=== PATIENT | male | born 1995 | race Caucasian/White ===

== ENCOUNTER 2020-06-15 21:24 | Inpatient (IN) | payer MEDICARE, MEDICAID, SELFPAY ==
[2020-06-15 21:35] VITALS: BP 139/60; PULSE 109; RESP 18; TEMP 37.4; O2SAT 99; BMI 21.4
--- NOTE | 2020-06-15 22:17 | XR_ITS ---
EXAMINATION: XR CHEST CLINICAL INFORMATION: Sickle cell pain. Complaining of shortness of breath COMPARISON: None TECHNIQUE: Frontal view of the chest was obtained. FINDINGS: There are coarse interstitial opacities at the right lateral lung base. No focal consolidation. No pleural effusion or pneumothorax. No pulmonary edema. Normal heart size. XR/XR chest 1V IMPRESSION: There are coarse interstitial opacities of the right lung base, nonspecific. No priors available for comparison. This could represent acute infection including viral pneumonitis.
--- NOTE | 2020-06-15 22:25 | ED.GENADULT ---
HPI - General Adult General Chief complaint: General Medical Stated complaint: Sickle Cell/Crisis Time Seen by Provider: 06/15/20 22:03 Source: patient Mode of arrival: ambulatory Limitations: no limitations History of Present Illness HPI narrative: patient comes to emergency room complaining of a sickle cell crisis. Patient states for the last 3 days he has been complaining of diffuse body aches, much worse in his right hip and right leg. 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 Patient denies fever or coughing. Patient is usually seen in [place] for Hematology and Oncology. Of note, patient prefers to be called Harley. SMALL complaint: sickle cell crisis Related Data Allergies Allergy/AdvReac Type Severity Reaction Status Date / Time morphine AdvReac Agitated Verified 06/15/20 22:24 oxycodone AdvReac Agitated Verified 06/15/20 22:24 Review of Systems Review of Systems: Constitutional : complaining of fatigue, generalized malaise, no fever no chills ENT/Mouth : No Hearing loss, No Ear Pain, No Nasal Congestion, No Sinus Pain, No Hoarseness, No sore throat, No Rhinorrhea, No Swallowing Difficulty Eyes: No Eye Pain, No Swelling, No Redness, No Foreign Body, No Discharge, No Vision Changes Cardiovascular : No Chest Pain, No SOB, No Dyspnea on Exertion, No Orthopnea, No Edema, No Palpitations Respiratory : No Cough, No Sputum, No Wheezing, No Smoke Exposure, No Dyspnea Gastrointestinal : No Nausea, No Vomiting, No Diarrhea, No Constipation, No abdominal Pain, No Hematochezia, No Melena Genitourinary : no irregular bleeding, No Dysuria, No Urinary Frequency, No Hematuria, No Urinary Incontinence, No Urgency, No Flank Pain, No Urinary Flow Changes, No Hesitancy Musculoskeletal : diffuse body ache, worse in the right hip and right lower extremity Skin : No Skin Lesions, No rash Neuro : No Weakness, No Numbness, No Paresthesias, No Loss of Consciousness, No Dizziness, No Headache Psych : No Anxiety/Panic, No Depression, No SI/HI/AH/VH, No Social Issues, Heme/Lymph: No Bruising, No Bleeding,No Lymphadenopathy, complaining of sickle cell exacerbation Endocrine : No Polyuria, No Polydipsia, No Temperature Intolerance [facility] Past Medical History Medical History (Updated 06/16/20 @ 01:05 by Kayce Villavicencio MD) Sickle cell anemia with crisis Social History Social History Smoking Status: Former smoker Use of substances other than those prescribed or required for medical reasons: No Advance Directives: No Advance Directives Information Provided: Yes Physical Exam Vital Signs: Vital Signs: Last Vital Signs Temp 98.1 F 06/15/20 23:54 Pulse 121 H 06/15/20 23:54 Resp 18 06/15/20 23:54 BP 127/70 06/15/20 23:54 Pulse Ox 95 06/15/20 23:54 Body Mass Index 21.4 Appearance: Alert. Oriented X3. No acute distress. Eyes: Pupils equal, round and reactive to light. ENT: Pharynx normal. Neck: Normal inspection. Neck supple. No lymph nodes noted. No crepitus CVS: Normal heart rate and rhythm. Pulses normal. Normal S1 and S2 Respiratory: No respiratory distress. Breath sounds normal. No Wheezing. No rales Abdomen: Soft and nontender. No rigidity. No distention. good BS x4 Skin: Skin warm and dry. Normal skin color. Normal skin turgor. Extremities: pain to palpation on upper back, right hip and right lower extremity, no edema Neuro: Oriented X 3. No motor deficit. No sensory deficit. Moving all extermities. No slurred speech. Course Course Course Narrative: Patient continues having intense pain despite 3 mg of Dilaudid. Patient being admitted for pain control. At this time acute chest syndrome is not suspected. Medical Decision Making Lab Data Result diagrams: 06/15/20 22:35 06/15/20 22:35 Labs: Lab Results 06/15/20 06/15/20 06/15/20 Range/Units 22:35 22:35 23:43 WBC 11.6 H (4.8-10.8) X10*3/uL RBC 2.27 L (4.60-5.80) X10*6/uL Hgb 8.2 L (14.0-18.0) g/dl Hct 22.3 L (42-52) % MCV 98.2 H (80-98) fL MCH 36.1 H (27.0-33.0) pg MCHC 36.8 H (31.0-36.0) g/dl RDW 21.1 H (11.0-16.0) % Plt Count 428 H (160-400) X10*3/uL MPV 9.1 L (9.4-12.4) fL Immature Gran % (Auto) 0.6 H (0.0-0.4) % Neut % (Auto) 49.4 (45-73) % Lymph % (Auto) 33.8 (20-40) % [place] % (Auto) 12.6 H (2-11) % Eos % (Auto) 3.0 (0-4) % Baso % (Auto) 0.6 (0-2) % Lymph # (Auto) 3.9 (1.2-4.9) X10*3/uL [place] # (Auto) 1.5 H (0.1-1.2) X10*3/uL Eos # (Auto) 0.4 (0.0-0.4) X10*3/uL Baso # (Auto) 0.1 (0.0-0.2) X10*3/uL Abs Immat Gran (auto) 0.07 H (0.00-0.03) X10*3/uL Absolute Neuts (auto) 5.7 (2.0-8.3) X10*3/uL Absolute Nucleated RBC 0.090 H (0.0-0.012) X10*3/uL Nucleated RBC % (auto) 0.8 H (0.0-0.2) /100WBC Smear Tech's Comments VERIFIED Absolute Retic 0.082 (0.026-0.095) X10*6/uL Percent Retic 35.1 H (0.5-1.8) % Immature Retic Fraction 36.2 H (2.3-13.4) % Retic Hgb Equivalent 32.3 (30.0-35.0) pg Sodium 136 (135-145) mmol/L Potassium 4.6 (3.3-5.1) mmol/l Chloride 104 (96-108) mmol/L Carbon Dioxide 22 (22-29) mmol/L Anion Gap 15 (12-20) BUN 7 L (9-16) mg/dL Creatinine 0.61 (0.5-1.4) mg/dL Estim Creat Clear Calc 173.7 Estimated GFR > 60 Random Glucose 93 (60-115) mg/dL Calcium 8.9 (8.4-10.2) mg/dL Total Bilirubin 2.5 H (0.0-1.0) mg/dL Direct Bilirubin 0.8 H (0.0-0.5) mg/dL AST 66 H (5-37) U/L ALT 26 (0-40) U/L Alkaline Phosphatase 80 (39-117) U/L Total Protein 8.5 H (6.5-8.0) g/dL Albumin 4.4 (3.5-5.0) g/dL Urine Color YELLOW Urine Appearance CLEAR Urine pH 7.5 (5.0-8.0) Ur Specific [place] 1.020 (1.005-1.025) Urine Protein NEG (NEG-TRACE) MG/DL Urine Glucose (UA) NEG (NEG) MG/DL Urine Ketones NEG (NEG) MG/DL Urine Blood TRACE (NEG) Urine Nitrite NEG (NEG) Ur Leukocyte Esterase NEG (NEG) Urine RBC 0-2 (0) /HPF Urine WBC 0-2 (0-4) /HPF Ur Squamous Epith Cells 2+ /LPF Urine Bacteria TRACE /LPF Imaging Data Chest x-ray: Radiologist's impression: There are coarse interstitial opacities at the right lateral lung base. No focal consolidation. No pleural effusion or pneumothorax. No pulmonary edema. Normal heart size. XR/XR chest 1V IMPRESSION: There are coarse interstitial opacities of the right lung base, nonspecific. No priors available for comparison. This could represent acute infection including viral pneumonitis. Discharge Plan Discharge Clinical Impression: Sickle cell anemia with pain Patient Disposition: Admitted As Inpatient
[2020-06-15 22:27] VITALS: BP 132/77; PULSE 112; RESP 18; TEMP 37.7; O2SAT 95
[2020-06-15] MEDS: 0.9 % Sodium Chloride 1,000 ML 999 ML IVCONT ×2 (22:39→23:41)
[2020-06-15 22:41] LABS: Basophils Absolute Auto 0.1 X10*3/uL (0.0-0.2); Basophils Percent Auto 0.6 % (0-2); Eosinophils Absolute Auto 0.4 X10*3/uL (0.0-0.4); Hematocrit 22.3 % (42-52); Hemoglobin 8.2 g/dl (14.0-18.0); Imm Gran Abs Auto 0.07 X10*3/uL (0.00-0.03); Imm Gran Pct Auto 0.6 % (0.0-0.4); Lymphocytes Absolute Auto 3.9 X10*3/uL (1.2-4.9); Lymphocytes Percent Auto 33.8 % (20-40); Mean Corpuscular HGB Conc 36.8 g/dl (31.0-36.0); Mean Corpuscular Hemoglobin 36.1 pg (27.0-33.0); Mean Corpuscular Volume 98.2 fL (80-98); Mean Platelet Volume 9.1 fL (9.4-12.4); Monocytes Absolute Auto 1.5 X10*3/uL (0.1-1.2); Monocytes Percent Auto 12.6 % (2-11); NRBC Pct Auto 0.8 /100WBC (0.0-0.2); Neutrophils Absolute Auto 5.7 X10*3/uL (2.0-8.3); Neutrophils Percent Auto 49.4 % (45-73); Platelet Count 428 X10*3/uL (160-400); Red Blood Count 2.27 X10*6/uL (4.60-5.80); Red Cell Distribution Width 21.1 % (11.0-16.0); White Blood Count 11.6 X10*3/uL (4.8-10.8)
[2020-06-15] MEDS: HYDROmorphone HCl 1 MG/ML SYRINGE IVPUSH ×2 (22:41→23:40)
[2020-06-15 23:05] LABS: Immature Retic Fraction 36.2 % (2.3-13.4); Retic HGB Equivalent 32.3 pg (30.0-35.0); Reticulocytes Absolute 0.082 X10*6/uL (0.026-0.095)
[2020-06-15 23:07] LABS: Alanine Aminotransferase 26 U/L (0-40); Albumin Level 4.4 g/dL (3.5-5.0); Alkaline Phosphatase 80 U/L (39-117); Anion Gap 15 (12-20); Aspartate Amino Transferase 66 U/L (5-37); Bilirubin Direct 0.8 mg/dL (0.0-0.5); Bilirubin Total 2.5 mg/dL (0.0-1.0); Blood Urea Nitrogen 7 mg/dL (9-16); Calcium 8.9 mg/dL (8.4-10.2); Carbon Dioxide 22 mmol/L (22-29); Chloride 104 mmol/L (96-108); Creatinine Clr Calc Pharmacy 173.7; Estimated Glomerular Filt Rate > 60; Glucose Random 93 mg/dL (60-115); Potassium 4.6 mmol/l (3.3-5.1); Sodium 136 mmol/L (135-145); Total Protein 8.5 g/dL (6.5-8.0)
[2020-06-15 23:08] LABS: Reticulocyte Percent 35.1 % (0.5-1.8)
[2020-06-15 23:13] LABS: MANUAL DIFF FLAG SCAN; SCAN SMEAR FLAG 1
[2020-06-15 23:14] LABS: SLIDE REVIEW VERIFIED
[2020-06-15 23:54] VITALS: BP 127/70; PULSE 121; RESP 18; TEMP 36.7; O2SAT 95
[2020-06-15 23:54] LABS: Glucose Urine UA NEG (NEG); Leukocyte Esterase Urine NEG (NEG); Nitrite Urine NEG (NEG); PH 7.5 (5.0-8.0); Urine Blood TRACE (NEG); Urine Ketones NEG (NEG); Urine Protein NEG (NEG-TRACE)
[2020-06-15 23:58] LABS: Appearance Urine CLEAR; Color Urine YELLOW
[2020-06-16] VITALS (17 sets, daily range): BP systolic 110–156; BP diastolic 66–79; PULSE 16–115; RESP 14–19; TEMP 36.2–36.6; O2SAT 93–98
[2020-06-16] LABS: Bacteria Urine TRACE /LPF; RBC Urine 0-2 /HPF (0); Squamous Epithelial Cell Urine 2+ /LPF; WBC Urine 0-2 /HPF (0-4)
--- NOTE | 2020-06-16 | CT_ITS ---
EXAMINATION: CT CHEST WITHOUT CONTRAST CLINICAL INFORMATION: Atypical pneumonia COMPARISON: Previous chest x-ray from yesterday TECHNIQUE: Multidetector volumetric CT imaging of the chest was done. Axial MIP volume rendering provided. Sagittal and coronal reformatted images were obtained. This CT examination was performed using dose optimization techniques as appropriate, variously including the following: *Automated exposure control *Adjustment of mA and/or kV according to patient size (this includes techniques or standardized protocols for targeted exams where dose is matched to indication/reason for exam; i.e. extremities or head) *Use of iterative reconstruction technique DLP: 138 mGy-cm FINDINGS: BUHR DRESSER: Unremarkable LUNGS: There is minimal atelectasis at the right lung base in the posterior costophrenic angle. There are small peripheral or subpleural nodular densities at the lung bases probably representing subpleural lymph nodes. The largest measures 3 x 7 mm in the left lower lobe axial image 471 series 7 and 3 x 8 mm in the right lower lobe axial image 500 series 7. No evidence of a pneumonia is seen. There is no endobronchial or endotracheal lesion. MEDIASTINUM: The mediastinum is normal. PLEURA: There is no pleural effusion. No pleural mass or thickening. AXILLA: No lymphadenopathy. UPPER ABDOMEN: The spleen is absent. OSSEOUS STRUCTURES: Unremarkable. CT/CT chest wo con IMPRESSION: No evidence of pneumonia. Minimal atelectasis in the right lower lobe. Small peripheral or subpleural bilateral lower lobe nodules probably representing subpleural lymph nodes. Absent spleen.
[2020-06-16] MEDS: HYDROmorphone HCl 2 MG/ML VIAL IVPUSH (00:59)
[2020-06-16] MEDS: ondansetron HCL 4 MG/2 ML VIAL IVPUSH ×3 (01:17→19:02)
[2020-06-16 01:32] LABS: COVID-19 Test Negative (Negative)
[2020-06-16] MEDS: HYDROmorphone HCl 0.5 MG/0.5 ML SYRINGE IVPUSH ×7 (03:45→21:08)
[2020-06-16] MEDS: 0.9 % Sodium Chloride 1,000 ML 100 ML IVCONT ×2 (03:45→15:17)
[2020-06-16] MEDS: Heparin Sodium,Porcine 5,000 UNIT/ML VIAL 5000 UNIT SUBCUT (03:46)
--- NOTE | 2020-06-16 04:58 | P.HPHOSP_ITS ---
History of Present Illness Date of Service: 06/16/20 Chief Complaint: sickle cell crisis this is a 25-year-old transgender female who would like to be called Harly, and referred to as she who presents to the hospital with complaints of sickle cell crisis. Patient has a history of sickle cell disease, and has now started having pain mostly in the back, Right, and joint all over. Patient reports that she has bilateral avascular necrosis, worse on the left that is being managed currently in [place]. Her pain started yesterday but worsened this a.m.. She is complaining of shortness of breath on laying down but has no lower extremity edema, and no shortness of breath on exertion. She has been having diarrhea for 1 week, as well as runny nose otherwise no cough, no sick contacts, and was tested for COVID-19 with her fiance yesterday. She denies any recent use of antibiotics. She has no urinary symptoms. She has no headache, change in vision, no abdominal pain nausea or vomiting. On arrival to the ED hemodynamically stable with no significant abnormal vitals. Pulse is 111. her hemoglobin is 8.2 with no previous 1 to compare, hematocrit of 22.3, WBC count of 11.6, total bili of 2.5, direct bili of 0.8, AST of 66, UA negative. COVID-19 negative. Chest x-ray shows coarse interst itial opacities of the right lung base. Nonspecific, no priors available for comparison. This could represent acute infection including viral pneumonitis. Past medical history: Sickle cell disease past surgical history: Status post splenectomy family history: Sickle cell in brother social history: Comes from home, denies any tobacco alcohol or illicit drugs, patient is currently undergoing transition to female. Review of Systems Review of Systems: Yes all other systems are reviewed and are negative [facility] Medical History (Updated 06/16/20 @ 05:13 by Sergey Cardoso MD) Sickle cell anemia with crisis Social History Household Members: Significant Other Housing: Apartment Do you presently have visiting nurse or other home services: No Smoking Status: Former smoker Use of substances other than those prescribed or required for medical reasons: Yes Substance Use Type: Marijuana Substance Use Frequency: Daily Last Used Substance: Days (ago) Currently Displaying Signs/Symptoms of Drug Intoxication Withdrawal: No Any prior treatment program specific to substance use: No Have you been hit, kicked, punched, or otherwise hurt by someone within the past year? If so, by whom?: No Do you feel safe in your current relationship?: Yes Is there a partner from a previous relationship who is making you feel unsafe now?: No Are you made to feel afraid or neglected: No Advance Directives: No Advance Directives Information Provided: Yes Do you have thoughts of harming others: None Do you have a plan to hurt others: No Plan Recently lost weight without trying: No Meds Allergies Allergy/AdvReac Type Severity Reaction Status Date / Time morphine AdvReac Agitated Verified 06/15/20 22:24 oxycodone AdvReac Agitated Verified 06/15/20 22:24 Home Medications Medication Instructions Recorded Confirmed Type clonidine HCl 0.1 mg PO BEDTIME PRN 06/16/20 06/16/20 History finasteride 1 mg PO DAILY 06/16/20 06/16/20 History folic acid 1 mg PO DAILY 06/16/20 06/16/20 History quetiapine [Seroquel] 200 mg PO TID 06/16/20 06/16/20 History trazodone 50 mg PO BID 06/16/20 06/16/20 History Physical Exam Vital Signs and Narrative: Vital Signs: Last Vital Signs Temp 97.8 F 06/16/20 04:00 Pulse 111 H 06/16/20 04:00 Resp 18 06/16/20 04:00 BP 154/79 H 06/16/20 04:00 Pulse Ox 93 06/16/20 04:00 Body Mass Index 21.4 Const: General: cooperative and no acute distress Orientation/consciousness: patient oriented x3 Eyes: General: appearance normal, both eyes and all related structures Pupils: Equal, round and reactive pupils present Resp: Effort & Inspection: normal respiratory effort and able to speak in complete sentences Auscultation: clear to auscultation bilaterally Cardio: Rate: regular rate Rhythm: regular rhythm GI: Palpation (GI): Soft to palpation Auscultation: normal bowel sounds Skin: General skin exam: no rashes or lesions noted Neuro: General: patient oriented x3 Cranial nerves: Yes Equal, round and reactive pupils present Cognition (Neuro): normal cognition Extrem: General: Yes normal to inspection and Yes no pedal edema Results Labs CBC and Chem 7: 06/15/20 22:35 06/15/20 22:35 Labs: Laboratory Results - last 24 hr 06/15/20 06/15/20 06/15/20 22:35 22:35 23:43 MCV 98.2 H MCH 36.1 H MCHC 36.8 H RDW 21.1 H Plt Count 428 H MPV 9.1 L Immature Gran % (Auto) 0.6 H Neut % (Auto) 49.4 Lymph % (Auto) 33.8 [place] % (Auto) 12.6 H Eos % (Auto) 3.0 Baso % (Auto) 0.6 Lymph # (Auto) 3.9 [place] # (Auto) 1.5 H Eos # (Auto) 0.4 Baso # (Auto) 0.1 Abs Immat Gran (auto) 0.07 H Absolute Neuts (auto) 5.7 Absolute Nucleated RBC 0.090 H Nucleated RBC % (auto) 0.8 H Smear Tech's Comments VERIFIED Absolute Retic 0.082 Percent Retic 35.1 H Immature Retic Fraction 36.2 H Retic Hgb Equivalent 32.3 Anion Gap 15 Estim Creat Clear Calc 173.7 Estimated GFR > 60 Random Glucose 93 Calcium 8.9 Total Bilirubin 2.5 H Direct Bilirubin 0.8 H AST 66 H ALT 26 Alkaline Phosphatase 80 Total Protein 8.5 H Albumin 4.4 Urine Color YELLOW Urine Appearance CLEAR Urine pH 7.5 Ur Specific [place] 1.020 Urine Protein NEG Urine Glucose (UA) NEG Urine Ketones NEG Urine Blood TRACE Urine Nitrite NEG Ur Leukocyte Esterase NEG Urine RBC 0-2 Urine WBC 0-2 Ur Squamous Epith Cells 2+ Urine Bacteria TRACE COVID-19 (MICHAEL) COVID-19 Clin Com 06/16/20 01:13 MCV MCH MCHC RDW Plt Count MPV Immature Gran % (Auto) Neut % (Auto) Lymph % (Auto) [place] % (Auto) Eos % (Auto) Baso % (Auto) Lymph # (Auto) [place] # (Auto) Eos # (Auto) Baso # (Auto) Abs Immat Gran (auto) Absolute Neuts (auto) Absolute Nucleated RBC Nucleated RBC % (auto) Smear Tech's Comments Absolute Retic Percent Retic Immature Retic Fraction Retic Hgb Equivalent Anion Gap Estim Creat Clear Calc Estimated GFR Random Glucose Calcium Total Bilirubin Direct Bilirubin AST ALT Alkaline Phosphatase Total Protein Albumin Urine Color Urine Appearance Urine pH Ur Specific [place] Urine Protein Urine Glucose (UA) Urine Ketones Urine Blood Urine Nitrite Ur Leukocyte Esterase Urine RBC Urine WBC Ur Squamous Epith Cells Urine Bacteria COVID-19 (MICHAEL) Negative COVID-19 Clin Com See Note Imaging Radiologist's Impressions: Impressions Chest X-Ray 06/15/20 22:17 IMPRESSION: There are coarse interstitial opacities of the right lung base, nonspecific. No priors available for comparison. This could represent acute infection including viral pneumonitis. Assessment and Plan (1) Sickle cell anemia with pain: Status: Acute (2) Sickle cell anemia with crisis: Status: Acute (3) Pneumonia: Status: Acute (4) Leukocytosis: Status: Acute is a 25-year-old female with past medical history of sickle cell disease who presents to the hospital with sickle cell crisis # sickle cell crisis - patient with acute pain and has history of avascular necrosis currently being managed at outside hospital - will manage with IV fluids, pain control # sickle cell anemia - we do not have a baseline hemoglobin but today's hemoglobin is 8.2 with el evated bilirubin plan: - Will transfuse 1 unit PRBC # interstitial opacity on x-ray concerning for pneumonia - given leukocytosis, and acute crisis will start patient on antibiotics - willobtain blood cultures - antibiotics can be DC if no further evidence of infection DVT prophylaxis: Lovenox
[2020-06-16] MEDS: Azithromycin 500 MG TABLET PO (06:03)
[2020-06-16] MEDS: cefTRIAXone sodium 1 GM in 0.9 % Sodium Chloride 50 ML IV (06:03)
[2020-06-16] MEDS: Acetaminophen 325 MG TABLET 650 MG PO (06:08)
--- NOTE | 2020-06-16 06:40 | PC.NURSE ---
Pt to floor from ED. Pt is transitioning to female and likes to be called Juan Carlos. Pt also requested to have female nurses, has history of PTSD. Pt also stated that if she is sleeping to not touch her to wake because she may swing. Sign placed on door to see nursing staff prior to entrance into room per pt request.
[2020-06-16] MEDS: 0.9 % Sodium Chloride Flush 3 ML SYRINGE IVFLUSH ×2 (08:13→15:17)
[2020-06-16] MEDS: Folic Acid 1 MG TABLET PO (08:20)
[2020-06-16] MEDS: QUEtiapine Fumarate 200 MG TABLET PO ×3 (08:20→19:03)
[2020-06-16] MEDS: traZODone HCL 50 MG TABLET PO ×2 (08:20→19:03)
--- NOTE | 2020-06-16 09:13 | MHC.CM.PN ---
CM spoke with Patient over the phone (Estela Bruner). Patient and her Fiance/HCP/Derrick live together in a rented room and Patient is mostly independent. Patient's goal is to return home and CM has initiated and will follow for dc planning. IMM addressed with Patient and a copy has been placed on the chart.Patient is a transgender female who wants to be called Harly and referred to as she. PCP and all Providers are from the [facility], per Patient.
[2020-06-16] MEDS: Hydroxyurea 500 MG CAPSULE 1500 MG PO (12:58)
--- NOTE | 2020-06-16 13:11 | PM.HEMONCCN ---
Subjective - Subjective Chief complaint: Back and lower extremity pain Consult date: 06/16/20 Primary Care Provider: Outside Physician HPI - Consult Narrative Reason for consult: Sickle cell pain crisis Narrative: Lucas Ford is a 25 year old male, transgender female called [facility], who is admitted with symptoms of back and bilateral lower extremity pain. She moved to [place] recently, her care has been in [place] since childhood. She developed symptoms of back and lower extremity pain, no fever, chills, chest pain or shortness of breath. She reports a diarrhea on and off for 1 week. She was tested negative for COVID-19. She has been admitted for IV fluids, pain control with narcotics. Her hemoglobin is not far from baseline therefore she does not appear to have a hemolytic crisis. Review of Systems - Constitutional Reports fatigue, Denies headache(s), Reports lack of energy, Reports malaise - ENT Reports no additional ear, nose, mouth, and throat complaints - Cardiovascular Reports no additional cardiovascular complaints - Respiratory Reports no additional respiratory complaints - Gastrointestinal Reports no additional gastrointestinal complaints PMFSH Medical History: Medical History (Last Updated 06/16/20 @ 13:21 by Jadyn Donahue MD) Avascular bone necrosis Sickle cell anemia with crisis Family History: Family History (Last Updated 06/16/20 @ 13:22 by Jadyn Donahue MD) Other Sickle cell anemia Surgical History: Surgical History (Last Updated 06/16/20 @ 13:21 by Jadyn Donahue MD) H/O splenectomy Smoking status: Former smoker Substance use type: does not use Home Medications and Allergies Current Medications: Current Medications Generic Name Dose Route Start Last Admin Trade Name Freq PRN Reason Stop Dose Admin Acetaminophen 650 mg 06/16/20 02:48 06/16/20 06:08 Acetaminophen 325 Mg Tablet PO 650 mg Q6H PRN Administration Pain, Mild (Pain Scale 1-3) Azithromycin 500 mg 06/16/20 05:15 06/16/20 06:03 Azithromycin 500 Mg Tablet PO 500 mg Q24H SUJIT Administration Clonidine HCl 0.1 mg 06/16/20 02:48 Clonidine Hcl 0.1 Mg Tablet PO BEDTIME PRN Anxiety Protocol Docusate Sodium 100 mg 06/16/20 02:48 Docusate Sodium 100 Mg Capsule PO DAILY PRN Constipation Enoxaparin Sodium 40 mg 06/16/20 08:00 06/16/20 08:22 Enoxaparin Sodium 40 Mg/0.4 Ml Syringe SUBCUT Not Given Q24H SUJIT Finasteride 2.5 mg 06/17/20 09:00 Finasteride 5 Mg Tablet PO DAILY SUJIT Folic Acid 1 mg 06/16/20 09:00 06/16/20 08:20 Folic Acid 1 Mg Tablet PO 1 mg DAILY SUJIT Administration Hydromorphone HCl 0.5 mg 06/16/20 02:48 06/16/20 12:57 Hydromorphone Hcl 0.5 Mg/0.5 Ml Syringe IVPUSH 0.5 mg Q2H PRN Administration Pain, Severe (Pain Scale 7-10) Hydroxyurea 1,000 mg 06/17/20 10:00 Hydroxyurea 500 Mg Capsule PO Q48H SUJIT Hydroxyurea 1,500 mg 06/16/20 10:30 06/16/20 12:58 Hydroxyurea 500 Mg Capsule PO 1,500 mg Q48H SUJIT Administration Sodium Chloride 1,000 mls @ 100 mls/hr 06/16/20 02:48 06/16/20 06:34 Ns IVCONT 100 mls/hr .Q10H SUJIT Infusion Ceftriaxone Sodium 1 gm/ 50 mls @ 100 mls/hr 06/16/20 05:15 06/16/20 06:33 Sodium Chloride IV Infused Q24H SUJIT Infusion Morphine Sulfate 4 mg 06/16/20 02:48 Morphine Sulfate 4 Mg/Ml Cartridge IVPUSH Q4H PRN Pain, Severe (Pain Scale 7-10) Ondansetron HCl 4 mg 06/16/20 02:48 06/16/20 08:46 Ondansetron Hcl 4 Mg/2 Ml Vial IVPUSH 4 mg Q8H PRN Administration Nausea and Vomiting Quetiapine Fumarate 200 mg 06/16/20 09:00 06/16/20 08:20 Quetiapine Fumarate 200 Mg Tablet PO 200 mg TID SUJIT Administration Sodium Chloride 3 ml 06/16/20 08:00 06/16/20 08:13 0.9 % Sodium Chloride Flush 3 Ml Syringe IVFLUSH 3 ml QSHIFT SUJIT Administration Trazodone HCl 50 mg 06/16/20 09:00 06/16/20 08:20 Trazodone Hcl 50 Mg Tablet PO 50 mg BID SUJIT Administration Home Medications Medication Instructions Recorded Confirmed Type clonidine HCl 0.1 mg PO BEDTIME PRN 06/16/20 06/16/20 History finasteride 1 mg PO DAILY 06/16/20 06/16/20 History folic acid 1 mg PO DAILY 06/16/20 06/16/20 History quetiapine [Seroquel] 200 mg PO TID 06/16/20 06/16/20 History trazodone 50 mg PO BID 06/16/20 06/16/20 History Allergies Allergy/AdvReac Type Severity Reaction Status Date / Time morphine AdvReac Agitated Verified 06/15/20 22:24 oxycodone AdvReac Agitated Verified 06/15/20 22:24 Physical Exam Vital signs: Vital Signs Temp 97.4 F 06/16/20 11:03 Pulse 98 06/16/20 11:03 Resp 14 06/16/20 12:57 BP 142/74 H 06/16/20 11:03 Pulse Ox 98 06/16/20 07:59 Intake & Output 06/15/20 06/16/20 06/16/20 18:59 06:59 18:59 Intake Total 2288.333 / 2288.333 0 / 0 Output Total 425 / 425 Balance 1863.333 / 1863.333 0 / 0 Urine Output (Average ml/kg/hr) 0.54 0.54 Intake: Intake (Blood Product) Amount 0 / 0 Red Blood Cells Aph (E0686) 0 / 0 Unit [id number] Intake, IV Amount 2288.333 / 2288.333 cefTRIAXone sodium 1 gm In 0.9 50 / 50 % Sodium Chloride 50 ml @ 100 mls/hr IV Q24H SUJIT Rx#: [id number] 0.9 % Sodium Chloride 1,000 ml 2238.333 / 2238.333 @ 100 mls/hr IVCONT .Q10H SUJIT Rx#:[id number] Output: Output, Urine Amount 425 / 425 Other: Urine Urinal Urine Color Punch Weight 65.771 kg Weight 65.771 kg - Constitutional Present: no acute distress - Routine HEENT Exam Head: Present: normal inspection Eye: Present: conjunctivae pale Hem/Onc Consult Result - Labs CBC & Chem 7: 06/15/20 22:35 06/15/20 22:35 Labs: Short CBC 06/15/20 Range/Units 22:35 WBC 11.6 H (4.8-10.8) X10*3/uL Hgb 8.2 L (14.0-18.0) g/dl Hct 22.3 L (42-52) % Plt Count 428 H (160-400) X10*3/uL BMP 06/15/20 22:35 Sodium 136 Potassium 4.6 Chloride 104 Carbon Dioxide 22 BUN 7 L Creatinine 0.61 Calcium 8.9 Liver Function 06/15/20 Range/Units 22:35 Total Bilirubin 2.5 H (0.0-1.0) mg/dL Direct Bilirubin 0.8 H (0.0-0.5) mg/dL AST 66 H (5-37) U/L ALT 26 (0-40) U/L Alkaline Phosphatase 80 (39-117) U/L Albumin 4.4 (3.5-5.0) g/dL Urine 06/15/20 Range/Units 23:43 Urine Color YELLOW Urine Appearance CLEAR Urine pH 7.5 (5.0-8.0) Ur Specific [place] 1.020 (1.005-1.025) Urine Protein NEG (NEG-TRACE) MG/DL Urine Glucose (UA) NEG (NEG) MG/DL Assessment and Plan (1) Sickle cell anemia with pain Status: Acute 1. This is a 25-year-old patient, transgender female with sickle cell anemia admitted with pain crisis. She is followed by maritime guard at [facility]. She is on hydroxyurea as well as folic acid daily. Hemoglobin is not far from baseline and she does not require blood transfusion. CT chest shows no evidence of pneumonia. I agree with hydration and narcotic pain control. Check labs daily, CBC, LDH and retic count. 2. Thrombocytosis probably related to splenectomy. Check iron studies. I thank you for this consultation.
[2020-06-16 14:14] LABS: Iron 119 mcg/dL (45-160); Percent Iron Saturation 44 % (15-50); Total Iron Binding Capacity 271 mcg/dL (228-428); Unsaturated Iron Binding 152 ug/dL
--- NOTE | 2020-06-16 14:24 | HO.PM.IMPN ---
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 [facility] mild nausea Physical Exam Vital Signs: Vital Signs: Last Vital Signs Temp 97.8 F 06/16/20 13:38 Pulse 94 06/16/20 13:38 Resp 14 06/16/20 13:38 BP 142/78 H 06/16/20 13:38 Pulse Ox 98 06/16/20 07:59 Body Mass Index 21.4 Gen: in no acute distress HEENT: sclera anicteric, pale conjunctivae moist mucus membranes Neck: supple Lungs: clear to auscultation bilaterally Heart: regular rate and rhythm, no murmurs Abd: soft, non-tender, non-distended Ext: no edema Skin: warm/well-perfused Neuro: alert and oriented x3, no focal findings Psych: appropriate affect Objective Data Current Medications Generic Name Dose Route Start Last Admin Trade Name Freq PRN Reason Stop Dose Admin Acetaminophen 650 mg 06/16/20 02:48 06/16/20 06:08 Acetaminophen 325 Mg Tablet PO 650 mg Q6H PRN Administration Pain, Mild (Pain Scale 1-3) Azithromycin 500 mg 06/16/20 05:15 06/16/20 06:03 Azithromycin 500 Mg Tablet PO 500 mg Q24H SUJIT Administration Clonidine HCl 0.1 mg 06/16/20 02:48 Clonidine Hcl 0.1 Mg Tablet PO BEDTIME PRN Anxiety Protocol Docusate Sodium 100 mg 06/16/20 02:48 Docusate Sodium 100 Mg Capsule PO DAILY PRN Constipation Enoxaparin Sodium 40 mg 06/16/20 08:00 06/16/20 08:22 Enoxaparin Sodium 40 Mg/0.4 Ml Syringe SUBCUT Not Given Q24H SUJIT Finasteride 2.5 mg 06/17/20 09:00 Finasteride 5 Mg Tablet PO DAILY SUJIT Folic Acid 1 mg 06/16/20 09:00 06/16/20 08:20 Folic Acid 1 Mg Tablet PO 1 mg DAILY SUJIT Administration Hydromorphone HCl 0.5 mg 06/16/20 02:48 06/16/20 12:57 Hydromorphone Hcl 0.5 Mg/0.5 Ml Syringe IVPUSH 0.5 mg Q2H PRN Administration Pain, Severe (Pain Scale 7-10) Hydroxyurea 1,000 mg 06/17/20 10:00 Hydroxyurea 500 Mg Capsule PO Q48H SUJIT Hydroxyurea 1,500 mg 06/16/20 10:30 06/16/20 12:58 Hydroxyurea 500 Mg Capsule PO 1,500 mg Q48H SUJIT Administration Sodium Chloride 1,000 mls @ 100 mls/hr 06/16/20 02:48 06/16/20 06:34 Ns IVCONT 100 mls/hr .Q10H SUJIT Infusion Ceftriaxone Sodium 1 gm/ 50 mls @ 100 mls/hr 06/16/20 05:15 06/16/20 06:33 Sodium Chloride IV Infused Q24H SUJIT Infusion Morphine Sulfate 4 mg 06/16/20 02:48 Morphine Sulfate 4 Mg/Ml Cartridge IVPUSH Q4H PRN Pain, Severe (Pain Scale 7-10) Ondansetron HCl 4 mg 06/16/20 02:48 06/16/20 08:46 Ondansetron Hcl 4 Mg/2 Ml Vial IVPUSH 4 mg Q8H PRN Administration Nausea and Vomiting Quetiapine Fumarate 200 mg 06/16/20 09:00 06/16/20 08:20 Quetiapine Fumarate 200 Mg Tablet PO 200 mg TID SUJIT Administration Sodium Chloride 3 ml 06/16/20 08:00 06/16/20 08:13 0.9 % Sodium Chloride Flush 3 Ml Syringe IVFLUSH 3 ml QSHIFT SUJIT Administration Trazodone HCl 50 mg 06/16/20 09:00 06/16/20 08:20 Trazodone Hcl 50 Mg Tablet PO 50 mg BID SUJIT Administration Labs CBC & Chem 7: 06/15/20 22:35 06/15/20 22:35 Labs: Laboratory Results - last 24 hr 06/15/20 06/15/20 06/15/20 22:35 22:35 23:43 WBC 11.6 H RBC 2.27 L Hgb 8.2 L Hct 22.3 L MCV 98.2 H MCH 36.1 H MCHC 36.8 H RDW 21.1 H Plt Count 428 H MPV 9.1 L Immature Gran % (Auto) 0.6 H Neut % (Auto) 49.4 Lymph % (Auto) 33.8 [place] % (Auto) 12.6 H Eos % (Auto) 3.0 Baso % (Auto) 0.6 Lymph # (Auto) 3.9 [place] # (Auto) 1.5 H Eos # (Auto) 0.4 Baso # (Auto) 0.1 Abs Immat Gran (auto) 0.07 H Absolute Neuts (auto) 5.7 Absolute Nucleated RBC 0.090 H Nucleated RBC % (auto) 0.8 H Smear Tech's Comments VERIFIED Absolute Retic 0.082 Percent Retic 35.1 H Immature Retic Fraction 36.2 H Retic Hgb Equivalent 32.3 Sodium 136 Potassium 4.6 Chloride 104 Carbon Dioxide 22 Anion Gap 15 BUN 7 L Creatinine 0.61 Estim Creat Clear Calc 173.7 Estimated GFR > 60 Random Glucose 93 Calcium 8.9 Iron 119 TIBC 271 % Saturation 44 Unsat Iron Binding 152 Total Bilirubin 2.5 H Direct Bilirubin 0.8 H AST 66 H ALT 26 Alkaline Phosphatase 80 Total Protein 8.5 H Albumin 4.4 Urine Color YELLOW Urine Appearance CLEAR Urine pH 7.5 Ur Specific [place] 1.020 Urine Protein NEG Urine Glucose (UA) NEG Urine Ketones NEG Urine Blood TRACE Urine Nitrite NEG Ur Leukocyte Esterase NEG Urine RBC 0-2 Urine WBC 0-2 Ur Squamous Epith Cells 2+ Urine Bacteria TRACE COVID-19 (MICHAEL) COVID-19 Clin Com Blood Type Antibody Screen Antigen Identification Crossmatch Blood Bank Comment 06/16/20 06/16/20 01:13 05:38 WBC RBC Hgb Hct MCV MCH MCHC RDW Plt Count MPV Immature Gran % (Auto) Neut % (Auto) Lymph % (Auto) [place] % (Auto) Eos % (Auto) Baso % (Auto) Lymph # (Auto) [place] # (Auto) Eos # (Auto) Baso # (Auto) Abs Immat Gran (auto) Absolute Neuts (auto) Absolute Nucleated RBC Nucleated RBC % (auto) Smear Tech's Comments Absolute Retic Percent Retic Immature Retic Fraction Retic Hgb Equivalent Sodium Potassium Chloride Carbon Dioxide Anion Gap BUN Creatinine Estim Creat Clear Calc Estimated GFR Random Glucose Calcium Iron TIBC % Saturation Unsat Iron Binding Total Bilirubin Direct Bilirubin AST ALT Alkaline Phosphatase Total Protein Albumin Urine Color Urine Appearance Urine pH Ur Specific [place] Urine Protein Urine Glucose (UA) Urine Ketones Urine Blood Urine Nitrite Ur Leukocyte Esterase Urine RBC Urine WBC Ur Squamous Epith Cells Urine Bacteria COVID-19 (MICHAEL) Negative COVID-19 Clin Com See Note Blood Type O Positive Antibody Screen NEGATIVE Antigen Identification K Antigen - NEGATIVE Crossmatch See Detail Blood Bank Comment Technical Assessment and Plan (1) Sickle cell anemia with pain: Status: Acute Assessment and Plan: 25yo M->F with sickle cell disease admitted for pain crisis # sickle pain crisis - IV hydration, prn IV hydromorphone - monitor Hb, retic, LDH, Tbili - continue hydroxyurea (on 1500 mg alternating with 1000 mg every other day) # question of pneumonia - on CXR; CT chest shows more atelectasis and subpleural lymph nodes. on ceftriaxone + azithromycin, t/c discontinuing if PCT is low tomorrow # transgender - continue finasteride. also on injectable estrogen at home # mood disorder - continue quetiapine + clonidine + trazodone # VTE ppx - LMWH
[2020-06-17] VITALS (15 sets, daily range): BP systolic 119–151; BP diastolic 60–81; PULSE 79–100; RESP 16–20; TEMP 36.2–37.1; O2SAT 93–95; BMI 22.4
[2020-06-17] MEDS: 0.9 % Sodium Chloride 1,000 ML 100 ML IVCONT (00:30)
[2020-06-17] MEDS: HYDROmorphone HCl 0.5 MG/0.5 ML SYRINGE IVPUSH ×6 (01:12→20:36)
[2020-06-17] MEDS: Azithromycin 500 MG TABLET PO (05:41)
[2020-06-17] MEDS: cefTRIAXone sodium 1 GM in 0.9 % Sodium Chloride 50 ML IV (05:42)
[2020-06-17 06:36] LABS: MANUAL DIFF FLAG NO
[2020-06-17 06:48] LABS: Basophils Absolute Auto 0.1 X10*3/uL (0.0-0.2); Basophils Percent Auto 0.7 % (0-2); Eosinophils Absolute Auto 0.6 X10*3/uL (0.0-0.4); Eosinophils Percent Auto 8.3 % (0-4); Hemoglobin 7.1 g/dl (14.0-18.0); Imm Gran Abs Auto 0.04 X10*3/uL (0.00-0.03); Imm Gran Pct Auto 0.6 % (0.0-0.4); Lymphocytes Absolute Auto 2.7 X10*3/uL (1.2-4.9); Lymphocytes Percent Auto 38.5 % (20-40); Mean Corpuscular HGB Conc 35.5 g/dl (31.0-36.0); Mean Corpuscular Hemoglobin 33.8 pg (27.0-33.0); Mean Corpuscular Volume 95.2 fL (80-98); Mean Platelet Volume 9.4 fL (9.4-12.4); Monocytes Absolute Auto 1.3 X10*3/uL (0.1-1.2); Monocytes Percent Auto 18.1 % (2-11); Neutrophils Absolute Auto 2.4 X10*3/uL (2.0-8.3); Neutrophils Percent Auto 33.8 % (45-73); Platelet Count 361 X10*3/uL (160-400); Red Cell Distribution Width 20.1 % (11.0-16.0); White Blood Count 7.1 X10*3/uL (4.8-10.8)
[2020-06-17 07:21] LABS: Anion Gap 11 (12-20); Blood Urea Nitrogen 6 mg/dL (9-16); Calcium 8.4 mg/dL (8.4-10.2); Carbon Dioxide 22 mmol/L (22-29); Chloride 107 mmol/L (96-108); Creatinine Clr Calc Pharmacy 191.6; Estimated Glomerular Filt Rate > 60; Glucose Random 80 mg/dL (60-115); Potassium 4.1 mmol/l (3.3-5.1); Sodium 136 mmol/L (135-145)
[2020-06-17 07:32] LABS: Immature Retic Fraction 29.1 % (2.3-13.4); Retic HGB Equivalent 31.2 pg (30.0-35.0); Reticulocyte Percent 10.8 % (0.5-1.8)
[2020-06-17 07:33] LABS: Reticulocytes Absolute 0.215 X10*6/uL (0.026-0.095)
[2020-06-17 07:36] LABS: Ferritin 232 ng/mL (20-250)
[2020-06-17 07:43] LABS: NRBC Pct Auto 2.8 /100WBC (0.0-0.2)
[2020-06-17 07:45] LABS: Alanine Aminotransferase 20 U/L (0-40); Albumin Level 3.5 g/dL (3.5-5.0); Alkaline Phosphatase 51 U/L (39-117); Aspartate Amino Transferase 41 U/L (5-37); Bilirubin Total 2.1 mg/dL (0.0-1.0); Lactate Dehydrogenase 417 U/L (118-273); Total Protein 6.6 g/dL (6.5-8.0)
[2020-06-17 08:08] LABS: Procalcitonin 0.04 ng/mL
[2020-06-17] MEDS: 0.9 % Sodium Chloride Flush 3 ML SYRINGE IVFLUSH ×3 (09:18→20:37)
[2020-06-17] MEDS: Hydroxyurea 500 MG CAPSULE 1000 MG PO (09:19)
[2020-06-17] MEDS: Folic Acid 1 MG TABLET PO (09:19)
[2020-06-17] MEDS: QUEtiapine Fumarate 200 MG TABLET PO ×3 (09:19→20:35)
[2020-06-17] MEDS: Finasteride 5 MG TABLET 2.5 MG PO (09:19)
[2020-06-17] MEDS: Acetaminophen 325 MG TABLET 650 MG PO ×2 (09:30→20:35)
[2020-06-17 10:43] LABS: Bilirubin Direct 1.3 mg/dL (0.0-0.5); Bilirubin Total 2.4 mg/dL (0.0-1.0)
--- NOTE | 2020-06-17 14:00 | HO.PM.IMPN ---
Subjective Subjective Date of Service: 06/17/20 Interval History: ongoing back, hip, chest pain no fever no cough or dyspnea mildly nauseous last night Physical Exam Vital Signs: Vital Signs: Last Vital Signs Temp 97.6 F 06/17/20 13:13 Pulse 97 06/17/20 13:13 Resp 18 06/17/20 13:13 BP 142/80 H 06/17/20 13:13 Pulse Ox 94 06/17/20 12:00 Body Mass Index 22.4 Gen: in no acute distress HEENT: sclera anicteric, pale conjunctivae moist mucus membranes Neck: supple Lungs: clear to auscultation bilaterally Heart: regular rate and rhythm, no murmurs Abd: soft, non-tender, non-distended Ext: no edema Skin: warm/well-perfused Neuro: alert and oriented x3, no focal findings Psych: appropriate affect Objective Data Current Medications Generic Name Dose Route Start Last Admin Trade Name Freq PRN Reason Stop Dose Admin Acetaminophen 650 mg 06/16/20 02:48 06/17/20 09:30 Acetaminophen 325 Mg Tablet PO 650 mg Q6H PRN Administration Pain, Mild (Pain Scale 1-3) Azithromycin 500 mg 06/16/20 05:15 06/17/20 05:41 Azithromycin 500 Mg Tablet PO 500 mg Q24H SUJIT Administration Clonidine HCl 0.1 mg 06/16/20 02:48 Clonidine Hcl 0.1 Mg Tablet PO BEDTIME PRN Anxiety Protocol Docusate Sodium 100 mg 06/16/20 02:48 Docusate Sodium 100 Mg Capsule PO DAILY PRN Constipation Enoxaparin Sodium 40 mg 06/16/20 08:00 06/17/20 09:18 Enoxaparin Sodium 40 Mg/0.4 Ml Syringe SUBCUT Not Given Q24H SUJIT Finasteride 2.5 mg 06/17/20 09:00 06/17/20 09:19 Finasteride 5 Mg Tablet PO 2.5 mg DAILY SUJIT Administration Folic Acid 1 mg 06/16/20 09:00 06/17/20 09:19 Folic Acid 1 Mg Tablet PO 1 mg DAILY SUJIT Administration Hydromorphone HCl 0.5 mg 06/16/20 02:48 06/17/20 12:10 Hydromorphone Hcl 0.5 Mg/0.5 Ml Syringe IVPUSH 0.5 mg Q2H PRN Administration Pain, Severe (Pain Scale 7-10) Hydroxyurea 1,000 mg 06/17/20 10:00 06/17/20 09:19 Hydroxyurea 500 Mg Capsule PO 1,000 mg Q48H SUJIT Administration Hydroxyurea 1,500 mg 06/16/20 10:30 06/16/20 12:58 Hydroxyurea 500 Mg Capsule PO 1,500 mg Q48H SUJIT Administration Sodium Chloride 1,000 mls @ 100 mls/hr 06/16/20 02:48 06/17/20 10:31 Ns IVCONT Infused .Q10H SUJIT Infusion Ceftriaxone Sodium 1 gm/ 50 mls @ 100 mls/hr 06/16/20 05:15 06/17/20 06:10 Sodium Chloride IV Infused Q24H SUJIT Infusion Morphine Sulfate 4 mg 06/16/20 02:48 Morphine Sulfate 4 Mg/Ml Cartridge IVPUSH Q4H PRN Pain, Severe (Pain Scale 7-10) Ondansetron HCl 4 mg 06/16/20 02:48 06/16/20 19:02 Ondansetron Hcl 4 Mg/2 Ml Vial IVPUSH 4 mg Q8H PRN Administration Nausea and Vomiting Quetiapine Fumarate 200 mg 06/16/20 09:00 06/17/20 09:19 Quetiapine Fumarate 200 Mg Tablet PO 200 mg TID SUJIT Administration Sodium Chloride 3 ml 06/16/20 08:00 06/17/20 09:18 0.9 % Sodium Chloride Flush 3 Ml Syringe IVFLUSH 3 ml QSHIFT SUJIT Administration Trazodone HCl 50 mg 06/17/20 21:00 Trazodone Hcl 50 Mg Tablet PO BEDTIME [facility] Labs CBC & Chem 7: 06/17/20 05:47 06/17/20 05:47 Microbiology Microbiology Results: Microbiology 06/16/20 05:31 Blood - Venous Blood Culture - Preliminary No growth after 24 hours. 06/16/20 05:41 Blood - Venous Blood Culture - Preliminary No growth after 24 hours. Assessment and Plan (1) Sickle cell anemia with pain: Status: Acute Assessment and Plan: hospital d#2 25yo M->F with sickle cell disease admitted for pain crisis # sickle pain crisis - continue IV hydration, prn IV hydromorphone - monitor Hb, retic, LDH, Tbili - transfuse another 1u pRBCs today - continue hydroxyurea (on 1500 mg alternating with 1000 mg every other day) # question of pneumonia - on CXR but CT chest shows more atelectasis and subpleural lymph nodes. given asplenia, pt remains on ceftriaxone + azithromycin d#2, t/c discontinuing if PCT is low tomorrow # transgender - continue finasteride. also on injectable estrogen at home # mood disorder - continue quetiapine + clonidine + trazodone # VTE ppx - LMWH
[2020-06-17] MEDS: ondansetron HCL 4 MG/2 ML VIAL IVPUSH (17:41)
[2020-06-17] MEDS: traZODone HCL 50 MG TABLET PO (20:36)
[2020-06-18] MEDS: HYDROmorphone HCl 0.5 MG/0.5 ML SYRINGE IVPUSH ×4 (00:27→11:28)
[2020-06-18 04:00] VITALS: BP 107/59; PULSE 61; RESP 18; TEMP 36.6; O2SAT 95
[2020-06-18 05:11] VITALS: RESP 18
[2020-06-18] MEDS: cefTRIAXone sodium 1 GM in 0.9 % Sodium Chloride 50 ML IV (05:11)
[2020-06-18] MEDS: Azithromycin 500 MG TABLET PO (05:11)
[2020-06-18 06:00] VITALS: BMI 21.9
[2020-06-18 07:27] LABS: Lactate Dehydrogenase 606 U/L (118-273)
[2020-06-18 08:00] VITALS: BP 134/70; PULSE 74; RESP 16; TEMP 37.1; O2SAT 99
[2020-06-18] MEDS: 0.9 % Sodium Chloride Flush 3 ML SYRINGE IVFLUSH (08:44)
[2020-06-18 08:45] VITALS: RESP 16
[2020-06-18] MEDS: QUEtiapine Fumarate 200 MG TABLET PO (08:45)
[2020-06-18] MEDS: Finasteride 5 MG TABLET 2.5 MG PO (08:45)
[2020-06-18] MEDS: Folic Acid 1 MG TABLET PO (08:45)
[2020-06-18 09:11] LABS: Procalcitonin 0.04 ng/mL
[2020-06-18] MEDS: Hydroxyurea 500 MG CAPSULE 1500 MG PO (10:16)
[2020-06-18] MEDS: Acetaminophen 325 MG TABLET 650 MG PO (10:16)
[2020-06-18 10:19] LABS: MANUAL DIFF FLAG NO
[2020-06-18 10:29] LABS: Basophils Absolute Auto 0.1 X10*3/uL (0.0-0.2); Basophils Percent Auto 0.6 % (0-2); Eosinophils Absolute Auto 0.5 X10*3/uL (0.0-0.4); Eosinophils Percent Auto 6.3 % (0-4); Hematocrit 26.4 % (42-52); Hemoglobin 9.5 g/dl (14.0-18.0); Imm Gran Abs Auto 0.03 X10*3/uL (0.00-0.03); Imm Gran Pct Auto 0.4 % (0.0-0.4); Lymphocytes Percent Auto 23.4 % (20-40); Mean Corpuscular Hemoglobin 33.8 pg (27.0-33.0); Mean Platelet Volume 9.2 fL (9.4-12.4); Monocytes Absolute Auto 1.3 X10*3/uL (0.1-1.2); Monocytes Percent Auto 15.7 % (2-11); Neutrophils Absolute Auto 4.6 X10*3/uL (2.0-8.3); Neutrophils Percent Auto 53.6 % (45-73); Platelet Count 417 X10*3/uL (160-400); Red Blood Count 2.81 X10*6/uL (4.60-5.80); Red Cell Distribution Width 19.6 % (11.0-16.0); White Blood Count 8.5 X10*3/uL (4.8-10.8)
[2020-06-18 10:32] LABS: NRBC Pct Auto 2.4 /100WBC (0.0-0.2)
[2020-06-18 11:28] VITALS: RESP 18
[2020-06-18 12:00] VITALS: BP 129/84; PULSE 86; RESP 18; TEMP 37; O2SAT 95
--- NOTE | 2020-06-18 13:58 | P.DS_ITS ---
DS: Providers Provider Date of admission: 06/16/20 01:45 Primary care physician: Jeremías Patterson MD Stanton Servin . [place] [id number] Consults: 06/16/20 10:05 Consult to Hematology / Oncology Routine Consulting Provider[place] [facility] [place] Reason for consultation: [facility] DS: Diagnosis Discharge Diagnosis (1) Sickle cell anemia with pain: Status: Acute DS: Medications Discharge Medications Home Medications: Home Medications Medication Instructions Recorded Confirmed clonidine HCl 0.1 mg PO BEDTIME PRN 06/16/20 06/16/20 finasteride 1 mg PO DAILY 06/16/20 06/16/20 folic acid 1 mg PO DAILY 06/16/20 06/16/20 quetiapine [Seroquel] 200 mg PO TID 06/16/20 06/16/20 trazodone 50 mg PO BID 06/16/20 06/16/20 Previous Rx's Medication Instructions Recorded hydromorphone [Dilaudid] 2 mg PO Q6H PRN #12 tab 06/18/20 DS: Summary Hospital Course Hospital Course: from admission history and physical by hospitalist Sergey Cardoso, 06/16/20: this is a 25-year-old transgender female who would like to be called Harly, and referred to as she who presents to the hospital with complaints of sickle cell crisis. Patient has a history of sickle cell disease, and has now started having pain mostly in the back, Right, and joint all over. Patient reports that she has bilateral avascular necrosis, worse on the left that is being managed currently in [place]. Her pain started yesterday but worsened this a.m.. She is complaining of shortness of breath on laying down but has no lower extremity edema, and no shortness of breath on exertion. She has been having diarrhea for 1 week, as well as runny nose otherwise no cough, no sick contacts, and was tested for COVID-19 with her fiance yesterday. She denies any recent use of antibiotics. She has no urinary symptoms. She has no headache, change in vision, no abdominal pain nausea or vomiting. On arrival to the ED hemodynamically stable with no significant abnormal vitals. Pulse is 111. her hemoglobin is 8.2 with no previous 1 to compare, hematocrit of 22.3, WBC count of 11.6, total bili of 2.5, direct bili of 0.8, AST of 66, UA negative. COVID-19 negative. Chest x-ray shows coarse interstitial opacities of the right lung base. Nonspecific, no priors available for comparison. This could represent acute infection including viral pneumonitis. She was [place] the [facility] She was treated with IV fluids and IV hydromorphone and transfused 2 units of packed red blood cells. CT scan and procalcitonin trend argued against pneumonia, so antibiotics were discontinued after 48 hours. Hb at discharge was 9.5. She still had some pain in her back and hip but insisted on leaving the hospital as she felt that she had been treated rudely by some staff members. I attempted to remedy the situation but the patient insisted that she would leave the hospital regardless, and she had clinically improved to the point that I performed a routine discharge rather than her signing out against medical advice. Time Spent with Patient Time attestation: Total time spent providing and/or coordinating discharge services: 35 Physical Exam Vital Signs: Vital Signs: Last Vital Signs Temp 98.6 F 06/18/20 12:00 Pulse 86 06/18/20 12:00 Resp 18 06/18/20 12:00 BP 129/84 06/18/20 12:00 Pulse Ox 95 06/18/20 12:00 Body Mass Index 21.9 Gen: in no acute distress HEENT: sclera anicteric, pale conjunctivae moist mucus membranes Neck: supple Lungs: clear to auscultation bilaterally Heart: regular rate and rhythm, no murmurs Abd: soft, non-tender, non-distended Ext: no edema Skin: warm/well-perfused Neuro: alert and oriented x3, no focal findings Psych: appropriate affect DS: Data Data Completed and Pending Labs on day of discharge: Laboratory Tests 06/15/20 06/15/20 06/15/20 22:35 22:35 23:43 WBC 11.6 H RBC 2.27 L Hgb 8.2 L Hct 22.3 L MCV 98.2 H MCH 36.1 H MCHC 36.8 H RDW 21.1 H Plt Count 428 H MPV 9.1 L Immature Gran % (Auto) 0.6 H Neut % (Auto) 49.4 Lymph % (Auto) 33.8 [place] % (Auto) 12.6 H Eos % (Auto) 3.0 Baso % (Auto) 0.6 Lymph # (Auto) 3.9 [place] # (Auto) 1.5 H Eos # (Auto) 0.4 Baso # (Auto) 0.1 Abs Immat Gran (auto) 0.07 H Absolute Neuts (auto) 5.7 Absolute Nucleated RBC 0.090 H Nucleated RBC % (auto) 0.8 H Smear Tech's Comments VERIFIED Smear Path Review Absolute Retic 0.082 Percent Retic 35.1 H Immature Retic Fraction 36.2 H Retic Hgb Equivalent 32.3 Sodium 136 Potassium 4.6 Chloride 104 Carbon Dioxide 22 Anion Gap 15 BUN 7 L Creatinine 0.61 Estim Creat Clear Calc 173.7 Estimated GFR > 60 Random Glucose 93 Calcium 8.9 Iron 119 TIBC 271 % Saturation 44 Unsat Iron Binding 152 Ferritin Total Bilirubin 2.5 H Direct Bilirubin 0.8 H AST 66 H ALT 26 Alkaline Phosphatase 80 Lactate Dehydrogenase C-Reactive Protein Total Protein 8.5 H Albumin 4.4 Procalcitonin Urine Color YELLOW Urine Appearance CLEAR Urine pH 7.5 Ur Specific [place] 1.020 Urine Protein NEG Urine Glucose (UA) NEG Urine Ketones NEG Urine Blood TRACE Urine Nitrite NEG Ur Leukocyte Esterase NEG Urine RBC 0-2 Urine WBC 0-2 Ur Squamous Epith Cells 2+ Urine Bacteria TRACE COVID-19 (MICHAEL) COVID-19 Clin Com Blood Type Antibody Screen Antigen Identification Crossmatch Blood Bank Comment 06/16/20 06/16/20 06/17/20 01:13 05:38 05:47 WBC 7.1 RBC 2.10 L Hgb 7.1 L Hct 20.0 L* MCV 95.2 MCH 33.8 H MCHC 35.5 RDW 20.1 H Plt Count 361 MPV 9.4 Immature Gran % (Auto) 0.6 H Neut % (Auto) 33.8 L Lymph % (Auto) 38.5 [place] % (Auto) 18.1 H Eos % (Auto) 8.3 H Baso % (Auto) 0.7 Lymph # (Auto) 2.7 [place] # (Auto) 1.3 H Eos # (Auto) 0.6 H Baso # (Auto) 0.1 Abs Immat Gran (auto) 0.04 H Absolute Neuts (auto) 2.4 Absolute Nucleated RBC 0.200 H Nucleated RBC % (auto) 2.8 H Smear Tech's Comments Smear Path Review SEE NOTE Absolute Retic Percent Retic Immature Retic Fraction Retic Hgb Equivalent Sodium Potassium Chloride Carbon Dioxide Anion Gap BUN Creatinine Estim Creat Clear Calc Estimated GFR Random Glucose Calcium Iron TIBC % Saturation Unsat Iron Binding Ferritin Total Bilirubin Direct Bilirubin AST ALT Alkaline Phosphatase Lactate Dehydrogenase C-Reactive Protein Total Protein Albumin Procalcitonin Urine Color Urine Appearance Urine pH Ur Specific [place] Urine Protein Urine Glucose (UA) Urine Ketones Urine Blood Urine Nitrite Ur Leukocyte Esterase Urine RBC Urine WBC Ur Squamous Epith Cells Urine Bacteria COVID-19 (MICHAEL) Negative COVID-19 Clin Com See Note Blood Type O Positive Antibody Screen NEGATIVE Antigen Identification K Antigen - NEGATIVE Crossmatch See Detail Blood Bank Comment Technical 06/17/20 06/17/20 06/17/20 05:47 05:47 05:47 WBC RBC Hgb Hct MCV MCH MCHC RDW Plt Count MPV Immature Gran % (Auto) Neut % (Auto) Lymph % (Auto) [place] % (Auto) Eos % (Auto) Baso % (Auto) Lymph # (Auto) [place] # (Auto) Eos # (Auto) Baso # (Auto) Abs Immat Gran (auto) Absolute Neuts (auto) Absolute Nucleated RBC Nucleated RBC % (auto) Smear Tech's Comments Smear Path Review Absolute Retic 0.215 H Percent Retic 10.8 H Immature Retic Fraction 29.1 H Retic Hgb Equivalent 31.2 Sodium 136 Potassium 4.1 Chloride 107 Carbon Dioxide 22 Anion Gap 11 L BUN 6 L Creatinine 0.58 Estim Creat Clear Calc 191.6 Estimated GFR > 60 Random Glucose 80 Calcium 8.4 Iron TIBC % Saturation Unsat Iron Binding Ferritin 232 Total Bilirubin 2.1 H Direct Bilirubin 1.0 H AST 41 H ALT 20 Alkaline Phosphatase 51 D Lactate Dehydrogenase 417 H C-Reactive Protein 0.50 Total Protein 6.6 D Albumin 3.5 D Procalcitonin Urine Color Urine Appearance Urine pH Ur Specific [place] Urine Protein Urine Glucose (UA) Urine Ketones Urine Blood Urine Nitrite Ur Leukocyte Esterase Urine RBC Urine WBC Ur Squamous Epith Cells Urine Bacteria COVID-19 (MICHAEL) COVID-19 Clin Com Blood Type Antibody Screen Antigen Identification Crossmatch Blood Bank Comment 06/17/20 06/17/20 06/18/20 05:47 09:38 05:56 WBC Cancelled RBC Cancelled Hgb Cancelled Hct Cancelled MCV Cancelled MCH Cancelled MCHC Cancelled RDW Cancelled Plt Count Cancelled MPV Cancelled Immature Gran % (Auto) Cancelled Neut % (Auto) Cancelled Lymph % (Auto) Cancelled [place] % (Auto) Cancelled Eos % (Auto) Cancelled Baso % (Auto) Cancelled Lymph # (Auto) Cancelled [place] # (Auto) Cancelled Eos # (Auto) Cancelled Baso # (Auto) Cancelled Abs Immat Gran (auto) Cancelled Absolute Neuts (auto) Cancelled Absolute Nucleated RBC Cancelled Nucleated RBC % (auto) Cancelled Smear Tech's Comments Smear Path Review Absolute Retic Cancelled Percent Retic Cancelled Immature Retic Fraction Cancelled Retic Hgb Equivalent Cancelled Sodium Potassium Chloride Carbon Dioxide Anion Gap BUN Creatinine Estim Creat Clear Calc Estimated GFR Random Glucose Calcium Iron TIBC % Saturation Unsat Iron Binding Ferritin Total Bilirubin 2.4 H Direct Bilirubin 1.3 H AST ALT Alkaline Phosphatase Lactate Dehydrogenase C-Reactive Protein Total Protein Albumin Procalcitonin 0.04 Urine Color Urine Appearance Urine pH Ur Specific [place] Urine Protein Urine Glucose (UA) Urine Ketones Urine Blood Urine Nitrite Ur Leukocyte Esterase Urine RBC Urine WBC Ur Squamous Epith Cells Urine Bacteria COVID-19 (MICHAEL) COVID-19 Clin Com Blood Type Antibody Screen Antigen Identification Crossmatch Blood Bank Comment 06/18/20 06/18/20 06/18/20 05:56 05:56 10:03 WBC 8.5 RBC 2.81 L D Hgb 9.5 L D Hct 26.4 L D MCV 94.0 MCH 33.8 H MCHC 36.0 RDW 19.6 H Plt Count 417 H MPV 9.2 L Immature Gran % (Auto) 0.4 Neut % (Auto) 53.6 Lymph % (Auto) 23.4 [place] % (Auto) 15.7 H Eos % (Auto) 6.3 H Baso % (Auto) 0.6 Lymph # (Auto) 2.0 [place] # (Auto) 1.3 H Eos # (Auto) 0.5 H Baso # (Auto) 0.1 Abs Immat Gran (auto) 0.03 Absolute Neuts (auto) 4.6 Absolute Nucleated RBC 0.200 H Nucleated RBC % (auto) 2.4 H Smear Tech's Comments Smear Path Review Absolute Retic Percent Retic Immature Retic Fraction Retic Hgb Equivalent Sodium Potassium Chloride Carbon Dioxide Anion Gap BUN Creatinine Estim Creat Clear Calc Estimated GFR Random Glucose Calcium Iron TIBC % Saturation Unsat Iron Binding Ferritin Total Bilirubin Direct Bilirubin AST ALT Alkaline Phosphatase Lactate Dehydrogenase 606 H C-Reactive Protein Total Protein Albumin Procalcitonin 0.04 Urine Color Urine Appearance Urine pH Ur Specific [place] Urine Protein Urine Glucose (UA) Urine Ketones Urine Blood Urine Nitrite Ur Leukocyte Esterase Urine RBC Urine WBC Ur Squamous Epith Cells Urine Bacteria COVID-19 (MICHAEL) COVID-19 Clin Com Blood Type Antibody Screen Antigen Identification Crossmatch Blood Bank Comment ITS Impressions Chest X-Ray 06/15/20 22:17 IMPRESSION: There are coarse interstitial opacities of the right lung base, nonspecific. No priors available for comparison. This could represent acute infection including viral pneumonitis. Chest CT 06/16/20 00:00 IMPRESSION: No evidence of pneumonia. Minimal atelectasis in the right lower lobe. Small peripheral or subpleural bilateral lower lobe nodules probably representing subpleural lymph nodes. Absent spleen. Discharge Plan Discharge Anticipated Discharge Date/Time: 06/18/20 13:52 Patient Disposition: Home, Self-Care Referrals: Physician,Outside [Primary Care Provider] - Discharge Medications: New hydromorphone [Dilaudid] 2 mg tablet 2 mg PO Q6H PRN (Reason: severe pain) Qty: 12 RF: 0 Continued clonidine HCl 0.1 mg Tablet 0.1 mg PO BEDTIME PRN (Reason: Anxiety) RF: 0 trazodone 50 mg Tablet 50 mg PO BID RF: 0 quetiapine [Seroquel] 200 mg Tablet 200 mg PO TID RF: 0 finasteride 1 mg Tablet 1 mg PO DAILY RF: 0 folic acid 1 mg Tablet 1 mg PO DAILY RF: 0 Discharge Orders: Discharge Order (Routine); Ordered 06/18/20 Ordered By: Melissa Caba Diet: advance to usual diet Activity on Discharge: As tolerated Patient Instructions: Sickle Cell Crisis (DC) Visit Report Forms: Patient Portal Discharge page Care Plan Goals: relief of pain Health Concerns: sickle cell pain crisis Plan of Treatment: take hydromorphone 2 mg every 6 hours as needed for severe pain follow up with your primary care doctor and 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
--- NOTE | 2020-06-18 15:19 | MHC.CM.PN ---
CM attempted to deliver written prescriptions to pts nurse so she could give them to the pt. Pts nurse reports the pt refused to wait for his Rx saying he could not afford them anyway. She reports she offered to get the pts CM to speak to him and pt also refused that saying he was leaving. Pts Rx left in CM office in the event he returns for it.
[2020-06-20 21:13] LABS: Strep Pneumo Ag urine Not Detected (Not Detected)
[2020-06-24 23:23] LABS: Legionella Ag Urine Not Detected (Not Detected)
== END 2020-06-18 14:18 | disposition home or self-care (01) | DRG 812 ==
LOC: HO.ED 06-16 01:05 → HO.IMC 06-16 02:19
PROVIDERS: Internal Medicine; Admitting Provider Internal Medicine; Emergency Provider Emergency Medicine; Visit Provider Family Medicine
DX: D57.00 Hb-SS disease with crisis, unspecified (principal); D72.829 Elevated white blood cell count, unspecified; F64.0 Transsexualism; Z20.828 Contact with and (suspected) exposure to other viral communicable diseases; Z87.891 Personal history of nicotine dependence; Z79.899 Other long term (current) drug therapy
CPT/HCPCS: 36415; 71045; 71250; 80048; 80076; 81001; 82247; 82248; 82728; 83540; 83615; 84145; 85025; 85045; 85060; 86140; 86850; 86900; 86901; 86902; 86905; 86920; 86923; 87040; 87449; 87635; 87899; 96361; 96374; 96375; 96376; 99285; J0696; J1170; J2405; P9016

== ENCOUNTER 2020-07-23 16:41 | Inpatient (IN) | payer MEDICARE, MEDICAID, SELFPAY ==
[2020-07-23 17:18] VITALS: BP 113/66; PULSE 112; RESP 18; TEMP 37; O2SAT 97; BMI 20.9
--- NOTE | 2020-07-23 21:18 | XR_ITS ---
EXAMINATION: XR CHEST CLINICAL INFORMATION: Back pain with sickle cell crisis COMPARISON: Chest radiograph 06/15/[address] 06/16/2020 TECHNIQUE: Frontal view of the chest was obtained. FINDINGS: Slight increase in markings is once again seen at the right lung base similar to that noted in June 2020. An acute consolidation is not seen. No other significant abnormality is noted involving the heart, lungs, mediastinum, bony thorax or soft tissues. XR/XR chest 1V IMPRESSION: No acute intrathoracic disease. Some minimal chronic increased lung markings at the right base, probably atelectasis.
[2020-07-23] MEDS: 0.9 % Sodium Chloride 1,000 ML 999 ML IVCONT ×2 (21:53→23:04)
[2020-07-23 21:57] LABS: Basophils Absolute Auto 0.1 X10*3/uL (0.0-0.2); Basophils Percent Auto 0.7 % (0-2); Eosinophils Percent Auto 0.2 % (0-4); Hematocrit 24.2 % (42-52); Hemoglobin 8.8 g/dl (14.0-18.0); Imm Gran Abs Auto 0.05 X10*3/uL (0.00-0.03); Imm Gran Pct Auto 0.4 % (0.0-0.4); Lymphocytes Absolute Auto 2.3 X10*3/uL (1.2-4.9); Lymphocytes Percent Auto 18.9 % (20-40); MANUAL DIFF FLAG NO; Mean Corpuscular HGB Conc 36.4 g/dl (31.0-36.0); Mean Corpuscular Hemoglobin 34.8 pg (27.0-33.0); Mean Corpuscular Volume 95.7 fL (80-98); Mean Platelet Volume 9.3 fL (9.4-12.4); Monocytes Absolute Auto 1.5 X10*3/uL (0.1-1.2); Monocytes Percent Auto 12.3 % (2-11); NRBC Pct Auto 0.8 /100WBC (0.0-0.2); Neutrophils Absolute Auto 8.2 X10*3/uL (2.0-8.3); Neutrophils Percent Auto 67.5 % (45-73); Platelet Count 480 X10*3/uL (160-400); Red Blood Count 2.53 X10*6/uL (4.60-5.80); Red Cell Distribution Width 17.5 % (11.0-16.0); White Blood Count 12.1 X10*3/uL (4.8-10.8)
[2020-07-23] MEDS: HYDROmorphone HCl 1 MG/ML SYRINGE IVPUSH ×2 (22:03→23:05)
[2020-07-23 22:38] LABS: Alanine Aminotransferase 25 U/L (0-40); Albumin Level 4.5 g/dL (3.5-5.0); Alkaline Phosphatase 71 U/L (39-117); Anion Gap 16 (12-20); Aspartate Amino Transferase 55 U/L (5-37); Bilirubin Direct 0.9 mg/dL (0.0-0.5); Bilirubin Total 3.7 mg/dL (0.0-1.0); Blood Urea Nitrogen 6 mg/dL (9-16); Calcium 9.2 mg/dL (8.4-10.2); Carbon Dioxide 21 mmol/L (22-29); Chloride 105 mmol/L (96-108); Creatinine Clr Calc Pharmacy 144.1; Estimated Glomerular Filt Rate > 60; Glucose Random 98 mg/dL (60-115); Potassium 4.6 mmol/l (3.3-5.1); Sodium 137 mmol/L (135-145); Total Protein 8.4 g/dL (6.5-8.0)
[2020-07-23 22:49] LABS: Immature Retic Fraction 17.7 % (2.3-13.4); Retic HGB Equivalent 33.7 pg (30.0-35.0); Reticulocyte Percent 9.5 % (0.5-1.8)
--- NOTE | 2020-07-23 22:57 | ED_ITS ---
HPI - General Adult General Chief complaint: General Medical Stated complaint: sickle cell Time Seen by Provider: 07/23/20 20:43 Source: patient Mode of arrival: ambulatory Limitations: no limitations History of Present Illness HPI narrative: Patient comes to emergency room complaining back pain, and right- sided hip pain and leg pain. Of note, patient likes to be called Juan Carlos. Patient has history of sickle cell anemia and avascular necrosis of the hip. Patient started with back pain and extremity pain today. Last sickle cell crisis occurred in June. Patient denies chest pain or shortness of breath. MD complaint: Sickle cell crisis Related Data Home Medications Medication Instructions Recorded Confirmed clonidine HCl 0.1 mg PO BEDTIME PRN 06/16/20 06/16/20 finasteride 1 mg PO DAILY 06/16/20 06/16/20 folic acid 1 mg PO DAILY 06/16/20 06/16/20 quetiapine [Seroquel] 200 mg PO TID 06/16/20 06/16/20 trazodone 50 mg PO BID 06/16/20 06/16/20 Previous Rx's Medication Instructions Recorded hydromorphone [Dilaudid] 2 mg PO Q6H PRN #12 tab 06/18/20 Allergies Allergy/AdvReac Type Severity Reaction Status Date / Time morphine AdvReac Agitated Verified 06/15/20 22:24 oxycodone AdvReac Agitated Verified 06/15/20 22:24 Review of Systems Review of Systems: Constitutional : No Weight loss, No Fever, No Chills, No Night Sweats, No Fatigue, No Malaise ENT/Mouth : No Hearing loss, No Ear Pain, No Nasal Congestion, No Sinus Pain, No Hoarseness, No sore throat, No Rhinorrhea, No Swallowing Difficulty Eyes: No Eye Pain, No Swelling, No Redness, No Foreign Body, No Discharge, No Vision Changes Cardiovascular : No Chest Pain, No SOB, No Dyspnea on Exertion, No Orthopnea, No Edema, No Palpitations Respiratory : No Cough, No Sputum, No Wheezing, No Smoke Exposure, No Dyspnea Gastrointestinal : No Nausea, No Vomiting, complaining of several episodes of Diarrhea, No Constipation, No abdominal Pain, No Hematochezia, No Melena Genitourinary : no irregular bleeding, No Dysuria, No Urinary Frequency, No Hematuria, No Urinary Incontinence, No Urgency, No Flank Pain, No Urinary Flow Changes, No Hesitancy Musculoskeletal : Complaining of right-sided hip pain and lower extremity on the right side, complaining of back pain (upper middle lower) Skin : No Skin Lesions, No rash Neuro : No Weakness, No Numbness, No Paresthesias, No Loss of Consciousness, No Dizziness, No Headache Psych : No Anxiety/Panic, No Depression, No SI/HI/AH/VH, No Social Issues, Heme/Lymph: No Bruising, No Bleeding,No Lymphadenopathy Endocrine : No Polyuria, No Polydipsia, No Temperature Intolerance [facility] Past Medical History Medical History Avascular bone necrosis Sickle cell anemia with crisis Surgical History H/O splenectomy Family History Family History (Updated 06/16/20 @ 13:22 by Jadyn Donahue MD) Other Sickle cell anemia Social History Social History Household Members: Significant Other Housing: Apartment Smoking Status: Former smoker Substance Use Type: Marijuana Advance Directives: No Advance Directives Information Provided: Yes Physical Exam Vital Signs: Vital Signs: Last Vital Signs Temp 98.6 F 07/23/20 17:18 Pulse 112 H 07/23/20 17:18 Resp 18 07/23/20 17:18 BP 113/66 07/23/20 17:18 Pulse Ox 97 07/23/20 17:18 Body Mass Index 20.9 Appearance: Alert. Oriented X3. Seems in pain, pale and diaphoretic Eyes: Pupils equal, round and reactive to light. ENT: Pharynx normal. Neck: Normal inspection. Neck supple. No lymph nodes noted. No crepitus CVS: Normal heart rate and rhythm. Pulses normal. Normal S1 and S2 Respiratory: No respiratory distress. Breath sounds normal. No Wheezing. No rales Abdomen: Soft and nontender. No rigidity. No distention. good BS x4 Skin: Skin warm and dry. Normal skin color. Normal skin turgor. Extremities: No lower extremity edema. Neuro: Oriented X 3. No motor deficit. No sensory deficit. Moving all extermities. No slurred speech. Course Course Course Narrative: Patient states that the pain keeps getting worse despite 2 mg of Dilaudid and fluid hydration. Of note, patient states that he is transitioning from male to female, patient has severe PTSD from being in rooms with males, patient requesting a private room. Medical Decision Making Lab Data Result diagrams: 07/23/20 21:47 07/23/20 21:47 Labs: Lab Results 07/23/20 07/23/20 07/23/20 Range/Units 21:47 21:47 21:47 WBC 12.1 H (4.8-10.8) X10*3/uL RBC 2.53 L (4.60-5.80) X10*6/uL Hgb 8.8 L (14.0-18.0) g/dl Hct 24.2 L (42-52) % MCV 95.7 (80-98) fL MCH 34.8 H (27.0-33.0) pg MCHC 36.4 H (31.0-36.0) g/dl RDW 17.5 H (11.0-16.0) % Plt Count 480 H (160-400) X10*3/uL MPV 9.3 L (9.4-12.4) fL Immature Gran % (Auto) 0.4 (0.0-0.4) % Neut % (Auto) 67.5 (45-73) % Lymph % (Auto) 18.9 L (20-40) % [place] % (Auto) 12.3 H (2-11) % Eos % (Auto) 0.2 (0-4) % Baso % (Auto) 0.7 (0-2) % Lymph # (Auto) 2.3 (1.2-4.9) X10*3/uL [place] # (Auto) 1.5 H (0.1-1.2) X10*3/uL Eos # (Auto) 0.0 (0.0-0.4) X10*3/uL Baso # (Auto) 0.1 (0.0-0.2) X10*3/uL Abs Immat Gran (auto) 0.05 H (0.00-0.03) X10*3/uL Absolute Neuts (auto) 8.2 (2.0-8.3) X10*3/uL Absolute Nucleated RBC 0.100 H (0.0-0.012) X10*3/uL Nucleated RBC % (auto) 0.8 H (0.0-0.2) /100WBC Hold Blue Top SEE NOTE Sodium 137 (135-145) mmol/L Potassium 4.6 (3.3-5.1) mmol/l Chloride 105 (96-108) mmol/L Carbon Dioxide 21 L (22-29) mmol/L Anion Gap 16 (12-20) BUN 6 L (9-16) mg/dL Creatinine 0.72 (0.5-1.4) mg/dL Estim Creat Clear Calc 144.1 Estimated GFR > 60 Random Glucose 98 (60-115) mg/dL Calcium 9.2 D (8.4-10.2) mg/dL Total Bilirubin 3.7 H (0.0-1.0) mg/dL Direct Bilirubin 0.9 H (0.0-0.5) mg/dL AST 55 H (5-37) U/L ALT 25 (0-40) U/L Alkaline Phosphatase 71 D (39-117) U/L Total Protein 8.4 H D (6.5-8.0) g/dL Albumin 4.5 D (3.5-5.0) g/dL Imaging Data Chest x-ray: Radiologist's impression: CLINICAL INFORMATION: Back pain with sickle cell crisis COMPARISON: Chest radiograph 06/15/[address] 06/16/2020 TECHNIQUE: Frontal view of the chest was obtained. FINDINGS: Slight increase in markings is once again seen at the right lung base similar to that noted in June 2020. An acute consolidation is not seen. No other significant abnormality is noted involving the heart, lungs, mediastinum, bony thorax or soft tissues. XR/XR chest 1V IMPRESSION: No acute intrathoracic disease. Some minimal chronic increased lung markings at the right base, probably atelectasis. Discharge Plan Discharge Clinical Impression: Sickle cell anemia with crisis Patient Disposition: Admitted As Inpatient Prescriptions: No Action clonidine HCl 0.1 mg Tablet 0.1 mg PO BEDTIME PRN (Reason: Anxiety) RF: 0 trazodone 50 mg Tablet 50 mg PO BID RF: 0 quetiapine [Seroquel] 200 mg Tablet 200 mg PO TID RF: 0 finasteride 1 mg Tablet 1 mg PO DAILY RF: 0 folic acid 1 mg Tablet 1 mg PO DAILY RF: 0 hydromorphone [Dilaudid] 2 mg tablet 2 mg PO Q6H PRN (Reason: severe pain) Qty: 12 RF: 0
[2020-07-23 23:25] LABS: COVID-19 Test Negative (Negative)
[2020-07-24] VITALS (10 sets, daily range): BP systolic 124–141; BP diastolic 58–84; PULSE 91–109; RESP 14–20; TEMP 36.6–37.1; O2SAT 94–97
[2020-07-24] MEDS: traMADoL HCL 50 MG TABLET PO (02:20)
[2020-07-24] MEDS: HYDROmorphone HCl 1 MG/ML SYRINGE IVPUSH (03:43)
[2020-07-24] MEDS: ondansetron HCL 4 MG/2 ML VIAL IVPUSH (03:43)
--- NOTE | 2020-07-24 04:58 | P.HPHOSP_ITS ---
History of Present Illness Date of Service: 07/24/20 Chief Complaint: Body pain 25 year old transgender female with history of sickle cell disease presented with pain crisis. Symptoms began yesterday and have steadily worsened. Takes Tramadol as an outpt but was transitioned off of it. States pain was in low ba ck and hips but is now all over. No fevers or chills. No sick contacts. No chest pain, dyspnea, cough. No nausea. vomiting or diarrhea. Last pain crisis was approx 1 month ago. Review of Systems Constitutional: Constitutional: Reports as per HPI and Reports body ache(s) Comments: No fevers or chills Cardiovascular: Comments: No chest pain Respiratory: Comments: No dyspnea or cough Gastrointestinal: Comments: diffuse abd pain Musculoskeletal: Musculoskeletal: Reports myalgias Psychiatric: Comments: No anxiety or agitation Hematologic/Lymphatic: Hematologic/Lymphatic: Reports no additional hematologic/lymphatic complaints [facility] Medical History Avascular bone necrosis Sickle cell anemia with crisis Functional capacity: independent ambulation Family History Other Sickle cell anemia Surgical History H/O splenectomy Social History Household Members: Significant Other Housing: Apartment Smoking Status: Former smoker Substance Use Type: Marijuana Advance Directives: No Advance Directives Information Provided: Yes Meds Allergies Allergy/AdvReac Type Severity Reaction Status Date / Time morphine AdvReac Agitated Verified 06/15/20 22:24 oxycodone AdvReac Agitated Verified 06/15/20 22:24 Home Medications Medication Instructions Recorded Confirmed Type clonidine HCl 0.1 mg PO BEDTIME PRN 06/16/20 07/24/20 History folic acid 1 mg PO DAILY 06/16/20 07/24/20 History quetiapine [Seroquel] 200 mg PO BID 06/16/20 07/24/20 History trazodone 50 mg PO BEDTIME 06/16/20 07/24/20 History estradiol cypionate IM QWEEK 07/24/20 History finasteride 2.5 mg PO DAILY 07/24/20 07/24/20 History quetiapine [Seroquel] 200 mg PO DAILY PRN 07/24/20 07/24/20 History tramadol 50 mg PO Q6H PRN 07/24/20 07/24/20 History Physical Exam Vital Signs and Narrative: Vital Signs: Last Vital Signs Temp 98.8 F 07/24/20 00:29 Pulse 99 07/24/20 03:41 Resp 18 07/24/20 03:41 BP 140/84 H 07/24/20 03:41 Pulse Ox 96 07/24/20 03:41 Body Mass Index 20.9 Const: General: cooperative and no acute distress HENMT: Head: Yes normal to inspection Eyes: Other: No scleral icterus Resp: Other: No insp crackles or exp wheezing Effort & Inspection: normal respiratory effort and able to speak in complete sentences Cardio: Other: No murmur Rate: regular rate and tachycardic Heart sounds: S1 normal heart sound present and S2 normal heart sound present GI: Other: Soft, nondistended, bowel sounds active, diffusely tender Skin: Other: No bruising or rashes seen Extrem: Other: No leg edema Results Labs CBC and Chem 7: 07/23/20 21:47 07/23/20 21:47 Labs: Laboratory Results - last 24 hr 07/23/20 07/23/20 07/23/20 21:47 21:47 21:47 MCV 95.7 MCH 34.8 H MCHC 36.4 H RDW 17.5 H Plt Count 480 H MPV 9.3 L Immature Gran % (Auto) 0.4 Neut % (Auto) 67.5 Lymph % (Auto) 18.9 L [place] % (Auto) 12.3 H Eos % (Auto) 0.2 Baso % (Auto) 0.7 Lymph # (Auto) 2.3 [place] # (Auto) 1.5 H Eos # (Auto) 0.0 Baso # (Auto) 0.1 Abs Immat Gran (auto) 0.05 H Absolute Neuts (auto) 8.2 Absolute Nucleated RBC 0.100 H Nucleated RBC % (auto) 0.8 H Absolute Retic 0.240 H Percent Retic 9.5 H Immature Retic Fraction 17.7 H Retic Hgb Equivalent 33.7 Hold Blue Top SEE NOTE Anion Gap 16 Estim Creat Clear Calc 144.1 Estimated GFR > 60 Random Glucose 98 Calcium 9.2 D Total Bilirubin 3.7 H Direct Bilirubin 0.9 H AST 55 H ALT 25 Alkaline Phosphatase 71 D Total Protein 8.4 H D Albumin 4.5 D COVID-19 (MICHAEL) COVID-19 Clin Com 07/23/20 22:55 MCV MCH MCHC RDW Plt Count MPV Immature Gran % (Auto) Neut % (Auto) Lymph % (Auto) [place] % (Auto) Eos % (Auto) Baso % (Auto) Lymph # (Auto) [place] # (Auto) Eos # (Auto) Baso # (Auto) Abs Immat Gran (auto) Absolute Neuts (auto) Absolute Nucleated RBC Nucleated RBC % (auto) Absolute Retic Percent Retic Immature Retic Fraction Retic Hgb Equivalent Hold Blue Top Anion Gap Estim Creat Clear Calc Estimated GFR Random Glucose Calcium Total Bilirubin Direct Bilirubin AST ALT Alkaline Phosphatase Total Protein Albumin COVID-19 (MICHAEL) Negative COVID-19 Clin Com See Note Imaging Radiologist's Impressions: Impressions Chest X-Ray 07/23/20 21:18 IMPRESSION: No acute intrathoracic disease. Some minimal chronic increased lung markings at the right base, probably atelectasis. Assessment and Plan (1) Sickle cell anemia with crisis: Status: Acute 25 year old transgender female with sickle cell disease presents with pain crisis. Sickle cell pain crisis No infiltrate on CXR. H/H appear stable. Continue hydration with IV fluid, folic acid, hydroxyurea. Dialudid IV 1.5mg q4 prn pain. Check LDH and trend T bili. Transgender female Continue Finasteride. Psych Continue Seroquel, Clonidine. DVT proph SC Lovenox. Code status Full.
--- NOTE | 2020-07-24 05:13 | PC.NURSE ---
CALLED TO FLOOR TO GIVE REPORT. NURSE TO CALL BACK.
--- NOTE | 2020-07-24 05:15 | PC.NURSE ---
PER PHARMACY SERVICES REPRESENTATIVE. PATIENT CAN NOT GO UP UNTIL 0700.
[2020-07-24 08:33] LABS: Basophils Absolute Auto 0.1 X10*3/uL (0.0-0.2); Basophils Percent Auto 0.7 % (0-2); Eosinophils Absolute Auto 0.1 X10*3/uL (0.0-0.4); Eosinophils Percent Auto 0.4 % (0-4); Hemoglobin 7.9 g/dl (14.0-18.0); Imm Gran Abs Auto 0.06 X10*3/uL (0.00-0.03); Imm Gran Pct Auto 0.4 % (0.0-0.4); Lymphocytes Absolute Auto 3.1 X10*3/uL (1.2-4.9); Lymphocytes Percent Auto 23.1 % (20-40); MANUAL DIFF FLAG SCAN; Mean Corpuscular HGB Conc 35.9 g/dl (31.0-36.0); Mean Corpuscular Hemoglobin 34.3 pg (27.0-33.0); Mean Corpuscular Volume 95.7 fL (80-98); Mean Platelet Volume 9.1 fL (9.4-12.4); Monocytes Absolute Auto 1.9 X10*3/uL (0.1-1.2); Monocytes Percent Auto 13.9 % (2-11); NRBC Pct Auto 0.6 /100WBC (0.0-0.2); Neutrophils Absolute Auto 8.3 X10*3/uL (2.0-8.3); Neutrophils Percent Auto 61.5 % (45-73); Platelet Count 443 X10*3/uL (160-400); Red Cell Distribution Width 17.5 % (11.0-16.0); SCAN SMEAR FLAG 1; White Blood Count 13.5 X10*3/uL (4.8-10.8)
[2020-07-24] MEDS: HYDROmorphone HCl 2 MG/ML VIAL 1.5 MG IVPUSH ×2 (08:48→13:21)
[2020-07-24] MEDS: Folic Acid 1 MG TABLET PO (08:50)
[2020-07-24] MEDS: QUEtiapine Fumarate 200 MG TABLET PO (08:50)
[2020-07-24] MEDS: Enoxaparin Sodium 40 MG/0.4 ML SYRINGE SUBCUT (08:50)
[2020-07-24] MEDS: Hydroxyurea 500 MG CAPSULE 1000 MG PO (08:50)
[2020-07-24] MEDS: 0.9 % Sodium Chloride Flush 3 ML SYRINGE IVFLUSH (08:51)
[2020-07-24 08:56] LABS: Anion Gap 14 (12-20); Bilirubin Total 3.3 mg/dL (0.0-1.0); Blood Urea Nitrogen 6 mg/dL (9-16); Calcium 8.9 mg/dL (8.4-10.2); Carbon Dioxide 21 mmol/L (22-29); Chloride 105 mmol/L (96-108); Creatinine Clr Calc Pharmacy 117.9; Estimated Glomerular Filt Rate > 60; Glucose Random 100 mg/dL (60-115); Lactate Dehydrogenase 491 U/L (118-273); Sodium 136 mmol/L (135-145)
[2020-07-24] MEDS: Finasteride 5 MG TABLET 2.5 MG PO (08:57)
[2020-07-24] MEDS: 0.9 % Sodium Chloride 1,000 ML 150 ML IVCONT ×2 (09:16→16:17)
[2020-07-24 09:22] LABS: SLIDE REVIEW VERIFIED
--- NOTE | 2020-07-24 10:18 | P.PNIM_ITS ---
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 ROS General - no fevers or chills Cardiovascular - no chest pain Respiratory - no shortness of breath or cough Abdominal- no abdominal pain, nausea, vomiting, diarrhea Physical Exam Vital Signs: Vital Signs: Last Vital Signs Temp 98.8 F 07/24/20 08:34 Pulse 99 07/24/20 08:34 Resp 20 07/24/20 08:34 BP 141/69 H 07/24/20 08:34 Pulse Ox 97 07/24/20 08:34 Body Mass Index 20.9 Const: Other: General - no acute distress, appears comfortable Cardiovascular - regular rate and rhythm, S1-S2 Lungs - normal respiratory effort, clear to auscultation bilaterally, no w heezing Abdomen - soft, nontender, no rebound or guarding Extremities - no edema bilaterally Neuro - awake and alert, no focal deficits Objective Data Current Medications Generic Name Dose Route Start Last Admin Trade Name Akshat PRN Reason Stop Dose Admin Clonidine HCl 0.1 mg 07/24/20 04:53 Clonidine Hcl 0.1 Mg Tablet PO BEDTIME PRN Anxiety Protocol Enoxaparin Sodium 40 mg 07/24/20 05:00 07/24/20 08:50 Enoxaparin Sodium 40 Mg/0.4 Ml Syringe SUBCUT 40 mg Q24H SUJIT Administration Finasteride 2.5 mg 07/24/20 09:00 07/24/20 08:57 Finasteride 5 Mg Tablet PO 2.5 mg DAILY SUJIT Administration Folic Acid 1 mg 07/24/20 09:00 07/24/20 08:50 Folic Acid 1 Mg Tablet PO 1 mg DAILY SUJIT Administration Hydromorphone HCl 1.5 mg 07/24/20 04:53 07/24/20 08:48 Hydromorphone Hcl 2 Mg/Ml Vial IVPUSH 1.5 mg RQ4H PRN Administration Pain, Severe (Pain Scale 7-10) Sodium Chloride 1,000 mls @ 150 mls/hr 07/24/20 05:00 07/24/20 09:16 Ns IVCONT 150 mls/hr .Q6H40M SUJIT Administration Pharmacy Consult 1 each 07/23/20 23:06 Consult Rx Perform Med Rec MISCELLANE ONCE PRN Consult order Quetiapine Fumarate 200 mg 07/24/20 09:00 07/24/20 08:50 Quetiapine Fumarate 200 Mg Tablet PO 200 mg BID SUJIT Administration Sodium Chloride 3 ml 07/24/20 08:00 07/24/20 08:51 0.9 % Sodium Chloride Flush 3 Ml Syringe IVFLUSH 3 ml QSHIFT SUJIT Administration Labs CBC & Chem 7: 07/24/20 08:17 07/24/20 08:17 Assessment and Plan (1) Sickle cell anemia with pain: Status: Acute Assessment and Plan: This is a 25 yo admitted for sickle cell pain crisis. 1. Sickle Cell pain crisis 9/10 pain still - but appears comfortable h/h stable, no indication for transfusion continue IVF continue IV dialudid continue baseline Sickle Cell meds 2. Transgender M to F continue baseline meds 3. Mood continue home meds Full Code Lovenox 40mg daily
[2020-07-24] MEDS: Acetaminophen 325 MG TABLET 650 MG PO (12:19)
--- NOTE | 2020-07-24 13:23 | MHC.CM.PN ---
CM attempted to meet with Patient, who's door was closed. CM spoke with S.O./Derrick at [phone]. Patient lives with Derrick and is mostly functionally independent. Home is the goal for dc and CM has initiated and will follow for dc planning. IMM addressed with Derrick and the original will be given to Patient and a copy has been placed on the chart. PCP is DR. Jeremías Patterson at [phone].
--- NOTE | 2020-07-24 17:18 | PC.NURSE ---
pt heard throwing items in room. staff went to assist, pt told them just get out! . this conventional mortgage underwriter went to assess pt and asked if there was anything pt needed to help with situation. pt stated i just need to get out of here. my life is a mess and i need to leave. take this iv out or im going to rip it out . iv removed, and nursing group supervisor yard made aware. risks of leaving AMA explained to pt. AMA form signed and placed in chart. pt ambulated off unit.
--- NOTE | 2020-07-25 10:47 | P.EN_ITS ---
Event Note Date of Service: 07/25/20 Event Note: AMA Called by RN to report patient wanted to leave AMA. Covering physician Dr. Cruz notified by RN. Patient was asked to wait to see MD but left before being seen. Was explained by [employer] operations staff officer the risks of leaving AMA which included worsening of her pain crisis / anemia and even . Despite explanation pt left before being seen by MD.
--- NOTE | 2020-07-25 10:53 | PM.DS ---
DS: Providers Provider Date of Service: 07/24/20 Date of admission: 07/24/20 04:53 Date of discharge: 07/24/20 Primary care physician: Unknown Physician DS: Diagnosis Discharge Diagnosis (1) Sickle cell anemia with pain: Status: Acute DS: Medications Discharge Medications Home Medications: Home Medications Medication Instructions Recorded Confirmed clonidine HCl 0.1 mg PO BEDTIME PRN 06/16/20 07/24/20 folic acid 1 mg PO DAILY 06/16/20 07/24/20 quetiapine [Seroquel] 200 mg PO BID 06/16/20 07/24/20 trazodone 50 mg PO BEDTIME 06/16/20 07/24/20 estradiol cypionate IM QWEEK 07/24/20 finasteride 2.5 mg PO DAILY 07/24/20 07/24/20 hydroxyurea (sickle cell) 1,000 mg PO DAILY 07/24/20 07/24/20 quetiapine [Seroquel] 200 mg PO DAILY PRN 07/24/20 07/24/20 tramadol 50 mg PO Q6H PRN 07/24/20 07/24/20 DS: Summary Hospital Course Hospital Course: Patient presented with complaints of severe pain. Was started on aggressive fluid resuscitation and IV pain control. With these measures, patient's pain improved and the plan was to discharge over the next 24 hours, however on the evening of 07/24/2019 patient decided to sign out against medical advice. Was explained the risks of leaving AMA which included but were not limited to worsening of her anemia and pain and ultimately as well. Time Spent with Patient Time attestation: Total time spent providing and/or coordinating discharge services: Physical Exam Vital Signs: Vital Signs: Last Vital Signs Temp 97.8 F 07/24/20 16:00 Pulse 91 07/24/20 16:00 Resp 16 07/24/20 16:00 BP 125/64 07/24/20 16:00 Pulse Ox 96 07/24/20 16:00 Body Mass Index 20.9 Const: Other: left AMA DS: Data Data Completed and Pending Completed studies during hospitalization [Text1]: Procedures Transfusion of Nonautologous Red Blood Cells into Peripheral Vein, Percutaneous Approach (06/16/20) Labs on day of discharge: Laboratory Tests 07/23/20 07/23/20 07/23/20 21:47 21:47 21:47 WBC 12.1 H RBC 2.53 L Hgb 8.8 L Hct 24.2 L MCV 95.7 MCH 34.8 H MCHC 36.4 H RDW 17.5 H Plt Count 480 H MPV 9.3 L Immature Gran % (Auto) 0.4 Neut % (Auto) 67.5 Lymph % (Auto) 18.9 L [place] % (Auto) 12.3 H Eos % (Auto) 0.2 Baso % (Auto) 0.7 Lymph # (Auto) 2.3 [place] # (Auto) 1.5 H Eos # (Auto) 0.0 Baso # (Auto) 0.1 Abs Immat Gran (auto) 0.05 H Absolute Neuts (auto) 8.2 Absolute Nucleated RBC 0.100 H Nucleated RBC % (auto) 0.8 H Smear Tech's Comments Absolute Retic 0.240 H Percent Retic 9.5 H Immature Retic Fraction 17.7 H Retic Hgb Equivalent 33.7 Hold Blue Top SEE NOTE Sodium 137 Potassium 4.6 Chloride 105 Carbon Dioxide 21 L Anion Gap 16 BUN 6 L Creatinine 0.72 Estim Creat Clear Calc 144.1 Estimated GFR > 60 Random Glucose 98 Calcium 9.2 D Total Bilirubin 3.7 H Direct Bilirubin 0.9 H AST 55 H ALT 25 Alkaline Phosphatase 71 D Lactate Dehydrogenase Total Protein 8.4 H D Albumin 4.5 D COVID-19 (MICHAEL) COVID-19 Clin [facility] 07/23/20 07/24/20 07/24/20 22:55 08:17 08:17 WBC 13.5 H RBC 2.30 L Hgb 7.9 L Hct 22.0 L MCV 95.7 MCH 34.3 H MCHC 35.9 RDW 17.5 H Plt Count 443 H MPV 9.1 L Immature Gran % (Auto) 0.4 Neut % (Auto) 61.5 Lymph % (Auto) 23.1 [place] % (Auto) 13.9 H Eos % (Auto) 0.4 Baso % (Auto) 0.7 Lymph # (Auto) 3.1 [place] # (Auto) 1.9 H Eos # (Auto) 0.1 Baso # (Auto) 0.1 Abs Immat Gran (auto) 0.06 H Absolute Neuts (auto) 8.3 Absolute Nucleated RBC 0.080 H Nucleated RBC % (auto) 0.6 H Smear Tech's Comments VERIFIED Absolute Retic Percent Retic Immature Retic Fraction Retic Hgb Equivalent Hold Blue Top Sodium 136 Potassium 4.0 Chloride 105 Carbon Dioxide 21 L Anion Gap 14 BUN 6 L Creatinine 0.88 Estim Creat Clear Calc 117.9 Estimated GFR > 60 Random Glucose 100 Calcium 8.9 Total Bilirubin 3.3 H Direct Bilirubin AST ALT Alkaline Phosphatase Lactate Dehydrogenase 491 H Total Protein Albumin COVID-19 (MICHAEL) Negative COVID-19 Clin Com See Note Discharge Plan Discharge Patient Disposition: Left Against Medical Advice Referrals: Physician,Unknown [Primary Care Provider] - Discharge Medications: No Action clonidine HCl 0.1 mg Tablet 0.1 mg PO BEDTIME PRN (Reason: Anxiety) RF: 0 trazodone 50 mg Tablet 50 mg PO BEDTIME RF: 0 quetiapine [Seroquel] 200 mg Tablet 200 mg PO BID RF: 0 folic acid 1 mg Tablet 1 mg PO DAILY RF: 0 quetiapine [Seroquel] 200 mg Tablet 200 mg PO DAILY PRN (Reason: Anxiety) RF: 0 finasteride 5 mg Tablet 2.5 mg PO DAILY RF: 0 estradiol cypionate IM QWEEK RF: 0 tramadol 50 mg Tablet 50 mg PO Q6H PRN (Reason: Pain) RF: 0 hydroxyurea (sickle cell) 1,000 mg PO DAILY RF: 0 Discharge Date/Time: 07/24/20 16:30
--- NOTE | 2020-08-19 07:44 | PM.DS ---
DS: Providers Provider Date of Service: 08/19/20 Date of admission: 07/24/20 04:53 Primary care physician: Unknown Physician DS: Diagnosis Discharge Diagnosis (1) Sickle cell anemia with pain: Status: Acute DS: Medications Discharge Medications Home Medications: Home Medications Medication Instructions Recorded Confirmed clonidine HCl 0.1 mg PO BEDTIME PRN 06/16/20 07/24/20 folic acid 1 mg PO DAILY 06/16/20 07/24/20 quetiapine [Seroquel] 200 mg PO BID 06/16/20 07/24/20 trazodone 50 mg PO BEDTIME 06/16/20 07/24/20 estradiol cypionate IM QWEEK 07/24/20 finasteride 2.5 mg PO DAILY 07/24/20 07/24/20 hydroxyurea (sickle cell) 1,000 mg PO DAILY 07/24/20 07/24/20 quetiapine [Seroquel] 200 mg PO DAILY PRN 07/24/20 07/24/20 tramadol 50 mg PO Q6H PRN 07/24/20 07/24/20 DS: Summary Hospital Course Hospital Course: Patient presented with complaints of severe pain. Was started on aggressive fluid resuscitation and IV pain control. With these measures, patient's pain improved and the plan was to discharge over the next 24 hours, however on the evening of 07/24/2019 patient decided to sign out against medical advice. Was explained the risks of leaving AMA which included but were not limited to worsening of her anemia and pain and ultimately as well. Time Spent with Patient Time attestation: Total time spent providing and/or coordinating discharge services: Discharge coordination time: Greater than 30 minutes Physical Exam Vital Signs: Vital Signs: Last Vital Signs Temp 97.8 F 07/24/20 16:00 Pulse 91 07/24/20 16:00 Resp 16 07/24/20 16:00 BP 125/64 07/24/20 16:00 Pulse Ox 96 07/24/20 16:00 Body Mass Index 20.9 DS: Data Data Completed and Pending Completed studies during hospitalization [Text1]: Procedures Transfusion of Nonautologous Red Blood Cells into Peripheral Vein, Percutaneous Approach (06/16/20) Labs on day of discharge: Laboratory Tests 07/23/20 07/23/20 07/23/20 21:47 21:47 21:47 WBC 12.1 H RBC 2.53 L Hgb 8.8 L Hct 24.2 L MCV 95.7 MCH 34.8 H MCHC 36.4 H RDW 17.5 H Plt Count 480 H MPV 9.3 L Immature Gran % (Auto) 0.4 Neut % (Auto) 67.5 Lymph % (Auto) 18.9 L [place] % (Auto) 12.3 H Eos % (Auto) 0.2 Baso % (Auto) 0.7 Lymph # (Auto) 2.3 [place] # (Auto) 1.5 H Eos # (Auto) 0.0 Baso # (Auto) 0.1 Abs Immat Gran (auto) 0.05 H Absolute Neuts (auto) 8.2 Absolute Nucleated RBC 0.100 H Nucleated RBC % (auto) 0.8 H Smear Tech's Comments Absolute Retic 0.240 H Percent Retic 9.5 H Immature Retic Fraction 17.7 H Retic Hgb Equivalent 33.7 Hold Blue Top SEE NOTE Sodium 137 Potassium 4.6 Chloride 105 Carbon Dioxide 21 L Anion Gap 16 BUN 6 L Creatinine 0.72 Estim Creat Clear Calc 144.1 Estimated GFR > 60 Random Glucose 98 Calcium 9.2 D Total Bilirubin 3.7 H Direct Bilirubin 0.9 H AST 55 H ALT 25 Alkaline Phosphatase 71 D Lactate Dehydrogenase Total Protein 8.4 H D Albumin 4.5 D COVID-19 (MICHAEL) COVID-19 Clin Com 07/23/20 07/24/20 07/24/20 22:55 08:17 08:17 WBC 13.5 H RBC 2.30 L Hgb 7.9 L Hct 22.0 L MCV 95.7 MCH 34.3 H MCHC 35.9 RDW 17.5 H Plt Count 443 H MPV 9.1 L Immature Gran % (Auto) 0.4 Neut % (Auto) 61.5 Lymph % (Auto) 23.1 [place] % (Auto) 13.9 H Eos % (Auto) 0.4 Baso % (Auto) 0.7 Lymph # (Auto) 3.1 [place] # (Auto) 1.9 H Eos # (Auto) 0.1 Baso # (Auto) 0.1 Abs Immat Gran (auto) 0.06 H Absolute Neuts (auto) 8.3 Absolute Nucleated RBC 0.080 H Nucleated RBC % (auto) 0.6 H Smear Tech's Comments VERIFIED Absolute Retic Percent Retic Immature Retic Fraction Retic Hgb Equivalent Hold Blue Top Sodium 136 Potassium 4.0 Chloride 105 Carbon Dioxide 21 L Anion Gap 14 BUN 6 L Creatinine 0.88 Estim Creat Clear Calc 117.9 Estimated GFR > 60 Random Glucose 100 Calcium 8.9 Total Bilirubin 3.3 H Direct Bilirubin AST ALT Alkaline Phosphatase Lactate Dehydrogenase 491 H Total Protein Albumin COVID-19 (MICHAEL) Negative COVID-19 Clin Com See Note Discharge Plan Discharge Patient Disposition: Left Against Medical Advice Referrals: Physician,Unknown [Primary Care Provider] - Discharge Medications: No Action clonidine HCl 0.1 mg Tablet 0.1 mg PO BEDTIME PRN (Reason: Anxiety) RF: 0 trazodone 50 mg Tablet 50 mg PO BEDTIME RF: 0 quetiapine [Seroquel] 200 mg Tablet 200 mg PO BID RF: 0 folic acid 1 mg Tablet 1 mg PO DAILY RF: 0 quetiapine [Seroquel] 200 mg Tablet 200 mg PO DAILY PRN (Reason: Anxiety) RF: 0 finasteride 5 mg Tablet 2.5 mg PO DAILY RF: 0 estradiol cypionate IM QWEEK RF: 0 tramadol 50 mg Tablet 50 mg PO Q6H PRN (Reason: Pain) RF: 0 hydroxyurea (sickle cell) 1,000 mg PO DAILY RF: 0 Discharge Orders: Discharge Order (Routine); Ordered 07/24/20 Ordered By: Raj Jackson Care Plan Goals: AMA Health Concerns: AMA Plan of Treatment: AMA Discharge Date/Time: 07/24/20 16:30
== END 2020-07-24 16:30 | disposition left against medical advice (07) | DRG 812 ==
LOC: HO.ED 23:06 → HO.IMC 07-24 05:06
PROVIDERS: Admitting Provider Internal Medicine; Emergency Provider Emergency Medicine; Visit Provider Family Medicine
DX: D57.00 Hb-SS disease with crisis, unspecified (principal); F43.10 Post-traumatic stress disorder, unspecified; F64.0 Transsexualism; Z20.822 Contact with and (suspected) exposure to COVID-19; Z87.891 Personal history of nicotine dependence; Z79.891 Long term (current) use of opiate analgesic; Z79.899 Other long term (current) drug therapy
CPT/HCPCS: 36415; 71045; 80048; 80076; 82247; 83615; 85025; 85045; 87635; 96361; 96374; 96375; 96376; 99285; J1170; J1650; J2405

== ENCOUNTER 2020-10-16 12:46 | Inpatient (IN) | payer MEDICARE, MEDICAID, SELFPAY ==
[2020-10-16] VITALS (15 sets, daily range): BP systolic 120–136; BP diastolic 58–85; PULSE 92–118; RESP 13–20; TEMP 36.6–37.9; O2SAT 87–99; BMI 20.7
--- NOTE | ~2020-10-16 | XR_ITS ---
EXAMINATION: XR CHEST CLINICAL INFORMATION: Chest pain COMPARISON: 07/23/2020 TECHNIQUE: Frontal view of the chest was obtained. FINDINGS: The heart size is upper limits of normal. No significant abnormality is noted involving the lungs, mediastinum, bony thorax or soft tissues. XR/XR chest 1V IMPRESSION: No acute intrathoracic disease
[2020-10-16 13:22] LABS: COVID-19 Test Positive (Negative)
--- NOTE | 2020-10-16 13:39 | ED.GENADULT ---
HPI - General Adult General Chief complaint: General Medical Stated complaint: sickle cell,avn right hip Time Seen by Provider: 10/16/20 13:39 Source: patient Mode of arrival: ambulatory Limitations: no limitations History of Present Illness HPI narrative: Male to female Here complaining of having sickle cell crisis Significant other here with upper respiratory symptoms requesting COVID test. Patient denies having any upper respiratory symptoms no chest pain or shortness of breath. Onset (ago): day(s) Severity: moderate Relieving factors: none Treatments prior to arrival: none Related Data Home Medications Medication Instructions Recorded Confirmed clonidine HCl 0.1 mg PO BEDTIME PRN 06/16/20 10/16/20 folic acid 1 mg PO DAILY 06/16/20 10/16/20 quetiapine [Seroquel] 200 mg PO BID 06/16/20 10/16/20 trazodone 50 mg PO BEDTIME 06/16/20 10/16/20 estradiol cypionate IM QWEEK 07/24/20 finasteride 2.5 mg PO DAILY 07/24/20 10/16/20 quetiapine [Seroquel] 200 mg PO DAILY PRN 07/24/20 10/16/20 tramadol 50 mg PO Q6H PRN 07/24/20 10/16/20 zolpidem [Ambien] 10 mg PO BEDTIME PRN 10/16/20 10/16/20 Allergies Allergy/AdvReac Type Severity Reaction Status Date / Time morphine AdvReac Agitated Verified 06/15/20 22:24 oxycodone AdvReac Agitated Verified 06/15/20 22:24 Review of Systems Review of Systems: Constitutional: No Weight loss, No Fever, No Chills, No Night Sweats, No Fatigue, No Malaise ENT/Mouth: No Hearing loss, No Ear Pain, No Nasal Congestion, No Sinus Pain, No Hoarseness, No sore throat, No Rhinorrhea, No Swallowing Difficulty Eyes: No Eye Pain, No Swelling, No Redness, No Foreign Body, No Discharge, No Vision Changes Cardiovascular: No Chest Pain, No SOB, No Dyspnea on Exertion, No Orthopnea, No Edema, No Palpitations Respiratory: No Cough, No Sputum, No Wheezing, No Smoke Exposure, No Dyspnea Gastrointestinal: No Nausea, No Vomiting, No Diarrhea, No Constipation, No abdominal Pain, No Hematochezia, No Melena Genitourinary: no irregular bleeding, No Dysuria, No Urinary Frequency, No Hematuria, No Urinary Incontinence, No Urgency, No Flank Pain, No Urinary Flow Changes, No Hesitancy Musculoskeletal: No joint pain, + Myalgias, No Joint Swelling Skin: No Skin Lesions, No rash Neuro: No Weakness, No Numbness, No Paresthesias, No Loss of Consciousness, No Dizziness, No Headache Psych: No Social Issues Heme/Lymph: No Bruising, No Bleeding,No Lymphadenopathy Endocrine: No Polyuria, No Polydipsia, No Temperature Intolerance Yes all other systems are reviewed and are negative [facility] Past Medical History Medical History Avascular bone necrosis Sickle cell anemia with crisis Surgical History H/O splenectomy Family History Family History Other Sickle cell anemia Social History Social History Household Members: Significant Other Housing: Apartment Alcohol intake: current Alcohol intake frequency: holidays/special occasions only Smoking Status: Current every day smoker Tobacco Type: Cigarette Use of substances other than those prescribed or required for medical reasons: Yes Substance Use Type: Marijuana Substance Use Frequency: Daily Advance Directives: No service: No Current occupational status: disabled Physical Exam Vital Signs: Vital Signs: Last Vital Signs Temp 98.9 F 10/16/20 21:22 Pulse 102 H 10/16/20 21:22 Resp 18 10/16/20 21:22 BP 135/85 10/16/20 21:22 Pulse Ox 93 10/16/20 21:22 Body Mass Index 20.7 Reviewed Const: General: cooperative; No acute distress or intoxicated appearing Nutritional Appearance: average body habitus Orientation/consciousness: patient oriented x3 HENMT: Head: Yes normal to inspection Ears: hearing grossly normal bilaterally Eyes: General: appearance normal, both eyes and all related structures Visual Crisostomo: normal visual crisostomo by confrontation Neck: Neck: Yes normal visual inspection, No positive Brudzinski's sign, No positive Kernig's sign and No tender Thyroid: Thyroid normal Chest: Chest palpation & inspection: normal inspection of the chest Resp: Effort & Inspection: normal respiratory effort Auscultation: clear to auscultation bilaterally Cardio: Jugular venous distension: no JVD Rhythm: regular rhythm Heart sounds: S1 normal heart sound present and S2 normal heart sound present GI: Inspection: Yes normal to inspection Palpation (GI): Soft to palpation Percussion: Yes normal to percussion Auscultation: normal bowel sounds : General: Yes no CVA tenderness Back/Spine/Pelvis: Back: no CVA tenderness Skin: General skin exam: no rashes or lesions noted Neuro: General: patient oriented x3 Extrem: General: Yes normal to inspection Course Reevaluation(s) Reevaluation #1: Having sickle cell crisis with anemia. 2 L of nasal saline multiple rounds of analgesia acutely anemic consented for blood transfusion and 1 unit of blood ordered. Case discussed with hospitalist for further management and treatment. Incidentally did test positive for COVID but has no upper respiratory symptoms hospitalist did request to have chest x-ray. Not hypoxic no complaints chest pain or shortness of breath. Consultations Consultation #1: Hospitalist Medical Decision Making Lab Data Result diagrams: 10/16/20 14:19 10/16/20 14:54 Labs: Lab Results 10/16/20 10/16/20 10/16/20 Range/Units 13:08 14:19 14:19 WBC 11.2 H (4.8-10.8) X10*3/uL RBC 2.15 L (4.60-5.80) X10*6/uL Hgb 7.2 L (14.0-18.0) g/dl Hct 19.1 L* (42-52) % MCV 88.8 (80-98) fL MCH 33.5 H (27.0-33.0) pg MCHC 37.7 H (31.0-36.0) g/dl RDW 21.6 H (11.0-16.0) % Plt Count 544 H (160-400) X10*3/uL MPV 9.9 (9.4-12.4) fL Immature Gran % (Auto) Cancelled Neut % (Auto) Cancelled Lymph % (Auto) Cancelled [place] % (Auto) Cancelled Eos % (Auto) Cancelled Baso % (Auto) Cancelled Lymph # (Auto) Cancelled [place] # (Auto) Cancelled Eos # (Auto) Cancelled Baso # (Auto) Cancelled Abs Immat Gran (auto) Cancelled Absolute Neuts (auto) Cancelled Absolute Nucleated RBC 0.340 H (0.0-0.012) X10*3/uL Nucleated RBC % (auto) 3.0 H (0.0-0.2) /100WBC Neutrophils % (Manual) 54 (45-73) % Band Neutrophils % 4 (3-5) % Lymphocytes % (Manual) 25 (20-40) % Monocytes % (Manual) 16 H (2-11) % Basophils % (Manual) 1 (0-1) % Abs Neuts (Manual) 6.5 (2.2-7.9) X10*3/uL Lymphocytes # (Manual) 2.8 (0.6-4.8) X10*3/uL Monocytes # (Manual) 1.8 H (0.0-1.2) X10*3/uL Basophils # (Manual) 0.1 (0.0-0.3) X10*3/uL Nucleated RBCs 4 H (0-0) /100WBC Platelet Estimate INCREASED (NORMAL) Plt Morphology Comment NORMAL RBC Morphology NOTED Hypochromasia 1+ (5-14) /OIF Spherocytes 1+ (0-2) /OIF Sickle Cells 3+ (>5) /OIF Absolute Retic (0.026-0.095) X10*6/uL Percent Retic (0.5-1.8) % Immature Retic Fraction (2.3-13.4) % Retic Hgb Equivalent (30.0-35.0) pg PT 15.0 H (10.8-13.0) SEC INR 1.3 H (0.9-1.1) APTT 30.1 (24.1-38.0) SEC D-Dimer 686 NG/ML Sodium (135-145) mmol/L Potassium (3.3-5.1) mmol/L Chloride (96-108) mmol/L Carbon Dioxide (22-29) mmol/L Anion Gap (12-20) BUN (9-16) mg/dL Creatinine (0.5-1.4) mg/dL Estim Creat Clear Calc Estimated GFR Random Glucose (60-115) mg/dL Calcium (8.4-10.2) mg/dL Ferritin (20-250) ng/mL Total Bilirubin (0.0-1.0) mg/dL AST (5-37) U/L ALT (0-40) U/L Alkaline Phosphatase (39-117) U/L Lactate Dehydrogenase (118-273) U/L C-Reactive Protein (< or = 0.50) mg/dL Total Protein (6.5-8.0) g/dL Albumin (3.5-5.0) g/dL Procalcitonin ng/mL COVID-19 (MICHAEL) Positive A (Negative) COVID-19 Clin Com See Note Blood Type Antibody Screen Crossmatch 10/16/20 10/16/20 10/16/20 Range/Units 14:19 14:54 14:54 WBC (4.8-10.8) X10*3/uL RBC (4.60-5.80) X10*6/uL Hgb (14.0-18.0) g/dl Hct (42-52) % MCV (80-98) fL MCH (27.0-33.0) pg MCHC (31.0-36.0) g/dl RDW (11.0-16.0) % Plt Count (160-400) X10*3/uL MPV (9.4-12.4) fL Immature Gran % (Auto) Neut % (Auto) Lymph % (Auto) [place] % (Auto) Eos % (Auto) Baso % (Auto) Lymph # (Auto) [place] # (Auto) Eos # (Auto) Baso # (Auto) Abs Immat Gran (auto) Absolute Neuts (auto) Absolute Nucleated RBC (0.0-0.012) X10*3/uL Nucleated RBC % (auto) (0.0-0.2) /100WBC Neutrophils % (Manual) (45-73) % Band Neutrophils % (3-5) % Lymphocytes % (Manual) (20-40) % Monocytes % (Manual) (2-11) % Basophils % (Manual) (0-1) % Abs Neuts (Manual) (2.2-7.9) X10*3/uL Lymphocytes # (Manual) (0.6-4.8) X10*3/uL Monocytes # (Manual) (0.0-1.2) X10*3/uL Basophils # (Manual) (0.0-0.3) X10*3/uL Nucleated RBCs (0-0) /100WBC Platelet Estimate (NORMAL) Plt Morphology Comment RBC Morphology Hypochromasia /OIF Spherocytes /OIF Sickle Cells /OIF Absolute Retic 0.205 H (0.026-0.095) X10*6/uL Percent Retic 10.1 H (0.5-1.8) % Immature Retic Fraction 23.3 H (2.3-13.4) % Retic Hgb Equivalent 33.8 (30.0-35.0) pg PT (10.8-13.0) SEC INR (0.9-1.1) APTT (24.1-38.0) SEC D-Dimer NG/ML Sodium 136 (135-145) mmol/L Potassium 4.5 (3.3-5.1) mmol/L Chloride 106 (96-108) mmol/L Carbon Dioxide 20 L (22-29) mmol/L Anion Gap 15 (12-20) BUN 5 L (9-16) mg/dL Creatinine 0.67 (0.5-1.4) mg/dL Estim Creat Clear Calc 152.7 Estimated GFR > 60 Random Glucose 86 (60-115) mg/dL Calcium 8.7 (8.4-10.2) mg/dL Ferritin 591 H (20-250) ng/mL Total Bilirubin 4.2 H (0.0-1.0) mg/dL AST 47 H (5-37) U/L ALT 16 (0-40) U/L Alkaline Phosphatase 46 D (39-117) U/L Lactate Dehydrogenase 652 H (118-273) U/L C-Reactive Protein 0.34 (< or = 0.50) mg/dL Total Protein 7.6 (6.5-8.0) g/dL Albumin 4.1 (3.5-5.0) g/dL Procalcitonin 0.05 ng/mL COVID-19 (MICHAEL) (Negative) COVID-19 Clin Com Blood Type Antibody Screen Crossmatch 10/16/20 Range/Units 18:50 WBC (4.8-10.8) X10*3/uL RBC (4.60-5.80) X10*6/uL Hgb (14.0-18.0) g/dl Hct (42-52) % MCV (80-98) fL MCH (27.0-33.0) pg MCHC (31.0-36.0) g/dl RDW (11.0-16.0) % Plt Count (160-400) X10*3/uL MPV (9.4-12.4) fL Immature Gran % (Auto) Neut % (Auto) Lymph % (Auto) [place] % (Auto) Eos % (Auto) Baso % (Auto) Lymph # (Auto) [place] # (Auto) Eos # (Auto) Baso # (Auto) Abs Immat Gran (auto) Absolute Neuts (auto) Absolute Nucleated RBC (0.0-0.012) X10*3/uL Nucleated RBC % (auto) (0.0-0.2) /100WBC Neutrophils % (Manual) (45-73) % Band Neutrophils % (3-5) % Lymphocytes % (Manual) (20-40) % Monocytes % (Manual) (2-11) % Basophils % (Manual) (0-1) % Abs Neuts (Manual) (2.2-7.9) X10*3/uL Lymphocytes # (Manual) (0.6-4.8) X10*3/uL Monocytes # (Manual) (0.0-1.2) X10*3/uL Basophils # (Manual) (0.0-0.3) X10*3/uL Nucleated RBCs (0-0) /100WBC Platelet Estimate (NORMAL) Plt Morphology Comment RBC Morphology Hypochromasia /OIF Spherocytes /OIF Sickle Cells /OIF Absolute Retic (0.026-0.095) X10*6/uL Percent Retic (0.5-1.8) % Immature Retic Fraction (2.3-13.4) % Retic Hgb Equivalent (30.0-35.0) pg PT (10.8-13.0) SEC INR (0.9-1.1) APTT (24.1-38.0) SEC D-Dimer NG/ML Sodium (135-145) mmol/L Potassium (3.3-5.1) mmol/L Chloride (96-108) mmol/L Carbon Dioxide (22-29) mmol/L Anion Gap (12-20) BUN (9-16) mg/dL Creatinine (0.5-1.4) mg/dL Estim Creat Clear Calc Estimated GFR Random Glucose (60-115) mg/dL Calcium (8.4-10.2) mg/dL Ferritin (20-250) ng/mL Total Bilirubin (0.0-1.0) mg/dL AST (5-37) U/L ALT (0-40) U/L Alkaline Phosphatase (39-117) U/L Lactate Dehydrogenase (118-273) U/L C-Reactive Protein (< or = 0.50) mg/dL Total Protein (6.5-8.0) g/dL Albumin (3.5-5.0) g/dL Procalcitonin ng/mL COVID-19 (MICHAEL) (Negative) COVID-19 Clin Com Blood Type O Positive Antibody Screen NEGATIVE Crossmatch See Detail Discharge Plan Discharge Clinical Impression: Sickle cell anemia with crisis, COVID-19 Patient Disposition: Admitted As Inpatient
[2020-10-16] MEDS: 0.9 % Sodium Chloride 1,000 ML 999 ML IV ×2 (14:22→18:14)
[2020-10-16 14:36] LABS: INTERNATIONAL NORM RATIO 1.3 (0.9-1.1)
[2020-10-16 14:39] LABS: Partial Thromboplastin Time 30.1 SEC (24.1-38.0)
[2020-10-16] MEDS: HYDROmorphone HCl 0.5 MG/0.5 ML SYRINGE IVPUSH (14:52)
[2020-10-16] MEDS: ondansetron HCL 4 MG/2 ML VIAL IVPUSH (14:52)
--- NOTE | 2020-10-16 15:01 | PC.NURSE ---
patient a&ox3, c/o generalized body pain, covid swab obtained pt positive covid but feels she is in a sickle cell crisis, pt moved from [facility] to room 2, iv inserted, labs drawn, pt medicated for pain. case monitor applied patient sinus tach, vitals stable will continue to monitor.
[2020-10-16 15:03] LABS: Hemoglobin 7.2 g/dl (14.0-18.0); Immature Retic Fraction 23.3 % (2.3-13.4); Mean Corpuscular Hemoglobin 33.5 pg (27.0-33.0); Mean Corpuscular Volume 88.8 fL (80-98); Mean Platelet Volume 9.9 fL (9.4-12.4); Platelet Count 544 X10*3/uL (160-400); Red Blood Count 2.15 X10*6/uL (4.60-5.80); Red Cell Distribution Width 21.6 % (11.0-16.0); Retic HGB Equivalent 33.8 pg (30.0-35.0); Reticulocyte Percent 10.1 % (0.5-1.8)
[2020-10-16 15:04] LABS: Reticulocytes Absolute 0.205 X10*6/uL (0.026-0.095)
[2020-10-16 15:07] LABS: D Dimer 686 NG/ML
[2020-10-16 15:10] LABS: Mean Corpuscular HGB Conc 37.7 g/dl (31.0-36.0); WBC ABN SCTR FOR CBC 1
[2020-10-16 15:14] LABS: Hematocrit 19.1 % (42-52)
[2020-10-16 15:19] LABS: Band Neutrophils Percent 4 % (3-5); Basophils Percent Manual 1 % (0-1); Lymphocytes Percent Manual 25 % (20-40); Monocytes Percent Manual 16 % (2-11); Neutrophils Percent Manual 54 % (45-73); Nucleated Red Blood Cells 4 /100WBC (0-0)
[2020-10-16 15:20] LABS: RBC Morphology NOTED; Sickle Cells 3+ (>5) /OIF
[2020-10-16 15:21] LABS: Hypochromasia 1+ (5-14) /OIF
[2020-10-16 15:22] LABS: Platelet Estimate INCREASED (NORMAL); Platelet Morphology Comment NORMAL
[2020-10-16 15:24] LABS: Spherocytes 1+ (0-2) /OIF
[2020-10-16 15:26] LABS: Basophils Abs Manual 0.1 X10*3/uL (0.0-0.3); Lymphocytes Absolute Manual 2.8 X10*3/uL (0.6-4.8); Monocytes Absolute Manual 1.8 X10*3/uL (0.0-1.2); Neutrophils Absolute Manual 6.5 X10*3/uL (2.2-7.9); White Blood Count 11.2 X10*3/uL (4.8-10.8)
[2020-10-16] MEDS: HYDROmorphone HCl 1 MG/ML SYRINGE IVPUSH ×2 (16:42→19:21)
--- NOTE | 2020-10-16 17:01 | PC.NURSE ---
patient a&ox3, medicated for pain, pt sinus tach on cardiac nurse practitioner, o2 sat has decreased, will apply o2, patient continues to talk in full sentences, will continue to monitor.
[2020-10-16 17:30] LABS: Alanine Aminotransferase 16 U/L (0-40); Albumin Level 4.1 g/dL (3.5-5.0); Alkaline Phosphatase 46 U/L (39-117); Anion Gap 15 (12-20); Aspartate Amino Transferase 47 U/L (5-37); Bilirubin Total 4.2 mg/dL (0.0-1.0); Blood Urea Nitrogen 5 mg/dL (9-16); C Reactive Protein 0.34 mg/dL (< or = 0.50); Calcium 8.7 mg/dL (8.4-10.2); Carbon Dioxide 20 mmol/L (22-29); Chloride 106 mmol/L (96-108); Creatinine Clr Calc Pharmacy 152.7; Estimated Glomerular Filt Rate > 60; Glucose Random 86 mg/dL (60-115); Potassium 4.5 mmol/L (3.3-5.1); Sodium 136 mmol/L (135-145); Total Protein 7.6 g/dL (6.5-8.0)
[2020-10-16 17:43] LABS: Lactate Dehydrogenase 652 U/L (118-273)
[2020-10-16 17:53] LABS: Ferritin 591 ng/mL (20-250)
[2020-10-16 17:58] LABS: Procalcitonin 0.05 ng/mL
--- NOTE | 2020-10-16 19:27 | PC.NURSE ---
patient medicated per order, med req completed as well
[2020-10-16] MEDS: Acetaminophen 325 MG TABLET 975 MG PO (20:36)
[2020-10-16] MEDS: HYDROmorphone HCl 0.5 MG/0.5 ML SYRINGE 0.1 MG IVPUSH (21:19)
--- NOTE | 2020-10-16 21:21 | PM.IMHP ---
History of Present Illness Date of Service: 10/16/20 Chief Complaint: Sickle cell crisis this is a 25-year-old transgender female with a history of sickle cell disease, who would like to be called Harly, and referred to as she, presents to the hospital with complaints of sickle cell crisis. Patient reports pain for the past 2 days, worse in the right hip due to her history of AVN, associated with nausea with no vomiting, fever of up to 102, no cough, no shortness of breath, no sputum production, no abdominal pain, nausea or vomiting, no diarrhea constipation. No urinary symptoms and no lower extremity edema. Patient has been living with her friends due to moving. On arrival to the ED patient hemodynamically stable with a temp of 98?, blood pressure 126/58, satting 94% on room air. She did desat to 87% on room air, and developed a fever of 100.3 while in the ED. Labs are significant for WBC count of 11.2, hemoglobin of 7.2 dropped from 7.9 on previous admission, hematocrit of 19.1, RDW of 21%, PT of 15, INR of 1.3, BUN of 5, creatinine of 0.67, ferritin of 9 1, total bili of 4.2, AST of 47, LDH of 652, COVID-19 positive. Chest x-ray shows no acute intrathoracic disease Patient's past medical history as below on confirmed. Review of Systems Review of Systems: Yes all other systems are reviewed and are negative [facility] Medical History Avascular bone necrosis Sickle cell anemia with crisis Family History Other Sickle cell anemia Surgical History H/O splenectomy Social History Household Members: Significant Other Housing: Apartment Alcohol intake: current Alcohol intake frequency: holidays/special occasions only Smoking Status: Current every day smoker Tobacco Type: Cigarette Use of substances other than those prescribed or required for medical reasons: Yes Substance Use Type: Marijuana Substance Use Frequency: Daily Advance Directives: No service: No Current occupational status: disabled Meds Allergies Allergy/AdvReac Type Severity Reaction Status Date / Time morphine AdvReac Agitated Verified 06/15/20 22:24 oxycodone AdvReac Agitated Verified 06/15/20 22:24 Home Medications Medication Instructions Recorded Confirmed Last Taken Type clonidine HCl 0.1 mg PO BEDTIME PRN 06/16/20 10/16/20 Unknown History folic acid 1 mg PO DAILY 06/16/20 10/16/20 07/23/20 History quetiapine [Seroquel] 200 mg PO BID 06/16/20 10/16/20 10/15/20 History trazodone 50 mg PO BEDTIME 06/16/20 10/16/20 10/15/20 History estradiol cypionate IM QWEEK 07/24/20 10/15/20 History finasteride 2.5 mg PO DAILY 07/24/20 10/16/20 10/15/20 History quetiapine [Seroquel] 200 mg PO DAILY PRN 07/24/20 10/16/20 10/15/20 History tramadol 50 mg PO Q6H PRN 07/24/20 10/16/20 07/23/20 History zolpidem [Ambien] 10 mg PO BEDTIME PRN 10/16/20 10/16/20 10/09/20 History Physical Exam Vital Signs and Narrative: Vital Signs: Last Vital Signs Temp 99.8 F 10/16/20 20:34 Pulse 108 H 10/16/20 20:34 Resp 16 10/16/20 20:34 BP 128/78 10/16/20 20:34 Pulse Ox 95 10/16/20 20:14 Body Mass Index 20.7 Const: General: cooperative and no acute distress Orientation/consciousness: patient oriented x3 Eyes: General: appearance normal, both eyes and all related structures Resp: Effort & Inspection: normal respiratory effort and able to speak in complete sentences Cardio: Rate: regular rate Rhythm: regular rhythm GI: Palpation (GI): Soft to palpation Auscultation: normal bowel sounds Skin: General skin exam: no rashes or lesions noted Neuro: General: patient oriented x3 Cognition (Neuro): normal cognition Extrem: General: Yes normal to inspection and Yes no pedal edema Results Labs CBC and Chem 7: 10/16/20 14:19 10/16/20 14:54 Labs: Laboratory Results - last 24 hr 10/16/20 10/16/20 10/16/20 13:08 14:19 14:19 MCV 88.8 MCH 33.5 H MCHC 37.7 H RDW 21.6 H Plt Count 544 H MPV 9.9 Immature Gran % (Auto) Cancelled Neut % (Auto) Cancelled Lymph % (Auto) Cancelled [place] % (Auto) Cancelled Eos % (Auto) Cancelled Baso % (Auto) Cancelled Lymph # (Auto) Cancelled [place] # (Auto) Cancelled Eos # (Auto) Cancelled Baso # (Auto) Cancelled Abs Immat Gran (auto) Cancelled Absolute Neuts (auto) Cancelled Absolute Nucleated RBC 0.340 H Nucleated RBC % (auto) 3.0 H Neutrophils % (Manual) 54 Band Neutrophils % 4 Lymphocytes % (Manual) 25 Monocytes % (Manual) 16 H Basophils % (Manual) 1 Abs Neuts (Manual) 6.5 Lymphocytes # (Manual) 2.8 Monocytes # (Manual) 1.8 H Basophils # (Manual) 0.1 Nucleated RBCs 4 H Platelet Estimate INCREASED Plt Morphology Comment NORMAL RBC Morphology NOTED Hypochromasia 1+ (5-14) Spherocytes 1+ (0-2) Sickle Cells 3+ (>5) Absolute Retic Percent Retic Immature Retic Fraction Retic Hgb Equivalent PT 15.0 H INR 1.3 H APTT 30.1 D-Dimer 686 Anion Gap Estim Creat Clear Calc Estimated GFR Random Glucose Calcium Ferritin Total Bilirubin AST ALT Alkaline Phosphatase Lactate Dehydrogenase C-Reactive Protein Total Protein Albumin Procalcitonin COVID-19 (MICHAEL) Positive A COVID-19 Clin Com See Note Blood Type Antibody Screen Crossmatch 10/16/20 10/16/20 10/16/20 14:19 14:54 14:54 MCV MCH MCHC RDW Plt Count MPV Immature Gran % (Auto) Neut % (Auto) Lymph % (Auto) [place] % (Auto) Eos % (Auto) Baso % (Auto) Lymph # (Auto) [place] # (Auto) Eos # (Auto) Baso # (Auto) Abs Immat Gran (auto) Absolute Neuts (auto) Absolute Nucleated RBC Nucleated RBC % (auto) Neutrophils % (Manual) Band Neutrophils % Lymphocytes % (Manual) Monocytes % (Manual) Basophils % (Manual) Abs Neuts (Manual) Lymphocytes # (Manual) Monocytes # (Manual) Basophils # (Manual) Nucleated RBCs Platelet Estimate Plt Morphology Comment RBC Morphology Hypochromasia Spherocytes Sickle Cells Absolute Retic 0.205 H Percent Retic 10.1 H Immature Retic Fraction 23.3 H Retic Hgb Equivalent 33.8 PT INR APTT D-Dimer Anion Gap 15 Estim Creat Clear Calc 152.7 Estimated GFR > 60 Random Glucose 86 Calcium 8.7 Ferritin 591 H Total Bilirubin 4.2 H AST 47 H ALT 16 Alkaline Phosphatase 46 D Lactate Dehydrogenase 652 H C-Reactive Protein 0.34 Total Protein 7.6 Albumin 4.1 Procalcitonin 0.05 COVID-19 (MICHAEL) COVID-19 Clin Com Blood Type Antibody Screen Crossmatch 10/16/20 18:50 MCV MCH MCHC RDW Plt Count MPV Immature Gran % (Auto) Neut % (Auto) Lymph % (Auto) [place] % (Auto) Eos % (Auto) Baso % (Auto) Lymph # (Auto) [place] # (Auto) Eos # (Auto) Baso # (Auto) Abs Immat Gran (auto) Absolute Neuts (auto) Absolute Nucleated RBC Nucleated RBC % (auto) Neutrophils % (Manual) Band Neutrophils % Lymphocytes % (Manual) Monocytes % (Manual) Basophils % (Manual) Abs Neuts (Manual) Lymphocytes # (Manual) Monocytes # (Manual) Basophils # (Manual) Nucleated RBCs Platelet Estimate Plt Morphology Comment RBC Morphology Hypochromasia Spherocytes Sickle Cells Absolute Retic Percent Retic Immature Retic Fraction Retic Hgb Equivalent PT INR APTT D-Dimer Anion Gap Estim Creat Clear Calc Estimated GFR Random Glucose Calcium Ferritin Total Bilirubin AST ALT Alkaline Phosphatase Lactate Dehydrogenase C-Reactive Protein Total Protein Albumin Procalcitonin COVID-19 (MICHAEL) COVID-19 Clin Com Blood Type O Positive Antibody Screen NEGATIVE Crossmatch See Detail Assessment and Plan (1) COVID-19: Status: Acute (2) Sickle cell anemia with pain: Status: Acute (3) Sickle cell anemia with crisis: Status: Acute (4) Acute respiratory failure with hypoxia: Status: Acute 25-year-old female who presents to the hospital and sickle cell crisis found to have COVID-19 positive # sickle cell anemia with crisis - hemoglobin dropped to 7 from 7.9 from recent admission - has significant pain - crisis most likely precipitated by COVID-19 infection - UA negative, chest x-ray negative - did develop hypoxia and currently on room air, Plan: - will start on pain control, IV fluids, - supportive measures # hypoxic respiratory failure secondary to COVID-19 pneumonia - desatted to 87% on room air - currently on nasal cannula maintaining O2 saturation of 95% - chest x-ray negative for any evidence of pulmonary infiltrates - patient reports side effects fo (too angry and aggressive) on steroids but willing to try it - will place her on prednisone 40 mg daily - monitor respiratory status - infectious disease consult DVT prophylaxis: SCDs
[2020-10-16] MEDS: Zolpidem Tartrate 5 MG TABLET 10 MG PO (23:11)
[2020-10-16] MEDS: QUEtiapine Fumarate 200 MG TABLET PO (23:12)
[2020-10-16] MEDS: traZODone HCL 50 MG TABLET PO (23:12)
[2020-10-17] VITALS (9 sets, daily range): BP systolic 107–138; BP diastolic 43–73; PULSE 80–119; RESP 16–20; TEMP 36.6–37.9; O2SAT 90–98
[2020-10-17] MEDS: Lactated Ringers 1,000 ML 100 ML IVCONT ×2 (04:01→18:47)
[2020-10-17] MEDS: HYDROmorphone HCl 0.5 MG/0.5 ML SYRINGE IVPUSH ×6 (04:01→21:08)
[2020-10-17 08:26] LABS: Basophils Absolute Auto 0.1 X10*3/uL (0.0-0.2); Eosinophils Absolute Auto 0.1 X10*3/uL (0.0-0.4); MANUAL DIFF FLAG SCAN; Neutrophils Absolute Auto 4.1 X10*3/uL (2.0-8.3); SCAN SMEAR FLAG 1
[2020-10-17 08:30] LABS: Basophils Percent Auto 0.8 % (0-2); Eosinophils Percent Auto 0.8 % (0-4); Imm Gran Abs Auto 0.03 X10*3/uL (0.00-0.03); Imm Gran Pct Auto 0.4 % (0.0-0.4); Lymphocytes Absolute Auto 1.4 X10*3/uL (1.2-4.9); Lymphocytes Percent Auto 19.4 % (20-40); Mean Corpuscular HGB Conc 36.7 g/dl (31.0-36.0); Mean Corpuscular Hemoglobin 32.4 pg (27.0-33.0); Mean Corpuscular Volume 88.3 fL (80-98); Mean Platelet Volume 9.1 fL (9.4-12.4); Monocytes Absolute Auto 1.5 X10*3/uL (0.1-1.2); Monocytes Percent Auto 21.2 % (2-11); Neutrophils Percent Auto 57.4 % (45-73); Platelet Count 515 X10*3/uL (160-400); Red Blood Count 2.13 X10*6/uL (4.60-5.80); White Blood Count 7.1 X10*3/uL (4.8-10.8)
[2020-10-17 08:42] LABS: Hemoglobin 6.9 g/dl (14.0-18.0)
[2020-10-17 08:43] LABS: Hematocrit 18.8 % (42-52); NRBC Pct Auto 4.6 /100WBC (0.0-0.2)
[2020-10-17 08:49] LABS: SLIDE REVIEW VERIFIED
[2020-10-17 08:55] LABS: Anion Gap 13 (12-20); Blood Urea Nitrogen 5 mg/dL (9-16); Calcium 8.6 mg/dL (8.4-10.2); Carbon Dioxide 20 mmol/L (22-29); Chloride 108 mmol/L (96-108); Creatinine Clr Calc Pharmacy 150.4; Estimated Glomerular Filt Rate > 60; Glucose Random 87 mg/dL (60-115); Potassium 4.2 mmol/L (3.3-5.1); Sodium 137 mmol/L (135-145)
[2020-10-17] MEDS: 0.9 % Sodium Chloride Flush 3 ML SYRINGE IVFLUSH ×2 (10:48→16:21)
[2020-10-17] MEDS: Finasteride 5 MG TABLET 2.5 MG PO (10:48)
[2020-10-17] MEDS: QUEtiapine Fumarate 200 MG TABLET PO ×2 (10:49→21:07)
[2020-10-17] MEDS: Folic Acid 1 MG TABLET PO (10:49)
--- NOTE | 2020-10-17 15:08 | PC.NURSE ---
Unit of blood infusing. Pt tolerating well.
--- NOTE | 2020-10-17 15:53 | PC.NURSE ---
RN SEUN IS AWARE OF PATIENT HIGH HEART RATE AND LOW O2 OF 92 %,PATIENT REFUSED TO BE HOOKED UP TO HEART MONITOR
--- NOTE | 2020-10-17 16:31 | HO.PM.IMPN ---
Subjective Subjective Date of Service: 10/17/20 Interval History: the patient was seen and evaluated this morning Laying in bed, still complaining of pain overall her body you Denies any fever, chills or shortness of breath No reported other overnight events. Review of Systems Systemic review: No fever, chills or weakness No chest pain, palpitation No shortness of breath or coughing No nausea or vomiting No urinary symptoms No any rash or wounds Physical Exam Vital Signs: Vital Signs: Last Vital Signs Temp 99.4 F 10/17/20 16:19 Pulse 92 10/17/20 16:19 Resp 16 10/17/20 16:19 BP 123/65 10/17/20 16:19 Pulse Ox 92 10/17/20 15:52 Body Mass Index 20.7 Const: Other: Patient decline physical examination as she feels uncomfortable with nail examining her. No jaundice, JVD or edema noticed Chest wall moving bilaterally with no tachypnea Objective Data Current Medications Generic Name Dose Route Start Last Admin Trade Name Freq PRN Reason Stop Dose Admin Acetaminophen 650 mg 10/17/20 05:20 Acetaminophen 325 Mg Tablet PO Q6H PRN Pain, Mild (Pain Scale 1-3) Clonidine HCl 0.1 mg 10/16/20 22:52 Clonidine Hcl 0.1 Mg Tablet PO BEDTIME PRN Anxiety Protocol Docusate Sodium 100 mg 10/17/20 05:20 Docusate Sodium 100 Mg Capsule PO DAILY PRN Constipation Finasteride 2.5 mg 10/17/20 09:00 10/17/20 10:48 Finasteride 5 Mg Tablet PO 2.5 mg DAILY SUJIT Administration Folic Acid 1 mg 10/17/20 09:00 10/17/20 10:49 Folic Acid 1 Mg Tablet PO 1 mg DAILY SUJIT Administration Hydromorphone HCl 0.5 mg 10/17/20 02:08 10/17/20 15:03 Hydromorphone Hcl 0.5 Mg/0.5 Ml Syringe IVPUSH 0.5 mg Q3H PRN Administration Pain, Severe (Pain Scale 7-10) Hydroxyurea 1,000 mg 10/17/20 10:45 10/17/20 13:38 Hydroxyurea 500 Mg Capsule PO Not Given DAILY SUJIT Lactated Ringer's 1,000 mls @ 100 mls/hr 10/16/20 22:52 10/17/20 15:11 Lr IVCONT Infused .Q10H SUJIT Infusion Ondansetron HCl 4 mg 10/17/20 05:20 Ondansetron Hcl 4 Mg/2 Ml Vial IVPUSH Q8H PRN Nausea and Vomiting Prednisone 40 mg 10/17/20 09:00 10/17/20 10:49 Prednisone 20 Mg Tablet PO Not Given DAILY SUJIT Quetiapine Fumarate 200 mg 10/17/20 09:00 10/17/20 10:49 Quetiapine Fumarate 200 Mg Tablet PO 200 mg BID SUJIT Administration Quetiapine Fumarate 200 mg 10/16/20 22:52 10/16/20 23:12 Quetiapine Fumarate 200 Mg Tablet PO 200 mg DAILY PRN Administration Anxiety Sodium Chloride 3 ml 10/17/20 05:20 10/17/20 16:21 0.9 % Sodium Chloride Flush 3 Ml Syringe IVFLUSH 3 ml QSHIFT SUJIT Administration Trazodone HCl 50 mg 10/16/20 22:52 10/16/20 23:12 Trazodone Hcl 50 Mg Tablet PO 50 mg BEDTIME SUJIT Administration Zolpidem Tartrate 10 mg 10/16/20 22:52 10/16/20 23:11 Zolpidem Tartrate 5 Mg Tablet PO 10 mg BEDTIME PRN Administration Sleep Labs CBC & Chem 7: 10/17/20 08:20 10/17/20 08:20 Assessment and Plan (1) COVID-19: Status: Acute (2) Sickle cell anemia with pain: Status: Acute (3) Acute respiratory failure with hypoxia: Status: Acute Assessment and Plan: 25-year-old female who presents to the hospital and sickle cell crisis found to have COVID-19 positive Acute on chronic anemia Hemoglobin dropped to 6.9 this morning Secondary to sickling To give a unit of blood Follow H&H sickle cell anemia with crisis has significant pain most likely precipitated by COVID-19 infection Continue pain control with morphine Continue IV fluids Start hydroxyurea, folic acid supportive measures hypoxic respiratory failure secondary to COVID-19 pneumonia desatted to 87% on room air Wean oxygen down as tolerated CXR negative for any evidence of pulmonary infiltrates patient reports side effects fo (too angry and aggressive) on steroids but willing to try it Continue prednisone 40 mg daily monitor respiratory status infectious disease consult DVT prophylaxis Lovenox
--- NOTE | 2020-10-17 17:10 | PC.NURSE ---
Pt medicated as needed throughout the shift. At times pt has outburst of being angry as some staff were not closing the curtain behind them. Pt was talked into not leaving AMA earlier around 12:30 today as she needed a transfusion. They were agreeable after education and reassurance. One unit of blood given. Pt is currently resting in bed at this time. Room on 4th floor received. Awaiting call back from receiving RN for report. Physician made aware of the completion of the transfusion. Awaiting any further orders at this time.
[2020-10-17] MEDS: traZODone HCL 50 MG TABLET PO (21:07)
[2020-10-17] MEDS: Zolpidem Tartrate 5 MG TABLET 10 MG PO (21:28)
[2020-10-18] VITALS (9 sets, daily range): BP systolic 120–158; BP diastolic 60–74; PULSE 65–112; RESP 16–20; TEMP 36.3–37.2; O2SAT 91–95
[2020-10-18] MEDS: HYDROmorphone HCl 0.5 MG/0.5 ML SYRINGE IVPUSH ×5 (03:29→19:52)
[2020-10-18] MEDS: Lactated Ringers 1,000 ML 100 ML IVCONT ×2 (04:17→16:01)
[2020-10-18 06:47] LABS: Hematocrit 22.4 % (42-52); Hemoglobin 8.4 g/dl (14.0-18.0); Mean Corpuscular HGB Conc 37.5 g/dl (31.0-36.0); Mean Corpuscular Hemoglobin 33.1 pg (27.0-33.0); Mean Corpuscular Volume 88.2 fL (80-98); Mean Platelet Volume 9.4 fL (9.4-12.4); Platelet Count 534 X10*3/uL (160-400); Red Blood Count 2.54 X10*6/uL (4.60-5.80); White Blood Count 7.8 X10*3/uL (4.8-10.8)
[2020-10-18 06:49] LABS: NRBC Pct Auto 3.7 /100WBC (0.0-0.2)
[2020-10-18 06:59] LABS: Anion Gap 15 (12-20); Blood Urea Nitrogen 5 mg/dL (9-16); Calcium 8.7 mg/dL (8.4-10.2); Carbon Dioxide 20 mmol/L (22-29); Chloride 105 mmol/L (96-108); Estimated Glomerular Filt Rate > 60; Glucose Random 86 mg/dL (60-115); Potassium 4.7 mmol/L (3.3-5.1); Sodium 135 mmol/L (135-145)
[2020-10-18] MEDS: Finasteride 5 MG TABLET 2.5 MG PO (08:39)
[2020-10-18] MEDS: QUEtiapine Fumarate 200 MG TABLET PO ×2 (08:41→21:50)
[2020-10-18] MEDS: predniSONE 20 MG TABLET 40 MG PO (08:42)
[2020-10-18] MEDS: 0.9 % Sodium Chloride Flush 3 ML SYRINGE IVFLUSH ×3 (08:44→19:52)
[2020-10-18] MEDS: Folic Acid 1 MG TABLET PO (08:44)
--- NOTE | 2020-10-18 11:27 | MHC.CM.PN ---
CM met with patient at the bedside who is reluctant to give any information. Patient lives with S.O. Derrick and is independent. When asked who PCP is patient just states in [place] . Patient does not have a HCP and declined filling one out today. Discussed discharge plan, home no services. S.O. will provide transport. CM will continue to follow patient for discharge needs.
--- NOTE | 2020-10-18 13:12 | HO.PM.IMPN ---
Subjective Subjective Date of Service: 10/18/20 Interval History: the patient was seen and evaluated this morning Laying in bed, still complaining of pain overall her body but overall improved Denies any fever, chills or shortness of breath No reported other overnight events. Review of Systems Systemic review: No fever, chills or weakness but has generalized pain No chest pain, palpitation No shortness of breath or coughing No nausea or vomiting No urinary symptoms No any rash or wounds Physical Exam Vital Signs: Vital Signs: Last Vital Signs Temp 98.6 F 10/18/20 11:03 Pulse 82 10/18/20 11:03 Resp 18 10/18/20 11:03 BP 132/66 10/18/20 11:03 Pulse Ox 94 10/18/20 11:03 Body Mass Index 20.7 Const: Other: Patient decline physical examination as she feels uncomfortable with male examining her. No jaundice, JVD or edema noticed Chest wall moving bilaterally with no tachypnea Objective Data Current Medications Generic Name Dose Route Start Last Admin Trade Name Freq PRN Reason Stop Dose Admin Acetaminophen 650 mg 10/17/20 05:20 Acetaminophen 325 Mg Tablet PO Q6H PRN Pain, Mild (Pain Scale 1-3) Clonidine HCl 0.1 mg 10/16/20 22:52 Clonidine Hcl 0.1 Mg Tablet PO BEDTIME PRN Anxiety Protocol Docusate Sodium 100 mg 10/17/20 05:20 Docusate Sodium 100 Mg Capsule PO DAILY PRN Constipation Enoxaparin Sodium 40 mg 10/17/20 18:00 10/17/20 18:56 Enoxaparin Sodium 40 Mg/0.4 Ml Syringe SUBCUT Not Given Q24H SUJIT Finasteride 2.5 mg 10/17/20 09:00 10/18/20 08:39 Finasteride 5 Mg Tablet PO 2.5 mg DAILY SUJIT Administration Folic Acid 1 mg 10/17/20 09:00 10/18/20 08:44 Folic Acid 1 Mg Tablet PO 1 mg DAILY SUJIT Administration Hydromorphone HCl 0.5 mg 10/17/20 02:08 10/18/20 12:45 Hydromorphone Hcl 0.5 Mg/0.5 Ml Syringe IVPUSH 0.5 mg Q3H PRN Administration Pain, Severe (Pain Scale 7-10) Hydroxyurea 1,000 mg 10/17/20 10:45 10/18/20 08:39 Hydroxyurea 500 Mg Capsule PO Not Given DAILY SUJIT Lactated Ringer's 1,000 mls @ 100 mls/hr 10/16/20 22:52 10/18/20 04:17 Lr IVCONT 100 mls/hr .Q10H SUJIT Administration Ondansetron HCl 4 mg 10/17/20 05:20 Ondansetron Hcl 4 Mg/2 Ml Vial IVPUSH Q8H PRN Nausea and Vomiting Prednisone 40 mg 10/17/20 09:00 10/18/20 08:42 Prednisone 20 Mg Tablet PO 40 mg DAILY SUJIT Administration Quetiapine Fumarate 200 mg 10/17/20 09:00 10/18/20 08:41 Quetiapine Fumarate 200 Mg Tablet PO 200 mg BID SUJIT Administration Quetiapine Fumarate 200 mg 10/16/20 22:52 10/16/20 23:12 Quetiapine Fumarate 200 Mg Tablet PO 200 mg DAILY PRN Administration Anxiety Sodium Chloride 3 ml 10/17/20 05:20 10/18/20 08:44 0.9 % Sodium Chloride Flush 3 Ml Syringe IVFLUSH 3 ml QSHIFT SUJIT Administration Trazodone HCl 50 mg 10/16/20 22:52 10/17/20 21:07 Trazodone Hcl 50 Mg Tablet PO 50 mg BEDTIME SUJIT Administration Zolpidem Tartrate 10 mg 10/16/20 22:52 10/17/20 21:28 Zolpidem Tartrate 5 Mg Tablet PO 10 mg BEDTIME PRN Administration Sleep Labs CBC & Chem 7: 10/18/20 05:55 10/18/20 05:55 Assessment and Plan (1) COVID-19: Status: Acute (2) Sickle cell anemia with pain: Status: Acute (3) Acute respiratory failure with hypoxia: Status: Acute Assessment and Plan: 25-year-old female who presents to the hospital and sickle cell crisis found to have COVID-19 positive Acute on chronic anemia Hemoglobin improved to 8.5 after 1 unit transfusion Secondary to sickling No source of bleeding Follow H&H sickle cell anemia with crisis has significant pain but seems to be improving most likely precipitated by COVID-19 infection Continue pain control with Dilaudid Continue IV fluids Continue hydroxyurea, folic acid supportive measures hypoxic respiratory failure secondary to COVID-19 pneumonia on room air today CXR negative for any evidence of pulmonary infiltrates patient reports side effects fo (too angry and aggressive) on steroids but willing to try it Continue prednisone 40 mg D2 monitor respiratory status infectious disease input appreciated DVT prophylaxis Lovenox
[2020-10-18] MEDS: traZODone HCL 50 MG TABLET PO (21:49)
[2020-10-18] MEDS: Zolpidem Tartrate 5 MG TABLET 10 MG PO (21:49)
[2020-10-18] MEDS: Acetaminophen 325 MG TABLET 650 MG PO (21:59)
[2020-10-19] MEDS: HYDROmorphone HCl 0.5 MG/0.5 ML SYRINGE IVPUSH ×6 (00:14→18:30)
[2020-10-19 03:29] VITALS: BP 110/60; PULSE 58; RESP 18; TEMP 36.2; O2SAT 94
[2020-10-19] MEDS: Lactated Ringers 1,000 ML 100 ML IVCONT ×2 (05:48→15:47)
[2020-10-19 06:19] LABS: Hematocrit 21.8 % (42-52); Hemoglobin 7.9 g/dl (14.0-18.0); Mean Corpuscular HGB Conc 36.2 g/dl (31.0-36.0); Mean Corpuscular Hemoglobin 31.9 pg (27.0-33.0); Mean Corpuscular Volume 87.9 fL (80-98); Mean Platelet Volume 9.2 fL (9.4-12.4); NRBC Pct Auto 0.3 /100WBC (0.0-0.2); Platelet Count 480 X10*3/uL (160-400); Red Blood Count 2.48 X10*6/uL (4.60-5.80); Red Cell Distribution Width 20.4 % (11.0-16.0); White Blood Count 7.3 X10*3/uL (4.8-10.8)
[2020-10-19 08:00] VITALS: BP 119/61; PULSE 79; RESP 17; TEMP 36.4; O2SAT 97
[2020-10-19] MEDS: 0.9 % Sodium Chloride Flush 3 ML SYRINGE IVFLUSH (08:57)
[2020-10-19] MEDS: predniSONE 20 MG TABLET 40 MG PO (08:58)
[2020-10-19] MEDS: Finasteride 5 MG TABLET 2.5 MG PO (08:59)
[2020-10-19] MEDS: QUEtiapine Fumarate 200 MG TABLET PO (08:59)
[2020-10-19] MEDS: Folic Acid 1 MG TABLET PO (08:59)
[2020-10-19] MEDS: Hydroxyurea 500 MG CAPSULE 1000 MG PO (08:59)
[2020-10-19 11:53] VITALS: BP 116/56; PULSE 74; RESP 18; TEMP 36.6; O2SAT 94
--- NOTE | 2020-10-19 13:19 | HO.PM.IMPN ---
Subjective Subjective Date of Service: 10/19/20 Interval History: the patient was seen and evaluated this morning Laying in bed, still complaining of pain overall her body mainly in the lower back and hip Denies any fever, chills or shortness of breath No reported other overnight events. Review of Systems Systemic review: No fever, chills or weakness but has generalized pain No chest pain, palpitation No shortness of breath or coughing No nausea or vomiting No urinary symptoms No any rash or wounds Physical Exam Vital Signs: Vital Signs: Last Vital Signs Temp 97.8 F 10/19/20 11:53 Pulse 74 10/19/20 11:53 Resp 18 10/19/20 11:53 BP 116/56 L 10/19/20 11:53 Pulse Ox 94 10/19/20 11:53 Body Mass Index 20.7 Const: Other: Patient decline physical examination as she feels uncomfortable with male examining her. No jaundice, JVD or edema noticed Chest wall moving bilaterally with no tachypnea Objective Data Current Medications Generic Name Dose Route Start Last Admin Trade Name Brandonq PRN Reason Stop Dose Admin Acetaminophen 650 mg 10/17/20 05:20 10/18/20 21:59 Acetaminophen 325 Mg Tablet PO 650 mg Q6H PRN Administration Pain, Mild (Pain Scale 1-3) Clonidine HCl 0.1 mg 10/16/20 22:52 Clonidine Hcl 0.1 Mg Tablet PO BEDTIME PRN Anxiety Protocol Docusate Sodium 100 mg 10/17/20 05:20 Docusate Sodium 100 Mg Capsule PO DAILY PRN Constipation Enoxaparin Sodium 40 mg 10/17/20 18:00 10/18/20 17:40 Enoxaparin Sodium 40 Mg/0.4 Ml Syringe SUBCUT Not Given Q24H SUJIT Finasteride 2.5 mg 10/17/20 09:00 10/19/20 08:59 Finasteride 5 Mg Tablet PO 2.5 mg DAILY SUJIT Administration Folic Acid 1 mg 10/17/20 09:00 10/19/20 08:59 Folic Acid 1 Mg Tablet PO 1 mg DAILY SUJIT Administration Hydromorphone HCl 0.5 mg 10/17/20 02:08 10/19/20 12:30 Hydromorphone Hcl 0.5 Mg/0.5 Ml Syringe IVPUSH 0.5 mg Q3H PRN Administration Pain, Severe (Pain Scale 7-10) Hydroxyurea 1,000 mg 10/17/20 10:45 10/19/20 08:59 Hydroxyurea 500 Mg Capsule PO 1,000 mg DAILY SUJIT Administration Lactated Ringer's 1,000 mls @ 100 mls/hr 10/16/20 22:52 10/19/20 12:21 Lr IVCONT Not Given .Q10H SUJIT Ondansetron HCl 4 mg 10/17/20 05:20 Ondansetron Hcl 4 Mg/2 Ml Vial IVPUSH Q8H PRN Nausea and Vomiting Prednisone 40 mg 10/17/20 09:00 10/19/20 08:58 Prednisone 20 Mg Tablet PO 40 mg DAILY SUJIT Administration Quetiapine Fumarate 200 mg 10/17/20 09:00 10/19/20 08:59 Quetiapine Fumarate 200 Mg Tablet PO 200 mg BID SUJIT Administration Quetiapine Fumarate 200 mg 10/16/20 22:52 10/16/20 23:12 Quetiapine Fumarate 200 Mg Tablet PO 200 mg DAILY PRN Administration Anxiety Sodium Chloride 3 ml 10/17/20 05:20 10/19/20 08:57 0.9 % Sodium Chloride Flush 3 Ml Syringe IVFLUSH 3 ml QSHIFT SUJIT Administration Trazodone HCl 50 mg 10/16/20 22:52 10/18/20 21:49 Trazodone Hcl 50 Mg Tablet PO 50 mg BEDTIME SUJIT Administration Zolpidem Tartrate 10 mg 10/16/20 22:52 10/18/20 21:49 Zolpidem Tartrate 5 Mg Tablet PO 10 mg BEDTIME PRN Administration Sleep Labs CBC & Chem 7: 10/19/20 05:51 10/18/20 05:55 Assessment and Plan (1) COVID-19: Status: Acute (2) Sickle cell anemia with pain: Status: Acute (3) Acute respiratory failure with hypoxia: Status: Acute Assessment and Plan: a 25-year-old transgender female with a history of sickle cell disease, who would like to be called Harly, and referred to as she, who presents to the hospital and sickle cell crisis found to have COVID-19 positive Acute on chronic anemia Hemoglobin improved to 7.9 after 1 unit transfusion No source of bleeding Follow H&H sickle cell anemia with crisis has significant pain but seems to be improving most likely precipitated by COVID-19 infection Continue pain control with Dilaudid Continue IV fluids Continue hydroxyurea, folic acid supportive measures hypoxic respiratory failure secondary to COVID-19 pneumonia on room air today CXR negative for any evidence of pulmonary infiltrates patient reports side effects fo (too angry and aggressive) on steroids but willing to try it Continue prednisone 40 mg D3 monitor respiratory status infectious disease input appreciated DVT prophylaxis Lovenox
--- NOTE | 2020-10-19 13:29 | W.PM.IDCN ---
History of Present Illness Data of Consult Service Date: 10/19/20 Requesting physician: Celestina Bustillo Primary Care Provider: Unknown Physician HPI Reason for consult: COVID,myalgias He presents to hospital with fatigue and myalgias. He has no cough or chills. He has no chest pain,no nausea or vomiting. Review of Systems Review of Systems: Yes all other systems are reviewed and are negative PMFSH Past Medical History Medical History Avascular bone necrosis Sickle cell anemia with crisis Family History Family History Other Sickle cell anemia Surgical History Surgical History H/O splenectomy Social History Social History Household Members: Significant Other Housing: Apartment Do you presently have visiting nurse or other home services: No Alcohol intake: current Alcohol intake frequency: holidays/special occasions only Smoking Status: Current every day smoker Tobacco Type: Cigarette Use of substances other than those prescribed or required for medical reasons: Yes Substance Use Type: Marijuana Substance Use Frequency: Daily Currently Displaying Signs/Symptoms of Drug Intoxication Withdrawal: No Have you been hit, kicked, punched, or otherwise hurt by someone within the past year? If so, by whom?: No Do you feel safe in your current relationship?: Yes Is there a partner from a previous relationship who is making you feel unsafe now?: No Are you made to feel afraid or neglected: No Advance Directives: No Do you have thoughts of harming others: None Do you have a plan to hurt others: No Plan Recently lost weight without trying: No service: No Current occupational status: disabled Meds Allergies Allergy/AdvReac Type Severity Reaction Status Date / Time morphine AdvReac Agitated Verified 06/15/20 22:24 oxycodone AdvReac Agitated Verified 06/15/20 22:24 Active Medications: Current Medications Generic Name Dose Route Start Last Admin Trade Name Freq PRN Reason Stop Dose Admin Acetaminophen 650 mg 10/17/20 05:20 10/18/20 21:59 Acetaminophen 325 Mg Tablet PO 650 mg Q6H PRN Administration Pain, Mild (Pain Scale 1-3) Clonidine HCl 0.1 mg 10/16/20 22:52 Clonidine Hcl 0.1 Mg Tablet PO BEDTIME PRN Anxiety Protocol Docusate Sodium 100 mg 10/17/20 05:20 Docusate Sodium 100 Mg Capsule PO DAILY PRN Constipation Enoxaparin Sodium 40 mg 10/17/20 18:00 10/18/20 17:40 Enoxaparin Sodium 40 Mg/0.4 Ml Syringe SUBCUT Not Given Q24H SUJIT Finasteride 2.5 mg 10/17/20 09:00 10/19/20 08:59 Finasteride 5 Mg Tablet PO 2.5 mg DAILY SUJIT Administration Folic Acid 1 mg 10/17/20 09:00 10/19/20 08:59 Folic Acid 1 Mg Tablet PO 1 mg DAILY SUJIT Administration Hydromorphone HCl 0.5 mg 10/17/20 02:08 10/19/20 12:30 Hydromorphone Hcl 0.5 Mg/0.5 Ml Syringe IVPUSH 0.5 mg Q3H PRN Administration Pain, Severe (Pain Scale 7-10) Hydroxyurea 1,000 mg 10/17/20 10:45 10/19/20 08:59 Hydroxyurea 500 Mg Capsule PO 1,000 mg DAILY SUJIT Administration Lactated Ringer's 1,000 mls @ 100 mls/hr 10/16/20 22:52 10/19/20 12:21 Lr IVCONT Not Given .Q10H SUJIT Ondansetron HCl 4 mg 10/17/20 05:20 Ondansetron Hcl 4 Mg/2 Ml Vial IVPUSH Q8H PRN Nausea and Vomiting Prednisone 40 mg 10/17/20 09:00 10/19/20 08:58 Prednisone 20 Mg Tablet PO 40 mg DAILY SUJIT Administration Quetiapine Fumarate 200 mg 10/17/20 09:00 10/19/20 08:59 Quetiapine Fumarate 200 Mg Tablet PO 200 mg BID SUJIT Administration Quetiapine Fumarate 200 mg 10/16/20 22:52 10/16/20 23:12 Quetiapine Fumarate 200 Mg Tablet PO 200 mg DAILY PRN Administration Anxiety Sodium Chloride 3 ml 10/17/20 05:20 10/19/20 08:57 0.9 % Sodium Chloride Flush 3 Ml Syringe IVFLUSH 3 ml QSHIFT SUJIT Administration Trazodone HCl 50 mg 10/16/20 22:52 10/18/20 21:49 Trazodone Hcl 50 Mg Tablet PO 50 mg BEDTIME SUJIT Administration Zolpidem Tartrate 10 mg 10/16/20 22:52 10/18/20 21:49 Zolpidem Tartrate 5 Mg Tablet PO 10 mg BEDTIME PRN Administration Sleep Home Medications Medication Instructions Recorded Confirmed Last Taken Type clonidine HCl 0.1 mg PO BEDTIME PRN 06/16/20 10/16/20 Unknown History folic acid 1 mg PO DAILY 06/16/20 10/16/20 07/23/20 History quetiapine [Seroquel] 200 mg PO BID 06/16/20 10/16/20 10/15/20 History trazodone 50 mg PO BEDTIME 06/16/20 10/16/20 10/15/20 History estradiol cypionate IM QWEEK 07/24/20 10/15/20 History finasteride 2.5 mg PO DAILY 07/24/20 10/16/20 10/15/20 History quetiapine [Seroquel] 200 mg PO DAILY PRN 07/24/20 10/16/20 10/15/20 History tramadol 50 mg PO Q6H PRN 07/24/20 10/16/20 07/23/20 History zolpidem [Ambien] 10 mg PO BEDTIME PRN 10/16/20 10/16/20 10/09/20 History Physical Exam Vital Signs: Vital Signs: Last Vital Signs Temp 97.8 F 10/19/20 11:53 Pulse 74 10/19/20 11:53 Resp 18 10/19/20 11:53 BP 116/56 L 10/19/20 11:53 Pulse Ox 94 10/19/20 11:53 Body Mass Index 20.7 Const: General: cooperative HENMT: Mouth: Normal oral and palatal mucosa present Eyes: General: appearance normal, both eyes and all related structures Resp: Effort & Inspection: normal respiratory effort Cardio: Rate: regular rate Rhythm: regular rhythm GI: Palpation (GI): nontender Skin: General skin exam: no rashes or lesions noted Psych: Affect: Labile affect present Results Labs CBC & Chem 7: 10/19/20 05:51 10/18/20 05:55 Labs: Short CBC 10/19/20 Range/Units 05:51 WBC 7.3 (4.8-10.8) X10*3/uL Hgb 7.9 L (14.0-18.0) g/dl Hct 21.8 L (42-52) % Plt Count 480 H (160-400) X10*3/uL Assessment and Plan (1) COVID-19: Problem details: He has no hypoxia He looks comfortable He has no superinfection Status: Acute Would hold Remdesivir unless hypoxic ( less than 94%) There is no clear indication for steroids but can give them if desired
[2020-10-19 15:41] VITALS: BP 120/61; PULSE 82; RESP 20; TEMP 36.4; O2SAT 94
[2020-10-19 20:00] VITALS: BP 141/71; PULSE 80; RESP 18; TEMP 36.4; O2SAT 93
--- NOTE | 2020-10-19 20:39 | P.EN_ITS ---
Event Note Date of Service: 10/19/20 Event Note: Against medical advise discharge note: Patient mentioned that he does not want to stay and has some important activities to take care at home. Explained the patient about the risks and benefits involved in leaving against medical advice which an overall include wor sening of the current clinical condition and may even lead to . Patient verbalized that he understood the reason he still wanted to leave against medical advice. Patient signed AMA form.
--- NOTE | 2020-10-19 21:42 | MHC.PIE ---
p; pt wants to leave [facility]; pt educated on need to stay multiple times. nursing beam department supervisor notified, dr stanton notified - md on phone with pt with pt cont to leave [facility]; pt left unit at 2100. iv dc'd.
--- NOTE | 2020-10-20 08:02 | MHC.CM.PN ---
Patient left AMA last night.
--- NOTE | 2020-10-30 16:49 | PM.EVENT ---
Event Note Date of Service: 10/30/20 Event Note: Discharge summary Discharge diagnosis (1) COVID-19 (2) Sickle cell anemia with pain (3) Acute respiratory failure with hypoxia He the patient was admitted to treatment of acute on chronic anemia and received a unit of blood. Received IV fluid and pain management for sickle cell crisis. Has a stable COVID-19 infection as he was weaned off to room air. He decided to leave A.
== END 2020-10-19 20:45 | disposition left against medical advice (07) | DRG 177 ==
LOC: HO.ED 21:44 → HO.EDOVER 10-17 05:50 → HO.IMC 10-17 16:15
PROVIDERS: Nurse Practitioner Primary Care; Student in an Organized Health Care Education/Training Program; Admitting Provider Internal Medicine; Emergency Provider Internal Medicine; Visit Provider Internal Medicine
DX: U07.1 COVID-19 (principal); D57.00 Hb-SS disease with crisis, unspecified; J96.01 Acute respiratory failure with hypoxia; J12.82 Pneumonia due to coronavirus disease 2019; Z88.5 Allergy status to narcotic agent; Z79.891 Long term (current) use of opiate analgesic; Z79.899 Other long term (current) drug therapy
CPT/HCPCS: 36415; 71045; 80048; 80053; 82728; 83615; 84145; 85007; 85025; 85027; 85045; 85379; 85610; 85730; 86140; 86850; 86900; 86902; 86923; 87635; 96374; 96375; 99285; J1170; J2405; P9016

== ENCOUNTER 2020-12-06 13:24 | Inpatient (IN) | payer MEDICARE, MEDICAID, SELFPAY ==
--- NOTE | ~2020-12-06 | XR_ITS ---
EXAMINATION: XR chest 2V CLINICAL INFORMATION: Reason for Exam fatigue, weakness COMPARISON: No prior chest x-ray available in our system for comparison at the time of this dictation. TECHNIQUE: XR chest 2V Lungs and Jennifer: Both lungs are clear. Pleura: Normal. Costophrenic angles are sharp. No pneumothorax. Heart: The heart is normal in size. Mediastinum: The mediastinum is within normal limits.. Bones: Skeletal structures included are normal for patient's age. XR/XR chest 2V IMPRESSION: Normal chest x-ray.
[2020-12-06 13:33] VITALS: BP 116/65; PULSE 119; RESP 16; TEMP 36.6; O2SAT 95; BMI 21.6
--- NOTE | 2020-12-06 14:36 | ECG_ITS ---
Test Reason : PAIN Blood Pressure : / mmHG Vent. Rate : 081 BPM Atrial Rate : 081 BPM P-R Int : 188 ms QRS Dur : 106 ms QT Int : 386 ms P-R-T Axes : 029 044 042 degrees QTc Int : 448 ms Normal sinus rhythm Normal ECG No previous ECGs available Referred By: Keara Miller Electronically Signed By:LOUIS TARANGO
--- NOTE | 2020-12-06 14:41 | ED_ITS ---
HPI - General Adult General Chief complaint: General Medical Stated complaint: SICKLE CELL CRISIS Time Seen by Provider: 12/06/20 14:30 Source: patient Mode of arrival: ambulatory Limitations: no limitations History of Present Illness HPI narrative: 25-year-old male to female with a past medical history of sickle cell disease who goes by Juan Carlos is here with complaints of generalized fatigue with body aches concerned for a sickle cell crisis times 2-3 days. No chest pain, shortness of breath or abdominal pain. No fevers or chills. No history of acute chest. Did have an admit October 16 for sickle cell crisis triggered by COVID-19. Also has a history of bilateral AVN, splenectomy. She is on hydroxyurea as well as daily folic acid. Related Data Home Medications Medication Instructions Recorded Confirmed clonidine HCl 0.1 mg PO BEDTIME PRN 06/16/20 12/06/20 folic acid 1 mg PO DAILY 06/16/20 12/06/20 quetiapine [Seroquel] 200 mg PO BID 06/16/20 12/06/20 trazodone 50 mg PO BEDTIME 06/16/20 12/06/20 estradiol cypionate See Rx Instructions .ROUTE .COMPLEX 07/24/20 12/06/20 finasteride 2.5 mg PO DAILY 07/24/20 12/06/20 quetiapine [Seroquel] 200 mg PO DAILY PRN 07/24/20 12/06/20 tramadol 50 mg PO Q6H PRN 07/24/20 12/06/20 zolpidem [Ambien] 10 mg PO BEDTIME PRN 10/16/20 12/06/20 Allergies Allergy/AdvReac Type Severity Reaction Status Date / Time morphine AdvReac Agitated Verified 06/15/20 22:24 oxycodone AdvReac Agitated Verified 06/15/20 22:24 Review of Systems Review of Systems: Yes all other systems are reviewed and are negative Constitutional: Constitutional: Reports no additional constitutional complaints, Reports body ache(s), Denies chills, Reports fatigue, Denies fever(s), Denies headache(s) and Denies weakness Eyes: Eyes: Reports no additional eye complaints and Denies change in vision ENT: Reports system reviewed and no additional complaints, except as documented, Denies dizziness, Denies headache(s), Denies nasal congestion, Denies nasal discharge and Denies neck pain Cardiovascular: Cardiovascular: Reports no additional cardiovascular complaints, Denies chest pain, Denies leg edema and Denies dyspnea Respiratory: Respiratory: Reports no additional respiratory complaints, Denies cough and Denies dyspnea Gastrointestinal: Gastrointestinal: Reports no additional gastrointestinal complaints, Denies abdominal pain, Denies diarrhea, Denies nausea and Denies vomiting Genitourinary: Genitourinary: Denies urinary incontinence Musculoskeletal: Musculoskeletal: Reports no additional musculoskeletal complaints, Denies back pain, Denies arthralgias, Denies joint swelling, Denies neck pain, Denies numbness and Denies tingling Integumentary/Breasts: Skin/Breast: Reports system reviewed and no additional complaints, except as docu and Denies rash Neurologic: Reports system reviewed and no additional complaints, except as documented, Denies Abnormal speech present, Denies dizziness, Denies headache(s), Denies numbness, Denies tingling and Denies weakness Endocrine: Endocrine: Reports fatigue PMFSH Past Medical History Attestation statement: The following information was validated with the patient. Source: old records reviewed and nursing notes reviewed Medical History Avascular bone necrosis Sickle cell anemia with crisis Surgical History H/O splenectomy Family History Family History Other Sickle cell anemia Social History Social History Household Members: Significant Other Housing: Apartment Do you presently have visiting nurse or other home services: No Alcohol intake: never Patient Tobacco Use Status: Never used Tobacco Use of substances other than those prescribed or required for medical reasons: Yes Substance Use Type: Marijuana Advance Directives: No Advance Directives Information Provided: Yes service: No Current occupational status: disabled Physical Exam Vital Signs: Vital Signs: Last Vital Signs Temp 99.1 F 12/06/20 18:00 Pulse 99 12/06/20 18:00 Resp 18 12/06/20 18:00 BP 130/72 12/06/20 18:00 Pulse Ox 99 12/06/20 18:00 Body Mass Index 21.6 Const: General: cooperative, healthy appearing, comfortable and no acute distress Orientation/consciousness: patient oriented x3 Limitations: no limitations HENMT: Head: Yes normal to inspection Ears: hearing grossly normal bilaterally General nose exam: Normal external nose present Face and sinus: Yes normal facial exam Mouth: Normal oral and palatal mucosa present Throat: Yes posterior oropharynx normal Eyes: General: appearance normal, both eyes and all related structures Pupils: Equal, round and reactive pupils present Neck: Neck: Yes normal visual inspection Chest: Chest palpation & inspection: normal inspection of the chest Resp: Effort & Inspection: normal respiratory effort Auscultation: clear to auscultation bilaterally Cardio: Rate: tachycardic Rhythm: regular rhythm Peripheral pulses: Peripheral pulses 2+ throughout GI: Inspection: Yes normal to inspection Palpation (GI): Soft to palpation and nontender Auscultation: normal bowel sounds Back/Spine/Pelvis: Thoracic/Lumbar Spine: thoracic and lumbar spine normal to inspection Skin: General skin exam: no rashes or lesions noted Neuro: General: patient oriented x3, no focal motor deficits and normal sensation to monofilament Cranial nerves: Yes Equal, round and reactive pupi ls present Cognition (Neuro): normal cognition Speech: No Abnormal speech present Gait exam (Neuro): Normal gait present Motor exam (neuro): 5/5 motor strength present throughout Extrem: General: Yes normal to inspection, Yes no pedal edema and Yes no calf tenderness Course Course Course Narrative: 25-year-old male to female with a past medical history of sickle cell disease, AVN here with complaints of generalized body pain and fatigue times 2-3 days. Patient tells me this feels like her previous episodes of sickle cell crisis. No fever, chest pain, abdominal pain, shortness of breath. Will need labs, EKG, chest x-ray. Will give normal saline bolus and IV Dilaudid. 1600-EKG shows no ischemic changes. Chest x-ray negative. Labs are still pending. Continued pain. We will re-dose with dilaudid. 1654-Labs show hgb 7.8 with baseline hgb 7.2-7.9. Mild leukocytosis with no shift. Likely reactive. UA and CXR negative. D/w with Dr Ross who accepted admission for sickle cell crisis. Medical Decision Making MDM Narrative Medical decision making narrative: sickle cell crisis Medical Records Medical records reviewed: Yes I reviewed the patient's medical records. Lab Data Lab results reviewed: Yes I reviewed the patient's lab results. Result diagrams: 12/06/20 15:12 12/06/20 15:12 Labs: Lab Results 12/06/20 12/06/20 12/06/20 Range/Units 15:12 15:12 15:12 WBC 15.1 H (4.8-10.8) X10*3/uL RBC 2.30 L (4.60-5.80) X10*6/uL Hgb 7.8 L (14.0-18.0) g/dl Hct 21.1 L (42-52) % MCV 91.7 (80-98) fL MCH 33.9 H (27.0-33.0) pg MCHC 37.0 H (31.0-36.0) g/dl RDW 19.3 H (11.0-16.0) % Plt Count 557 H (160-400) X10*3/uL MPV 9.6 (9.4-12.4) fL Immature Gran % (Auto) Cancelled Neut % (Auto) Cancelled Lymph % (Auto) Cancelled [facility] % (Auto) Cancelled Eos % (Auto) Cancelled Baso % (Auto) Cancelled Lymph # (Auto) Cancelled [facility] # (Auto) Cancelled Eos # (Auto) Cancelled Baso # (Auto) Cancelled Abs Immat Gran (auto) Cancelled Absolute Neuts (auto) Cancelled Absolute Nucleated RBC 0.290 H (0.0-0.012) X10*3/uL Nucleated RBC % (auto) 1.9 H (0.0-0.2) /100WBC Neutrophils % (Manual) 66 (45-73) % Band Neutrophils % 4 (3-5) % Lymphocytes % (Manual) 13 L (20-40) % Monocytes % (Manual) 14 H (2-11) % Eosinophils % (Manual) 2 (0-4) % Basophils % (Manual) 1 (0-1) % Abs Neuts (Manual) 10.6 H (2.2-7.9) X10*3/uL Lymphocytes # (Manual) 2.0 (0.6-4.8) X10*3/uL Monocytes # (Manual) 2.1 H (0.0-1.2) X10*3/uL Eosinophils # (Manual) 0.3 (0.0-0.8) X10*3/UL Basophils # (Manual) 0.2 (0.0-0.3) X10*3/uL Nucleated RBCs 5 H (0-0) /100WBC Platelet Estimate INCREASED (NORMAL) Plt Morphology Comment NORMAL RBC Morphology NOTED Polychromasia 3+ (>5) /OIF Microcytosis 1+ (5-14) /OIF Macrocytosis 2+ (15-30) /OIF Spherocytes 2+ (3-5) /OIF Sickle Cells 3+ (>5) /OIF Target Cells 1+ (5-14) /OIF Absolute Retic 0.399 H (0.026-0.095) X10*6/uL Percent Retic 18.3 H (0.5-1.8) % Immature Retic Fraction 25.2 H (2.3-13.4) % Retic Hgb Equivalent 31.1 (30.0-35.0) pg Sodium 137 (135-145) mmol/L Potassium 4.3 (3.3-5.1) mmol/L Chloride 106 (96-108) mmol/L Carbon Dioxide 22 (22-29) mmol/L Anion Gap 13 (12-20) BUN 7 L (9-16) mg/dL Creatinine 0.68 (0.5-1.4) mg/dL Estim Creat Clear Calc 157.3 Estimated GFR > 60 Random Glucose 91 (60-115) mg/dL Calcium 9.4 D (8.4-10.2) mg/dL Total Bilirubin 2.8 H (0.0-1.0) mg/dL Direct Bilirubin 1.1 H (0.0-0.5) mg/dL AST 46 H (5-37) U/L ALT 28 (0-40) U/L Alkaline Phosphatase 91 D (39-117) U/L Total Protein 8.2 H (6.5-8.0) g/dL Albumin 4.2 (3.5-5.0) g/dL Urine Color MITCHELL Urine Appearance CLEAR Urine pH 6.0 (5.0-8.0) Ur Specific [employer] 1.010 (1.005-1.025) Urine Protein NEG (NEG-TRACE) MG/DL Urine Glucose (UA) NEG (NEG) MG/DL Urine Ketones 5 (NEG) MG/DL Urine Blood NEG (NEG) Urine Nitrite NEG (NEG) Ur Leukocyte Esterase NEG (NEG) COVID-19 (MICHAEL) (Negative) COVID-19 Clin Com 12/06/20 Range/Units 16:29 WBC (4.8-10.8) X10*3/uL RBC (4.60-5.80) X10*6/uL Hgb (14.0-18.0) g/dl Hct (42-52) % MCV (80-98) fL MCH (27.0-33.0) pg MCHC (31.0-36.0) g/dl RDW (11.0-16.0) % Plt Count (160-400) X10*3/uL MPV (9.4-12.4) fL Immature Gran % (Auto) Neut % (Auto) Lymph % (Auto) [facility] % (Auto) Eos % (Auto) Baso % (Auto) Lymph # (Auto) [facility] # (Auto) Eos # (Auto) Baso # (Auto) Abs Immat Gran (auto) Absolute Neuts (auto) Absolute Nucleated RBC (0.0-0.012) X10*3/uL Nucleated RBC % (auto) (0.0-0.2) /100WBC Neutrophils % (Manual) (45-73) % Band Neutrophils % (3-5) % Lymphocytes % (Manual) (20-40) % Monocytes % (Manual) (2-11) % Eosinophils % (Manual) (0-4) % Basophils % (Manual) (0-1) % Abs Neuts (Manual) (2.2-7.9) X10*3/uL Lymphocytes # (Manual) (0.6-4.8) X10*3/uL Monocytes # (Manual) (0.0-1.2) X10*3/uL Eosinophils # (Manual) (0.0-0.8) X10*3/UL Basophils # (Manual) (0.0-0.3) X10*3/uL Nucleated RBCs (0-0) /100WBC Platelet Estimate (NORMAL) Plt Morphology Comment RBC Morphology Polychromasia /OIF Microcytosis /OIF Macrocytosis /OIF Spherocytes /OIF Sickle Cells /OIF Target Cells /OIF Absolute Retic (0.026-0.095) X10*6/uL Percent Retic (0.5-1.8) % Immature Retic Fraction (2.3-13.4) % Retic Hgb Equivalent (30.0-35.0) pg Sodium (135-145) mmol/L Potassium (3.3-5.1) mmol/L Chloride (96-108) mmol/L Carbon Dioxide (22-29) mmol/L Anion Gap (12-20) BUN (9-16) mg/dL Creatinine (0.5-1.4) mg/dL Estim Creat Clear Calc Estimated GFR Random Glucose (60-115) mg/dL Calcium (8.4-10.2) mg/dL Total Bilirubin (0.0-1.0) mg/dL Direct Bilirubin (0.0-0.5) mg/dL AST (5-37) U/L ALT (0-40) U/L Alkaline Phosphatase (39-117) U/L Total Protein (6.5-8.0) g/dL Albumin (3.5-5.0) g/dL Urine Color Urine Appearance Urine pH (5.0-8.0) Ur Specific [employer] (1.005-1.025) Urine Protein (NEG-TRACE) MG/DL Urine Glucose (UA) (NEG) MG/DL Urine Ketones (NEG) MG/DL Urine Blood (NEG) Urine Nitrite (NEG) Ur Leukocyte Esterase (NEG) COVID-19 (MICHAEL) Negative (Negative) COVID-19 Clin Com See Note Imaging Data Chest x-ray: Attestation: I personally reviewed and interpreted this imaging study as follows: Radiologist's impression: [address] [address]PNap ReportSigned Patient: Lucas FordMR#: [id number]: 1995Acct:[id number]/Sex: 25 / MADM Date: 12/06/20Loc: [facility]: Ordering Physician: ANNABEL LUNSFORD NP Date of Service: 12/06/20 Procedure(s): XR chest 2V Accession Number(s): [id number] cc: ISATU,ANNABEL DIRECTOR OF GROUP COUNSELING PROGRAM~ EXAMINATION: XR chest 2V CLINICAL INFORMATION: Reason for Exam fatigue, weakness COMPARISON: No prior chest x-ray available in our system for comparison at the time of this dictation. TECHNIQUE: XR chest 2V Lungs and Jennifer: Both lungs are clear. Pleura: Normal. Costophrenic angles are sharp. No pneumothorax. Heart: The heart is normal in size. Mediastinum: The mediastinum is within normal limits.. Bones: Skeletal structures included are normal for patient's age. XR/XR chest 2V IMPRESSION: Normal chest x-ray. ECG Data Attestation: I personally reviewed and interpreted this ECG as follows: Interpretation: Normal sinus rhythm with a rate of 81, normal VT, normal QRS, normal QT Discharge Plan Discharge Clinical Impression: Sickle cell anemia with crisis Patient Disposition: Admitted As Inpatient
[2020-12-06 15:13] VITALS: BP 125/58; PULSE 98; RESP 18; O2SAT 99
--- NOTE | 2020-12-06 15:15 | PC.NURSE ---
c/o pain all over. is aware of plan of care. 4l NC for comfort. skin pale warm dry.
[2020-12-06] MEDS: HYDROmorphone HCl 0.5 MG/0.5 ML SYRINGE IVPUSH (15:20)
[2020-12-06] MEDS: 0.9 % Sodium Chloride 1,000 ML 999 ML IV (15:20)
[2020-12-06 15:32] LABS: Appearance Urine CLEAR; Color Urine AMBER; Glucose Urine UA NEG (NEG); Leukocyte Esterase Urine NEG (NEG); Nitrite Urine NEG (NEG); Urine Blood NEG (NEG); Urine Ketones 5 MG/DL (NEG); Urine Protein NEG (NEG-TRACE)
[2020-12-06 15:40] LABS: Hematocrit 21.1 % (42-52); Hemoglobin 7.8 g/dl (14.0-18.0); Mean Corpuscular Hemoglobin 33.9 pg (27.0-33.0); Mean Corpuscular Volume 91.7 fL (80-98); Mean Platelet Volume 9.6 fL (9.4-12.4); Platelet Count 557 X10*3/uL (160-400); Red Cell Distribution Width 19.3 % (11.0-16.0)
[2020-12-06 15:54] LABS: Alanine Aminotransferase 28 U/L (0-40); Albumin Level 4.2 g/dL (3.5-5.0); Alkaline Phosphatase 91 U/L (39-117); Anion Gap 13 (12-20); Aspartate Amino Transferase 46 U/L (5-37); Bilirubin Direct 1.1 mg/dL (0.0-0.5); Bilirubin Total 2.8 mg/dL (0.0-1.0); Blood Urea Nitrogen 7 mg/dL (9-16); Calcium 9.4 mg/dL (8.4-10.2); Carbon Dioxide 22 mmol/L (22-29); Chloride 106 mmol/L (96-108); Creatinine Clr Calc Pharmacy 157.3; Estimated Glomerular Filt Rate > 60; Glucose Random 91 mg/dL (60-115); Potassium 4.3 mmol/L (3.3-5.1); Sodium 137 mmol/L (135-145); Total Protein 8.2 g/dL (6.5-8.0)
[2020-12-06 15:58] LABS: NRBC Pct Auto 1.9 /100WBC (0.0-0.2); WBC ABN SCTR FOR CBC 1; White Blood Count 15.1 X10*3/uL (4.8-10.8)
[2020-12-06 15:59] LABS: Immature Retic Fraction 25.2 % (2.3-13.4); Retic HGB Equivalent 31.1 pg (30.0-35.0); Reticulocyte Percent 18.3 % (0.5-1.8); Reticulocytes Absolute 0.399 X10*6/uL (0.026-0.095)
[2020-12-06 16:05] LABS: Band Neutrophils Percent 4 % (3-5); Basophils Abs Manual 0.2 X10*3/uL (0.0-0.3); Basophils Percent Manual 1 % (0-1); Eosinophils Absolute Manual 0.3 X10*3/UL (0.0-0.8); Eosinophils Percent Manual 2 % (0-4); Lymphocytes Percent Manual 13 % (20-40); Monocytes Absolute Manual 2.1 X10*3/uL (0.0-1.2); Monocytes Percent Manual 14 % (2-11); Neutrophils Absolute Manual 10.6 X10*3/uL (2.2-7.9); Neutrophils Percent Manual 66 % (45-73); Nucleated Red Blood Cells 5 /100WBC (0-0)
[2020-12-06 16:06] LABS: Macrocytosis 2+ (15-30) /OIF; Microcytosis 1+ (5-14) /OIF; RBC Morphology NOTED; Sickle Cells 3+ (>5) /OIF; Spherocytes 2+ (3-5) /OIF
[2020-12-06 16:07] LABS: Platelet Estimate INCREASED (NORMAL); Polychromasia 3+ (>5) /OIF; Target Cells 1+ (5-14) /OIF
[2020-12-06 16:08] LABS: Platelet Morphology Comment NORMAL
[2020-12-06] MEDS: 0.9 % Sodium Chloride 1,000 ML 100 ML IVCONT ×2 (16:27→19:41)
[2020-12-06] MEDS: HYDROmorphone HCl 1 MG/ML SYRINGE IVPUSH ×5 (16:27→23:25)
--- NOTE | 2020-12-06 16:32 | PC.NURSE ---
[facility] # [phone]
[2020-12-06 16:49] LABS: COVID-19 Test Negative (Negative)
--- NOTE | 2020-12-06 17:04 | PM.IMHP ---
History of Present Illness Date of Service: 12/06/20 Chief Complaint: diffuse arthralgias 25 transgender ashlie (preferred name: Juan Carlos, preferred pronouns: she, her) presented with one day of severe diffuse arthralgias, worst in knees, 10/10, similar to previous sickle cell crises. patient denies fever, chills chest pain, cough, sick contacts. was recently admitted about one month ptp for covid and sickle crisis, had felt okay in between. in ED CXR unremarkable, hgb stable at 7.8, indirect bilirubin 1.7 (decreased from previous). Review of Systems Review of Systems: Constitutional: Denies fever, denies Chills Eyes: denies blurry vision ENT: denies sore throat CVS: denies chest pain Respiratory: Denies dyspnea GI: no abdominal pain : denies dysuria MSK: neck pain Skin: denies rash Neuro: denies specific motor weakness Psych: denies suicidal ideation Endocrine: denies heat/cold intoleratnce Hematologic: denies easy bleeding Allergy: denies hives [facility] Medical History Avascular bone necrosis Sickle cell anemia with crisis Family History Other Sickle cell anemia Family history: reviewed and not pertinent Surgical History H/O splenectomy Social History Household Members: Significant Other Housing: Apartment Do you presently have visiting nurse or other home services: No Alcohol intake: current Alcohol intake frequency: holidays/special occasions only Substance Use Type: Marijuana Advance Directives: No Advance Directives Information Provided: Yes service: No Current occupational status: disabled Meds Allergies Allergy/AdvReac Type Severity Reaction Status Date / Time morphine AdvReac Agitated Verified 06/15/20 22:24 oxycodone AdvReac Agitated Verified 06/15/20 22:24 Active Medications: Current Medications Generic Name Dose Route Start Last Admin Trade Name Freq PRN Reason Stop Dose Admin Sodium Chloride 1,000 mls @ 100 mls/hr 12/06/20 15:58 12/06/20 16:27 Ns IVCONT 12/07/20 01:57 100 mls/hr .Q10H STA Administration Home Medications Medication Instructions Recorded Confirmed Last Taken Type clonidine HCl 0.1 mg PO BEDTIME PRN 06/16/20 10/16/20 Unknown History folic acid 1 mg PO DAILY 06/16/20 10/16/20 07/23/20 History quetiapine [Seroquel] 200 mg PO BID 06/16/20 10/16/20 10/15/20 History trazodone 50 mg PO BEDTIME 06/16/20 10/16/20 10/15/20 History estradiol cypionate IM QWEEK 07/24/20 10/15/20 History finasteride 2.5 mg PO DAILY 07/24/20 10/16/20 10/15/20 History quetiapine [Seroquel] 200 mg PO DAILY PRN 07/24/20 10/16/20 10/15/20 History tramadol 50 mg PO Q6H PRN 07/24/20 10/16/20 07/23/20 History zolpidem [Ambien] 10 mg PO BEDTIME PRN 10/16/20 10/16/20 10/09/20 History Physical Exam Vital Signs and Narrative: Vital Signs: Last Vital Signs Temp 97.9 F 12/06/20 13:33 Pulse 98 12/06/20 15:13 Resp 18 12/06/20 15:13 BP 125/58 L 12/06/20 15:13 Pulse Ox 99 12/06/20 15:13 Body Mass Index 21.6 General: no acute distress HEENT: atraumatic Neck: normal to visual inspection CVS: S1, S2, RRR Resp: CTA bilateral Chest: non tender GI: soft, non tender, non distended : no CVA tenderness Skin: no rashes Extremities: no edema Neuro: Oriented X3, grossly intact Psych: cooperative Results Labs CBC and Chem 7: 12/06/20 15:12 12/06/20 15:12 Labs: Laboratory Results - last 24 hr 12/06/20 12/06/20 12/06/20 15:12 15:12 15:12 MCV 91.7 MCH 33.9 H MCHC 37.0 H RDW 19.3 H Plt Count 557 H MPV 9.6 Immature Gran % (Auto) Cancelled Neut % (Auto) Cancelled Lymph % (Auto) Cancelled [place] % (Auto) Cancelled Eos % (Auto) Cancelled Baso % (Auto) Cancelled Lymph # (Auto) Cancelled [place] # (Auto) Cancelled Eos # (Auto) Cancelled Baso # (Auto) Cancelled Abs Immat Gran (auto) Cancelled Absolute Neuts (auto) Cancelled Absolute Nucleated RBC 0.290 H Nucleated RBC % (auto) 1.9 H Neutrophils % (Manual) 66 Band Neutrophils % 4 Lymphocytes % (Manual) 13 L Monocytes % (Manual) 14 H Eosinophils % (Manual) 2 Basophils % (Manual) 1 Abs Neuts (Manual) 10.6 H Lymphocytes # (Manual) 2.0 Monocytes # (Manual) 2.1 H Eosinophils # (Manual) 0.3 Basophils # (Manual) 0.2 Nucleated RBCs 5 H Platelet Estimate INCREASED Plt Morphology Comment NORMAL RBC Morphology NOTED Polychromasia 3+ (>5) Microcytosis 1+ (5-14) Macrocytosis 2+ (15-30) Spherocytes 2+ (3-5) Sickle Cells 3+ (>5) Target Cells 1+ (5-14) Absolute Retic 0.399 H Percent Retic 18.3 H Immature Retic Fraction 25.2 H Retic Hgb Equivalent 31.1 Anion Gap 13 Estim Creat Clear Calc 157.3 Estimated GFR > 60 Random Glucose 91 Calcium 9.4 D Total Bilirubin 2.8 H Direct Bilirubin 1.1 H AST 46 H ALT 28 Alkaline Phosphatase 91 D Total Protein 8.2 H Albumin 4.2 Urine Color MITCHELL Urine Appearance CLEAR Urine pH 6.0 Ur Specific [place] 1.010 Urine Protein NEG Urine Glucose (UA) NEG Urine Ketones 5 Urine Blood NEG Urine Nitrite NEG Ur Leukocyte Esterase NEG COVID-19 (MICHAEL) COVID-19 Clin Com 12/06/20 16:29 MCV MCH MCHC RDW Plt Count MPV Immature Gran % (Auto) Neut % (Auto) Lymph % (Auto) [place] % (Auto) Eos % (Auto) Baso % (Auto) Lymph # (Auto) [place] # (Auto) Eos # (Auto) Baso # (Auto) Abs Immat Gran (auto) Absolute Neuts (auto) Absolute Nucleated RBC Nucleated RBC % (auto) Neutrophils % (Manual) Band Neutrophils % Lymphocytes % (Manual) Monocytes % (Manual) Eosinophils % (Manual) Basophils % (Manual) Abs Neuts (Manual) Lymphocytes # (Manual) Monocytes # (Manual) Eosinophils # (Manual) Basophils # (Manual) Nucleated RBCs Platelet Estimate Plt Morphology Comment RBC Morphology Polychromasia Microcytosis Macrocytosis Spherocytes Sickle Cells Target Cells Absolute Retic Percent Retic Immature Retic Fraction Retic Hgb Equivalent Anion Gap Estim Creat Clear Calc Estimated GFR Random Glucose Calcium Total Bilirubin Direct Bilirubin AST ALT Alkaline Phosphatase Total Protein Albumin Urine Color Urine Appearance Urine pH Ur Specific [place] Urine Protein Urine Glucose (UA) Urine Ketones Urine Blood Urine Nitrite Ur Leukocyte Esterase COVID-19 (MICHAEL) Negative COVID-19 Clin Com See Note Imaging Radiologist's Impressions: Impressions Chest X-Ray 12/06/20 14:37 IMPRESSION: Normal chest x-ray. Assessment and Plan (1) Sickle cell anemia with crisis: Status: Acute 25 transgender female presented with pain crisis sickle cell anemia with pain crisis o2, IVF, opioid analgesics, monitor labs transitioning male to female continue finasteride on estradiol IM qweekly - can hold while inpatient mood disorder seroquel, clonidine, trazadone vte prophylaxis
[2020-12-06 18:00] VITALS: BP 130/72; PULSE 99; RESP 18; TEMP 37.3; O2SAT 99
[2020-12-06 19:17] VITALS: BP 139/86; PULSE 111; RESP 18; TEMP 37.1; O2SAT 99
--- NOTE | 2020-12-06 19:58 | PC.NURSE ---
Pt stating that she doesn't want a male nurse because it will trigger my ptsd . This rn to consult Cable Installation Technician.
[2020-12-06] MEDS: QUEtiapine Fumarate 200 MG TABLET PO ×2 (20:27→20:50)
[2020-12-06 20:45] VITALS: BP 151/77; PULSE 105; RESP 18; TEMP 36.6; O2SAT 95
[2020-12-06] MEDS: traZODone HCL 50 MG TABLET PO (20:50)
[2020-12-06] MEDS: cloNIDine HCL 0.1 MG TABLET PO (20:50)
[2020-12-06] MEDS: Zolpidem Tartrate 5 MG TABLET PO (20:50)
[2020-12-07] VITALS: BP 144/78; PULSE 103; RESP 18; TEMP 36.3; O2SAT 94
[2020-12-07] MEDS: HYDROmorphone HCl 1 MG/ML SYRINGE IVPUSH ×4 (01:18→10:26)
--- NOTE | 2020-12-07 01:27 | MHC.PIE ---
12/06/20 2146 p; pt c/o pain 02/15. note; prn dilaudid 1mg iv given at 2125 i; dr hubbard notified; new order dilaudid 1 mg iv now p; pt cont to c/o pain -03/18. prn dilaudid 1mg iv q2 prn given at 2325 and at 0118. pt c/o n/v i; notified; new order zofran 4mg iv q8 prn e; will cont to [facility]
[2020-12-07] MEDS: ondansetron HCL 4 MG/2 ML VIAL IVPUSH (02:00)
[2020-12-07 03:56] VITALS: BP 146/75; PULSE 115; RESP 18; TEMP 36.8; O2SAT 93
[2020-12-07] MEDS: 0.9 % Sodium Chloride 1,000 ML 100 ML IVCONT (05:26)
[2020-12-07 07:30] VITALS: BP 128/66; PULSE 82; RESP 18; TEMP 36.9; O2SAT 94
[2020-12-07] MEDS: Folic Acid 1 MG TABLET PO (08:13)
[2020-12-07] MEDS: Finasteride 5 MG TABLET 2.5 MG PO (08:13)
[2020-12-07] MEDS: QUEtiapine Fumarate 200 MG TABLET PO (08:13)
[2020-12-07 08:50] LABS: Mean Corpuscular HGB Conc 36.4 g/dl (31.0-36.0); Mean Corpuscular Volume 90.6 fL (80-98); Platelet Count 480 X10*3/uL (160-400); Red Blood Count 2.03 X10*6/uL (4.60-5.80); Red Cell Distribution Width 19.1 % (11.0-16.0); White Blood Count 11.7 X10*3/uL (4.8-10.8)
--- NOTE | 2020-12-07 08:50 | HO.PM.IMPN ---
Subjective Subjective Date of Service: 12/07/20 Interval History: still with pain Cardiovascular Cardiovascular: Reports no additional cardiovascular complaints Respiratory Respiratory: Reports no additional respiratory complaints Physical Exam Vital Signs: Vital Signs: Last Vital Signs Temp 98.4 F 12/07/20 07:30 Pulse 82 12/07/20 07:30 Resp 18 12/07/20 07:30 BP 128/66 12/07/20 07:30 Pulse Ox 94 12/07/20 07:30 Body Mass Index 21.6 General: AO X 3, appears to be in discomfort Resp: CTA bilateral CVS: S1,S2,RRR GI: soft, non tender, non distended Neuro: motor grossly intact Psych: appropriate affect Objective Data Current Medications Generic Name Dose Route Start Last Admin Trade Name Freq PRN Reason Stop Dose Admin Clonidine HCl 0.1 mg 12/06/20 19:17 12/06/20 20:50 Clonidine Hcl 0.1 Mg Tablet PO 0.1 mg BEDTIME PRN Administration Anxiety Protocol Enoxaparin Sodium 40 mg 12/06/20 22:00 12/06/20 20:51 Enoxaparin Sodium 40 Mg/0.4 Ml Syringe SUBCUT Not Given Q24H SUJIT Finasteride 2.5 mg 12/07/20 09:00 12/07/20 08:13 Finasteride 5 Mg Tablet PO 2.5 mg DAILY SUJIT Administration Folic Acid 1 mg 12/07/20 09:00 12/07/20 08:13 Folic Acid 1 Mg Tablet PO 1 mg DAILY SUJIT Administration Hydromorphone HCl 1 mg 12/06/20 19:17 12/07/20 08:10 Hydromorphone Hcl 1 Mg/Ml Syringe IVPUSH 1 mg Q2H PRN Administration Pain, Severe (Pain Scale 7-10) Sodium Chloride 1,000 mls @ 100 mls/hr 12/06/20 19:17 12/07/20 05:26 Ns IVCONT 100 mls/hr .Q10H SUJIT Administration Ondansetron HCl 4 mg 12/07/20 01:18 12/07/20 02:00 Ondansetron Hcl 4 Mg/2 Ml Vial IVPUSH 4 mg Q8H PRN Administration Nausea and Vomiting Quetiapine Fumarate 200 mg 12/06/20 21:00 12/07/20 08:13 Quetiapine Fumarate 200 Mg Tablet PO 200 mg BID SUJIT Administration Quetiapine Fumarate 200 mg 12/06/20 19:17 12/06/20 20:27 Quetiapine Fumarate 200 Mg Tablet PO 200 mg DAILY PRN Administration Anxiety Sodium Chloride 3 ml 12/07/20 00:00 12/07/20 08:15 0.9 % Sodium Chloride Flush 3 Ml Syringe IVFLUSH Not Given QSHIFT SUJIT Trazodone HCl 50 mg 12/06/20 21:00 12/06/20 20:50 Trazodone Hcl 50 Mg Tablet PO 50 mg BEDTIME SUJIT Administration Zolpidem Tartrate 5 mg 12/06/20 19:17 12/06/20 20:50 Zolpidem Tartrate 5 Mg Tablet PO 5 mg BEDTIME PRN Administration Sleep Labs CBC & Chem 7: 12/06/20 15:12 12/06/20 15:12 Assessment and Plan (1) Sickle cell anemia with pain: Status: Acute Assessment and Plan: 25 transgender female presented with pain crisis sickle cell anemia with pain crisis still with pain requiring iv analgesics continue o2, IVF, opioid analgesics, monitor labs transitioning male to female continue finasteride on estradiol IM qweekly - can hold while inpatient mood disorder seroquel, clonidine, trazadone vte prophylaxis
[2020-12-07 09:05] LABS: Hematocrit 18.4 % (42-52); Hemoglobin 6.7 g/dl (14.0-18.0); NRBC Pct Auto 1.9 /100WBC (0.0-0.2)
[2020-12-07 09:20] LABS: Anion Gap 11 (12-20); Blood Urea Nitrogen 6 mg/dL (9-16); Calcium 8.8 mg/dL (8.4-10.2); Carbon Dioxide 23 mmol/L (22-29); Chloride 107 mmol/L (96-108); Estimated Glomerular Filt Rate > 60; Glucose Fasting 87 mg/dL (60-99); Potassium 4.1 mmol/L (3.3-5.1); Sodium 137 mmol/L (135-145)
--- NOTE | 2020-12-07 10:16 | MHC.CM.PN ---
CM MET WITH PT WHO PROVIDED MINIMAL INFORMATION. LEAD ANDROID DEVELOPER COMPLETED WITH LITTLE INFO FROM PT AND EMR. PT LIVES WITH S/O IN [place] AND IS INDEPENDENT AT BASELINE. PT DOES NOT REQUIRE DME OR HAVE HOME SERVICES. PT DOES NOT APPEAR TO HAVE A PCP OR HCP. IMM WAS DELIVERED VERBALLY PT WILL DISCHARGE HOME WITH NO SERVICES. PT TO SELF ARRANGE RIDE
[2020-12-07] MEDS: Cholecalciferol (Vitamin D3) 25 MCG TABLET PO (10:23)
--- NOTE | 2020-12-07 13:58 | P.DS_ITS ---
DS: Providers Provider Date of Service: 12/07/20 Date of admission: 12/06/20 18:00 Primary care physician: Unknown Physician Consults: 12/07/20 09:22 Consult to Hematology / Oncology Routine Consulting Provider: Jadyn Donahue Reason for consultation: sickle cell DS: Diagnosis Discharge Diagnosis (1) Sickle cell anemia with pain: Status: Acute DS: Medications Discharge Medications Home Medications: Home Medications Medication Instructions Recorded Confirmed clonidine HCl 0.1 mg PO BEDTIME PRN 06/16/20 12/06/20 folic acid 1 mg PO DAILY 06/16/20 12/06/20 quetiapine [Seroquel] 200 mg PO BID 06/16/20 12/06/20 trazodone 50 mg PO BEDTIME 06/16/20 12/06/20 estradiol cypionate See Rx Instructions .ROUTE .COMPLEX 07/24/20 12/06/20 finasteride 2.5 mg PO DAILY 07/24/20 12/06/20 quetiapine [Seroquel] 200 mg PO DAILY PRN 07/24/20 12/06/20 tramadol 50 mg PO Q6H PRN 07/24/20 12/06/20 zolpidem [Ambien] 10 mg PO BEDTIME PRN 10/16/20 12/06/20 cholecalciferol (vitamin D3) 25 mcg PO DAILY 12/06/20 12/06/20 [Vitamin D3] DS: Summary Hospital Course Hospital Course: Patient was admitted for sickle cell pain crisis. There given IV fluids, oxygen, IV opiates. Patient was still in pain. Was noted to have decreased hemoglobin of 6.8. They were evaluated by Hematology who recommended blood transfusion. However, patient decided to leave against medical advice, they are aware of risks of doing so including . Time Spent with Patient Time attestation: Total time spent providing and/or coordinating discharge services: Discharge coordination time: Greater than 30 minutes Quality: Stroke Does the patient have a stroke diagnosis?: No Physical Exam Vital Signs: Vital Signs: Last Vital Signs Temp 98.4 F 12/07/20 07:30 Pulse 82 12/07/20 07:30 Resp 18 12/07/20 07:30 BP 128/66 12/07/20 07:30 Pulse Ox 94 12/07/20 07:30 Body Mass Index 21.6 General: AO X 3, no acute distress Resp: CTA bilateral CVS: S1,S2,RRR GI: soft, non tender, non distended Neuro: motor grossly intact Psych: appropriate affect DS: Data Data Completed and Pending Completed studies during hospitalization [Text1]: Procedures Transfusion of Nonautologous Red Blood Cells into Peripheral Vein, Percutaneous Approach (10/17/20) Labs on day of discharge: Laboratory Results - last 24 hr 12/06/20 12/06/20 12/06/20 15:12 15:12 15:12 WBC 15.1 H RBC 2.30 L Hgb 7.8 L Hct 21.1 L MCV 91.7 MCH 33.9 H MCHC 37.0 H RDW 19.3 H Plt Count 557 H MPV 9.6 Immature Gran % (Auto) Cancelled Neut % (Auto) Cancelled Lymph % (Auto) Cancelled [place] % (Auto) Cancelled Eos % (Auto) Cancelled Baso % (Auto) Cancelled Lymph # (Auto) Cancelled [place] # (Auto) Cancelled Eos # (Auto) Cancelled Baso # (Auto) Cancelled Abs Immat Gran (auto) Cancelled Absolute Neuts (auto) Cancelled Absolute Nucleated RBC 0.290 H Nucleated RBC % (auto) 1.9 H Neutrophils % (Manual) 66 Band Neutrophils % 4 Lymphocytes % (Manual) 13 L Monocytes % (Manual) 14 H Eosinophils % (Manual) 2 Basophils % (Manual) 1 Abs Neuts (Manual) 10.6 H Lymphocytes # (Manual) 2.0 Monocytes # (Manual) 2.1 H Eosinophils # (Manual) 0.3 Basophils # (Manual) 0.2 Nucleated RBCs 5 H Platelet Estimate INCREASED Plt Morphology Comment NORMAL RBC Morphology NOTED Polychromasia 3+ (>5) Microcytosis 1+ (5-14) Macrocytosis 2+ (15-30) Spherocytes 2+ (3-5) Sickle Cells 3+ (>5) Target Cells 1+ (5-14) Absolute Retic 0.399 H Percent Retic 18.3 H Immature Retic Fraction 25.2 H Retic Hgb Equivalent 31.1 Sodium 137 Potassium 4.3 Chloride 106 Carbon Dioxide 22 Anion Gap 13 BUN 7 L Creatinine 0.68 Estim Creat Clear Calc 157.3 Estimated GFR > 60 Random Glucose 91 Fasting Glucose Calcium 9.4 D Total Bilirubin 2.8 H Direct Bilirubin 1.1 H AST 46 H ALT 28 Alkaline Phosphatase 91 D Total Protein 8.2 H Albumin 4.2 Urine Color [place] Urine Appearance CLEAR Urine pH 6.0 Ur Specific [place] 1.010 Urine Protein NEG Urine Glucose (UA) NEG Urine Ketones 5 Urine Blood NEG Urine Nitrite NEG Ur Leukocyte Esterase NEG COVID-19 (MICHAEL) COVID-19 HOSTEX 12/06/20 12/07/20 12/07/20 16:29 08:43 08:43 WBC 11.7 H RBC 2.03 L Hgb 6.7 L* Hct 18.4 L* MCV 90.6 MCH 33.0 MCHC 36.4 H RDW 19.1 H Plt Count 480 H MPV 9.0 L Immature Gran % (Auto) Neut % (Auto) Lymph % (Auto) [place] % (Auto) Eos % (Auto) Baso % (Auto) Lymph # (Auto) [place] # (Auto) Eos # (Auto) Baso # (Auto) Abs Immat Gran (auto) Absolute Neuts (auto) Absolute Nucleated RBC 0.220 H Nucleated RBC % (auto) 1.9 H Neutrophils % (Manual) Band Neutrophils % Lymphocytes % (Manual) Monocytes % (Manual) Eosinophils % (Manual) Basophils % (Manual) Abs Neuts (Manual) Lymphocytes # (Manual) Monocytes # (Manual) Eosinophils # (Manual) Basophils # (Manual) Nucleated RBCs Platelet Estimate Plt Morphology Comment RBC Morphology Polychromasia Microcytosis Macrocytosis Spherocytes Sickle Cells Target Cells Absolute Retic Percent Retic Immature Retic Fraction Retic Hgb Equivalent Sodium 137 Potassium 4.1 Chloride 107 Carbon Dioxide 23 Anion Gap 11 L BUN 6 L Creatinine 0.69 Estim Creat Clear Calc 155.0 Estimated GFR > 60 Random Glucose Fasting Glucose 87 Calcium 8.8 D Total Bilirubin Direct Bilirubin AST ALT Alkaline Phosphatase Total Protein Albumin Urine Color Urine Appearance Urine pH Ur Specific [place] Urine Protein Urine Glucose (UA) Urine Ketones Urine Blood Urine Nitrite Ur Leukocyte Esterase COVID-19 (MICHAEL) Negative COVID-19 Clin Com See Note Discharge Plan Discharge Patient Disposition: Left Against Medical Advice Discharge Diagnosis: sickle cell Referrals: Physician,Unknown [Primary Care Provider] - 1 Week Discharge Medications: Continued clonidine HCl 0.1 mg Tablet 0.1 mg PO BEDTIME PRN (Reason: Anxiety) RF: 0 trazodone 50 mg Tablet 50 mg PO BEDTIME RF: 0 quetiapine [Seroquel] 200 mg Tablet 200 mg PO BID RF: 0 folic acid 1 mg Tablet 1 mg PO DAILY RF: 0 zolpidem [Ambien] 10 mg Tablet 10 mg PO BEDTIME PRN (Reason: Sleep) RF: 0 quetiapine [Seroquel] 200 mg Tablet 200 mg PO DAILY PRN (Reason: Anxiety) RF: 0 finasteride 5 mg Tablet 2.5 mg PO DAILY RF: 0 estradiol cypionate See Rx Instructions .ROUTE .COMPLEX RF: 0 tramadol 50 mg Tablet 50 mg PO Q6H PRN (Reason: Pain) RF: 0 cholecalciferol (vitamin D3) [Vitamin D3] 25 mcg (1,000 unit) Tablet 25 mcg PO DAILY RF: 0 Discharge Orders: Discharge Order (Routine); Ordered 12/07/20 Ordered By: Dennys Ross Diet: advance to usual diet Activity on Discharge: As tolerated Care Plan Goals: recovery Health Concerns: sickle cell Plan of Treatment: follow up with pcp Assessment: see above
--- NOTE | 2020-12-07 14:01 | PC.NURSE ---
Pt had angry out bust mid am while having a conversation on the phone. pushed bedside table across the room. after this he refused to talk and slept for a few hours.Aroud 1400 he was seen by Dr Foster . After she left he claimed she was rude., and demanded to leave . Pt is aware of low h&h and need for[address] blood transfusion[address] Ross tried to reason with pt and was unable. pt removed 2 iv's pot refused to sign ama form.
--- NOTE | 2020-12-07 14:19 | MHC.CM.PN ---
PT DISCHARGED TODAY AMA, PT WAS SEEN BY HOSPITALIST AND DR. SOLANO AND STILL INSISTED ON LEAVING AMA.
--- NOTE | 2020-12-07 15:17 | P.CNHO_ITS ---
Subjective - Subjective Chief complaint: Diffuse body pains Patient: known to practice within the last 3 years Consult date: 12/07/20 Primary Care Provider: Unknown Physician HPI - Consult Narrative Reason for consult: Sickle cell pain crisis Narrative: Juan Carlos Kat is a transgender female known to me from a previous admission in June 2020 currently admitted for painful sickle crisis. Patient was rather upset today stating that she had put off coming to any of the local hospitals for her pain crisis for several days because of her transgender issues . She just established with a physician/computer technologist in [place] and feels nobody locally is competent to take care of her sickle cell disease. Previously she had a [employer] and was receiving exchange transfusions as a kid. She wants to have that done but nobody is willing to do that locally. She was on hydroxyurea for many years but she stopped taking it because she feels it does not help her. She says this feels like her usual sickle cell pain crisis with diffuse body aches. She denies any fever or chills. No pleuritic chest pain, shortness of breath or cough. Review of Systems - Constitutional Reports as per HPI - Neurologic Reports no additional neurologic complaints, Denies abnormal speech, Denies dizziness, Denies headache(s), Denies numbness, Denies tingling, Denies weakness PMFSH Medical History: Medical History (Last Reviewed 12/06/20 @ 17:07 by Dennys Ross MD) Avascular bone necrosis Sickle cell anemia with crisis Family History: Family History (Last Reviewed 12/06/20 @ 17:07 by Dennys Ross MD) Other Sickle cell anemia Family history: reviewed and not pertinent Surgical History: Surgical History (Last Reviewed 12/06/20 @ 17:07 by Dennys Ross MD) H/O splenectomy Social History: Social History (Last Reviewed 12/06/20 @ 17:07 by Dennys Ross MD) Living Situation History: Household Members: Significant Other Housing: Apartment Do you presently have visiting nurse or other home services: No Alcohol History: Alcohol intake: never Alcohol History Details: Alcohol intake frequency: holiday/special occasion Tobacco History: Patient Tobacco Use Status: Never used Tobacco Substance Use History: Use of substances other than those prescribed or required for medical reasons : No Substance Use Type: Marijuana Currently Displaying Signs/Symptoms of Drug Intoxication Withdrawal: No Domestic Abuse History: Have you been hit, kicked, punched, or otherwise hurt by someone within the past year? If so, by whom?: No Do you feel safe in your current relationship?: Yes Is there a partner from a previous relationship who is making you feel unsafe now?: No Are you made to feel afraid or neglected: No Advance Directives: Advance Directives: No Advance Directives Information Provided: Yes Homicidal Assessment: Do you have thoughts of harming others: None Do you have a plan to hurt others: No Plan Nutrition Assessment: Recently lost weight without trying: No Nutrition Risks: No Nutritional Risk Poor oral hygiene: No Occupation Assessmet: service: No Current occupational status: disabled Home Medications and Allergies Current Medications: Current Medications Generic Name Dose Route Start Last Admin Trade Name Freq PRN Reason Stop Dose Admin Clonidine HCl 0.1 mg 12/06/20 19:17 12/06/20 20:50 Clonidine Hcl 0.1 Mg Tablet PO 0.1 mg BEDTIME PRN Administration Anxiety Protocol Enoxaparin Sodium 40 mg 12/06/20 22:00 12/06/20 20:51 Enoxaparin Sodium 40 Mg/0.4 Ml Syringe SUBCUT Not Given Q24H SUJIT Finasteride 2.5 mg 12/07/20 09:00 12/07/20 08:13 Finasteride 5 Mg Tablet PO 2.5 mg DAILY SUJIT Administration Folic Acid 1 mg 12/07/20 09:00 12/07/20 08:13 Folic Acid 1 Mg Tablet PO 1 mg DAILY SUJIT Administration Hydromorphone HCl 1 mg 12/06/20 19:17 12/07/20 10:26 Hydromorphone Hcl 1 Mg/Ml Syringe IVPUSH 1 mg Q2H PRN Administration Pain, Severe (Pain Scale 7-10) Sodium Chloride 1,000 mls @ 100 mls/hr 12/06/20 19:17 12/07/20 05:26 Ns IVCONT 100 mls/hr .Q10H SUJIT Administration Ondansetron HCl 4 mg 12/07/20 01:18 12/07/20 02:00 Ondansetron Hcl 4 Mg/2 Ml Vial IVPUSH 4 mg Q8H PRN Administration Nausea and Vomiting Quetiapine Fumarate 200 mg 12/06/20 21:00 12/07/20 08:13 Quetiapine Fumarate 200 Mg Tablet PO 200 mg BID SUJIT Administration Quetiapine Fumarate 200 mg 12/06/20 19:17 12/06/20 20:27 Quetiapine Fumarate 200 Mg Tablet PO 200 mg DAILY PRN Administration Anxiety Sodium Chloride 3 ml 12/07/20 00:00 12/07/20 08:15 0.9 % Sodium Chloride Flush 3 Ml Syringe IVFLUSH Not Given QSHIFT SUJIT Trazodone HCl 50 mg 12/06/20 21:00 12/06/20 20:50 Trazodone Hcl 50 Mg Tablet PO 50 mg BEDTIME SUJIT Administration Vitamin D 25 mcg 12/07/20 09:00 12/07/20 10:23 Cholecalciferol (Vitamin D3) 25 Mcg Tablet PO 25 mcg DAILY SUJIT Administration Zolpidem Tartrate 5 mg 12/06/20 19:17 12/06/20 20:50 Zolpidem Tartrate 5 Mg Tablet PO 5 mg BEDTIME PRN Administration Sleep Home Medications Medication Instructions Recorded Confirmed Type clonidine HCl 0.1 mg PO BEDTIME PRN 06/16/20 12/06/20 History folic acid 1 mg PO DAILY 06/16/20 12/06/20 History quetiapine [Seroquel] 200 mg PO BID 06/16/20 12/06/20 History trazodone 50 mg PO BEDTIME 06/16/20 12/06/20 History estradiol cypionate See Rx Instructions .ROUTE .COMPLEX 07/24/20 12/06/20 History finasteride 2.5 mg PO DAILY 07/24/20 12/06/20 History quetiapine [Seroquel] 200 mg PO DAILY PRN 07/24/20 12/06/20 History tramadol 50 mg PO Q6H PRN 07/24/20 12/06/20 History zolpidem [Ambien] 10 mg PO BEDTIME PRN 10/16/20 12/06/20 History cholecalciferol (vitamin D3) 25 mcg PO DAILY 12/06/20 12/06/20 History [Vitamin D3] Allergies Allergy/AdvReac Type Severity Reaction Status Date / Time morphine AdvReac Agitated Verified 06/15/20 22:24 oxycodone AdvReac Agitated Verified 06/15/20 22:24 Physical Exam Vital signs: Vital Signs Temp 98.4 F 12/07/20 07:30 Pulse 82 12/07/20 07:30 Resp 18 12/07/20 07:30 BP 128/66 12/07/20 07:30 Pulse Ox 94 12/07/20 07:30 Intake & Output 12/06/20 12/07/20 12/07/20 18:59 06:59 18:59 Intake Total 1000 / 2715 1715 / 2715 Output Total 2100 / 2100 Balance 1000 / 615 -385 / 615 Urine Output (Average ml/kg/hr) 2.64 Intake: Intake, Oral Amount 240 / 240 Intake, IV Amount 1000 / 2475 1475 / 2475 0.9 % Sodium Chloride 1,000 ml 1000 / 1000 @ 999 mls/hr IV .Q1H1M STA Rx#: [id number] 0.9 % Sodium Chloride 1,000 ml 1475 / 1475 @ 100 mls/hr IVCONT .Q10H SUJIT Rx#:[id number] Output: Output, Urine Amount 2100 / 2100 Other: Meal Refused No NPO No Evening Snack % Eaten 75 Number of Bowel Movements 0 Urine Urinal Urine Color Yellow Last Bowel Movement 12/06/20 Weight 66.4 kg Weight 66.4 kg - Constitutional Present: no acute distress, chronically ill appearing - Routine HEENT Exam Head: Present: normal inspection - Routine Respiratory Exam Absent: accessory muscle use - Routine Cardiovascular Exam Cardiovascular: Present: S1, S2 Hem/Onc Consult Result - Labs CBC & Chem 7: 12/07/20 08:43 12/07/20 08:43 Labs: Short CBC 12/06/20 12/07/20 Range/Units 15:12 08:43 WBC 15.1 H 11.7 H (4.8-10.8) X10*3/uL Hgb 7.8 L 6.7 L* (14.0-18.0) g/dl Hct 21.1 L 18.4 L* (42-52) % Plt Count 557 H 480 H (160-400) X10*3/uL BMP 12/06/20 12/07/20 15:12 08:43 Sodium 137 137 Potassium 4.3 4.1 Chloride 106 107 Carbon Dioxide 22 23 BUN 7 L 6 L Creatinine 0.68 0.69 Calcium 9.4 D 8.8 D Liver Function 12/06/20 Range/Units 15:12 Total Bilirubin 2.8 H (0.0-1.0) mg/dL Direct Bilirubin 1.1 H (0.0-0.5) mg/dL AST 46 H (5-37) U/L ALT 28 (0-40) U/L Alkaline Phosphatase 91 D (39-117) U/L Albumin 4.2 (3.5-5.0) g/dL Urine // Range/Units 15:12 Urine Color MITCHELL Urine Appearance CLEAR Urine pH 6.0 (5.0-8.0) Ur Specific [place] 1.010 (1.005-1.025) Urine Protein NEG (NEG-TRACE) MG/DL Urine Glucose (UA) NEG (NEG) MG/DL Assessment and Plan (1) Sickle cell anemia with crisis Status: Acute 1. This is a 25-year-old transgender female admitted for sickle cell pain crisis. She is on Dilaudid for pain control and IV hydration. I recommend blood transfusion, 1 unit PRBC to bring her closer to her baseline which is between 7-8 gram/dL. She was explained importance of hydroxyurea in preventing recurrent pain crisis. She has a scheduled follow-up with her computer technologist in [place] next week. I thank you for this consultation.
== END 2020-12-07 14:00 | disposition left against medical advice (07) | DRG 812 ==
LOC: HO.ED 16:56 → HO.EDOVER 18:07 → HO.S3 19:35
PROVIDERS: Nurse Practitioner Family; Admitting Provider Internal Medicine; Emergency Provider Emergency Medicine Emergency Medical Services; Visit Provider Internal Medicine
DX: D57.00 Hb-SS disease with crisis, unspecified (principal); F64.0 Transsexualism; F39 Unspecified mood [affective] disorder; Z20.822 Contact with and (suspected) exposure to COVID-19; Z79.899 Other long term (current) drug therapy; Z79.891 Long term (current) use of opiate analgesic
CPT/HCPCS: 36415; 71046; 80048; 80076; 81003; 85007; 85027; 85045; 87635; 93005; 96374; 96375; 99285; J1170; J2405

== ENCOUNTER 2021-02-09 19:13 | Inpatient (IN) | payer MEDICARE, MEDICAID, SELFPAY ==
--- NOTE | ~2021-02-09 | XR_ITS ---
EXAMINATION: XR CHEST CLINICAL INFORMATION: Sickle cell disease COMPARISON: 12/06/2020 TECHNIQUE: Frontal view of the chest was obtained. FINDINGS: No significant abnormality is noted involving the heart, lungs, mediastinum, bony thorax or soft tissues. Compared to the prior study, the lungs are mildly hypoinflated. XR/XR chest 1V IMPRESSION: No acute intrathoracic disease.
[2021-02-09 19:43] VITALS: BP 138/71; PULSE 118; RESP 20; TEMP 37.1; O2SAT 93; BMI 21.1
[2021-02-09 20:04] LABS: Basophils Absolute Auto 0.1 X10*3/uL (0.0-0.2); Basophils Percent Auto 0.8 % (0-2); Eosinophils Absolute Auto 0.7 X10*3/uL (0.0-0.4); Eosinophils Percent Auto 5.5 % (0-4); Hematocrit 21.5 % (42-52); Hemoglobin 7.9 g/dl (14.0-18.0); Imm Gran Abs Auto 0.12 X10*3/uL (0.00-0.03); Lymphocytes Absolute Auto 4.1 X10*3/uL (1.2-4.9); Lymphocytes Percent Auto 32.5 % (20-40); MANUAL DIFF FLAG SCAN; Mean Corpuscular HGB Conc 36.7 g/dl (31.0-36.0); Mean Corpuscular Hemoglobin 32.8 pg (27.0-33.0); Mean Corpuscular Volume 89.2 fL (80-98); Monocytes Absolute Auto 1.7 X10*3/uL (0.1-1.2); Monocytes Percent Auto 13.5 % (2-11); Neutrophils Absolute Auto 5.9 X10*3/uL (2.0-8.3); Neutrophils Percent Auto 46.7 % (45-73); Platelet Count 660 X10*3/uL (160-400); Red Blood Count 2.41 X10*6/uL (4.60-5.80); SCAN SMEAR FLAG 1; White Blood Count 12.5 X10*3/uL (4.8-10.8)
[2021-02-09 20:11] VITALS: BP 137/68; PULSE 111; RESP 18; TEMP 37.1; O2SAT 93
[2021-02-09 20:31] LABS: SLIDE REVIEW VERIFIED
[2021-02-09 20:45] LABS: Alanine Aminotransferase 18 U/L (0-40); Albumin Level 4.2 g/dL (3.5-5.0); Alkaline Phosphatase 96 U/L (39-117); Anion Gap 15 (12-20); Aspartate Amino Transferase 37 U/L (5-37); Bilirubin Total 2.7 mg/dL (0.0-1.0); Blood Urea Nitrogen 6 mg/dL (9-16); Calcium 9.7 mg/dL (8.4-10.2); Carbon Dioxide 22 mmol/L (22-29); Chloride 106 mmol/L (96-108); Creatinine Clr Calc Pharmacy 141.2; Estimated Glomerular Filt Rate > 60; Glucose Random 100 mg/dL (60-115); Potassium 4.6 mmol/L (3.3-5.1); Sodium 138 mmol/L (135-145); Total Protein 8.6 g/dL (6.5-8.0)
--- NOTE | 2021-02-09 21:11 | ED_ITS ---
HPI - General Adult General Chief complaint: General Medical Stated complaint: Sickle Cell Pain Time Seen by Provider: 02/09/21 21:11 Source: patient Mode of arrival: ambulatory Limitations: no limitations History of Present Illness HPI narrative: 25-year-old was born male prefer to be called female goes by name only, patient was history of sickle cell disease, patient complain of generalized body ache, otherwise patient declined fever, chills, chest pain, coughing, or abdominal pain. Patient has been drinking enough fluids and keeping himself hydrated. Related Data Home Medications Medication Instructions Recorded Confirmed clonidine HCl 0.1 mg tablet 0.1 mg PO BEDTIME PRN 06/16/20 12/06/20 folic acid 1 mg tablet 1 mg PO DAILY 06/16/20 12/06/20 quetiapine 200 mg tablet (Seroquel) 200 mg PO BID 06/16/20 12/06/20 trazodone 50 mg tablet 50 mg PO BEDTIME 06/16/20 12/06/20 estradiol cypionate See Rx Instructions .ROUTE .COMPLEX 07/24/20 12/06/20 finasteride 5 mg tablet 2.5 mg PO DAILY 07/24/20 12/06/20 quetiapine 200 mg tablet (Seroquel) 200 mg PO DAILY PRN 07/24/20 12/06/20 tramadol 50 mg tablet 50 mg PO Q6H PRN 07/24/20 12/06/20 zolpidem 10 mg tablet (Ambien) 10 mg PO BEDTIME PRN 10/16/20 12/06/20 cholecalciferol (vitamin D3) 25 25 mcg PO DAILY 12/06/20 12/06/20 mcg (1,000 unit) tablet (Vitamin D3) Allergies Allergy/AdvReac Type Severity Reaction Status Date / Time morphine AdvReac Agitated Verified 02/09/21 19:48 oxycodone AdvReac Agitated Verified 02/09/21 19:48 Review of Systems Review of Systems: All other systems are reviewed and are negative Constitutional: Reports as per HPI and Reports no additional constitutional complaints Eyes: Reports as per HPI and Reports no additional eye complaints Reports system reviewed and no additional complaints, except as documented Cardiovascular: Reports as per HPI and Reports no additional cardiovascular complaints Respiratory: Reports as per HPI and Reports no additional respiratory complaints Gastrointestinal: Reports as per HPI and Reports no additional gastrointestinal complaints Genitourinary: Reports no additional female genitourinary complaints Musculoskeletal: Reports no additional musculoskeletal complaints Skin/Breast: Reports system reviewed and no additional complaints, except as docu Psychiatric: Reports no additional psychiatric complaints Endocrine: Reports no additional endocrine complaints Hematologic/Lymphatic: Reports no additional hematologic/lymphatic complaints Allergic/Immunologic: Reports no additional allergic/immunologic complaints Reports system reviewed and no additional complaints, except as documented and Reports Abnormal speech present [facility] Past Medical History Medical History Avascular bone necrosis Sickle cell anemia with crisis Surgical History H/O splenectomy Family History Family History Other Sickle cell anemia Social History Social History Household Members: Significant Other Housing: Apartment Do you presently have visiting nurse or other home services: No Alcohol intake: never Patient Tobacco Use Status: Never used Tobacco Substance Use Type: Marijuana Advance Directives: No Advance Directives Information Provided: No service: No Current occupational status: disabled Physical Exam Vital Signs: Vital Signs: Last Vital Signs Temp 98.4 F 02/09/21 21:59 Pulse 96 02/09/21 21:59 Resp 16 02/09/21 22:59 BP 127/69 02/09/21 21:59 Pulse Ox 92 02/09/21 21:59 Body Mass Index 21.1 Vital signs have been reviewed as appeared to be correct. Blood pressure nor mal. Heart rate elevated . Respiration rate normal. Temperature normal. Oxygen saturation normal. Appearance: Alert. Oriented X3. No acute distress. Head: Normal external exam. Normocephalic. Atraumatic. No [place] signs noted. No raccoon eyes noted Eyes: PERRLA. EOMI. Conjunctiva and sclera normal. Eyelids normal. ENT: TM's Normal. Pharynx normal. Uvula midline. Moist mucous membranes. No trismus noted. No drooling noted. No muffled voice noted. Neck: Normal inspection. Neck supple. FROM. No adenopathy. Thyroid Normal. No meningeal signs. No neck mass noted. CVS: Normal heart rate and rhythm. Heart sound normal. No murmurs noted. Pulses normal throughout. Respiratory: No respiratory distress. Painless inspiration. Breath sounds normal. No wheezes/rales/rhonchi noted. Chest nontender. No accessory muscle usage noted or decreased air movement noted. Abdomen: Soft and nontender. Bowel sounds normal in all 4 quadrants. No distention noted. No organomegaly noted. No visible injury noted. Back: No CVA tenderness. Full range of motion noted. Skin: Skin warm and dry. Normal skin color. Normal skin turgor. No rashes/lesions/lacerations noted. Extremities: No lower extremity edema. Extremities exhibit normal range of motion. Extremities nontender. Neuro: Oriented X 3. No motor deficit. No sensory deficit. Reflexes normal. Course Course Course Narrative: Assessment and plan. 25-year-old male with sickle cell disease came in with sickle cell crisis and generalized body ache, patient showing no sign of infection or dehydration. Glen love received multiple doses of Dilaudid not controlling his pain. 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 Patient be admitted for IV pain control. Medical Decision Making Lab Data Lab results reviewed: Yes I reviewed the patient's lab results. Result diagrams: 02/09/21 19:58 02/09/21 19:58 Labs: Lab Results 02/09/21 02/09/21 02/09/21 Range/Units 19:58 19:58 21:38 WBC 12.5 H (4.8-10.8) X10*3/uL RBC 2.41 L (4.60-5.80) X10*6/uL Hgb 7.9 L (14.0-18.0) g/dl Hct 21.5 L (42-52) % MCV 89.2 (80-98) fL MCH 32.8 (27.0-33.0) pg MCHC 36.7 H (31.0-36.0) g/dl RDW 21.0 H (11.0-16.0) % Plt Count 660 H D (160-400) X10*3/uL MPV 9.0 L (9.4-12.4) fL Immature Gran % (Auto) 1.0 H (0.0-0.4) % Neut % (Auto) 46.7 (45-73) % Lymph % (Auto) 32.5 (20-40) % Edgar % (Auto) 13.5 H (2-11) % Eos % (Auto) 5.5 H (0-4) % Baso % (Auto) 0.8 (0-2) % Lymph # (Auto) 4.1 (1.2-4.9) X10*3/uL Edgar # (Auto) 1.7 H (0.1-1.2) X10*3/uL Eos # (Auto) 0.7 H (0.0-0.4) X10*3/uL Baso # (Auto) 0.1 (0.0-0.2) X10*3/uL Abs Immat Gran (auto) 0.12 H (0.00-0.03) X10*3/uL Absolute Neuts (auto) 5.9 (2.0-8.3) X10*3/uL Absolute Nucleated RBC 0.250 H (0.0-0.012) X10*3/uL Nucleated RBC % (auto) 2.0 H (0.0-0.2) /100WBC Smear Tech's Comments VERIFIED Sodium 138 (135-145) mmol/L Potassium 4.6 (3.3-5.1) mmol/L Chloride 106 (96-108) mmol/L Carbon Dioxide 22 (22-29) mmol/L Anion Gap 15 (12-20) BUN 6 L (9-16) mg/dL Creatinine 0.74 (0.5-1.4) mg/dL Estim Creat Clear Calc 141.2 Estimated GFR > 60 Random Glucose 100 (60-115) mg/dL Calcium 9.7 D (8.4-10.2) mg/dL Total Bilirubin 2.7 H (0.0-1.0) mg/dL AST 37 (5-37) U/L ALT 18 (0-40) U/L Alkaline Phosphatase 96 (39-117) U/L Total Protein 8.6 H (6.5-8.0) g/dL Albumin 4.2 (3.5-5.0) g/dL Urine Color YELLOW Urine Appearance CLEAR Urine pH 6.0 (5.0-8.0) Ur Specific [place] 1.010 (1.005-1.025) Urine Protein NEG (NEG-TRACE) MG/DL Urine Glucose (UA) NEG (NEG) MG/DL Urine Ketones 5 (NEG) MG/DL Urine Blood NEG (NEG) Urine Nitrite NEG (NEG) Ur Leukocyte Esterase NEG (NEG) Imaging Data Chest x-ray: Radiologist's impression: No acute intrathoracic disease. Discharge Plan Discharge Clinical Impression: Sickle cell anemia with crisis Patient Disposition: Admitted As Inpatient Prescriptions: No Action clonidine HCl 0.1 mg Tablet 0.1 mg PO BEDTIME PRN (Reason: Anxiety) RF: 0 trazodone 50 mg Tablet 50 mg PO BEDTIME RF: 0 quetiapine [Seroquel] 200 mg Tablet 200 mg PO BID RF: 0 folic acid 1 mg Tablet 1 mg PO DAILY RF: 0 zolpidem [Ambien] 10 mg Tablet 10 mg PO BEDTIME PRN (Reason: Sleep) RF: 0 quetiapine [Seroquel] 200 mg Tablet 200 mg PO DAILY PRN (Reason: Anxiety) RF: 0 finasteride 5 mg Tablet 2.5 mg PO DAILY RF: 0 estradiol cypionate See Rx Instructions .ROUTE .COMPLEX RF: 0 tramadol 50 mg Tablet 50 mg PO Q6H PRN (Reason: Pain) RF: 0 cholecalciferol (vitamin D3) [Vitamin D3] 25 mcg (1,000 unit) Tablet 25 mcg PO DAILY RF: 0
[2021-02-09 21:23] VITALS: RESP 16
[2021-02-09] MEDS: HYDROmorphone HCl 1 MG/ML SYRINGE IVPUSH ×2 (21:23→22:59)
[2021-02-09] MEDS: 0.9 % Sodium Chloride 1,000 ML 999 ML IVCONT ×2 (21:27→21:28)
[2021-02-09 21:59] VITALS: BP 127/69; PULSE 96; RESP 15; TEMP 36.9; O2SAT 92
[2021-02-09 22:01] LABS: Appearance Urine CLEAR; Color Urine YELLOW; Glucose Urine UA NEG (NEG); Leukocyte Esterase Urine NEG (NEG); Nitrite Urine NEG (NEG); Urine Blood NEG (NEG); Urine Ketones 5 MG/DL (NEG); Urine Protein NEG (NEG-TRACE)
[2021-02-09 22:46] VITALS: RESP 16
[2021-02-09 22:59] VITALS: RESP 16
--- NOTE | 2021-02-09 23:20 | PC.NURSE ---
pt c/o nausea, emesis bag provided MD notified
[2021-02-10] VITALS (8 sets, daily range): BP systolic 117–139; BP diastolic 65–81; PULSE 84–98; RESP 15–18; TEMP 36.7–37.2; O2SAT 93–95
--- NOTE | 2021-02-10 00:19 | PC.NURSE ---
pt prefers to go by name Juan Carlos and uses pronouns she/her
[2021-02-10 00:58] LABS: COVID-19 Test Negative (Negative); IDNOW Serial# 9DD0AD1C
--- NOTE | 2021-02-10 01:12 | P.HPHOSP_ITS ---
History of Present Illness Date of Service: 02/10/21 Chief Complaint: Generalized body aches 25-year-old patient with a past medical history of sickle cell disease, avascular necrosis, history of hip replacement, anxiety presented to the hospital with a chief complaint of generalized body aches. Patient mentions that for the past couple days noted to have generalized body aches similar to prior episodes of sickle cell crisis; hence decided to come to the ER for further evaluation. Denies any fever chills cough. Denies any chest pain palpitations lightheadedness or dizziness. Denies any shortness of breath. Denies any GI or symptoms. Review of all other systems is negative except mentioned above ER course: ER team mentioned that patient's labs are at baseline; given Dilaudid for pain; admitted for sickle cell crisis. [facility] Medical History Avascular bone necrosis Sickle cell anemia with crisis Family History Other Sickle cell anemia Surgical History H/O splenectomy Social History Household Members: Significant Other Housing: Apartment Do you presently have visiting nurse or other home services: No Alcohol intake: never Patient Tobacco Use Status: Current someday Tobacco user Tobacco use type: Cigarette Cigarettes Per Day: 3 Years Smoked: 6 Smoked in Last 30 Days: Yes e-Cigarette/Vaping Use: Never Used Patient Interested in Nicotine Replacement: No Patient Given Instructions on How to Stop Smoking: No Second Hand Smoke Exposure: Yes Use of substances other than those prescribed or required for medical reasons: Yes Substance Use Type: Marijuana Substance Use Frequency: Daily Last Used Substance: Hours (ago) Currently Displaying Signs/Symptoms of Drug Intoxication Withdrawal: No Have you been hit, kicked, punched, or otherwise hurt by someone within the past year? If so, by whom?: No Do you feel safe in your current relationship?: Yes Is there a partner from a previous relationship who is making you feel unsafe now?: No Are you made to feel afraid or neglected: No Advance Directives: No Advance Directives Information Provided: No Do you have thoughts of harming others: None Do you have a plan to hurt others: No Plan Recently lost weight without trying: Unsure How much weight loss: Unsure Eating poorly because of decreased appetite: No Nutrition screen score: 4 Nutrition Risks: No Nutritional Risk Poor oral hygiene: No service: No Current occupational status: disabled Meds Allergies Allergy/AdvReac Type Severity Reaction Status Date / Time morphine AdvReac Agitated Verified 02/09/21 19:48 oxycodone AdvReac Agitated Verified 02/09/21 19:48 Active Medications: Current Medications Generic Name Dose Route Start Last Admin Trade Name Freq PRN Reason Stop Dose Admin Acetaminophen 650 mg 02/10/21 01:09 Acetaminophen 325 Mg Tablet PO Q6H PRN Pain, Mild (Pain Scale 1-3) Docusate Sodium 100 mg 02/10/21 09:00 Docusate Sodium 100 Mg Capsule PO BID [facility] Enoxaparin Sodium 40 mg 02/10/21 01:15 Enoxaparin Sodium 40 Mg/0.4 Ml Syringe SUBCUT Q24H [facility] Hydromorphone HCl 1 mg 02/10/21 01:09 Hydromorphone Hcl 0.5 Mg/0.5 Ml Syringe IVPUSH Q4H PRN Pain, Severe (Pain Scale 7-10) Sodium Chloride 1,000 mls @ 100 mls/hr 02/10/21 01:15 Ns IVCONT .Q10H SUJIT Melatonin 6 mg 02/10/21 01:09 Melatonin 3 Mg Tablet PO BEDTIME PRN Insomnia Ondansetron HCl 4 mg 02/10/21 01:09 Ondansetron Hcl 4 Mg/2 Ml Vial IVPUSH Q8H PRN Nausea and Vomiting Senna 17.2 mg 02/10/21 01:09 Sennosides 8.6 Mg Tablet PO BEDTIME PRN Constipation Sodium Chloride 3 ml 02/10/21 08:00 0.9 % Sodium Chloride Flush 3 Ml Syringe IVFLUSH QSHIFT [facility] Home Medications Medication Instructions Recorded Confirmed Last Taken Type clonidine HCl 0.1 mg tablet 0.1 mg PO BEDTIME PRN 06/16/20 02/10/21 02/09/21 History folic acid 1 mg tablet 1 mg PO DAILY 06/16/20 02/10/21 02/09/21 History quetiapine 200 mg tablet (Seroquel) 200 mg PO BID 06/16/20 02/10/21 02/09/21 History trazodone 50 mg tablet 50 mg PO BEDTIME 06/16/20 02/10/21 02/09/21 History estradiol cypionate See Rx Instructions .ROUTE .COMPLEX 07/24/20 02/10/21 12/05/20 History finasteride 5 mg tablet 2.5 mg PO DAILY 07/24/20 02/10/21 02/09/21 History tramadol 50 mg tablet 50 mg PO Q6H PRN 07/24/20 02/10/21 02/09/21 History zolpidem 10 mg tablet (Ambien) 10 mg PO BEDTIME PRN 10/16/20 02/10/21 02/09/21 History cholecalciferol (vitamin D3) 25 25 mcg PO DAILY 12/06/20 02/10/21 02/09/21 History mcg (1,000 unit) tablet (Vitamin D3) Physical Exam Vital Signs and Narrative: Vital Signs: Last Vital Signs Temp 98.4 F 02/09/21 21:59 Pulse 96 02/09/21 21:59 Resp 16 02/10/21 00:52 BP 127/69 02/09/21 21:59 Pulse Ox 92 02/09/21 21:59 Body Mass Index 21.1 Gen: Appears be in no acute distress HEENT: NCAT, Moist mucosa. Pulmonary: Vesicular breath sounds, fair air entry CVS: Normal S1-S2 Abdomen: BS+, Soft, Nontender Extremities: Warm well perfused Neuro: Alert and awake. Results Labs CBC and Chem 7: 02/10/21 07:21 02/10/21 07:21 Labs: Laboratory Results - last 24 hr 02/09/21 02/09/21 02/09/21 19:58 19:58 21:38 MCV 89.2 MCH 32.8 MCHC 36.7 H RDW 21.0 H Plt Count 660 H D MPV 9.0 L Immature Gran % (Auto) 1.0 H Neut % (Auto) 46.7 Lymph % (Auto) 32.5 [place] % (Auto) 13.5 H Eos % (Auto) 5.5 H Baso % (Auto) 0.8 Lymph # (Auto) 4.1 [place] # (Auto) 1.7 H Eos # (Auto) 0.7 H Baso # (Auto) 0.1 Abs Immat Gran (auto) 0.12 H Absolute Neuts (auto) 5.9 Absolute Nucleated RBC 0.250 H Nucleated RBC % (auto) 2.0 H Smear Tech's Comments VERIFIED Anion Gap 15 Estim Creat Clear Calc 141.2 Estimated GFR > 60 Random Glucose 100 Calcium 9.7 D Total Bilirubin 2.7 H AST 37 ALT 18 Alkaline Phosphatase 96 Total Protein 8.6 H Albumin 4.2 Urine Color YELLOW Urine Appearance CLEAR Urine pH 6.0 Ur Specific [place] 1.010 Urine Protein NEG Urine Glucose (UA) NEG Urine Ketones 5 Urine Blood NEG Urine Nitrite NEG Ur Leukocyte Esterase NEG COVID-19 (MICHAEL) COVID-19 Clin Com 02/10/21 00:38 MCV MCH MCHC RDW Plt Count MPV Immature Gran % (Auto) Neut % (Auto) Lymph % (Auto) [place] % (Auto) Eos % (Auto) Baso % (Auto) Lymph # (Auto) [place] # (Auto) Eos # (Auto) Baso # (Auto) Abs Immat Gran (auto) Absolute Neuts (auto) Absolute Nucleated RBC Nucleated RBC % (auto) Smear Tech's Comments Anion Gap Estim Creat Clear Calc Estimated GFR Random Glucose Calcium Total Bilirubin AST ALT Alkaline Phosphatase Total Protein Albumin Urine Color Urine Appearance Urine pH Ur Specific [place] Urine Protein Urine Glucose (UA) Urine Ketones Urine Blood Urine Nitrite Ur Leukocyte Esterase COVID-19 (MICHAEL) Negative COVID-19 Clin Com See Note Imaging Radiologist's Impressions: Impressions Chest X-Ray 02/09/21 21:17 IMPRESSION: No acute intrathoracic disease. Assessment and Plan (1) Sickle cell anemia with crisis: Status: Acute 25-year-old patient with a past medical history of sickle cell disease, avascular necrosis, history of hip replacement presented to the hospital with a chief complaint of generalized body aches; admitted for sickle cell crisis. Sickle cell crisis: Continue IV fluids, supplemental oxygen, incentive spirometry. Pain control with IV Dilaudid DVT prophylaxis: Lovenox Code status: Full code Quality Stroke Does the patient have a stroke diagnosis?: No VTE Prior VTE?: No VTE Risk Level:: Medical - moderate - high VTE Device Contraindication: Treatment Not Indicated VTE Drug Contraindication: Treatment Not Indicated
[2021-02-10] MEDS: Ketorolac Tromethamine 15 MG/ML VIAL IVPUSH (01:23)
[2021-02-10] MEDS: 0.9 % Sodium Chloride 1,000 ML 100 ML IVCONT ×2 (01:27→11:21)
[2021-02-10] MEDS: QUEtiapine Fumarate 200 MG TABLET PO ×2 (02:37→11:16)
[2021-02-10] MEDS: traZODone HCL 50 MG TABLET PO (02:37)
[2021-02-10] MEDS: Enoxaparin Sodium 40 MG/0.4 ML SYRINGE SUBCUT (02:38)
[2021-02-10] MEDS: HYDROmorphone HCl 0.5 MG/0.5 ML SYRINGE 1 MG IVPUSH ×3 (02:43→15:44)
[2021-02-10 07:54] LABS: Hemoglobin 7.4 g/dl (14.0-18.0); Mean Corpuscular HGB Conc 35.7 g/dl (31.0-36.0); Mean Corpuscular Hemoglobin 32.3 pg (27.0-33.0); Mean Corpuscular Volume 90.4 fL (80-98); Mean Platelet Volume 9.5 fL (9.4-12.4); Platelet Count 619 X10*3/uL (160-400); Red Blood Count 2.29 X10*6/uL (4.60-5.80); Red Cell Distribution Width 20.2 % (11.0-16.0)
[2021-02-10 07:55] LABS: NRBC Pct Auto 1.2 /100WBC (0.0-0.2); WBC ABN SCTR FOR CBC 1
[2021-02-10 08:05] LABS: Band Neutrophils Percent 1 % (3-5); Basophils Percent Manual 4 % (0-1); Eosinophils Percent Manual 2 % (0-4); Lymphocytes Percent Manual 21 % (20-40); Monocytes Percent Manual 13 % (2-11); Neutrophils Percent Manual 59 % (45-73); Nucleated Red Blood Cells 3 /100WBC (0-0)
[2021-02-10 08:08] LABS: Acanthocytes 1+ (0-2) /OIF; Ovalocytes 1+ (5-14) /OIF; Platelet Estimate INCREASED (NORMAL); Platelet Morphology Comment NORMAL; Polychromasia 1+ (0-2) /OIF; RBC Morphology NOTED; Sickle Cells 3+ (>5) /OIF; Spherocytes 1+ (0-2) /OIF; Target Cells 1+ (5-14) /OIF; Toxic Vacuolation PRESENT
[2021-02-10 08:09] LABS: Basophils Abs Manual 0.9 X10*3/uL (0.0-0.3); Eosinophils Absolute Manual 0.4 X10*3/UL (0.0-0.8); Lymphocytes Absolute Manual 4.6 X10*3/uL (0.6-4.8); Monocytes Absolute Manual 2.8 X10*3/uL (0.0-1.2); White Blood Count 21.7 X10*3/uL (4.8-10.8)
[2021-02-10 08:14] LABS: Hematocrit 20.7 % (42-52)
[2021-02-10 08:17] LABS: Anion Gap 16 (12-20); Blood Urea Nitrogen 8 mg/dL (9-16); Calcium 8.3 mg/dL (8.4-10.2); Carbon Dioxide 19 mmol/L (22-29); Chloride 107 mmol/L (96-108); Creatinine Clr Calc Pharmacy 91.6; Estimated Glomerular Filt Rate > 60; Glucose Random 89 mg/dL (60-115); Potassium 4.7 mmol/L (3.3-5.1); Sodium 137 mmol/L (135-145)
[2021-02-10] MEDS: Acetaminophen 325 MG TABLET 650 MG PO (11:16)
[2021-02-10] MEDS: Folic Acid 1 MG TABLET PO (11:16)
[2021-02-10] MEDS: Docusate Sodium 100 MG CAPSULE PO (11:16)
[2021-02-10] MEDS: Finasteride 5 MG TABLET 2.5 MG PO (11:17)
[2021-02-10] MEDS: Cholecalciferol (Vitamin D3) 25 MCG TABLET PO (11:17)
--- NOTE | 2021-02-10 12:40 | MHC.CM.PN ---
pt lives in [facility] he reports that he is independent in his care but that his s.o. can help should he need it. this will include a ride home at id. pt does not use any AD c ambulation and has no svcs in the home. pt denies the need for vna at dc. dc plan is home no svcs. cm to cont. to follow.
--- NOTE | 2021-02-10 14:48 | P.PNIM_ITS ---
Subjective Subjective Date of Service: 02/10/21 <EZEQUIEL Krishnan - Last Filed: 02/10/21 15:13> 02/25/21 <Sergey Cardoso MD - Last Filed: 02/25/21 11:37> Interval History: Seen and examined this morning Follow-up for sickle cell crisis Denies any chest pain, cough, shortness of breath, abdominal pain, diarrhea, urinary symptoms Generalized pain <EZEQUIEL Krishnan - Last Filed: 02/10/21 15:13> Review of Systems Review of Systems: Yes all other systems are reviewed and are negative <EZEQUIEL Krishnan - Last Filed: 02/10/21 15:13> Constitutional Constitutional: Denies chills and Denies fever(s) <EZEQUIEL Krishnan - Last Filed: 02/10/21 15:13> Cardiovascular Cardiovascular: Denies chest pain <EZEQUIEL Krishnan - Last Filed: 02/10/21 15:13> Respiratory Respiratory: Denies cough <EZEQUIEL Krishnan - Last Filed: 02/10/21 15:13> Gastrointestinal Gastrointestinal: Denies abdominal pain <EZEQUIEL Krishnan - Last Filed: 02/10/21 15:13> Physical Exam Vital Signs: Vital Signs: Last Vital Signs Temp 98.2 F 02/10/21 11:18 Pulse 85 02/10/21 11:18 Resp 18 02/10/21 11:18 BP 121/65 02/10/21 11:18 Pulse Ox 95 02/10/21 11:18 Body Mass Index 21.1 <EZEQUIEL Krishnan - Last Filed: 02/10/21 15:13> Const: Nutritional Appearance: well nourished <EZEQUIEL Krishnan - Last Filed: 02/10/21 15:13> Orientation/consciousness: patient oriented x3 <EZEQUIEL Krishnan - Last Filed: 02/10/21 15:13> HENMT: Head: Yes normocephalic and Yes atraumatic <EZEQUIEL Krishnan - Last Filed: 02/10/21 15:13> Eyes: Sclerae: sclerae normal <EZEQUIEL Krishnan - Last Filed: 02/10/21 15:13> Resp: Effort & Inspection: normal respiratory effort and no respiratory distress <EZEQUIEL Krishnan Last Filed: 02/10/21 15:13> Auscultation: clear to auscultation bilaterally <EZEQUIEL Krishnan Last Filed: 02/10/21 15:13> Cardio: Rate: regular rate <EZEQUIEL Krishnan Last Filed: 02/10/21 15:13> Rhythm: regular rhythm <EZEQUIEL Krishnan Last Filed: 02/10/21 15:13> GI: Palpation (GI): Soft to palpation and nontender <EZEQUIEL Krishnan Last Filed: 02/10/21 15:13> Neuro: General: patient oriented x3 <EZEQUIEL Krishnan Last Filed: 02/10/21 15:13> Cranial nerves: Yes CN's II-XII intact bilaterally and Yes Bilaterally intact EOM present <EZEQUIEL Krishnan Last Filed: 02/10/21 15:13> Objective Data Current Medications Generic Name Dose Route Start Last Admin Trade Name Freq PRN Reason Stop Dose Admin Acetaminophen 650 mg 02/10/21 01:09 02/10/21 11:16 Acetaminophen 325 Mg Tablet PO 650 mg Q6H PRN Administration Pain, Mild (Pain Scale 1-3) Clonidine HCl 0.1 mg 02/10/21 01:11 Clonidine Hcl 0.1 Mg Tablet PO BEDTIME PRN Anxiety Protocol Docusate Sodium 100 mg 02/10/21 09:00 02/10/21 11:16 Docusate Sodium 100 Mg Capsule PO 100 mg BID SUJIT Administration Enoxaparin Sodium 40 mg 02/10/21 01:15 02/10/21 02:38 Enoxaparin Sodium 40 Mg/0.4 Ml Syringe SUBCUT 40 mg Q24H SUJIT Administration Finasteride 2.5 mg 02/10/21 09:00 02/10/21 11:17 Finasteride 5 Mg Tablet PO 2.5 mg DAILY SUJIT Administration Folic Acid 1 mg 02/10/21 09:00 02/10/21 11:16 Folic Acid 1 Mg Tablet PO 1 mg DAILY SUJIT Administration Hydromorphone HCl 1 mg 02/10/21 01:09 02/10/21 08:25 Hydromorphone Hcl 0.5 Mg/0.5 Ml Syringe IVPUSH 1 mg Q4H PRN Administration Pain, Severe (Pain Scale 7-10) Sodium Chloride 1,000 mls @ 100 mls/hr 02/10/21 01:15 02/10/21 11:21 Ns IVCONT 100 mls/hr .Q10H SUJIT Administration Melatonin 6 mg 02/10/21 01:09 Melatonin 3 Mg Tablet PO BEDTIME PRN Insomnia Ondansetron HCl 4 mg 02/10/21 01:09 Ondansetron Hcl 4 Mg/2 Ml Vial IVPUSH Q8H PRN Nausea and Vomiting Quetiapine Fumarate 200 mg 02/10/21 09:00 02/10/21 11:16 Quetiapine Fumarate 200 Mg Tablet PO 200 mg BID SUJIT Administration Senna 17.2 mg 02/10/21 01:09 Sennosides 8.6 Mg Tablet PO BEDTIME PRN Constipation Sodium Chloride 3 ml 02/10/21 08:00 02/10/21 09:54 0.9 % Sodium Chloride Flush 3 Ml Syringe IVFLUSH Not Given QSHIFT SUJIT Tramadol HCl 50 mg 02/10/21 01:11 Tramadol Hcl 50 Mg Tablet PO Q6H PRN Pain Trazodone HCl 50 mg 02/10/21 21:00 02/10/21 02:37 Trazodone Hcl 50 Mg Tablet PO 50 mg BEDTIME SUJIT Administration Vitamin D 25 mcg 02/10/21 09:00 02/10/21 11:17 Cholecalciferol (Vitamin D3) 25 Mcg Tablet PO 25 mcg DAILY SUJIT Administration <EZEQUIEL Krishnan - Last Filed: 02/10/21 15:13> Labs CBC & Chem 7: : 02/10/21 07:21 02/10/21 07:21 <EZEQUIEL Krishnan - Last Filed: 02/10/21 15:13> Labs: Laboratory Results - last 24 hr 02/09/21 02/09/21 02/09/21 19:58 19:58 21:38 MCV 89.2 MCH 32.8 MCHC 36.7 H RDW 21.0 H Plt Count 660 H D MPV 9.0 L Immature Gran % (Auto) 1.0 H Neut % (Auto) 46.7 Lymph % (Auto) 32.5 [place] % (Auto) 13.5 H Eos % (Auto) 5.5 H Baso % (Auto) 0.8 Lymph # (Auto) 4.1 [place] # (Auto) 1.7 H Eos # (Auto) 0.7 H Baso # (Auto) 0.1 Abs Immat Gran (auto) 0.12 H Absolute Neuts (auto) 5.9 Absolute Nucleated RBC 0.250 H Nucleated RBC % (auto) 2.0 H Neutrophils % (Manual) Band Neutrophils % Lymphocytes % (Manual) Monocytes % (Manual) Eosinophils % (Manual) Basophils % (Manual) Abs Neuts (Manual) Lymphocytes # (Manual) Monocytes # (Manual) Eosinophils # (Manual) Basophils # (Manual) Nucleated RBCs Toxic Vacuolation Platelet Estimate Plt Morphology Comment RBC Morphology Polychromasia Spherocytes Sickle Cells Target Cells Ovalocytes Acanthocytes (Spur) Smear Tech's Comments VERIFIED Anion Gap 15 Estim Creat Clear Calc 141.2 Estimated GFR > 60 Random Glucose 100 Calcium 9.7 D Total Bilirubin 2.7 H AST 37 ALT 18 Alkaline Phosphatase 96 Total Protein 8.6 H Albumin 4.2 Urine Color YELLOW Urine Appearance CLEAR Urine pH 6.0 Ur Specific [place] 1.010 Urine Protein NEG Urine Glucose (UA) NEG Urine Ketones 5 Urine Blood NEG Urine Nitrite NEG Ur Leukocyte Esterase NEG COVID-19 (MICHAEL) COVID-19 Clin Com 02/10/21 02/10/21 02/10/21 00:38 07:21 07:21 MCV 90.4 MCH 32.3 MCHC 35.7 RDW 20.2 H Plt Count 619 H MPV 9.5 Immature Gran % (Auto) Cancelled Neut % (Auto) Cancelled Lymph % (Auto) Cancelled [place] % (Auto) Cancelled Eos % (Auto) Cancelled Baso % (Auto) Cancelled Lymph # (Auto) Cancelled [place] # (Auto) Cancelled Eos # (Auto) Cancelled Baso # (Auto) Cancelled Abs Immat Gran (auto) Cancelled Absolute Neuts (auto) Cancelled Absolute Nucleated RBC 0.250 H Nucleated RBC % (auto) 1.2 H Neutrophils % (Manual) 59 Band Neutrophils % 1 L Lymphocytes % (Manual) 21 Monocytes % (Manual) 13 H Eosinophils % (Manual) 2 Basophils % (Manual) 4 H Abs Neuts (Manual) 13.0 H Lymphocytes # (Manual) 4.6 Monocytes # (Manual) 2.8 H Eosinophils # (Manual) 0.4 Basophils # (Manual) 0.9 H Nucleated RBCs 3 H Toxic Vacuolation PRESENT Platelet Estimate INCREASED Plt Morphology Comment NORMAL RBC Morphology NOTED Polychromasia 1+ (0-2) Spherocytes 1+ (0-2) Sickle Cells 3+ (>5) Target Cells 1+ (5-14) Ovalocytes 1+ (5-14) Acanthocytes (Spur) 1+ (0-2) Smear Tech's Comments Anion Gap 16 Estim Creat Clear Calc 91.6 Estimated GFR > 60 Random Glucose 89 Calcium 8.3 L D Total Bilirubin AST ALT Alkaline Phosphatase Total Protein Albumin Urine Color Urine Appearance Urine pH Ur Specific [place] Urine Protein Urine Glucose (UA) Urine Ketones Urine Blood Urine Nitrite Ur Leukocyte Esterase COVID-19 (MICHAEL) Negative COVID-19 Clin Com See Note <EZEQUIEL Krishnan - Last Filed: 02/10/21 15:13> Assessment and Plan (1) Sickle cell anemia with crisis: Status: Acute <EZEQUIEL Krishnan - Last Filed: 02/10/21 15:13> Assessment and Plan: 25-year-old transgender female with a past medical history of sickle cell disease, avascular necrosis, history of hip replacement presented to the hospital with a chief complaint of generalized body aches; admitted for sickle cell crisis. Sickle cell crisis:? No evidence of infection not on hydroxyurea at home, previous notes state she doesn't feel it is beneficial -Continue IV fluid -Pain control -H/H stable, no need for transfusion at this time -follow lfts -follow cbc DVT prophylaxis:? Lovenox Code status:? Full code Attending: Dr. Bustamante <EZEQUIEL Krishnan - Last Filed: 02/10/21 15:13> Quality Stroke Does the patient have a stroke diagnosis?: No <EZEQUIEL Krishnan Last Filed: 02/10/21 15:13> VTE Prior VTE?: No <EZEQUIEL Krishnan Last Filed: 02/10/21 15:13> VTE Risk Level:: Medical - moderate - high <EZEQUIEL Krishnan Last Filed: 02/10/21 15:13> VTE Device Contraindication: Treatment Not Indicated <EZEQUIEL Krishnan - Last Filed: 02/10/21 15:13> VTE Drug Contraindication: Treatment Not Indicated <EZEQUIEL Krishnan - Last Filed: 02/10/21 15:13>
[2021-02-10] MEDS: 0.9 % Sodium Chloride Flush 3 ML SYRINGE IVFLUSH (15:44)
--- NOTE | 2021-02-10 18:21 | PC.NURSE ---
PATIENT REQUESTS TO LEAVE AMA. NOTIFIED. AMA FORM SIGNED AND WITNESSES. IV REMOVED. MD NOTIFIED OF SIGNATURE. PATIENT WAITING FOR RIDE.
--- NOTE | 2023-05-10 17:20 | PM.EVENT ---
Event Note Date of Service: 02/10/21 Event Note: discharge summary: patient left AMA 02/10/2021 discharge diagnosis: acute sickle cell crisis Time Spent With Patient Time: Total time managing care of this patient today ____ minutes.
== END 2021-02-10 18:45 | disposition left against medical advice (07) | DRG 812 ==
LOC: HO.ED 23:27 → HO.EDOVER 02-10 01:20 → HO.IMC 02-10 08:21
PROVIDERS: Admitting Provider Hospitalist; Emergency Provider Emergency Medicine; Visit Provider Internal Medicine
DX: D57.00 Hb-SS disease with crisis, unspecified (principal); F41.9 Anxiety disorder, unspecified; F64.0 Transsexualism; Z20.822 Contact with and (suspected) exposure to COVID-19; Z88.5 Allergy status to narcotic agent; Z79.891 Long term (current) use of opiate analgesic; Z79.899 Other long term (current) drug therapy
CPT/HCPCS: 36415; 71045; 80048; 80053; 81003; 85007; 85025; 85027; 87635; 99285; J1170; J1650; J1885; J2405

== ENCOUNTER 2021-05-03 19:52 | Inpatient (IN) | payer MEDICARE, MEDICAID, SELFPAY ==
[2021-05-03 21:19] VITALS: BP 117/73; PULSE 104; RESP 16; TEMP 37; O2SAT 93; BMI 21.4
[2021-05-03 22:36] VITALS: BP 142/77; PULSE 110; RESP 20; TEMP 37.1; O2SAT 92
[2021-05-03 22:50] LABS: Hematocrit 21.2 % (42-52); Hemoglobin 7.8 g/dl (14.0-18.0); Mean Corpuscular HGB Conc 36.8 g/dl (31.0-36.0); Mean Corpuscular Hemoglobin 32.4 pg (27.0-33.0); Mean Platelet Volume 9.2 fL (9.4-12.4); Platelet Count 533 X10*3/uL (160-400); Red Blood Count 2.41 X10*6/uL (4.60-5.80); Red Cell Distribution Width 24.9 % (11.0-16.0); White Blood Count 14.2 X10*3/uL (4.8-10.8)
[2021-05-03 22:57] LABS: Anion Gap 16 (12-20); Blood Urea Nitrogen 9 mg/dL (9-16); Calcium 9.7 mg/dL (8.4-10.2); Carbon Dioxide 21 mmol/L (22-29); Chloride 106 mmol/L (96-108); Creatinine Clr Calc Pharmacy 122.1; Estimated Glomerular Filt Rate > 60; Glucose Random 112 mg/dL (60-115); Potassium 4.5 mmol/L (3.3-5.1); Sodium 138 mmol/L (135-145)
[2021-05-03] MEDS: 0.9 % Sodium Chloride 1,000 ML 999 ML IVCONT (22:59)
[2021-05-03 23:01] LABS: NRBC Pct Auto 2.6 /100WBC (0.0-0.2)
[2021-05-03 23:04] LABS: Band Neutrophils Percent 2 % (3-5); Eosinophils Absolute Manual 0.7 X10*3/UL (0.0-0.8); Eosinophils Percent Manual 5 % (0-4); Lymphocytes Absolute Manual 2.8 X10*3/uL (0.6-4.8); Lymphocytes Percent Manual 20 % (20-40); Monocytes Percent Manual 7 % (2-11); Neutrophils Absolute Manual 9.7 X10*3/uL (2.2-7.9); Neutrophils Percent Manual 66 % (45-73); Nucleated Red Blood Cells 1 /100WBC (0-0)
[2021-05-03 23:05] LABS: Macrocytosis 2+ (15-30) /OIF; RBC Morphology NOTED; Sickle Cells 3+ (>5) /OIF; Spherocytes 2+ (3-5) /OIF
[2021-05-03 23:06] LABS: Polychromasia 2+ (3-5) /OIF; Target Cells 1+ (5-14) /OIF
[2021-05-03 23:07] LABS: Large Platelet PRESENT; Platelet Estimate INCREASED (NORMAL); Platelet Morphology Comment NOTED
[2021-05-03 23:10] VITALS: RESP 18
[2021-05-03] MEDS: HYDROmorphone HCl 2 MG/ML VIAL IVPUSH (23:10)
[2021-05-03] MEDS: Folic Acid 1 MG TABLET PO (23:10)
[2021-05-03] MEDS: ondansetron HCL 4 MG/2 ML VIAL IVPUSH (23:10)
[2021-05-03 23:11] LABS: Baso%MD 0.7 %; Eos%MD 8.9 %; IG%MD 0.4 %; Immature Retic Fraction 42.5 % (2.3-13.4); Lymph%MD 28.9 %; Mono%MD 9.8 %; Neut%MD 51.3 %; Retic HGB Equivalent 34.9 pg (30.0-35.0); Reticulocyte Percent 12.5 % (0.5-1.8); Reticulocytes Absolute 0.306 X10*6/uL (0.026-0.095)
--- NOTE | 2021-05-03 23:17 | ED_ITS ---
HPI - General Adult General Chief complaint: General Medical Stated complaint: sickle cell pain Time Seen by Provider: 05/03/21 22:50 Source: patient Mode of arrival: ambulatory Limitations: no limitations History of Present Illness HPI narrative: Patient with history of sickle cell anemia complaining of generalized body pain for last 2 days not on any hydroxyurea takes folic acid no hematuria no chest pain or shortness of breath Related Data Home Medications Medication Instructions Recorded Confirmed clonidine HCl 0.1 mg tablet 0.1 mg PO BEDTIME PRN 06/16/20 02/10/21 folic acid 1 mg tablet 1 mg PO DAILY 06/16/20 02/10/21 quetiapine 200 mg tablet (Seroquel) 200 mg PO BID 06/16/20 02/10/21 trazodone 50 mg tablet 50 mg PO BEDTIME 06/16/20 02/10/21 estradiol cypionate See Rx Instructions .ROUTE .COMPLEX 07/24/20 02/10/21 finasteride 5 mg tablet 2.5 mg PO DAILY 07/24/20 02/10/21 tramadol 50 mg tablet 50 mg PO Q6H PRN 07/24/20 02/10/21 zolpidem 10 mg tablet (Ambien) 10 mg PO BEDTIME PRN 10/16/20 02/10/21 cholecalciferol (vitamin D3) 25 25 mcg PO DAILY 12/06/20 02/10/21 mcg (1,000 unit) tablet (Vitamin D3) Allergies Allergy/AdvReac Type Severity Reaction Status Date / Time morphine AdvReac Agitated Verified 05/03/21 21:19 oxycodone AdvReac Agitated Verified 05/03/21 21:19 Review of Systems Review of Systems: Yes all other systems are reviewed and are negative PMFSH Past Medical History Medical History Avascular bone necrosis Sickle cell anemia with crisis Surgical History H/O splenectomy Family History Family History Other Sickle cell anemia Social History Social History Household Members: Significant Other Housing: Apartment Do you presently have visiting nurse or other home services: No Alcohol intake: never Patient Tobacco Use Status: Current someday Tobacco user Tobacco use type: Cigarette Cigarettes Per Day: 3 Years Smoked: 6 e-Cigarette/Vaping Use: Never Used Second Hand Smoke Exposure: Yes Substance Use Type: Marijuana Substance Use Frequency: Daily Substance Use Frequency Other:: 24 Last Used Substance: Hours (ago) Any prior treatment program specific to substance use: No Advance Directives: No service: No Current occupational status: disabled Physical Exam Vital Signs: Vital Signs: Last Vital Signs Temp 98.8 F 05/03/21 22:36 Pulse 110 H 05/03/21 22:36 Resp 18 05/03/21 23:10 BP 142/77 H 05/03/21 22:36 Pulse Ox 92 05/03/21 22:36 Body Mass Index 21.4 Appearance: Alert. Oriented X3. No acute distress. Eyes: Pallor+ icterus+ ENT: Pharynx normal. Oral Mucosa moist Neck: Normal inspection. Neck supple. CVS: Normal heart rate and rhythm. Pulses normal. Respiratory: No respiratory distress. Equal air entry bilateral, no wheezing/rales/rhonchi Abdomen: Soft and nontender. Bowel sounds are present, no mass palpable, no CVA tenderness Skin: Skin warm and dry. Normal skin color. Normal skin turgor. Extremities: No lower extremity edema. No calf tenderness Neuro: Oriented X 3. Medical Decision Making MDM Narrative Medical decision making narrative: Patient with sickle cell crisis with retic count 12.5% stable hemoglobin 7.8 will admit patient for IV hydration and pain management Lab Data Result diagrams: 05/03/21 22:35 05/03/21 22:35 Labs: Lab Results 05/03/21 05/03/21 Range/Units 22:35 22:35 WBC 14.2 H (4.8-10.8) X10*3/uL RBC 2.41 L (4.60-5.80) X10*6/uL Hgb 7.8 L (14.0-18.0) g/dl Hct 21.2 L (42-52) % MCV 88.0 (80-98) fL MCH 32.4 (27.0-33.0) pg MCHC 36.8 H (31.0-36.0) g/dl RDW 24.9 H (11.0-16.0) % Plt Count 533 H (160-400) X10*3/uL MPV 9.2 L (9.4-12.4) fL Immature Gran % (Auto) Cancelled Neut % (Auto) Cancelled Lymph % (Auto) Cancelled [place] % (Auto) Cancelled Eos % (Auto) Cancelled Baso % (Auto) Cancelled Lymph # (Auto) Cancelled [place] # (Auto) Cancelled Eos # (Auto) Cancelled Baso # (Auto) Cancelled Abs Immat Gran (auto) Cancelled Absolute Neuts (auto) Cancelled Absolute Nucleated RBC 0.370 H (0.0-0.012) X10*3/uL Nucleated RBC % (auto) 2.6 H (0.0-0.2) /100WBC Neutrophils % (Manual) 66 (45-73) % Band Neutrophils % 2 L (3-5) % Lymphocytes % (Manual) 20 (20-40) % Monocytes % (Manual) 7 (2-11) % Eosinophils % (Manual) 5 H (0-4) % Abs Neuts (Manual) 9.7 H (2.2-7.9) X10*3/uL Lymphocytes # (Manual) 2.8 (0.6-4.8) X10*3/uL Monocytes # (Manual) 1.0 (0.0-1.2) X10*3/uL Eosinophils # (Manual) 0.7 (0.0-0.8) X10*3/UL Nucleated RBCs 1 H (0-0) /100WBC Platelet Estimate INCREASED (NORMAL) Large Platelets PRESENT Plt Morphology Comment NOTED RBC Morphology NOTED Polychromasia 2+ (3-5) /OIF Macrocytosis 2+ (15-30) /OIF Spherocytes 2+ (3-5) /OIF Sickle Cells 3+ (>5) /OIF Target Cells 1+ (5-14) /OIF Absolute Retic 0.306 H (0.026-0.095) X10*6/uL Percent Retic 12.5 H (0.5-1.8) % Immature Retic Fraction 42.5 H (2.3-13.4) % Retic Hgb Equivalent 34.9 (30.0-35.0) pg Sodium 138 (135-145) mmol/L Potassium 4.5 (3.3-5.1) mmol/L Chloride 106 (96-108) mmol/L Carbon Dioxide 21 L (22-29) mmol/L Anion Gap 16 (12-20) BUN 9 (9-16) mg/dL Creatinine 0.86 (0.5-1.4) mg/dL Estim Creat Clear Calc 122.1 Estimated GFR > 60 Random Glucose 112 (60-115) mg/dL Calcium 9.7 D (8.4-10.2) mg/dL Discharge Plan Discharge Clinical Impression: Sickle cell anemia with crisis Patient Disposition: Admitted As Inpatient
--- NOTE | 2021-05-03 23:26 | PM.IMHP ---
History of Present Illness Date of Service: 05/03/21 Chief Complaint: Generalized body aches 26-year-old male with a past medical history of sickle cell disease, anemia, avascular necrosis of the bone, history of sickle cell crisis admissions to the hospital; presented to the hospital with a chief complaint of generalized body aches. Patient reports that symptoms are similar to the prior episode when her sickle cell pain crisis. Denies any chest pain shortness of breath. Denies any numbness tingling or focal weakness. Denies any falls trauma. Denies any signs of bleeding. Denies any GI or symptoms. Review of all other systems is negative except mentioned above ER course: Per ER team patient noted to be in pain; no respiratory signs or symptoms; given pain medicine. Labs essentially benign. Hemoglobin at baseline. Admitted for further management. [facility] Medical History Avascular bone necrosis Sickle cell anemia with crisis Family History Other Sickle cell anemia Pertinent family history: As mentioned above Surgical History H/O splenectomy Social History Household Members: Significant Other Housing: Apartment Do you presently have visiting nurse or other home services: No Alcohol intake: never Patient Tobacco Use Status: Current someday Tobacco user Tobacco use type: Cigarette Cigarettes Per Day: 3 Years Smoked: 6 e-Cigarette/Vaping Use: Never Used Second Hand Smoke Exposure: Yes Substance Use Type: Marijuana Substance Use Frequency: Daily Substance Use Frequency Other:: 24 Last Used Substance: Hours (ago) Any prior treatment program specific to substance use: No Advance Directives: No service: No Current occupational status: disabled Meds Allergies Allergy/AdvReac Type Severity Reaction Status Date / Time morphine AdvReac Agitated Verified 05/03/21 21:19 oxycodone AdvReac Agitated Verified 05/03/21 21:19 Active Medications: Current Medications Sodium Chloride (Ns) 1,000 mls @ 999 mls/hr IVCONT .Q1H1M SUJIT Stop: 05/04/21 00:00 Last Admin: 05/03/21 22:59 Dose: 999 mls/hr Documented by: Sodium Chloride (Ns) 1,000 mls @ 999 mls/hr IVCONT .Q1H1M SUJIT Stop: 05/04/21 00:30 Home Medications Medication Instructions Recorded Confirmed Last Taken Type clonidine HCl 0.1 mg tablet 0.1 mg PO BEDTIME PRN 06/16/20 05/04/21 05/03/21 History folic acid 1 mg tablet 1 mg PO DAILY 06/16/20 05/04/21 02/09/21 History quetiapine 200 mg tablet (Seroquel) 200 mg PO BID 06/16/20 05/04/21 05/03/21 History trazodone 50 mg tablet 50 mg PO BEDTIME 06/16/20 05/04/21 05/03/21 History estradiol cypionate See Rx Instructions .ROUTE .COMPLEX 07/24/20 05/04/21 12/05/20 History finasteride 5 mg tablet 2.5 mg PO DAILY 07/24/20 05/04/21 02/09/21 History tramadol 50 mg tablet 50 mg PO Q6H PRN 07/24/20 05/04/21 05/03/21 History zolpidem 10 mg tablet (Ambien) 10 mg PO BEDTIME PRN 10/16/20 05/04/21 05/03/21 History cholecalciferol (vitamin D3) 25 25 mcg PO DAILY 12/06/20 05/04/21 05/03/21 History mcg (1,000 unit) tablet (Vitamin D3) quetiapine 200 mg PO DAILY PRN 05/04/21 05/04/21 05/03/21 History Physical Exam Vital Signs and Narrative: Vital Signs: Last Vital Signs Temp 98.8 F 05/03/21 22:36 Pulse 110 H 05/03/21 22:36 Resp 18 05/03/21 23:10 BP 142/77 H 05/03/21 22:36 Pulse Ox 92 05/03/21 22:36 Body Mass Index 21.4 Gen: Appears be in no acute distress HEENT: NCAT, Moist mucosa. Pulmonary: Vesicular breath sounds, fair air entry CVS: Normal S1-S2 Abdomen: BS+, Soft, Nontender Extremities: Warm well perfused Neuro: Alert and awake. Results Labs CBC and Chem 7: 05/03/21 22:35 05/03/21 22:35 Labs: Laboratory Results - last 24 hr 05/03/21 05/03/21 22:35 22:35 MCV 88.0 MCH 32.4 MCHC 36.8 H RDW 24.9 H Plt Count 533 H MPV 9.2 L Immature Gran % (Auto) Cancelled Neut % (Auto) Cancelled Lymph % (Auto) Cancelled [place] % (Auto) Cancelled Eos % (Auto) Cancelled Baso % (Auto) Cancelled Lymph # (Auto) Cancelled [place] # (Auto) Cancelled Eos # (Auto) Cancelled Baso # (Auto) Cancelled Abs Immat Gran (auto) Cancelled Absolute Neuts (auto) Cancelled Absolute Nucleated RBC 0.370 H Nucleated RBC % (auto) 2.6 H Neutrophils % (Manual) 66 Band Neutrophils % 2 L Lymphocytes % (Manual) 20 Monocytes % (Manual) 7 Eosinophils % (Manual) 5 H Abs Neuts (Manual) 9.7 H Lymphocytes # (Manual) 2.8 Monocytes # (Manual) 1.0 Eosinophils # (Manual) 0.7 Nucleated RBCs 1 H Platelet Estimate INCREASED Large Platelets PRESENT Plt Morphology Comment NOTED RBC Morphology NOTED Polychromasia 2+ (3-5) Macrocytosis 2+ (15-30) Spherocytes 2+ (3-5) Sickle Cells 3+ (>5) Target Cells 1+ (5-14) Absolute Retic 0.306 H Percent Retic 12.5 H Immature Retic Fraction 42.5 H Retic Hgb Equivalent 34.9 Anion Gap 16 Estim Creat Clear Calc 122.1 Estimated GFR > 60 Random Glucose 112 Calcium 9.7 D Assessment and Plan (1) Sickle cell anemia with crisis: Status: Acute 26-year-old male with a past medical history of sickle cell disease, anemia, avascular necrosis of the bone, history of sickle cell crisis admissions to the hospital; presented to the hospital with a chief complaint of generalized body aches. Admitted for acute sickle cell crisis. Acute sickle cell pain crisis: IV fluids Supplemental oxygen Pain control with Dilaudid 1 mg Q 3 p.r.n. Incentive spirometry Anemia: Hemoglobin 7.8 today. Will continue to monitor. hx anxiety/PTSD: c/w home meds clonidine, seroquel, trazodone DVT prophylaxis: Lovenox Code status: Full code Quality Stroke Does the patient have a stroke diagnosis?: No VTE Prior VTE?: No VTE Risk Level:: Medical - moderate - high VTE Device Contraindication: Treatment Not Indicated VTE Drug Contraindication: N/A - Med Ordered
[2021-05-03 23:35] LABS: Alanine Aminotransferase 15 U/L (0-40); Albumin Level 4.7 g/dL (3.5-5.0); Alkaline Phosphatase 93 U/L (39-117); Aspartate Amino Transferase 41 U/L (5-37); Bilirubin Direct 1.1 mg/dL (0.0-0.5); Bilirubin Total 4.7 mg/dL (0.0-1.0); Total Protein 9.1 g/dL (6.5-8.0)
[2021-05-04] VITALS (9 sets, daily range): BP systolic 131–152; BP diastolic 68–87; PULSE 85–140; RESP 16–20; TEMP 36.6–36.9; O2SAT 90–95
[2021-05-04 00:13] LABS: COVID-19 Test Negative (Negative)
[2021-05-04] MEDS: 0.9 % Sodium Chloride 1,000 ML 999 ML IVCONT (00:35)
[2021-05-04] MEDS: HYDROmorphone HCl 0.5 MG/0.5 ML SYRINGE IVPUSH ×2 (01:49→04:49)
[2021-05-04] MEDS: traZODone HCL 50 MG TABLET PO (03:32)
[2021-05-04] MEDS: QUEtiapine Fumarate 200 MG TABLET PO (04:01)
[2021-05-04] MEDS: 0.9 % Sodium Chloride 1,000 ML 100 ML IVCONT (04:03)
[2021-05-04] MEDS: traMADoL HCL 50 MG TABLET PO (06:25)
--- NOTE | 2021-05-04 09:23 | PM.DS ---
DS: Providers Provider Date of Service: 05/04/21 Date of admission: 05/03/21 23:24 Primary care physician: Nonstaff Physician DS: Diagnosis Discharge Diagnosis (1) Sickle cell anemia with crisis: Status: Acute DS: Summary Hospital Course Hospital Course: patient was amditted for SCA with crisis. patient left against medical advice without waiting to be advised by provider Time Spent with Patient Time attestation: Total time spent providing and/or coordinating discharge services: Discharge coordination time: Less than 30 minutes Quality: Stroke Does the patient have a stroke diagnosis?: No Physical Exam Vital Signs: Vital Signs: Last Vital Signs Temp 98 F 05/04/21 07:12 Pulse 140 H 05/04/21 07:12 Resp 20 05/04/21 07:12 BP 149/81 H 05/04/21 07:12 Pulse Ox 93 05/04/21 07:12 Body Mass Index 21.4 DS: Data Data Completed and Pending Completed studies during hospitalization [Text1]: Procedures Transfusion of Nonautologous Red Blood Cells into Peripheral Vein, Percutaneous Approach (10/17/20) Labs on day of discharge: Laboratory Results - last 24 hr 05/03/21 05/03/21 05/03/21 22:35 22:35 23:49 WBC 14.2 H RBC 2.41 L Hgb 7.8 L Hct 21.2 L MCV 88.0 MCH 32.4 MCHC 36.8 H RDW 24.9 H Plt Count 533 H MPV 9.2 L Immature Gran % (Auto) Cancelled Neut % (Auto) Cancelled Lymph % (Auto) Cancelled [place] % (Auto) Cancelled Eos % (Auto) Cancelled Baso % (Auto) Cancelled Lymph # (Auto) Cancelled [place] # (Auto) Cancelled Eos # (Auto) Cancelled Baso # (Auto) Cancelled Abs Immat Gran (auto) Cancelled Absolute Neuts (auto) Cancelled Absolute Nucleated RBC 0.370 H Nucleated RBC % (auto) 2.6 H Neutrophils % (Manual) 66 Band Neutrophils % 2 L Lymphocytes % (Manual) 20 Monocytes % (Manual) 7 Eosinophils % (Manual) 5 H Abs Neuts (Manual) 9.7 H Lymphocytes # (Manual) 2.8 Monocytes # (Manual) 1.0 Eosinophils # (Manual) 0.7 Nucleated RBCs 1 H Platelet Estimate INCREASED Large Platelets PRESENT Plt Morphology Comment NOTED RBC Morphology NOTED Polychromasia 2+ (3-5) Macrocytosis 2+ (15-30) Spherocytes 2+ (3-5) Sickle Cells 3+ (>5) Target Cells 1+ (5-14) Absolute Retic 0.306 H Percent Retic 12.5 H Immature Retic Fraction 42.5 H Retic Hgb Equivalent 34.9 Sodium 138 Potassium 4.5 Chloride 106 Carbon Dioxide 21 L Anion Gap 16 BUN 9 Creatinine 0.86 Estim Creat Clear Calc 122.1 Estimated GFR > 60 Random Glucose 112 Calcium 9.7 D Total Bilirubin 4.7 H Direct Bilirubin 1.1 H AST 41 H ALT 15 Alkaline Phosphatase 93 Total Protein 9.1 H Albumin 4.7 COVID-19 (MICHAEL) Negative COVID-19 Clin Com See Note Discharge Plan Discharge Patient Disposition: Left Against Medical Advice Discharge Diagnosis: sickle cell anemia Referrals: Physician,Nonstaff [Primary Care Provider] - 1 Week Discharge Medications: No Action clonidine HCl 0.1 mg Tablet 0.1 mg PO BEDTIME PRN (Reason: Anxiety) RF: 0 trazodone 50 mg Tablet 50 mg PO BEDTIME RF: 0 quetiapine [Seroquel] 200 mg Tablet 200 mg PO BID RF: 0 folic acid 1 mg Tablet 1 mg PO DAILY RF: 0 zolpidem [Ambien] 10 mg Tablet 10 mg PO BEDTIME PRN (Reason: Sleep) RF: 0 finasteride 5 mg Tablet 2.5 mg PO DAILY RF: 0 estradiol cypionate See Rx Instructions .ROUTE .COMPLEX RF: 0 tramadol 50 mg Tablet 50 mg PO Q6H PRN (Reason: Pain) RF: 0 cholecalciferol (vitamin D3) [Vitamin D3] 25 mcg (1,000 unit) Tablet 25 mcg PO DAILY RF: 0 quetiapine 200 mg PO DAILY PRN (Reason: Anxiety) RF: 0 Discharge Orders: Discharge Order (Routine); Ordered 05/04/21 Ordered By: Dennys Ross Care Plan Goals: manage sca Health Concerns: sca Plan of Treatment: follow up hemaotology Assessment: see above
--- NOTE | 2021-05-04 09:57 | MHC.CM.PN ---
Male 26 DX SS Crisis. Patient left AMA prior to arrival on IM.
== END 2021-05-04 09:27 | disposition left against medical advice (07) | DRG 812 ==
LOC: HO.ED 23:22 → HO.EDOVER 05-04 → HO.IMC 05-04 05:26
PROVIDERS: Admitting Provider Hospitalist; Emergency Provider Internal Medicine; Visit Provider Internal Medicine
DX: D57.00 Hb-SS disease with crisis, unspecified (principal); F17.210 Nicotine dependence, cigarettes, uncomplicated; Z20.822 Contact with and (suspected) exposure to COVID-19; Z71.6 Tobacco abuse counseling; Z88.5 Allergy status to narcotic agent; Z79.891 Long term (current) use of opiate analgesic; Z79.899 Other long term (current) drug therapy
CPT/HCPCS: 36415; 80048; 80076; 85007; 85025; 85027; 85045; 87635; 99285; J1170; J2405

== ENCOUNTER 2021-06-13 00:21 | Inpatient (IN) | payer MEDICARE, MEDICAID, SELFPAY ==
[2021-06-13] VITALS (8 sets, daily range): BP systolic 115–153; BP diastolic 50–87; PULSE 79–109; RESP 16–28; TEMP 36.4–37.4; O2SAT 92–97; BMI 21.2
--- NOTE | ~2021-06-13 | XR_ITS ---
EXAMINATION: XR CHEST CLINICAL INFORMATION: Sickle cell crisis COMPARISON: 02/09/2021 TECHNIQUE: Frontal view of the chest was obtained. FINDINGS: No significant abnormality is noted involving the heart, lungs, mediastinum, bony thorax or soft tissues. XR/XR chest 1V IMPRESSION: Unremarkable examination.
--- NOTE | 2021-06-13 01:45 | ED_ITS ---
HPI - General Adult General Chief complaint: General Medical Stated complaint: sickle cell pain Time Seen by Provider: 06/13/21 00:41 Source: patient Mode of arrival: ambulatory Limitations: no limitations History of Present Illness HPI narrative: Patient comes to the emergency room complaining of bilateral arm pain , patient is known to have frequent sickle cell crisis exacerbations. Patient, he has not been following up with Hematology/Oncology. Patient stop taking hydroxyurea year and a half ago because it was making his symptoms worse. Patient denies any fever chills, no chest pain or shortness of breath. No hip pain. Patient states in the last few months he had a hip replacement on the left side due to avascular necrosis. Related Data Home Medications Medication Instructions Recorded Confirmed clonidine HCl 0.1 mg tablet 0.1 mg PO BEDTIME PRN 06/16/20 05/04/21 folic acid 1 mg tablet 1 mg PO DAILY 06/16/20 05/04/21 quetiapine 200 mg tablet (Seroquel) 200 mg PO BID 06/16/20 05/04/21 trazodone 50 mg tablet 50 mg PO BEDTIME 06/16/20 05/04/21 estradiol cypionate See Rx Instructions .ROUTE .COMPLEX 07/24/20 05/04/21 finasteride 5 mg tablet 2.5 mg PO DAILY 07/24/20 05/04/21 tramadol 50 mg tablet 50 mg PO Q6H PRN 07/24/20 05/04/21 zolpidem 10 mg tablet (Ambien) 10 mg PO BEDTIME PRN 10/16/20 05/04/21 cholecalciferol (vitamin D3) 25 25 mcg PO DAILY 12/06/20 05/04/21 mcg (1,000 unit) tablet (Vitamin D3) quetiapine 200 mg PO DAILY PRN 05/04/21 05/04/21 Allergies Allergy/AdvReac Type Severity Reaction Status Date / Time morphine AdvReac Agitated Verified 05/03/21 21:19 oxycodone AdvReac Agitated Verified 05/03/21 21:19 Review of Systems Review of Systems: Constitutional : No Weight loss, No Fever, No Chills, No Night Sweats, No Fatigue, No Malaise ENT/Mouth : No Hearing loss, No Ear Pain, No Nasal Congestion, No Sinus Pain, No Hoarseness, No sore throat, No Rhinorrhea, No Swallowing Difficulty Eyes: No Eye Pain, No Swelling, No Redness, No Foreign Body, No Discharge, No Vision Changes Cardiovascular : No Chest Pain, No SOB, No Dyspnea on Exertion, No Orthopnea, No Edema, No Palpitations Respiratory : No Cough, No Sputum, No Wheezing, No Smoke Exposure, No Dyspnea Gastrointestinal : No Nausea, No Vomiting, No Diarrhea, No Constipation, No abdominal Pain, No Hematochezia, No Melena Genitourinary : no irregular bleeding, No Dysuria, No Urinary Frequency, No Luis turia, No Urinary Incontinence, No Urgency, No Flank Pain, No Urinary Flow Changes, No Hesitancy Musculoskeletal : Complaining of bilateral arm pain Skin : No Skin Lesions, No rash Neuro : No Weakness, No Numbness, No Paresthesias, No Loss of Consciousness, No Dizziness, No Headache Psych : No Anxiety/Panic, No Depression, No SI/HI/AH/VH, No Social Issues, Heme/Lymph: No Bruising, No Bleeding,No Lymphadenopathy Endocrine : No Polyuria, No Polydipsia, No Temperature Intolerance [facility] Past Medical History Medical History Avascular bone necrosis COVID-19 Sickle cell anemia with crisis Surgical History H/O splenectomy Family History Family History Other Sickle cell anemia Social History Social History Household Members: Spouse Housing: Apartment Do you presently have visiting nurse or other home services: No Alcohol intake: never Patient Tobacco Use Status: Current someday Tobacco user Tobacco use type: Cigarette Cigarettes Per Day: 3 Years Smoked: 6 e-Cigarette/Vaping Use: Never Used Second Hand Smoke Exposure: Yes Substance Use Type: Marijuana Advance Directives: No Advance Directives Information Provided: Yes service: No Current occupational status: disabled Physical Exam Vital Signs: Vital Signs: Last Vital Signs Temp 97.7 F 06/13/21 00:38 Pulse 84 06/13/21 02:02 Resp 20 06/13/21 02:02 BP 131/78 06/13/21 02:02 Pulse Ox 92 06/13/21 02:02 BMI result Body Mass Index 21.2 Const: Other: Appearance: Alert. Oriented X3. No acute distress. Eyes: Pupils equal, round and reactive to light. Icteric sclera ENT: Pharynx normal. Neck: Normal inspection. Neck supple. No lymph nodes noted. No crepitus CVS: Normal heart rate and rhythm. Pulses normal. Normal S1 and S2 Respiratory: No respiratory distress. Breath sounds normal. No Wheezing. No rales Abdomen: Soft and nontender. No rigidity. No distention. good BS x4 Skin: Skin warm and dry. Normal skin color. Normal skin turgor. Extremities: No lower extremity edema. No Lacerations. No Rash Neuro: Oriented X 3. No motor deficit. No sensory deficit. Moving all extermities. No slurred speech. Course Course Course Narrative: Patient's pain is not well controlled despite Dilaudid. I discussed the patient with Dr. Cardoso. Patient being admitted for sickle cell crisis Medical Decision Making Lab Data Result diagrams: 06/13/21 01:59 06/13/21 01:59 Labs: Lab Results 06/13/21 06/13/21 06/13/21 Range/Units 01:59 01:59 01:59 WBC 10.5 (4.8-10.8) X10*3/uL RBC 2.55 L (4.60-5.80) X10*6/uL Hgb 8.0 L (14.0-18.0) g/dl Hct 21.5 L (42.0-52.0) % MCV 84.3 (80.0-98.0) fL MCH 31.4 (27.0-33.0) pg MCHC 37.2 H (31.0-36.0) g/dl RDW 25.2 H (11.0-16.0) % Plt Count 491 H (160-400) X10*3/uL MPV 9.4 (9.4-12.4) fL Immature Gran % (Auto) 0.8 H (0.0-0.4) % Neut % (Auto) 31.6 L (45-73) % Lymph % (Auto) 47.2 H (20-40) % [place] % (Auto) 13.2 H (2-11) % Eos % (Auto) 6.1 H (0-4) % Baso % (Auto) 1.1 (0-2) % Lymph # (Auto) 5.0 H (1.2-4.9) X10*3/uL [place] # (Auto) 1.4 H (0.1-1.2) X10*3/uL Eos # (Auto) 0.6 H (0.0-0.4) X10*3/uL Baso # (Auto) 0.1 (0.0-0.2) X10*3/uL Abs Immat Gran (auto) 0.08 H (0.00-0.03) X10*3/uL Absolute Neuts (auto) 3.3 (2.0-8.3) x10*3/uL Absolute Nucleated RBC 0.060 H (0.0-0.012) X10*3/uL Nucleated RBC % (auto) 0.6 H (0.0-0.2) /100WBC Absolute Retic 0.217 H (0.026-0.095) X10*6/uL Percent Retic 8.6 H (0.5-1.8) % Immature Retic Fraction 44.5 H (2.3-13.4) % Retic Hgb Equivalent 35.5 H (30.0-35.0) pg Sodium 138 (135-145) mmol/L Potassium 4.0 (3.3-5.1) mmol/L Chloride 108 (96-108) mmol/L Carbon Dioxide 21 L (22-29) mmol/L Anion Gap 13 (12-20) BUN 9 (9-16) mg/dL Creatinine 0.76 (0.5-1.4) mg/dL Estim Creat Clear Calc 137.4 Estimated GFR > 60 Random Glucose 126 H (60-115) mg/dL Lactic Acid (0.5-2.0) mmol/L Calcium 9.7 (8.4-10.2) mg/dL Total Bilirubin 4.0 H (0.0-1.0) mg/dL Direct Bilirubin 1.2 H (0.0-0.5) mg/dL AST 45 H (5-37) U/L ALT 16 (0-40) U/L Alkaline Phosphatase 75 (39-117) U/L Total Protein 8.3 H (6.5-8.0) g/dL Albumin 4.2 (3.5-5.0) g/dL COVID-19 (MICHAEL) (Negative) COVID-19 Clin Com 06/13/21 06/13/21 Range/Units 02:12 02:12 WBC (4.8-10.8) X10*3/uL RBC (4.60-5.80) X10*6/uL Hgb (14.0-18.0) g/dl Hct (42.0-52.0) % MCV (80.0-98.0) fL MCH (27.0-33.0) pg MCHC (31.0-36.0) g/dl RDW (11.0-16.0) % Plt Count (160-400) X10*3/uL MPV (9.4-12.4) fL Immature Gran % (Auto) (0.0-0.4) % Neut % (Auto) (45-73) % Lymph % (Auto) (20-40) % [place] % (Auto) (2-11) % Eos % (Auto) (0-4) % Baso % (Auto) (0-2) % Lymph # (Auto) (1.2-4.9) X10*3/uL [place] # (Auto) (0.1-1.2) X10*3/uL Eos # (Auto) (0.0-0.4) X10*3/uL Baso # (Auto) (0.0-0.2) X10*3/uL Abs Immat Gran (auto) (0.00-0.03) X10*3/uL Absolute Neuts (auto) (2.0-8.3) x10*3/uL Absolute Nucleated RBC (0.0-0.012) X10*3/uL Nucleated RBC % (auto) (0.0-0.2) /100WBC Absolute Retic (0.026-0.095) X10*6/uL Percent Retic (0.5-1.8) % Immature Retic Fraction (2.3-13.4) % Retic Hgb Equivalent (30.0-35.0) pg Sodium (135-145) mmol/L Potassium (3.3-5.1) mmol/L Chloride (96-108) mmol/L Carbon Dioxide (22-29) mmol/L Anion Gap (12-20) BUN (9-16) mg/dL Creatinine (0.5-1.4) mg/dL Estim Creat Clear Calc Estimated GFR Random Glucose (60-115) mg/dL Lactic Acid 1.1 (0.5-2.0) mmol/L Calcium (8.4-10.2) mg/dL Total Bilirubin (0.0-1.0) mg/dL Direct Bilirubin (0.0-0.5) mg/dL AST (5-37) U/L ALT (0-40) U/L Alkaline Phosphatase (39-117) U/L Total Protein (6.5-8.0) g/dL Albumin (3.5-5.0) g/dL COVID-19 (MICHAEL) Negative (Negative) COVID-19 Clin Com See Note Discharge Plan Discharge Clinical Impression: Sickle cell crisis Patient Disposition: Admitted As Inpatient Prescriptions: No Action clonidine HCl 0.1 mg Tablet 0.1 mg PO BEDTIME PRN (Reason: Anxiety) RF: 0 trazodone 50 mg Tablet 50 mg PO BEDTIME RF: 0 quetiapine [Seroquel] 200 mg Tablet 200 mg PO BID RF: 0 folic acid 1 mg Tablet 1 mg PO DAILY RF: 0 zolpidem [Ambien] 10 mg Tablet 10 mg PO BEDTIME PRN (Reason: Sleep) RF: 0 finasteride 5 mg Tablet 2.5 mg PO DAILY RF: 0 estradiol cypionate See Rx Instructions .ROUTE .COMPLEX RF: 0 tramadol 50 mg Tablet 50 mg PO Q6H PRN (Reason: Pain) RF: 0 cholecalciferol (vitamin D3) [Vitamin D3] 25 mcg (1,000 unit) Tablet 25 mcg PO DAILY RF: 0 quetiapine 200 mg PO DAILY PRN (Reason: Anxiety) RF: 0
[2021-06-13 02:06] LABS: Basophils Absolute Auto 0.1 X10*3/uL (0.0-0.2); Basophils Percent Auto 1.1 % (0-2); Eosinophils Absolute Auto 0.6 X10*3/uL (0.0-0.4); Eosinophils Percent Auto 6.1 % (0-4); Hematocrit 21.5 % (42.0-52.0); Imm Gran Abs Auto 0.08 X10*3/uL (0.00-0.03); Imm Gran Pct Auto 0.8 % (0.0-0.4); Immature Retic Fraction 44.5 % (2.3-13.4); Lymphocytes Percent Auto 47.2 % (20-40); MANUAL DIFF FLAG NO; Mean Corpuscular HGB Conc 37.2 g/dl (31.0-36.0); Mean Corpuscular Hemoglobin 31.4 pg (27.0-33.0); Mean Corpuscular Volume 84.3 fL (80.0-98.0); Mean Platelet Volume 9.4 fL (9.4-12.4); Monocytes Absolute Auto 1.4 X10*3/uL (0.1-1.2); Monocytes Percent Auto 13.2 % (2-11); NRBC Pct Auto 0.6 /100WBC (0.0-0.2); Neutrophils Absolute Auto 3.3 x10*3/uL (2.0-8.3); Neutrophils Percent Auto 31.6 % (45-73); Platelet Count 491 X10*3/uL (160-400); Red Blood Count 2.55 X10*6/uL (4.60-5.80); Red Cell Distribution Width 25.2 % (11.0-16.0); Retic HGB Equivalent 35.5 pg (30.0-35.0); Reticulocyte Percent 8.6 % (0.5-1.8); Reticulocytes Absolute 0.217 X10*6/uL (0.026-0.095); WBC ABN SCTR 1
[2021-06-13] MEDS: HYDROmorphone HCl 1 MG/ML SYRINGE IVPUSH (02:08)
[2021-06-13] MEDS: 0.9 % Sodium Chloride 1,000 ML 999 ML IVCONT (02:08)
[2021-06-13 02:21] LABS: Alanine Aminotransferase 16 U/L (0-40); Albumin Level 4.2 g/dL (3.5-5.0); Alkaline Phosphatase 75 U/L (39-117); Anion Gap 13 (12-20); Aspartate Amino Transferase 45 U/L (5-37); Bilirubin Direct 1.2 mg/dL (0.0-0.5); Blood Urea Nitrogen 9 mg/dL (9-16); Calcium 9.7 mg/dL (8.4-10.2); Carbon Dioxide 21 mmol/L (22-29); Chloride 108 mmol/L (96-108); Creatinine Clr Calc Pharmacy 137.4; Estimated Glomerular Filt Rate > 60; Glucose Random 126 mg/dL (60-115); Sodium 138 mmol/L (135-145); Total Protein 8.3 g/dL (6.5-8.0)
[2021-06-13 02:27] LABS: WBC ABN SCTR FOR CBC 1; White Blood Count 10.5 X10*3/uL (4.8-10.8)
[2021-06-13 02:29] LABS: Lactic Acid 1.1 mmol/L (0.5-2.0)
[2021-06-13 02:34] LABS: COVID-19 Test Negative (Negative)
--- NOTE | 2021-06-13 03:45 | P.HPHOSP_ITS ---
History of Present Illness Date of Service: 06/13/21 Chief Complaint: pain this is a 26-year-old? transgender female with a history of sickle cell disease, who would like to be called Jaskarancarol,? and referred to as she, presents to the hospital with complaints of sickle cell crisis. patient reports that she started having pain in her arms about a day ago, has become intolerant, 10/10, and pain medication home not helping. Patient not on hydroxyurea. She denies any chest pain, no shortness of breath, No cough, no fever or chills,no abdominal pain nausea or vomiting, no diarrhea constipation, no urinary symptoms and no lower extremity edema. Of note patient has frequent admissions for the same over the past year almost every 2 months. On arrival to the ED patient hemodynamically stable with vitals significant for temp of 97.7?, heart rate of 103, respiratory rate of 28, blood pressure 151/80 satting 93% on room air. labs are significant for WBC count of 10.5, hemoglobin of 8., hematocrit of 21.5, % reticular and of 8.6, total bili of 4.0, direct bili of 1.2, UA negative. Chest x-ray negative patient will be admitted for sickle cell crisis Review of Systems Review of Systems: Yes all other systems are reviewed and are negative [facility] Medical History Avascular bone necrosis COVID-19 Sickle cell anemia with crisis Family History Other Sickle cell anemia Surgical History H/O splenectomy Social History Household Members: Spouse Housing: Apartment Do you presently have visiting nurse or other home services: No Alcohol intake: never Patient Tobacco Use Status: Current someday Tobacco user Tobacco use type: Cigarette Cigarettes Per Day: 3 Years Smoked: 6 e-Cigarette/Vaping Use: Never Used Second Hand Smoke Exposure: Yes Substance Use Type: Marijuana Advance Directives: No Advance Directives Information Provided: Yes service: No Current occupational status: disabled Meds Allergies Allergy/AdvReac Type Severity Reaction Status Date / Time morphine AdvReac Agitated Verified 05/03/21 21:19 oxycodone AdvReac Agitated Verified 05/03/21 21:19 Home Medications Medication Instructions Recorded Confirmed Last Taken Type clonidine HCl 0.1 mg tablet 0.1 mg PO BEDTIME PRN 06/16/20 06/13/21 06/12/21 History folic acid 1 mg tablet 1 mg PO DAILY 06/16/20 06/13/21 06/12/21 History quetiapine 200 mg tablet (Seroquel) 200 mg PO BID 06/16/20 06/13/21 06/12/21 History trazodone 50 mg tablet 50 mg PO BEDTIME 06/16/20 06/13/21 06/12/21 History estradiol cypionate See Rx Instructions .ROUTE .COMPLEX 07/24/20 06/13/21 06/12/21 History finasteride 5 mg tablet 2.5 mg PO DAILY 07/24/20 06/13/21 06/12/21 History tramadol 50 mg tablet 50 mg PO Q6H PRN 07/24/20 06/13/21 06/12/21 History zolpidem 10 mg tablet (Ambien) 10 mg PO BEDTIME PRN 10/16/20 06/13/21 06/12/21 History cholecalciferol (vitamin D3) 25 25 mcg PO DAILY 12/06/20 06/13/21 06/12/21 History mcg (1,000 unit) tablet (Vitamin D3) quetiapine 200 mg PO DAILY PRN 05/04/21 06/13/21 06/12/21 History Physical Exam Vital Signs and Narrative: Vital Signs: Last Vital Signs Temp 97.7 F 06/13/21 00:38 Pulse 84 06/13/21 02:02 Resp 20 06/13/21 02:02 BP 131/78 06/13/21 02:02 Pulse Ox 92 06/13/21 02:02 BMI result Body Mass Index 21.2 Const: General: cooperative and no acute distress Orientation/consciousness: patient oriented x3 Eyes: General: appearance normal, both eyes and all related structures Pupils: Equal, round and reactive pupils present Resp: Effort & Inspection: normal respiratory effort Auscultation: clear to auscultation bilaterally Cardio: Rate: regular rate Rhythm: regular rhythm GI: Palpation (GI): Soft to palpation Auscultation: normal bowel sounds Skin: General skin exam: no rashes or lesions noted Neuro: General: patient oriented x3 Cranial nerves: Yes Equal, round and reactive pupils present Cognition (Neuro): normal cognition Extrem: General: Yes normal to inspection and Yes no pedal edema Results Labs CBC and Chem 7: 06/13/21 01:59 06/13/21 05:46 Labs: Laboratory Results - last 24 hr 06/13/21 06/13/21 06/13/21 01:59 01:59 01:59 Hgb 8.0 L MCV 84.3 MCH 31.4 MCHC 37.2 H RDW 25.2 H Plt Count 491 H MPV 9.4 Immature Gran % (Auto) 0.8 H Neut % (Auto) 31.6 L Lymph % (Auto) 47.2 H [place] % (Auto) 13.2 H Eos % (Auto) 6.1 H Baso % (Auto) 1.1 Lymph # (Auto) 5.0 H [place] # (Auto) 1.4 H Eos # (Auto) 0.6 H Baso # (Auto) 0.1 Abs Immat Gran (auto) 0.08 H Absolute Neuts (auto) 3.3 Absolute Nucleated RBC 0.060 H Nucleated RBC % (auto) 0.6 H Absolute Retic 0.217 H Percent Retic 8.6 H Immature Retic Fraction 44.5 H Retic Hgb Equivalent 35.5 H Anion Gap 13 Estim Creat Clear Calc 137.4 Estimated GFR > 60 Random Glucose 126 H Lactic Acid Calcium 9.7 Total Bilirubin 4.0 H Direct Bilirubin 1.2 H AST 45 H ALT 16 Alkaline Phosphatase 75 Total Protein 8.3 H Albumin 4.2 COVID-19 (MICHAEL) COVID-19 Clin Com 06/13/21 06/13/21 02:12 02:12 Hgb MCV MCH MCHC RDW Plt Count MPV Immature Gran % (Auto) Neut % (Auto) Lymph % (Auto) [place] % (Auto) Eos % (Auto) Baso % (Auto) Lymph # (Auto) [place] # (Auto) Eos # (Auto) Baso # (Auto) Abs Immat Gran (auto) Absolute Neuts (auto) Absolute Nucleated RBC Nucleated RBC % (auto) Absolute Retic Percent Retic Immature Retic Fraction Retic Hgb Equivalent Anion Gap Estim Creat Clear Calc Estimated GFR Random Glucose Lactic Acid 1.1 Calcium Total Bilirubin Direct Bilirubin AST ALT Alkaline Phosphatase Total Protein Albumin COVID-19 (MICHAEL) Negative COVID-19 Clin Com See Note Imaging Radiologist's Impressions: Impressions Chest X-Ray 06/13/21 01:50 IMPRESSION: Unremarkable examination. Assessment and Plan (1) Sickle cell crisis: Status: Acute 26-year-old female with past medical history sickle cell disease presents to the hospital with sickle cell crisis # sickle cell crisis - no evidence of acute infection - will start IV fluids - follow CBC to monitor hemoglobin - pain control # Mood disorder - continue home medications DVT prophylaxis: Lovenox Quality Stroke Does the patient have a stroke diagnosis?: No VTE Prior VTE?: No VTE Risk Level:: Medical - moderate - high VTE Device Contraindication: Treatment Not Indicated VTE Drug Contraindication: N/A - Med Ordered
[2021-06-13] MEDS: Morphine Sulfate 4 MG/ML CARTRIDGE IVPUSH ×3 (04:46→12:05)
[2021-06-13 06:10] LABS: MANUAL DIFF FLAG NO
[2021-06-13 06:33] LABS: Appearance Urine HAZY; Color Urine YELLOW; Glucose Urine UA NEG (NEG); Leukocyte Esterase Urine NEG (NEG); Nitrite Urine NEG (NEG); Urine Blood NEG (NEG); Urine Ketones NEG (NEG); Urine Protein NEG (NEG-TRACE)
[2021-06-13 06:35] LABS: Anion Gap 11 (12-20); Blood Urea Nitrogen 7 mg/dL (9-16); Calcium 9.1 mg/dL (8.4-10.2); Carbon Dioxide 21 mmol/L (22-29); Chloride 111 mmol/L (96-108); Creatinine Clr Calc Pharmacy 143.1; Estimated Glomerular Filt Rate > 60; Glucose Random 99 mg/dL (60-115); Potassium 3.9 mmol/L (3.3-5.1); Sodium 139 mmol/L (135-145)
[2021-06-13 06:36] LABS: Basophils Absolute Auto 0.1 X10*3/uL (0.0-0.2); Basophils Percent Auto 1.2 % (0-2); Eosinophils Absolute Auto 0.8 X10*3/uL (0.0-0.4); Eosinophils Percent Auto 7.7 % (0-4); Hemoglobin 7.4 g/dl (14.0-18.0); Imm Gran Abs Auto 0.07 X10*3/uL (0.00-0.03); Imm Gran Pct Auto 0.7 % (0.0-0.4); Lymphocytes Absolute Auto 4.5 X10*3/uL (1.2-4.9); Lymphocytes Percent Auto 46.5 % (20-40); Mean Corpuscular HGB Conc 36.1 g/dl (31.0-36.0); Mean Corpuscular Hemoglobin 30.8 pg (27.0-33.0); Mean Corpuscular Volume 85.4 fL (80.0-98.0); Mean Platelet Volume 9.8 fL (9.4-12.4); Monocytes Absolute Auto 1.2 X10*3/uL (0.1-1.2); Monocytes Percent Auto 12.7 % (2-11); Neutrophils Percent Auto 31.2 % (45-73); Platelet Count 444 X10*3/uL (160-400); Red Cell Distribution Width 24.6 % (11.0-16.0); White Blood Count 9.7 X10*3/uL (4.8-10.8)
[2021-06-13 06:51] LABS: NRBC Pct Auto 2.8 /100WBC (0.0-0.2)
[2021-06-13 06:52] LABS: Hematocrit 20.5 % (42.0-52.0)
[2021-06-13] MEDS: 0.9 % Sodium Chloride 1,000 ML 100 ML IVCONT (06:52)
--- NOTE | 2021-06-13 08:21 | PC.NURSE ---
dr ervin at bedside to get consent for blood and initial eval. pt refusing type and screen, does not want further blood drawn. asking to go home w this rn at this time.
--- NOTE | 2021-06-13 08:24 | PC.NURSE ---
pt yelling at this rn when presented with ama paper work, educated about admission process and offer for rbc transfusion, pt has expressed not wanting more blood drawn but sts i want to figure out whats going on . pt continues to yell at this rn, and asking this rn to leave. this rn leaving room to deescalate situation. pt refusing to sign anything .
--- NOTE | 2021-06-13 08:53 | PC.NURSE ---
pt now agreeing to type and screen and further treatment. pct at bedside to draw type and screen.
[2021-06-13] MEDS: Folic Acid 1 MG TABLET PO (09:11)
--- NOTE | 2021-06-13 12:04 | PM.EVENT ---
Event Note Date of Service: 06/13/21 Event Note: Patient admitted early this morning due to bilateral arm pain This a.m. patient feeling significantly better resting comfortably Labs showed drop in hematocrit to 20.5 from 21.5, hemoglobin 7.4 Exam Awake alert no distress Color pale Assessment and plan Sickle cell crisis No acute infection, no new medication Continue IV fluids, IV morphine for pain control Transfuse 1 unit follow H&H Patient not on hydroxyurea since felt it was not working in the past Transitioning male to female Will hold estradiol Mood disorder Continue home medication DVT prophylaxis early ambulation avoid anticoagulation
--- NOTE | 2021-06-13 13:39 | PC.NURSE ---
pt requesting to leave ama, provider aware. iv removed and ama paper work signed and in chart.
--- NOTE | 2021-06-13 15:19 | P.DS_ITS ---
DS: Providers Provider Date of Service: 06/13/21 Date of admission: 06/13/21 03:44 Primary care physician: Nonstaff Physician DS: Diagnosis Discharge Diagnosis (1) Sickle cell crisis: Status: Acute DS: Summary Hospital Course Hospital Course: History of presenting illness Chief Complaint:? pain this is a 26-year-old? transgender female with a history of sickle cell disease, who would like to be called Harly,? and referred to as she, presents to the hospital with complaints of sickle cell crisis. patient reports that she started having pain in her arms about a day ago, has become intolerant, 04/17, and pain medication home not helping.? Patient not on hydroxyurea.? She denies any chest pain, no shortness of breath, ? No cough, no fever or chills,no abdominal pain nausea or vomiting, no diarrhea constipation, no urinary symptoms and no lower extremity edema. Of note patient has frequent admissions for the same over the past year almost every 2 months. ? On arrival to the ED patient hemodynamically stable with vitals significant for temp of 97.7?, heart rate of 103, respiratory rate of 28, blood pressure 151/80 satting 93% on room air. ?labs are significant for WBC count of 10.5, hemoglobin of 8.,? hematocrit of 21.5,? % reticular and of 8.6, total bili of 4.0, direct bili of 1.2,? UA negative.? Chest x-ray negative Hospital course Patient admitted for sickle cell crisis no acute infections noted, patient treated with IV fluids and received 1 unit of packed RBC due to drop in hematocrit, after receiving blood patient decided to leave hospital against medical advice without waiting advised by provider. Time Spent with Patient Time attestation: Total time spent providing and/or coordinating discharge services: Discharge coordination time: Greater than 30 minutes Quality: Stroke Does the patient have a stroke diagnosis?: No Physical Exam Vital Signs: Vital Signs: Last Vital Signs Temp 98.3 F 06/13/21 12:23 Pulse 85 06/13/21 12:23 Resp 18 06/13/21 12:23 BP 115/50 L 06/13/21 12:23 Pulse Ox 96 06/13/21 12:23 BMI result Body Mass Index 21.2 Physical exam unchanged since admission. DS: Data Data Completed and Pending Completed studies during hospitalization [Text1]: Procedures Transfusion of Nonautologous Red Blood Cells into Peripheral Vein, Percutaneous Approach (10/17/20) Labs on day of discharge: Laboratory Results - last 24 hr 06/13/21 06/13/21 06/13/21 01:59 01:59 01:59 WBC 10.5 RBC 2.55 L Hgb 8.0 L Hct 21.5 L MCV 84.3 MCH 31.4 MCHC 37.2 H RDW 25.2 H Plt Count 491 H MPV 9.4 Immature Gran % (Auto) 0.8 H Neut % (Auto) 31.6 L Lymph % (Auto) 47.2 H [place] % (Auto) 13.2 H Eos % (Auto) 6.1 H Baso % (Auto) 1.1 Lymph # (Auto) 5.0 H [place] # (Auto) 1.4 H Eos # (Auto) 0.6 H Baso # (Auto) 0.1 Abs Immat Gran (auto) 0.08 H Absolute Neuts (auto) 3.3 Absolute Nucleated RBC 0.060 H Nucleated RBC % (auto) 0.6 H Absolute Retic 0.217 H Percent Retic 8.6 H Immature Retic Fraction 44.5 H Retic Hgb Equivalent 35.5 H Sodium 138 Potassium 4.0 Chloride 108 Carbon Dioxide 21 L Anion Gap 13 BUN 9 Creatinine 0.76 Estim Creat Clear Calc 137.4 Estimated GFR > 60 Random Glucose 126 H Lactic Acid Calcium 9.7 Total Bilirubin 4.0 H Direct Bilirubin 1.2 H AST 45 H ALT 16 Alkaline Phosphatase 75 Total Protein 8.3 H Albumin 4.2 Urine Color Urine Appearance Urine pH Ur Specific [place] Urine Protein Urine Glucose (UA) Urine Ketones Urine Blood Urine Nitrite Ur Leukocyte Esterase COVID-19 (MICHAEL) COVID-19 Clin Com Blood Type Antibody Screen Crossmatch 06/13/21 06/13/21 06/13/21 02:12 02:12 05:46 WBC 9.7 RBC 2.40 L Hgb 7.4 L Hct 20.5 L* MCV 85.4 MCH 30.8 MCHC 36.1 H RDW 24.6 H Plt Count 444 H MPV 9.8 Immature Gran % (Auto) 0.7 H Neut % (Auto) 31.2 L Lymph % (Auto) 46.5 H [place] % (Auto) 12.7 H Eos % (Auto) 7.7 H Baso % (Auto) 1.2 Lymph # (Auto) 4.5 [place] # (Auto) 1.2 Eos # (Auto) 0.8 H Baso # (Auto) 0.1 Abs Immat Gran (auto) 0.07 H Absolute Neuts (auto) 3.0 Absolute Nucleated RBC 0.270 H Nucleated RBC % (auto) 2.8 H Absolute Retic Percent Retic Immature Retic Fraction Retic Hgb Equivalent Sodium Potassium Chloride Carbon Dioxide Anion Gap BUN Creatinine Estim Creat Clear Calc Estimated GFR Random Glucose Lactic Acid 1.1 Calcium Total Bilirubin Direct Bilirubin AST ALT Alkaline Phosphatase Total Protein Albumin Urine Color Urine Appearance Urine pH Ur Specific [place] Urine Protein Urine Glucose (UA) Urine Ketones Urine Blood Urine Nitrite Ur Leukocyte Esterase COVID-19 (MICHAEL) Negative COVID-19 [facility] Com See Note Blood Type Antibody Screen Crossmatch 06/13/21 06/13/21 06/13/21 05:46 06:16 08:50 WBC RBC Hgb Hct MCV MCH MCHC RDW Plt Count MPV Immature Gran % (Auto) Neut % (Auto) Lymph % (Auto) [place] % (Auto) Eos % (Auto) Baso % (Auto) Lymph # (Auto) [place] # (Auto) Eos # (Auto) Baso # (Auto) Abs Immat Gran (auto) Absolute Neuts (auto) Absolute Nucleated RBC Nucleated RBC % (auto) Absolute Retic Percent Retic Immature Retic Fraction Retic Hgb Equivalent Sodium 139 Potassium 3.9 Chloride 111 H Carbon Dioxide 21 L Anion Gap 11 L BUN 7 L Creatinine 0.73 Estim Creat Clear Calc 143.1 Estimated GFR > 60 Random Glucose 99 Lactic Acid Calcium 9.1 D Total Bilirubin Direct Bilirubin AST ALT Alkaline Phosphatase Total Protein Albumin Urine Color YELLOW Urine Appearance HAZY Urine pH 6.0 Ur Specific [place] 1.010 Urine Protein NEG Urine Glucose (UA) NEG Urine Ketones NEG Urine Blood NEG Urine Nitrite NEG Ur Leukocyte Esterase NEG COVID-19 (MICHAEL) COVID-19 [facility] Com Blood Type O Positive Antibody Screen NEGATIVE Crossmatch See Detail Discharge Plan Discharge Patient Disposition: Left Against Medical Advice Discharge Diagnosis: Sickle cell crisis Referrals: Physician,Nonstaff [Primary Care Provider] - 1 Week Discharge Medications: Continued clonidine HCl 0.1 mg Tablet 0.1 mg PO BEDTIME PRN (Reason: Anxiety) RF: 0 trazodone 50 mg Tablet 50 mg PO BEDTIME RF: 0 quetiapine [Seroquel] 200 mg Tablet 200 mg PO BID RF: 0 folic acid 1 mg Tablet 1 mg PO DAILY RF: 0 zolpidem [Ambien] 10 mg Tablet 10 mg PO BEDTIME PRN (Reason: Sleep) RF: 0 finasteride 5 mg Tablet 2.5 mg PO DAILY RF: 0 estradiol cypionate See Rx Instructions .ROUTE .COMPLEX RF: 0 tramadol 50 mg Tablet 50 mg PO Q6H PRN (Reason: Pain) RF: 0 cholecalciferol (vitamin D3) [Vitamin D3] 25 mcg (1,000 unit) Tablet 25 mcg PO DAILY RF: 0 quetiapine 200 mg PO DAILY PRN (Reason: Anxiety) RF: 0 Discharge Orders: Discharge Order (Routine); Ordered 06/13/21 Ordered By: Selene Sherman Care Plan Goals: Sickle cell crisis outpatient follow-up with PCP, drink plenty of fluids Health Concerns: Continue all home medication as before Plan of Treatment: Outpatient follow-up with PCP in 7-10 days Assessment: As above
--- NOTE | 2021-06-13 15:48 | MHC.CM.PN ---
EMR REVIEWED, PT ADMITTED W/SICKLE CELL CRISIS, CM MET W/PT WHO IS IRRITABLE ADN SWEARING N PHONE, PT TRANSGENDER MALE TO FEMALE AND PREFERS JOSE,PT REPORTS LIVING W/, PT INDEPENDENT W/ALL CARE, DENIES USE OF DME AND HOME SERVICES, PT VERIFIES PCP MEREDITH MUNGUIA IN [place] D/T NOT LIKING TX FROM ANY DOCTOR AROUND HERE, PT WAS PROVIDED W/EDUCATION ON A HCP AND COMPLETED ONE W/CM, PT NAMED BERRY TEIXEIRAMAN (SPOUSE) [phone] HEALTH CARE AGENT AND ALTERNATE KAYLIE RAMIREZ [phone]. D/C PLAN: HOME SELF-CARE, [facility] FOR TRANSPORT, PT LEFT AMA AND PRIOR TO COMPLETION OF THIS NOTE.
== END 2021-06-13 13:51 | disposition left against medical advice (07) | DRG 812 ==
LOC: HO.ED 02:42 → HO.EDOVER 03:47
PROVIDERS: Admitting Provider Internal Medicine; Emergency Provider Emergency Medicine; Visit Provider Hospitalist
DX: D57.00 Hb-SS disease with crisis, unspecified (principal); Z20.822 Contact with and (suspected) exposure to COVID-19; F17.210 Nicotine dependence, cigarettes, uncomplicated; F64.0 Transsexualism; Z86.16 Personal history of COVID-19; Z91.19 Patient's noncompliance with other medical treatment and regimen; Z71.6 Tobacco abuse counseling; Z88.5 Allergy status to narcotic agent; Z79.891 Long term (current) use of opiate analgesic; Z79.899 Other long term (current) drug therapy
CPT/HCPCS: 36415; 71045; 80048; 80076; 81003; 83605; 85025; 85045; 86850; 86900; 86901; 86902; 86923; 87040; 87635; 96361; 96374; 99284; 99285; 99499; J1170; J2270; P9016

== ENCOUNTER 2021-07-01 19:13 | Inpatient (IN) | payer MEDICARE, MEDICAID, SELFPAY ==
--- NOTE | ~2021-07-01 | XR_ITS ---
EXAMINATION: XR CHEST CLINICAL INFORMATION: Sickle cell crisis, rule out pneumonia COMPARISON: 06/13/2021 TECHNIQUE: Frontal view of the chest was obtained. FINDINGS: No significant abnormality is noted involving the heart, lungs, mediastinum, bony thorax or soft tissues. XR/XR chest 1V IMPRESSION: Unremarkable examination.
[2021-07-01 19:36] VITALS: BP 122/65; PULSE 110; RESP 22; TEMP 37.2; O2SAT 93; BMI 21.5
[2021-07-01 21:20] LABS: Hemoglobin 8.8 g/dl (14.0-18.0); Mean Corpuscular HGB Conc 36.7 g/dl (31.0-36.0); Mean Corpuscular Hemoglobin 32.1 pg (27.0-33.0); Mean Corpuscular Volume 87.6 fL (80.0-98.0); Mean Platelet Volume 9.5 fL (9.4-12.4); Platelet Count 528 X10*3/uL (160-400); Red Blood Count 2.74 X10*6/uL (4.60-5.80); Red Cell Distribution Width 23.6 % (11.0-16.0)
[2021-07-01 21:21] VITALS: BP 126/65; PULSE 93; RESP 24; TEMP 36.8; O2SAT 95
[2021-07-01 21:34] LABS: Alanine Aminotransferase 17 U/L (0-40); Albumin Level 4.3 g/dL (3.5-5.0); Alkaline Phosphatase 83 U/L (39-117); Anion Gap 13 (12-20); Aspartate Amino Transferase 44 U/L (5-37); Bilirubin Total 4.7 mg/dL (0.0-1.0); Blood Urea Nitrogen 6 mg/dL (9-16); Calcium 9.8 mg/dL (8.4-10.2); Carbon Dioxide 23 mmol/L (22-29); Chloride 106 mmol/L (96-108); Creatinine Clr Calc Pharmacy 133.8; Estimated Glomerular Filt Rate > 60; Glucose Random 112 mg/dL (60-115); Potassium 4.1 mmol/L (3.3-5.1); Sodium 138 mmol/L (135-145); Total Protein 8.7 g/dL (6.5-8.0)
--- NOTE | 2021-07-01 21:38 | ED.GENADULT ---
HPI - General Adult General Chief complaint: Dyspnea Stated complaint: sickle cell crisis Time Seen by Provider: 07/01/21 21:29 Source: patient Mode of arrival: ambulatory Limitations: no limitations History of Present Illness HPI narrative: 26-year-old male who is transgender to a female history of sickle cell disease patient like to be addressed as a female patient presented complaining of sickle cell crisis patient complained of pain of both arms and 2 legs for about 1 day, described the pain as severe constant pain localized to the 4 extremities, pain is 10/10, patient tried pain medication home but not helping, vaccinated for COVID x3, denies any fever or chills, patient claiming that she is been hydrating orally well and drinking plenty of fluids, no abdominal pain, no nausea, no vomiting, no exposure to a sick contact. Of note patient has frequent admission for similar presentation. Related Data Home Medications Medication Instructions Recorded Confirmed clonidine HCl 0.1 mg tablet 0.1 mg PO BEDTIME PRN 06/16/20 07/01/21 folic acid 1 mg tablet 1 mg PO DAILY 06/16/20 07/01/21 quetiapine 200 mg tablet (Seroquel) 200 mg PO TID 06/16/20 07/02/21 trazodone 50 mg tablet 50 mg PO BEDTIME 06/16/20 07/01/21 zolpidem 10 mg tablet (Ambien) 10 mg PO BEDTIME PRN 10/16/20 07/01/21 cholecalciferol (vitamin D3) 25 25 mcg PO DAILY 12/06/20 07/01/21 mcg (1,000 unit) tablet (Vitamin D3) Allergies Allergy/AdvReac Type Severity Reaction Status Date / Time morphine AdvReac Agitated Verified 07/01/21 22:55 oxycodone AdvReac Agitated Verified 07/01/21 22:55 Review of Systems Review of Systems: All other systems are reviewed and are negative Constitutional: Reports as per HPI and Reports no additional constitutional complaints Eyes: Reports as per HPI and Reports no additional eye complaints Reports system reviewed and no additional complaints, except as documented Cardiovascular: Reports as per HPI and Reports no additional cardiovascular complaints Respiratory: Reports as per HPI and Reports no additional respiratory complaints Gastrointestinal: Reports as per HPI and Reports no additional gastrointestinal complaints Genitourinary: Reports no additional female genitourinary complaints Musculoskeletal: Reports no additional musculoskeletal complaints Skin/Breast: Reports system reviewed and no additional complaints, except as docu Psychiatric: Reports no additional psychiatric complaints Endocrine: Reports no additional endocrine complaints Hematologic/Lymphatic: Reports no additional hematologic/lymphatic complaints Allergic/Immunologic: Reports no additional allergic/immunologic complaints Reports system reviewed and no additional complaints, except as documented and Reports Abnormal speech present [facility] Past Medical History Medical History Avascular bone necrosis COVID-19 Sickle cell anemia with crisis Surgical History H/O splenectomy Family History Family History Other Sickle cell anemia Social History Social History Household Members: Spouse Housing: Apartment Do you presently have visiting nurse or other home services: No Alcohol intake: never Patient Tobacco Use Status: Current someday Tobacco user Tobacco use type: Cigarette Cigarettes Per Day: 3 Years Smoked: 6 e-Cigarette/Vaping Use: Never Used Second Hand Smoke Exposure: Yes Substance Use Type: Marijuana Advance Directives: Yes Advance Directives on File: Yes Advance Directives Date on File: 06/13/21 service: No Current occupational status: disabled Physical Exam Vital Signs: Vital Signs: Last Vital Signs Temp 98.4 F 07/02/21 09:00 Pulse 96 07/02/21 09:00 Resp 22 H 07/02/21 09:00 BP 130/76 07/02/21 09:00 Pulse Ox 97 07/02/21 09:00 BMI result Body Mass Index 21.5 Vital signs have been reviewed as appeared to be correct. Blood pressure normal. Heart rate normal. Respiration rate normal. Temperature normal. Oxygen saturation normal. Appearance: Alert. Oriented X3. No acute distress. Head: Normal external exam. Normocephalic. Atraumatic. No [place] signs noted. No raccoon eyes noted Eyes: PERRLA. EOMI. Conjunctiva and sclera normal. Eyelids normal. ENT: TM's Normal. Pharynx normal. Uvula midline. Moist mucous membranes. No trismus noted. No drooling noted. No muffled voice noted. Neck: Normal inspection. Neck supple. FROM. No adenopathy. Thyroid Normal. No meningeal signs. No neck mass noted. CVS: Normal heart rate and rhythm. Heart sound normal. No murmurs noted. Pulses normal throughout. Respiratory: No respiratory distress. Painless inspiration. Breath sounds normal. No wheezes/rales/rhonchi noted. Chest nontender. No accessory muscle usage noted or decreased air movement noted. Abdomen: Soft and nontender. Bowel sounds normal in all 4 quadrants. No distention noted. No organomegaly noted. No visible injury noted. Back: No CVA tenderness. Full range of motion noted. Skin: Skin warm and dry. Normal skin color. Normal skin turgor. No rashes/lesions/lacerations noted. Extremities: No lower extremity edema. Extremities exhibit normal range of motion. Extremities nontender. Neuro: Oriented X 3. Cranial nerve exam: II-XII are grossly intact No motor deficit. No sensory deficit. Reflexes normal. Course Course Course Narrative: Assessment and plan. 26-year-old transgender female with history of sickle cell anemia, came in with typical presentation of sickle cell crisis, patient receiving IV hydration, Dilaudid, Zofran for nausea and vomiting, labs revealing baseline values for this patient, including increased reticulocyte count, patient has no source of infection, will admit the patient for IV hydration and pain control. Medical Decision Making Medical Records Medical records reviewed: Yes I reviewed the patient's medical records. Lab Data Lab results reviewed: Yes I reviewed the patient's lab results. Result diagrams: 07/01/21 21:06 07/01/21 21:06 Labs: Lab Results 07/01/21 07/01/21 07/01/21 Range/Units 21:06 21:06 21:26 WBC 14.8 H (4.8-10.8) X10*3/uL RBC 2.74 L (4.60-5.80) X10*6/uL Hgb 8.8 L (14.0-18.0) g/dl Hct 24.0 L (42.0-52.0) % MCV 87.6 (80.0-98.0) fL MCH 32.1 (27.0-33.0) pg MCHC 36.7 H (31.0-36.0) g/dl RDW 23.6 H (11.0-16.0) % Plt Count 528 H (160-400) X10*3/uL MPV 9.5 (9.4-12.4) fL Immature Gran % (Auto) Cancelled Neut % (Auto) Cancelled Lymph % (Auto) Cancelled [place] % (Auto) Cancelled Eos % (Auto) Cancelled Baso % (Auto) Cancelled Lymph # (Auto) Cancelled [place] # (Auto) Cancelled Eos # (Auto) Cancelled Baso # (Auto) Cancelled Abs Immat Gran (auto) Cancelled Absolute Neuts (auto) Cancelled Absolute Nucleated RBC 0.300 H (0.0-0.012) X10*3/uL Nucleated RBC % (auto) 2.0 H (0.0-0.2) /100WBC Neutrophils % (Manual) 57 (45-73) % Band Neutrophils % 3 (3-5) % Lymphocytes % (Manual) 24 (20-40) % Monocytes % (Manual) 12 H (2-11) % Eosinophils % (Manual) 3 (0-4) % Basophils % (Manual) 1 (0-2) % Abs Neuts (Manual) 8.9 H (2.0-8.3) X10*3/uL Lymphocytes # (Manual) 3.6 (1.2-4.9) X10*3/uL Monocytes # (Manual) 1.8 H (0.1-1.2) X10*3/uL Eosinophils # (Manual) 0.4 (0.0-0.4) X10*3/uL Basophils # (Manual) 0.1 (0.0-0.2) X10*3/uL Nucleated RBCs 1 H (0-0) /100WBC Platelet Estimate SLIGHTLY INCREASED (NORMAL) Large Platelets PRESENT Giant Platelets PRESENT Plt Morphology Comment NOTED RBC Morphology NOTED Polychromasia 1+ (0-2) /OIF Spherocytes 1+ (0-2) /OIF Sickle Cells 2+ (3-5) /OIF Target Cells 1+ (5-14) /OIF Ovalocytes 1+ (5-14) /OIF Marisol Cells 1+ (0-2) /OIF Schistocytes 1+ (0-2) /OIF Absolute Retic 0.366 H (0.026-0.095) X10*6/uL Percent Retic 13.4 H (0.5-1.8) % Immature Retic Fraction 26.6 H (2.3-13.4) % Retic Hgb Equivalent 30.7 (30.0-35.0) pg Sodium 138 (135-145) mmol/L Potassium 4.1 (3.3-5.1) mmol/L Chloride 106 (96-108) mmol/L Carbon Dioxide 23 (22-29) mmol/L Anion Gap 13 (12-20) BUN 6 L (9-16) mg/dL Creatinine 0.79 (0.5-1.4) mg/dL Estim Creat Clear Calc 133.8 Estimated GFR > 60 Random Glucose 112 (60-115) mg/dL Calcium 9.8 D (8.4-10.2) mg/dL Total Bilirubin 4.7 H (0.0-1.0) mg/dL AST 44 H (5-37) U/L ALT 17 (0-40) U/L Alkaline Phosphatase 83 (39-117) U/L Total Protein 8.7 H (6.5-8.0) g/dL Albumin 4.3 (3.5-5.0) g/dL Urine Color YELLOW Urine Appearance CLEAR Urine pH 6.5 (5.0-8.0) Ur Specific [place] 1.015 (1.005-1.025) Urine Protein NEG (NEG-TRACE) MG/DL Urine Glucose (UA) NEG (NEG) MG/DL Urine Ketones 5 (NEG) MG/DL Urine Blood NEG (NEG) Urine Nitrite NEG (NEG) Ur Leukocyte Esterase NEG (NEG) Imaging Data Chest x-ray: Attestation: I personally reviewed and interpreted this imaging study as follows: Radiologist's impression: Unremarkable examination. Discharge Plan Discharge Clinical Impression: Sickle cell anemia with crisis Patient Disposition: Admitted As Inpatient
[2021-07-01 21:40] LABS: Appearance Urine CLEAR; Color Urine YELLOW; Glucose Urine UA NEG (NEG); Leukocyte Esterase Urine NEG (NEG); PH 6.5 (5.0-8.0); Specific Gravity - Urine 1.015 (1.005-1.025); UACC Culture Trigger YES; Urine Blood NEG (NEG); Urine Ketones 5 MG/DL (NEG); Urine Protein NEG (NEG-TRACE)
[2021-07-01 21:43] LABS: WBC ABN SCTR FOR CBC 1
[2021-07-01 21:45] LABS: Nitrite Urine NEG (NEG)
[2021-07-01] MEDS: 0.9 % Sodium Chloride 1,000 ML 999 ML IVCONT ×2 (21:47→21:48)
[2021-07-01 21:48] VITALS: RESP 18
[2021-07-01] MEDS: HYDROmorphone HCl 1 MG/ML SYRINGE IVPUSH ×2 (21:48→23:07)
[2021-07-01 22:15] LABS: Band Neutrophils Percent 3 % (3-5); Basophils Percent Manual 1 % (0-2); Eosinophils Percent Manual 3 % (0-4); Lymphocytes Percent Manual 24 % (20-40); Monocytes Percent Manual 12 % (2-11)
[2021-07-01 22:16] LABS: Nucleated Red Blood Cells 1 /100WBC (0-0)
[2021-07-01 22:17] LABS: Burr Cells 1+ (0-2) /OIF; Large Platelet PRESENT; Neutrophils Percent Manual 57 % (45-73); Platelet Estimate SLIGHTLY INCREASED (NORMAL); Platelet Morphology Comment NOTED; Polychromasia 1+ (0-2) /OIF; RBC Morphology NOTED; Schistocytes 1+ (0-2) /OIF; Sickle Cells 2+ (3-5) /OIF; Target Cells 1+ (5-14) /OIF
[2021-07-01 22:18] LABS: Giant Platelet PRESENT
[2021-07-01 22:19] LABS: Basophils Abs Manual 0.1 X10*3/uL (0.0-0.2); Eosinophils Absolute Manual 0.4 X10*3/uL (0.0-0.4); Lymphocytes Absolute Manual 3.6 X10*3/uL (1.2-4.9); Monocytes Absolute Manual 1.8 X10*3/uL (0.1-1.2); Neutrophils Absolute Manual 8.9 X10*3/uL (2.0-8.3); White Blood Count 14.8 X10*3/uL (4.8-10.8)
[2021-07-01 22:22] LABS: IG%MD 0.6 %; Immature Retic Fraction 26.6 % (2.3-13.4); Lymph%MD 27.5 %; Mono%MD 12.3 %; Neut%MD 54.6 %; Retic HGB Equivalent 30.7 pg (30.0-35.0); Reticulocyte Percent 13.4 % (0.5-1.8); Reticulocytes Absolute 0.366 X10*6/uL (0.026-0.095)
[2021-07-01 22:23] LABS: Ovalocytes 1+ (5-14) /OIF; Spherocytes 1+ (0-2) /OIF
[2021-07-01] MEDS: ondansetron HCL 4 MG/2 ML VIAL IVPUSH (22:31)
--- NOTE | 2021-07-01 22:43 | P.HPHOSP_ITS ---
History of Present Illness Date of Service: 07/01/21 Chief Complaint: Body pains 26-year-old male with a past medical history of sickle cell disease, anemia, avascular necrosis of the bone, history of sickle cell crisis admissions to the hospital; presented to the hospital with a chief complaint of generalized body aches. Patient reports that symptoms are similar to the prior episode when her sickle cell pain crisis.? Denies any chest pain shortness of breath.? Denies any numbness tingling or focal weakness. Denies any falls trauma.? Denies any signs of bleeding. Denies any GI or symptoms. Review of all other systems is negative except mentioned above ER course: Per ER team patient given Dilaudid but still has pain.? Labs essentially benign.? Hemoglobin at baseline.? Admitted for further management. [facility] Medical History Avascular bone necrosis COVID-19 Sickle cell anemia with crisis Family History Other Sickle cell anemia Pertinent family history: as above Surgical History H/O splenectomy Social History Household Members: Spouse Housing: Apartment Do you presently have visiting nurse or other home services: No Alcohol intake: never Patient Tobacco Use Status: Current someday Tobacco user Tobacco use type: Cigarette Cigarettes Per Day: 3 Years Smoked: 6 e-Cigarette/Vaping Use: Never Used Second Hand Smoke Exposure: Yes Substance Use Type: Marijuana Advance Directives: Yes Advance Directives on File: Yes Advance Directives Date on File: 06/13/21 service: No Current occupational status: disabled Meds Allergies Allergy/AdvReac Type Severity Reaction Status Date / Time morphine AdvReac Agitated Verified 05/03/21 21:19 oxycodone AdvReac Agitated Verified 05/03/21 21:19 Active Medications: Current Medications Sodium Chloride (Ns) 1,000 mls @ 999 mls/hr IVCONT .Q1H1M SUJIT Stop: 07/01/21 22:45 Last Admin: 07/01/21 21:47 Dose: 999 mls/hr Documented by: Sodium Chloride (Ns) 1,000 mls @ 999 mls/hr IVCONT .Q1H1M SUJIT Stop: 07/01/21 22:45 Last Admin: 07/01/21 21:48 Dose: 999 mls/hr Documented by: Home Medications Medication Instructions Recorded Confirmed Last Taken Type clonidine HCl 0.1 mg tablet 0.1 mg PO BEDTIME PRN 06/16/20 06/13/21 06/12/21 History folic acid 1 mg tablet 1 mg PO DAILY 06/16/20 06/13/21 06/12/21 History quetiapine 200 mg tablet (Seroquel) 200 mg PO BID 06/16/20 06/13/21 06/12/21 History trazodone 50 mg tablet 50 mg PO BEDTIME 06/16/20 06/13/21 06/12/21 History estradiol cypionate See Rx Instructions .ROUTE .COMPLEX 07/24/20 06/13/21 06/12/21 History finasteride 5 mg tablet 2.5 mg PO DAILY 07/24/20 06/13/21 06/12/21 History tramadol 50 mg tablet 50 mg PO Q6H PRN 07/24/20 06/13/21 06/12/21 History zolpidem 10 mg tablet (Ambien) 10 mg PO BEDTIME PRN 10/16/20 06/13/21 06/12/21 History cholecalciferol (vitamin D3) 25 25 mcg PO DAILY 12/06/20 06/13/21 06/12/21 History mcg (1,000 unit) tablet (Vitamin D3) quetiapine 200 mg PO DAILY PRN 05/04/21 06/13/21 06/12/21 History Physical Exam Vital Signs and Narrative: Vital Signs: Last Vital Signs Temp 98.3 F 07/01/21 21:21 Pulse 93 07/01/21 21:21 Resp 18 07/01/21 21:48 BP 126/65 07/01/21 21:21 Pulse Ox 95 07/01/21 21:21 BMI result Body Mass Index 21.5 ? Gen: Appears be in no acute distress HEENT:? NCAT,? Moist mucosa. Pulmonary:? Vesicular breath sounds, fair air entry CVS:? Normal S1-S2 Abdomen: BS+, Soft, Nontender Extremities:? Warm well perfused Neuro:? Alert and awake. ? Results Labs CBC and Chem 7: 07/01/21 21:06 07/01/21 21:06 Labs: Laboratory Results - last 24 hr 07/01/21 07/01/21 07/01/21 21:06 21:06 21:26 MCV 87.6 MCH 32.1 MCHC 36.7 H RDW 23.6 H Plt Count 528 H MPV 9.5 Immature Gran % (Auto) Cancelled Neut % (Auto) Cancelled Lymph % (Auto) Cancelled [place] % (Auto) Cancelled Eos % (Auto) Cancelled Baso % (Auto) Cancelled Lymph # (Auto) Cancelled [place] # (Auto) Cancelled Eos # (Auto) Cancelled Baso # (Auto) Cancelled Abs Immat Gran (auto) Cancelled Absolute Neuts (auto) Cancelled Absolute Nucleated RBC 0.300 H Nucleated RBC % (auto) 2.0 H Neutrophils % (Manual) 57 Band Neutrophils % 3 Lymphocytes % (Manual) 24 Monocytes % (Manual) 12 H Eosinophils % (Manual) 3 Basophils % (Manual) 1 Abs Neuts (Manual) 8.9 H Lymphocytes # (Manual) 3.6 Monocytes # (Manual) 1.8 H Eosinophils # (Manual) 0.4 Basophils # (Manual) 0.1 Nucleated RBCs 1 H Platelet Estimate SLIGHTLY INCREASED Large Platelets PRESENT Giant Platelets PRESENT Plt Morphology Comment NOTED RBC Morphology NOTED Polychromasia 1+ (0-2) Spherocytes 1+ (0-2) Sickle Cells 2+ (3-5) Target Cells 1+ (5-14) Ovalocytes 1+ (5-14) [place] Cells 1+ (0-2) Schistocytes 1+ (0-2) Absolute Retic 0.366 H Percent Retic 13.4 H Immature Retic Fraction 26.6 H Retic Hgb Equivalent 30.7 Anion Gap 13 Estim Creat Clear Calc 133.8 Estimated GFR > 60 Random Glucose 112 Calcium 9.8 D Total Bilirubin 4.7 H AST 44 H ALT 17 Alkaline Phosphatase 83 Total Protein 8.7 H Albumin 4.3 Urine Color YELLOW Urine Appearance CLEAR Urine pH 6.5 Ur Specific [place] 1.015 Urine Protein NEG Urine Glucose (UA) NEG Urine Ketones 5 Urine Blood NEG Urine Nitrite NEG Ur Leukocyte Esterase NEG Imaging Radiologist's Impressions: Impressions Chest X-Ray 07/01/21 21:48 IMPRESSION: Unremarkable examination. Assessment and Plan (1) Sickle cell crisis: Status: Acute ?26-year-old male with a past medical history of sickle cell disease, anemia, avascular necrosis of the bone, history of sickle cell crisis admissions to the hospital; presented to the hospital with a chief complaint of generalized body aches.? Admitted for acute sickle cell crisis. Acute sickle cell pain crisis: IV fluids Supplemental oxygen Pain control with Dilaudid 1 mg Q3h p.r.n. Incentive spirometry Anemia:? Hemoglobin 8.8 today.? Will continue to monitor. History of Anxiety/PTSD: c/w home meds clonidine, seroquel, trazodone once med rec is done. DVT prophylaxis:? SQH Code status:? Full code Quality Stroke Does the patient have a stroke diagnosis?: No VTE Prior VTE?: No VTE Risk Level:: Medical - moderate - high VTE Device Contraindication: Treatment Not Indicated VTE Drug Contraindication: N/A - Med Ordered
[2021-07-01 23:07] VITALS: RESP 18
[2021-07-01] MEDS: Heparin Sodium,Porcine 5,000 UNIT/ML VIAL 5000 UNIT SUBCUT (23:07)
[2021-07-01 23:16] VITALS: BP 143/76; PULSE 113; RESP 18; O2SAT 90
--- NOTE | 2021-07-01 23:29 | PC.NURSE ---
PT med rec completed at bed side with patient. Referenced PT's medical record.
[2021-07-02] VITALS (7 sets, daily range): BP systolic 129–139; BP diastolic 72–76; PULSE 96–110; RESP 14–22; TEMP 36.6–36.9; O2SAT 94–97
--- NOTE | 2021-07-02 | ECG_ITS ---
Test Reason : CHEST PAIN Blood Pressure : / mmHG Vent. Rate : 093 BPM Atrial Rate : 093 BPM P-R Int : 184 ms QRS Dur : 098 ms QT Int : 368 ms P-R-T Axes : 034 039 043 degrees QTc Int : 457 ms Normal sinus rhythm Normal ECG When compared with ECG of 06-DEC-2020 15:33, No significant change was found Referred By: Turner Hamlin Electronically Signed By:LOUIS TARANGO
[2021-07-02 00:07] LABS: COVID-19 Test Negative (Negative); IDNOW Serial# 9DD0AD1C
--- NOTE | 2021-07-02 00:18 | PC.NURSE ---
PT O2 sat at 88% on RA and complaining of SOB. Provider notified. This RN directed to apply O2 at 2L/min via NC.
[2021-07-02] MEDS: 0.9 % Sodium Chloride 1,000 ML 100 ML IVCONT ×3 (00:46→19:37)
[2021-07-02] MEDS: ondansetron HCL 4 MG/2 ML VIAL IVPUSH (02:00)
[2021-07-02] MEDS: HYDROmorphone HCl 0.5 MG/0.5 ML SYRINGE 1 MG IVPUSH ×2 (02:22→05:26)
[2021-07-02] MEDS: QUEtiapine Fumarate 200 MG TABLET PO ×3 (02:40→20:11)
[2021-07-02] MEDS: traZODone HCL 50 MG TABLET PO ×2 (02:40→20:11)
[2021-07-02 04:10] LABS: Troponin-I High Sensitivity < 3.5 ng/L (<3.5-35.0)
[2021-07-02] MEDS: Cholecalciferol (Vitamin D3) 25 MCG TABLET PO (09:11)
[2021-07-02] MEDS: Folic Acid 1 MG TABLET PO (09:11)
[2021-07-02] MEDS: Docusate Sodium 100 MG CAPSULE PO ×2 (09:11→20:11)
[2021-07-02] MEDS: HYDROmorphone HCl 0.5 MG/0.5 ML SYRINGE IVPUSH ×3 (09:12→18:27)
[2021-07-02] MEDS: Heparin Sodium,Porcine 5,000 UNIT/ML VIAL 5000 UNIT SUBCUT ×2 (09:32→22:54)
--- NOTE | 2021-07-02 11:21 | PC.NURSE ---
pharmacy notified again and will bring med to ed.
--- NOTE | 2021-07-02 13:20 | HO.PM.IMPN ---
Subjective Subjective Date of Service: 07/02/21 Interval History: Complaining of constant anterior chest, and back pain times couple days and left leg pain, denies fever chills, no sick contacts, feels nauseous, no abdominal pain, no vomiting, no diarrhea. Review of Systems Review of Systems: Yes all other systems are reviewed and are negative Physical Exam Vital Signs: Vital Signs: Last Vital Signs Temp 98.4 F 07/02/21 09:00 Pulse 96 07/02/21 09:00 Resp 22 H 07/02/21 09:00 BP 130/76 07/02/21 09:00 Pulse Ox 97 07/02/21 09:00 BMI result Body Mass Index 21.5 General: Ax O X 3, mild distress due to pain Neck is s upple Resp:? CTA b ilateral CVS: S1,S 2,RRR GI: soft, no n tender, non dist ended, bowel sound s audible Skin pal e no rash Neuro:? motor grossly inta ct Musculoskeletal no deformity Psyc h: appropriate aff ect Objective Data Active Medications Clonidine HCl (Clonidine Hcl 0.1 Mg Tablet) 0.1 mg PO BEDTIME PRN; Protocol PRN Reason: Anxiety Docusate Sodium (Docusate Sodium 100 Mg Capsule) 100 mg PO BID [facility] Last Admin: 07/02/21 09:11 Dose: 100 mg Documented by: ELISEO Folic Acid (Folic Acid 1 Mg Tablet) 1 mg PO DAILY [facility] Last Admin: 07/02/21 09:11 Dose: 1 mg Documented by: ELISEO Heparin Sodium (Porcine) (Heparin Sodium,Porcine 5,000 Unit/Ml Vial) 5,000 unit SUBCUT Q8H [facility] Last Admin: 07/02/21 09:32 Dose: 5,000 unit Documented by: ELISEO Hydromorphone HCl (Hydromorphone Hcl 0.5 Mg/0.5 Ml Syringe) 0.5 mg IVPUSH Q3H PRN; Protocol PRN Reason: Pain, Severe (Pain Scale 7-10) Last Admin: 07/02/21 13:12 Dose: 0.5 mg Documented by: ELISEO Sodium Chloride (Ns) 1,000 mls @ 100 mls/hr IVCONT .Q10H [facility] Last Admin: 07/02/21 10:50 Dose: 100 mls/hr Documented by: ELISEO Melatonin (Melatonin 3 Mg Tablet) 6 mg PO BEDTIME PRN PRN Reason: Insomnia Quetiapine Fumarate (Quetiapine Fumarate 200 Mg Tablet) 200 mg PO BID [facility] Last Admin: 07/02/21 10:45 Dose: 200 mg Documented by: ELISEO Senna (Sennosides 8.6 Mg Tablet) 17.2 mg PO BEDTIME PRN PRN Reason: Constipation Sodium Chloride (0.9 % Sodium Chloride Flush 3 Ml Syringe) 3 ml IVFLUSH QSHIFT [facility] Last Admin: 07/02/21 09:33 Dose: Not Given Documented by: ELISEO Non-Admin Reason: IV Running Trazodone HCl (Trazodone Hcl 50 Mg Tablet) 50 mg PO BEDTIME [facility] Last Admin: 07/02/21 02:40 Dose: 50 mg Documented by: DELMA Vitamin D (Cholecalciferol (Vitamin D3) 25 Mcg Tablet) 25 mcg PO DAILY [facility] Last Admin: 07/02/21 09:11 Dose: 25 mcg Documented by: ELISEO Zolpidem Tartrate (Zolpidem Tartrate 5 Mg Tablet) 5 mg PO BEDTIME PRN PRN Reason: Sleep Labs CBC & Chem 7: 07/01/21 21:06 07/01/21 21:06 Labs: Laboratory Results - last 24 hr 07/01/21 07/01/21 07/01/21 21:06 21:06 21:26 MCV 87.6 MCH 32.1 MCHC 36.7 H RDW 23.6 H Plt Count 528 H MPV 9.5 Immature Gran % (Auto) Cancelled Neut % (Auto) Cancelled Lymph % (Auto) Cancelled [place] % (Auto) Cancelled Eos % (Auto) Cancelled Baso % (Auto) Cancelled Lymph # (Auto) Cancelled [place] # (Auto) Cancelled Eos # (Auto) Cancelled Baso # (Auto) Cancelled Abs Immat Gran (auto) Cancelled Absolute Neuts (auto) Cancelled Absolute Nucleated RBC 0.300 H Nucleated RBC % (auto) 2.0 H Neutrophils % (Manual) 57 Band Neutrophils % 3 Lymphocytes % (Manual) 24 Monocytes % (Manual) 12 H Eosinophils % (Manual) 3 Basophils % (Manual) 1 Abs Neuts (Manual) 8.9 H Lymphocytes # (Manual) 3.6 Monocytes # (Manual) 1.8 H Eosinophils # (Manual) 0.4 Basophils # (Manual) 0.1 Nucleated RBCs 1 H Platelet Estimate SLIGHTLY INCREASED Large Platelets PRESENT Giant Platelets PRESENT Plt Morphology Comment NOTED RBC Morphology NOTED Polychromasia 1+ (0-2) Spherocytes 1+ (0-2) Sickle Cells 2+ (3-5) Target Cells 1+ (5-14) Ovalocytes 1+ (5-14) Marisol Cells 1+ (0-2) Schistocytes 1+ (0-2) Absolute Retic 0.366 H Percent Retic 13.4 H Immature Retic Fraction 26.6 H Retic Hgb Equivalent 30.7 Anion Gap 13 Estim Creat Clear Calc 133.8 Estimated GFR > 60 Random Glucose 112 Calcium 9.8 D Total Bilirubin 4.7 H AST 44 H ALT 17 Alkaline Phosphatase 83 Troponin I High Sens Total Protein 8.7 H Albumin 4.3 Urine Color YELLOW Urine Appearance CLEAR Urine pH 6.5 Ur Specific [place] 1.015 Urine Protein NEG Urine Glucose (UA) NEG Urine Ketones 5 Urine Blood NEG Urine Nitrite NEG Ur Leukocyte Esterase NEG COVID-19 (MICHAEL) COVID-19 Clin Com 07/01/21 07/02/21 23:40 03:47 MCV MCH MCHC RDW Plt Count MPV Immature Gran % (Auto) Neut % (Auto) Lymph % (Auto) [place] % (Auto) Eos % (Auto) Baso % (Auto) Lymph # (Auto) [place] # (Auto) Eos # (Auto) Baso # (Auto) Abs Immat Gran (auto) Absolute Neuts (auto) Absolute Nucleated RBC Nucleated RBC % (auto) Neutrophils % (Manual) Band Neutrophils % Lymphocytes % (Manual) Monocytes % (Manual) Eosinophils % (Manual) Basophils % (Manual) Abs Neuts (Manual) Lymphocytes # (Manual) Monocytes # (Manual) Eosinophils # (Manual) Basophils # (Manual) Nucleated RBCs Platelet Estimate Large Platelets Giant Platelets Plt Morphology Comment RBC Morphology Polychromasia Spherocytes Sickle Cells Target Cells Ovalocytes [place] Cells Schistocytes Absolute Retic Percent Retic Immature Retic Fraction Retic Hgb Equivalent Anion Gap Estim Creat Clear Calc Estimated GFR Random Glucose Calcium Total Bilirubin AST ALT Alkaline Phosphatase Troponin I High Sens < 3.5 Total Protein Albumin Urine Color Urine Appearance Urine pH Ur Specific [place] Urine Protein Urine Glucose (UA) Urine Ketones Urine Blood Urine Nitrite Ur Leukocyte Esterase COVID-19 (MICHAEL) Negative COVID-19 Clin Com See Note Microbiology Microbiology Results: Microbiology 07/01/21 22:30 Urine Culture - Preliminary Urine clean catch - Urine cooper top No growth to date. Assessment and Plan (1) Sickle cell crisis: Status: Acute Assessment and Plan: ?25 transgender female presented with generalized pain of couple days duration, denies any urinary symptoms, no URI symptoms denies any fall or trauma. Acute sickle cell crisis In significant pain continue IV Dilaudid and IV fluid monitor labs, stable hematocrit, no indication for transfusion, follow CBC Elevated WBC count, tachypnea and tachycardia meeting SIRS criteria,likely due to pain and sickle cell crisis no evidence of sepsis. Elevated bilirubin due to hemolysis. Transitioning male to female mood disorder Continue seroquel, and trazadone and as needed clonidine vte prophylaxis On heparin subQ Quality Stroke Does the patient have a stroke diagnosis?: No VTE Prior VTE?: No VTE Risk Level:: Medical - moderate - high VTE Device Contraindication: Treatment Not Indicated VTE Drug Contraindication: N/A - Med Ordered
--- NOTE | 2021-07-02 14:05 | MHC.CM.PN ---
PATIENT LIVES WITH HIS SPOUSE/HCP BERRY. PATIENT STATES THAT HE COMPLETED A HCP AT HIS LAST VISIT. NO DME OR VNA SERVICES. HE IS HOPING TO LEAVE WITH NO NEED FOR SERVICES. HIS PCP IS MEREDITH MUNGUIA OF [facility]) CASE MANAGEMENT TO FOLLOW FOR ANY DC NEEDS. LATER DISCOVERED THAT PATIENT PREFERS TO BE IDENTIFIED JOSE
--- NOTE | 2021-07-02 16:33 | PC.NURSE ---
report given to receiving nurse Salty, RN. pt alert and oriented, vss. pain 10/16. pt will be transported to room 345 by hopper feeder.
[2021-07-02] MEDS: HYDROmorphone HCl 1 MG/ML SYRINGE IVPUSH (20:11)
[2021-07-02] MEDS: cloNIDine HCL 0.1 MG TABLET PO (20:21)
[2021-07-02] MEDS: Zolpidem Tartrate 5 MG TABLET PO (20:22)
[2021-07-03] VITALS: BP 129/66; PULSE 99; RESP 19; TEMP 36.2; O2SAT 94
[2021-07-03] MEDS: HYDROmorphone HCl 1 MG/ML SYRINGE IVPUSH (04:03)
[2021-07-03] MEDS: 0.9 % Sodium Chloride 1,000 ML 100 ML IVCONT ×2 (04:09→17:45)
[2021-07-03] MEDS: HYDROmorphone HCl 0.5 MG/0.5 ML SYRINGE IVPUSH (07:09)
[2021-07-03] MEDS: Heparin Sodium,Porcine 5,000 UNIT/ML VIAL 5000 UNIT SUBCUT ×2 (07:15→16:03)
[2021-07-03] MEDS: 0.9 % Sodium Chloride Flush 3 ML SYRINGE IVFLUSH ×3 (07:16→20:13)
[2021-07-03 07:29] VITALS: BP 128/71; PULSE 95; RESP 18; TEMP 37.2; O2SAT 92
[2021-07-03 08:36] LABS: Hematocrit 21.2 % (42.0-52.0); Hemoglobin 7.8 g/dl (14.0-18.0); Mean Corpuscular HGB Conc 36.8 g/dl (31.0-36.0); Mean Corpuscular Hemoglobin 32.1 pg (27.0-33.0); Mean Corpuscular Volume 87.2 fL (80.0-98.0); Mean Platelet Volume 9.4 fL (9.4-12.4); Platelet Count 471 X10*3/uL (160-400); Red Blood Count 2.43 X10*6/uL (4.60-5.80); Red Cell Distribution Width 23.9 % (11.0-16.0)
[2021-07-03 08:44] LABS: WBC ABN SCTR FOR CBC 1; White Blood Count 11.7 X10*3/uL (4.8-10.8)
[2021-07-03 08:57] LABS: Anion Gap 12 (12-20); Blood Urea Nitrogen 5 mg/dL (9-16); Calcium 9.3 mg/dL (8.4-10.2); Carbon Dioxide 21 mmol/L (22-29); Chloride 108 mmol/L (96-108); Creatinine Clr Calc Pharmacy 153.2; Estimated Glomerular Filt Rate > 60; Glucose Random 88 mg/dL (60-115); Potassium 4.4 mmol/L (3.3-5.1); Sodium 137 mmol/L (135-145)
[2021-07-03 09:06] LABS: Band Neutrophils Percent 0 % (3-5); Basophils Abs Manual 0.1 X10*3/uL (0.0-0.2); Basophils Percent Manual 1 % (0-2); Eosinophils Absolute Manual 0.1 X10*3/uL (0.0-0.4); Eosinophils Percent Manual 1 % (0-4); Lymphocytes Absolute Manual 4.1 X10*3/uL (1.2-4.9); Lymphocytes Percent Manual 35 % (20-40); Monocytes Absolute Manual 1.4 X10*3/uL (0.1-1.2); Monocytes Percent Manual 12 % (2-11); Neutrophils Percent Manual 51 % (45-73); Nucleated Red Blood Cells 1 /100WBC (0-0)
[2021-07-03 09:07] LABS: Macrocytosis 1+ (5-14) /OIF; RBC Morphology NOTED; Sickle Cells 3+ (>5) /OIF
[2021-07-03 09:08] LABS: Dohle Bodies PRESENT; Polychromasia 2+ (3-5) /OIF; Target Cells 1+ (5-14) /OIF
[2021-07-03 09:09] LABS: Large Platelet PRESENT; Platelet Estimate SLIGHTLY INCREASED (NORMAL); Platelet Morphology Comment NOTED
[2021-07-03] MEDS: Docusate Sodium 100 MG CAPSULE PO ×2 (09:58→20:13)
[2021-07-03] MEDS: QUEtiapine Fumarate 200 MG TABLET PO ×2 (09:58→20:13)
[2021-07-03] MEDS: Folic Acid 1 MG TABLET PO (09:58)
[2021-07-03] MEDS: Cholecalciferol (Vitamin D3) 25 MCG TABLET PO (09:58)
[2021-07-03] MEDS: HYDROmorphone HCl 0.5 MG/0.5 ML SYRINGE 1 MG IVPUSH ×4 (10:23→21:17)
--- NOTE | 2021-07-03 10:44 | HO.PM.IMPN ---
Subjective Subjective Date of Service: 07/03/21 Interval History: Complaining of left hip and left leg pain, not relieved with current pain medications, chest pain resolved also complaining of shortness of breath and fatigue, no nausea no vomiting tolerating diet, no fevers no overnight acute issues. Review of Systems Review of Systems: Yes all other systems are reviewed and are negative Physical Exam Vital Signs: Vital Signs: Last Vital Signs Temp 98.9 F 07/03/21 07:29 Pulse 95 07/03/21 07:29 Resp 18 07/03/21 07:29 BP 128/71 07/03/21 07:29 Pulse Ox 92 07/03/21 07:29 BMI result Body Mass Index 21.5 General awake alert x3, no acute distress. Neck no JVD. CVS regular rate rhythm, Respiratory lungs clear to auscultation, no respiratory distress, no wheeze, no rhonchi. Gastrointestinal abdomen soft, nontender, bowel sounds audible Extremities no edema Left hip, good range of motion Neuro nonfocal Skin pallor,no rash Neuro nonfocal Objective Data Active Medications Clonidine HCl (Clonidine Hcl 0.1 Mg Tablet) 0.1 mg PO BEDTIME PRN; Protocol PRN Reason: Anxiety Last Admin: 07/02/21 20:21 Dose: 0.1 mg Documented by: DAVEY Docusate Sodium (Docusate Sodium 100 Mg Capsule) 100 mg PO BID [facility] Last Admin: 07/03/21 09:58 Dose: 100 mg Documented by: LOS Folic Acid (Folic Acid 1 Mg Tablet) 1 mg PO DAILY [facility] Last Admin: 07/03/21 09:58 Dose: 1 mg Documented by: LOS Heparin Sodium (Porcine) (Heparin Sodium,Porcine 5,000 Unit/Ml Vial) 5,000 unit SUBCUT Q8H [facility] Last Admin: 07/03/21 07:15 Dose: 5,000 unit Documented by: LOS Hydromorphone HCl (Hydromorphone Hcl 0.5 Mg/0.5 Ml Syringe) 1 mg IVPUSH Q3H PRN; Protocol PRN Reason: Pain, Severe (Pain Scale 7-10) Last Admin: 07/03/21 10:23 Dose: 1 mg Documented by: LOS Sodium Chloride (Ns) 1,000 mls @ 100 mls/hr IVCONT .Q10H [facility] Last Admin: 07/03/21 04:09 Dose: 100 mls/hr Documented by: DAVEY Melatonin (Melatonin 3 Mg Tablet) 6 mg PO BEDTIME PRN PRN Reason: Insomnia Quetiapine Fumarate (Quetiapine Fumarate 200 Mg Tablet) 200 mg PO BID [facility] Last Admin: 07/03/21 09:58 Dose: 200 mg Documented by: LOS Senna (Sennosides 8.6 Mg Tablet) 17.2 mg PO BEDTIME PRN PRN Reason: Constipation Sodium Chloride (0.9 % Sodium Chloride Flush 3 Ml Syringe) 3 ml IVFLUSH QSHIFT [facility] Last Admin: 07/03/21 07:16 Dose: 3 ml Documented by: LOS Trazodone HCl (Trazodone Hcl 50 Mg Tablet) 50 mg PO BEDTIME [facility] Last Admin: 07/02/21 20:11 Dose: 50 mg Documented by: DAVEY Vitamin D (Cholecalciferol (Vitamin D3) 25 Mcg Tablet) 25 mcg PO DAILY [facility] Last Admin: 07/03/21 09:58 Dose: 25 mcg Documented by: LOS Zolpidem Tartrate (Zolpidem Tartrate 5 Mg Tablet) 5 mg PO BEDTIME PRN PRN Reason: Sleep Last Admin: 07/02/21 20:22 Dose: 5 mg Documented by: DAVEY Labs CBC & Chem 7: 07/03/21 08:14 07/03/21 08:14 Labs: Laboratory Results - last 24 hr 07/03/21 07/03/21 08:14 08:14 MCV 87.2 MCH 32.1 MCHC 36.8 H RDW 23.9 H Plt Count 471 H MPV 9.4 Immature Gran % (Auto) Cancelled Neut % (Auto) Cancelled Lymph % (Auto) Cancelled [place] % (Auto) Cancelled Eos % (Auto) Cancelled Baso % (Auto) Cancelled Lymph # (Auto) Cancelled [place] # (Auto) Cancelled Eos # (Auto) Cancelled Baso # (Auto) Cancelled Abs Immat Gran (auto) Cancelled Absolute Neuts (auto) Cancelled Absolute Nucleated RBC 0.230 H Nucleated RBC % (auto) 2.0 H Neutrophils % (Manual) 51 Band Neutrophils % 0 L Lymphocytes % (Manual) 35 Monocytes % (Manual) 12 H Eosinophils % (Manual) 1 Basophils % (Manual) 1 Abs Neuts (Manual) 6.0 Lymphocytes # (Manual) 4.1 Monocytes # (Manual) 1.4 H Eosinophils # (Manual) 0.1 Basophils # (Manual) 0.1 Nucleated RBCs 1 H Dohle Bodies PRESENT Platelet Estimate SLIGHTLY INCREASED Large Platelets PRESENT Plt Morphology Comment NOTED RBC Morphology NOTED Polychromasia 2+ (3-5) Macrocytosis 1+ (5-14) Sickle Cells 3+ (>5) Target Cells 1+ (5-14) Anion Gap 12 Estim Creat Clear Calc 153.2 Estimated GFR > 60 Random Glucose 88 Calcium 9.3 Microbiology Microbiology Results: Microbiology 07/01/21 22:30 Urine Culture - Final Urine clean catch - Urine cooper top Assessment and Plan (1) Sickle cell crisis: Status: Acute (2) Sickle cell anemia with crisis: Status: Acute Assessment and Plan: Sickle cell crisis No acute infection, no new medication Continue IV fluids, IV Dilaudid dose adjusted to 1 mg q.3 hours pain control Transfuse 1 unit follow H&H, due to shortness of breath and fatigue, follow CBC and BMP Patient not on hydroxyurea since felt it was not working in the past Transitioning male to female Mood disorder Continue home medication DVT prophylaxis early ambulation avoid anticoagulation Quality Stroke Does the patient have a stroke diagnosis?: No VTE Prior VTE?: No VTE Risk Level:: Medical - moderate - high VTE Device Contraindication: Treatment Not Indicated VTE Drug Contraindication: N/A - Med Ordered
[2021-07-03 14:02] VITALS: BP 140/68; PULSE 108; RESP 16; TEMP 37.5
[2021-07-03 14:17] VITALS: BP 155/72; PULSE 116; RESP 16; TEMP 37.6
[2021-07-03 16:07] VITALS: BP 148/79; PULSE 98; RESP 16; TEMP 37.6
[2021-07-03] MEDS: traZODone HCL 50 MG TABLET PO (20:13)
[2021-07-03 23:33] VITALS: BP 136/69; PULSE 102; RESP 18; TEMP 37.1; O2SAT 93
[2021-07-04] MEDS: HYDROmorphone HCl 0.5 MG/0.5 ML SYRINGE 1 MG IVPUSH ×3 (00:23→06:16)
[2021-07-04 07:14] VITALS: BP 155/90; PULSE 106; RESP 19; TEMP 36.6; O2SAT 96
[2021-07-04] MEDS: Cholecalciferol (Vitamin D3) 25 MCG TABLET PO (07:27)
[2021-07-04] MEDS: Docusate Sodium 100 MG CAPSULE PO (07:28)
[2021-07-04] MEDS: Folic Acid 1 MG TABLET PO (07:28)
[2021-07-04] MEDS: QUEtiapine Fumarate 200 MG TABLET PO (07:29)
[2021-07-04] MEDS: 0.9 % Sodium Chloride Flush 3 ML SYRINGE IVFLUSH (07:30)
[2021-07-04] MEDS: oxyCODONE HCl Immed Release 5 MG TABLET PO (09:04)
--- NOTE | 2021-07-04 09:08 | MHC.CM.PN ---
CM MET W/HOSPITALIST WHO REPORTS PT IS MEDICALLY CLEARED FOR D/C, PT WIIL D/C HOME SELF-CARE W/FAMILY FOR TRANSPORT.
--- NOTE | 2021-07-04 11:04 | P.DS_ITS ---
DS: Providers Provider Date of Service: 07/04/21 Date of admission: 07/01/21 22:41 Primary care physician: Nonstaff Physician DS: Diagnosis Discharge Diagnosis (1) Sickle cell crisis: Status: Acute (2) Sickle cell anemia with crisis: Status: Acute DS: Summary Hospital Course Hospital Course: 26-year-old male with known history of sickle cell disease presents in crisis 07/01/2021. he was treated with IV fluids and pain management and his hemoglobin stayed within his baseline. Today he is feeling better; oxycodone given in favor of Dilaudid with good results. At this time is medically stable for discharge home with a short script of oxycodone to follow-up with his oncologist in [place] Time Spent with Patient Time attestation: Total time spent providing and/or coordinating discharge services: Discharge coordination time: Greater than 30 minutes Quality: Stroke Does the patient have a stroke diagnosis?: No Physical Exam Vital Signs: Vital Signs: Last Vital Signs Temp 97.8 F 07/04/21 07:14 Pulse 106 H 07/04/21 07:14 Resp 19 07/04/21 07:14 BP 155/90 H 07/04/21 07:14 Pulse Ox 96 07/04/21 07:14 BMI result Body Mass Index 21.5 Const: Other: no acute issues Resp: Other: clear to auscultation bilaterally no rales rhonchi wheezes Cardio: Other: no S4; positive S1-S2; no S3 murmurs rubs gallops GI: Other: soft nontender nondistended with normoactive bowel sounds Extrem: Other: no edema bilaterally DS: Data Data Completed and Pending Completed studies during hospitalization [Text1]: Procedures Transfusion of Nonautologous Red Blood Cells into Peripheral Vein, Percutaneous Approach (06/13/21) Labs on day of discharge: Laboratory Results - last 24 hr 07/01/21 07/03/21 21:06 11:04 Smear Path Review SEE NOTE Blood Type O Positive Antibody Screen NEGATIVE Crossmatch See Detail Discharge Plan Discharge Patient Disposition: Home, Self-Care Discharge Diagnosis: sickle cell crisis Referrals: Physician,Nonstaff [Primary Care Provider] - 1 Week Discharge Medications: New oxycodone 5 mg Tablet 5 mg PO Q6H PRN (Reason: Pain, Moderate (Pain Scale 4-6) Qty: 20 RF: 0 Continued clonidine HCl 0.1 mg Tablet 0.1 mg PO BEDTIME PRN (Reason: Anxiety) RF: 0 trazodone 50 mg Tablet 50 mg PO BEDTIME RF: 0 quetiapine [Seroquel] 200 mg Tablet 200 mg PO TID RF: 0 folic acid 1 mg Tablet 1 mg PO DAILY RF: 0 zolpidem [Ambien] 10 mg Tablet 10 mg PO BEDTIME PRN (Reason: Sleep) RF: 0 cholecalciferol (vitamin D3) [Vitamin D3] 25 mcg (1,000 unit) Tablet 25 mcg PO DAILY RF: 0 Discharge Orders: Discharge Order (Routine); Ordered 07/04/21 Ordered By: Ned Peck Diet: advance to usual diet Activity on Discharge: As tolerated Stand Alone Forms: Patient Portal Discharge page Care Plan Goals: Follow-up with your outpatient template layout worker as scheduled Health Concerns: pain management Plan of Treatment: as above Assessment: as above
== END 2021-07-04 11:14 | disposition home or self-care (01) | DRG 812 ==
LOC: HO.ED 22:53 → HO.EDOVER 22:57 → HO.S3 07-02 15:16
PROVIDERS: Hospitalist; Admitting Provider Hospitalist; Emergency Provider Emergency Medicine; PCP Pediatrics; Visit Provider Hospitalist
DX: D57.00 Hb-SS disease with crisis, unspecified (principal); F17.210 Nicotine dependence, cigarettes, uncomplicated; F64.8 Other gender identity disorders; F41.9 Anxiety disorder, unspecified; F43.10 Post-traumatic stress disorder, unspecified; Z20.822 Contact with and (suspected) exposure to COVID-19; Z71.6 Tobacco abuse counseling; Z88.5 Allergy status to narcotic agent; Z79.899 Other long term (current) drug therapy
CPT/HCPCS: 36415; 71045; 80048; 80053; 81003; 84484; 85007; 85025; 85027; 85045; 86850; 86900; 86901; 86902; 86923; 87086; 87635; 93005; 99285; J1170; J2405; P9016

== ENCOUNTER 2021-08-21 20:14 | Inpatient (IN) | payer MEDICARE, MEDICAID, SELFPAY ==
[2021-08-21 20:18] VITALS: BP 149/74; PULSE 97; RESP 16; TEMP 37.3; O2SAT 100; BMI 21.6
[2021-08-21 21:16] VITALS: BP 125/68; PULSE 65; RESP 18; O2SAT 99
--- NOTE | 2021-08-21 21:20 | PC.NURSE ---
Patient called from Triage, ambulates to room wincing in pain, states that they are here for sickle cell crisis. Patient transitioning from male to female, prefers to be called Juan Carlos . Patient observed to be pale, compliant with blood work. Became anxious and agitated with fiance on phone, able to calm self. 22g IV started in patient's right hand, labs drawn. Patient changed into hospital [facility], currently awaiting lab results, has call nick and able to make needs known, pleasant with this RN. Will continue to monitor
[2021-08-21 21:23] LABS: Hematocrit 26.2 % (42.0-52.0); Hemoglobin 9.5 g/dl (14.0-18.0); Mean Corpuscular HGB Conc 36.3 g/dl (31.0-36.0); Mean Corpuscular Hemoglobin 31.7 pg (27.0-33.0); Mean Corpuscular Volume 87.3 fL (80.0-98.0); Mean Platelet Volume 9.4 fL (9.4-12.4); NRBC Pct Auto 0.4 /100WBC (0.0-0.2); Platelet Count 496 X10*3/uL (160-400); Red Cell Distribution Width 23.9 % (11.0-16.0)
[2021-08-21 21:30] LABS: WBC ABN SCTR FOR CBC 1; White Blood Count 9.7 X10*3/uL (4.8-10.8)
[2021-08-21 21:36] LABS: Baso%MD 0.7 %; IG%MD 0.5 %; Immature Retic Fraction 29.8 % (2.3-13.4); Lymph%MD 37.4 %; Mono%MD 13.6 %; Neut%MD 39.8 %; Retic HGB Equivalent 35.1 pg (30.0-35.0); Reticulocyte Percent 14.3 % (0.5-1.8); Reticulocytes Absolute 0.416 X10*6/uL (0.026-0.095)
--- NOTE | 2021-08-21 21:47 | ED.GENADULT ---
HPI - General Adult General Chief complaint: General Medical Stated complaint: sickle cell Time Seen by Provider: 08/21/21 21:28 Source: patient Mode of arrival: ambulatory Limitations: no limitations History of Present Illness HPI narrative: 26-year-old male who presents emergency department for evaluation of sickle cell crisis. Patient states that this morning around 06:00 hours had gradual onset body pain. States the pain was initially located all over his body that then became worse in his midback. He states that the back pain is a constant, ?bad pain ?that is 8/10 at its worst. The pain does not change with movement. States the pain is typical for his sickle cell crisis pain. Patient tried to stay hydrated throughout the day and took his usual medications with no relief his pain. States that his pain is now 8/10 therefore came to emergency department for evaluation. He states that his fiancee commented that his eyes were yellow and this is been going on for weeks. He also states that he noted that his urine was very dark today. The patient denied fever, chills, rhinorrhea, sore throat, cough, chest pain. States he does feel short of breath but no dyspnea on exertion. He denied nausea, vomiting, diarrhea, changes bowel movements. He has not noticed any frequency, urgency or dysuria. He is fully vaccinated against COVID-19. MD complaint: Back pain Onset (ago): day(s) (1) Location: back (Mid-back and diffuse body pain) Radiation: non-radiation Severity: severe Severity scale (1-10): 8 Quality: other ( bad pain ) Pain Consistency: constant Relieving factors: none Exacerbating factors: none Associated symptoms: shortness of breath Treatments prior to arrival: none Related Data Home Medications Medication Instructions Recorded Confirmed clonidine HCl 0.1 mg tablet 0.1 mg PO BEDTIME PRN 06/16/20 08/22/21 folic acid 1 mg tablet 1 mg PO DAILY 06/16/20 07/01/21 quetiapine 200 mg tablet (Seroquel) 200 mg PO TID 06/16/20 08/22/21 trazodone 50 mg tablet 50 mg PO BEDTIME 06/16/20 08/22/21 zolpidem 10 mg tablet (Ambien) 10 mg PO BEDTIME PRN 10/16/20 08/22/21 cholecalciferol (vitamin D3) 25 25 mcg PO DAILY 12/06/20 07/01/21 mcg (1,000 unit) tablet (Vitamin D3) Previous Rx's Medication Instructions Recorded oxycodone 5 mg tablet 5 mg PO Q6H PRN #20 tab 07/04/21 Allergies Allergy/AdvReac Type Severity Reaction Status Date / Time morphine AdvReac Agitated Verified 07/01/21 22:55 oxycodone AdvReac Agitated Verified 07/01/21 22:55 Review of Systems Review of Systems: Yes all other systems are reviewed and are negative [facility] Past Medical History Medical History Avascular bone necrosis COVID-19 Sickle cell anemia with crisis Surgical History H/O splenectomy Family History Family History Other Sickle cell anemia Social History Social History Household Members: Spouse Household Members Other:: fiancee Housing: Apartment Do you presently have visiting nurse or other home services: No Alcohol intake: never Patient Tobacco Use Status: Current someday Tobacco user Tobacco use type: Cigarette Cigarettes Per Day: 2 Years Smoked: 4 Smoked in Last 30 Days: No e-Cigarette/Vaping Use: Never Used Second Hand Smoke Exposure: Yes Use of substances other than those prescribed or required for medical reasons: Yes Substance Use Type: Marijuana Substance Use Frequency: Occasionally Advance Directives: Yes Advance Directives on File: Yes Advance Directives Date on File: 06/13/21 service: No Current occupational status: disabled Physical Exam ED Vital Signs: Vital Signs - 24 hr 08/21/21 20:18 08/21/21 21:16 08/21/21 23:23 Temperature 99.1 F Pulse Rate 97 65 Respiratory Rate 16 18 16 Blood Pressure 149/74 H 125/68 Pulse Oximetry 100 99 08/22/21 00:00 08/22/21 01:28 08/22/21 01:44 Temperature Pulse Rate 102 H 109 H Respiratory Rate 20 16 17 Blood Pressure 150/80 H 121/91 H Pulse Oximetry 99 BMI result Body Mass Index 21.6 Const Other: Awake, alert, patient, appears to be in distress secondary to his pain, the patient does have icteric sclerae and his skin does appear to be jaundice, he is very pleasant cooperative and answers all questions appropriately [facility] Head: Yes normal to inspection, Yes normocephalic and Yes atraumatic Ears: external ears normal General nose exam: Normal external nose present Face and sinus: Yes normal facial exam Mouth: Normal oral and palatal mucosa present Throat: Yes posterior oropharynx normal Eyes Alignment and Position: alignment normal Periorbital: periorbital findings normal Eyelids: Yes eyelids normal Conjunctivae: conjunctivae normal Sclerae: scleral abnormal bilateral (Icteric) Pupils: Equal, round and reactive pupils present Direct Ophthalmoscopy: normal light reflex Neck Neck: Yes normal visual inspection, Yes no lymphadenopathy, Yes trachea midline and Yes supple Chest Chest palpation & inspection: normal inspection of the chest and normal palpation of entire chest wall Resp Effort & Inspection: normal respiratory effort and able to speak in complete sentences Auscultation: clear to auscultation bilaterally Cardio Rate: regular rate Rhythm: regular rhythm Heart sounds: S1 normal heart sound present, S2 normal heart sound present and no murmurs GI Inspection: Yes normal to inspection Palpation (GI): Soft to palpation, nontender and no guarding Auscultation: normal bowel sounds Back/Spine/Pelvis Other: Patient has tenderness with palpation over his lower thoracic and upper lumbar vertebrae, there is no paraspinal muscle tenderness Skin Other: Jaundice skin Neuro Cranial nerves: Yes CN's II-XII intact bilaterally and Yes Equal, round and reactive pupils present Cognition (Neuro): normal cognition Motor exam (neuro): 5/5 motor strength present throughout Extrem General: Yes normal to inspection Psych Appearance: grossly normal Speech and movement: Normal speech and movement present Affect: normal affect Attitude: cooperative Thought process: Normal thought process present Thought content: Normal thought content present Course Course Course Narrative: 26-year-old male patient with history of sickle cell disease who presents with diffuse abdominal pain and midback pain which started this morning at 06:00 hours, came on gradually and got progressively worse to the point where his pain is 8/10. The patient's fiancee did notice yellow sclera over the past several weeks and the patient also noted dark urine today. 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 Patient has had no evidence for infection based on his presentation. Vital signs initially revealed a blood pressure of 149/74 repeat was 125/68 otherwise were unremarkable. Did order laboratory evaluation to include CBC, reticulocyte count, comprehensive metabolic panel. Patient was ordered to get normal saline IV x1 L, Dilaudid 1 mg IV and Zofran 4 mg IV. Patient's pain will be treated with repeat doses of Dilaudid until his pain comes down to a tolerable level. 0211: Laboratory evaluation: CBC revealed anemia with an H&H of 9.5 and 26.2, absolute reticulocyte count was elevated at 0.416. Total bilirubin was elevated at 5.9 with indirect bilirubin being 4.7 and direct being 1.2. Patient's LFTs revealed a slight elevation in his AST of 50. The patient's presentation is consistent with sickle cell crisis, patient does have a good absolute reticulocytes cell count suggesting is not aplastic at this point. Patient's elevated bilirubin is most likely secondary to hemolysis since it is mainly indirect bilirubin. Patient was treated with Dilaudid 1 mg IV x4 doses. After the 4th dose, he is still having significant pain therefore I will get him admitted for further treatment. Patient did receive Benadryl 25 mg and Zofran 4 mg since he was slightly itchy and nauseous after the 4th dose of Dilaudid. He was also given his nighttime dose of Seroquel. I did discuss the patient's presentation with Dr. Cardoso, the patient will be admitted for further treatment. Medical Decision Making Lab Data Result diagrams: 08/21/21 21:20 08/21/21 21:15 Labs: Lab Results 08/21/21 08/21/21 Range/Units 21:15 21:20 WBC 9.7 (4.8-10.8) X10*3/uL RBC 3.00 L D (4.60-5.80) X10*6/uL Hgb 9.5 L D (14.0-18.0) g/dl Hct 26.2 L D (42.0-52.0) % MCV 87.3 (80.0-98.0) fL MCH 31.7 (27.0-33.0) pg MCHC 36.3 H (31.0-36.0) g/dl RDW 23.9 H (11.0-16.0) % Plt Count 496 H (160-400) X10*3/uL MPV 9.4 (9.4-12.4) fL Immature Gran % (Auto) Cancelled Neut % (Auto) Cancelled Lymph % (Auto) Cancelled [place] % (Auto) Cancelled Eos % (Auto) Cancelled Baso % (Auto) Cancelled Lymph # (Auto) Cancelled [place] # (Auto) Cancelled Eos # (Auto) Cancelled Baso # (Auto) Cancelled Abs Immat Gran (auto) Cancelled Absolute Neuts (auto) Cancelled Absolute Nucleated RBC 0.040 H (0.0-0.012) X10*3/uL Nucleated RBC % (auto) 0.4 H (0.0-0.2) /100WBC Neutrophils % (Manual) 44 L (45-73) % Band Neutrophils % 0 L (3-5) % Lymphocytes % (Manual) 38 (20-40) % Monocytes % (Manual) 9 (2-11) % Eosinophils % (Manual) 8 H (0-4) % Basophils % (Manual) 1 (0-2) % Abs Neuts (Manual) 4.3 (2.0-8.3) X10*3/uL Lymphocytes # (Manual) 3.7 (1.2-4.9) X10*3/uL Monocytes # (Manual) 0.9 (0.1-1.2) X10*3/uL Eosinophils # (Manual) 0.8 H (0.0-0.4) X10*3/uL Basophils # (Manual) 0.1 (0.0-0.2) X10*3/uL Toxic Vacuolation PRESENT Platelet Estimate SLIGHTLY DECREASED (NORMAL) Large Platelets PRESENT Plt Morphology Comment NOTED RBC Morphology NOTED Polychromasia 1+ (0-2) /OIF Microcytosis 1+ (5-14) /OIF Macrocytosis 1+ (5-14) /OIF Spherocytes 1+ (0-2) /OIF Sickle Cells 3+ (>5) /OIF Target Cells 1+ (5-14) /OIF Ovalocytes 1+ (5-14) /OIF Absolute Retic 0.416 H (0.026-0.095) X10*6/uL Percent Retic 14.3 H (0.5-1.8) % Immature Retic Fraction 29.8 H (2.3-13.4) % Retic Hgb Equivalent 35.1 H (30.0-35.0) pg Sodium 136 (135-145) mmol/L Potassium 4.5 (3.3-5.1) mmol/L Chloride 104 (96-108) mmol/L Carbon Dioxide 23 (22-29) mmol/L Anion Gap 14 (12-20) BUN 6 L (9-16) mg/dL Creatinine 0.78 (0.5-1.4) mg/dL Estim Creat Clear Calc 135.7 Estimated GFR > 60 Random Glucose 93 (60-115) mg/dL Calcium 9.8 (8.4-10.2) mg/dL Total Bilirubin 5.9 H (0.0-1.0) mg/dL Direct Bilirubin 1.2 H (0.0-0.5) mg/dL AST 50 H (5-37) U/L ALT 14 (0-40) U/L Alkaline Phosphatase 86 (39-117) U/L Total Protein 9.0 H (6.5-8.0) g/dL Albumin 4.6 (3.5-5.0) g/dL Discharge Plan Discharge Patient Disposition: Admitted As Inpatient Prescriptions: No Action clonidine HCl 0.1 mg Tablet 0.1 mg PO BEDTIME PRN (Reason: Anxiety) 0RF trazodone 50 mg Tablet 50 mg PO BEDTIME 0RF quetiapine [Seroquel] 200 mg Tablet 200 mg PO TID 0RF folic acid 1 mg Tablet 1 mg PO DAILY 0RF zolpidem [Ambien] 10 mg Tablet 10 mg PO BEDTIME PRN (Reason: Sleep) 0RF cholecalciferol (vitamin D3) [Vitamin D3] 25 mcg (1,000 unit) Tablet 25 mcg PO DAILY 0RF oxycodone 5 mg Tablet 5 mg PO Q6H PRN (Reason: Pain, Moderate (Pain Scale 4-6) Qty: 20 0RF
[2021-08-21] MEDS: 0.9 % Sodium Chloride 1,000 ML 999 ML IV (22:00)
[2021-08-21] MEDS: HYDROmorphone HCl 1 MG/ML SYRINGE IVPUSH ×3 (22:00→23:23)
[2021-08-21] MEDS: Ondansetron ODT 4 MG TAB.RAPDIS TRANSLINGU (22:00)
[2021-08-21 22:06] LABS: Band Neutrophils Percent 0 % (3-5); Basophils Abs Manual 0.1 X10*3/uL (0.0-0.2); Basophils Percent Manual 1 % (0-2); Eosinophils Absolute Manual 0.8 X10*3/uL (0.0-0.4); Eosinophils Percent Manual 8 % (0-4); Lymphocytes Absolute Manual 3.7 X10*3/uL (1.2-4.9); Lymphocytes Percent Manual 38 % (20-40); Monocytes Absolute Manual 0.9 X10*3/uL (0.1-1.2); Monocytes Percent Manual 9 % (2-11); Neutrophils Absolute Manual 4.3 X10*3/uL (2.0-8.3); Neutrophils Percent Manual 44 % (45-73)
[2021-08-21 22:07] LABS: Macrocytosis 1+ (5-14) /OIF; Microcytosis 1+ (5-14) /OIF; RBC Morphology NOTED; Sickle Cells 3+ (>5) /OIF
[2021-08-21 22:08] LABS: Large Platelet PRESENT; Ovalocytes 1+ (5-14) /OIF; Platelet Estimate SLIGHTLY DECREASED (NORMAL); Platelet Morphology Comment NOTED; Polychromasia 1+ (0-2) /OIF; Target Cells 1+ (5-14) /OIF; Toxic Vacuolation PRESENT
[2021-08-21 22:09] LABS: Spherocytes 1+ (0-2) /OIF
[2021-08-21 22:11] LABS: Alanine Aminotransferase 14 U/L (0-40); Albumin Level 4.6 g/dL (3.5-5.0); Alkaline Phosphatase 86 U/L (39-117); Anion Gap 14 (12-20); Aspartate Amino Transferase 50 U/L (5-37); Bilirubin Total 5.9 mg/dL (0.0-1.0); Blood Urea Nitrogen 6 mg/dL (9-16); Calcium 9.8 mg/dL (8.4-10.2); Carbon Dioxide 23 mmol/L (22-29); Chloride 104 mmol/L (96-108); Creatinine Clr Calc Pharmacy 135.7; Estimated Glomerular Filt Rate > 60; Glucose Random 93 mg/dL (60-115); Potassium 4.5 mmol/L (3.3-5.1); Sodium 136 mmol/L (135-145)
[2021-08-21 22:48] LABS: Bilirubin Direct 1.2 mg/dL (0.0-0.5)
[2021-08-21 23:23] VITALS: RESP 16
[2021-08-22] VITALS: BP 150/80; PULSE 102; RESP 20
[2021-08-22] MEDS: ondansetron HCL 4 MG/2 ML VIAL IVPUSH (01:25)
[2021-08-22] MEDS: diphenhydrAMINE HCL 50 MG/ML VIAL 25 MG IVPUSH (01:26)
[2021-08-22 01:28] VITALS: RESP 16
[2021-08-22] MEDS: HYDROmorphone HCl 1 MG/ML SYRINGE IVPUSH ×5 (01:28→15:25)
[2021-08-22] MEDS: QUEtiapine Fumarate 200 MG TABLET PO ×3 (01:28→16:05)
[2021-08-22 01:44] VITALS: BP 121/91; PULSE 109; RESP 17; O2SAT 99
[2021-08-22 02:33] VITALS: BP 131/70; PULSE 71; RESP 16; TEMP 36.7; O2SAT 100
--- NOTE | 2021-08-22 02:34 | P.HPHOSP_ITS ---
History of Present Illness Date of Service: 08/22/21 Chief Complaint: sickle cell crisis Is a 26-year-old transgender female (Juan Carlos) who presents to the hospital with complaints of sickle cell crisis. Patient has a history of sickle cell disease, sickle cell anemia, avascular bone necrosis reports that her pain started the day prior. Worse in the mid to lower back, severe, not relieved with pain medications she has. Patient reports some shortness of breath with no cough, no sputum production, no fever or chills. She denies any urinary symptoms. And reports that she has been hydrating although clinically she appears dehydrated. She denies any abdominal pain nausea or vomiting, no diarrhea constipation, no lower extremity edema. On arrival to the hospital patient's vitals are significant for slight tachycardia and elevated blood pressure. Labs are significant for WBC count of 9.7, hemoglobin of 9.5 which is slightly higher than her baseline of 7-8, hematocrit 26.2, absolute reticulocyte of 0.4, total bili of 5.9, direct bili of 1.2, AST of 50, COVID-19 negative Patient given pain medication will be admitted for further management Review of Systems Review of Systems: Yes all other systems are reviewed and are negative [facility] Medical History Avascular bone necrosis COVID-19 Sickle cell anemia with crisis Family History Other Sickle cell anemia Surgical History H/O splenectomy Social History Household Members: Spouse Household Members Other:: fiancee Housing: Apartment Do you presently have visiting nurse or other home services: No Alcohol intake: never Patient Tobacco Use Status: Current someday Tobacco user Tobacco use type: Cigarette Cigarettes Per Day: 2 Years Smoked: 4 Smoked in Last 30 Days: No e-Cigarette/Vaping Use: Never Used Second Hand Smoke Exposure: Yes Use of substances other than those prescribed or required for medical reasons: Yes Substance Use Type: Marijuana Substance Use Frequency: Occasionally Advance Directives: Yes Advance Directives on File: Yes Advance Directives Date on File: 06/13/21 service: No Current occupational status: disabled Meds Allergies Allergy/AdvReac Type Severity Reaction Status Date / Time morphine AdvReac Agitated Verified 07/01/21 22:55 oxycodone AdvReac Agitated Verified 07/01/21 22:55 Active Medications: Current Medications Pharmacy Consult (Consult Rx Perform Med Rec) 1 each MISCELLANE ONCE PRN PRN Reason: Consult order Pharmacy Consult (Consult Rx Perform Med Rec) 1 each MISCELLANE ONCE PRN PRN Reason: Consult order Home Medications Medication Instructions Recorded Confirmed Last Taken Type clonidine HCl 0.1 mg tablet 0.1 mg PO BEDTIME PRN 06/16/20 08/22/21 06/30/21 22:00 History folic acid 1 mg tablet 1 mg PO DAILY 06/16/20 07/01/21 06/12/21 History quetiapine 200 mg tablet (Seroquel) 200 mg PO TID 06/16/20 08/22/21 06/30/21 22:00 History trazodone 50 mg tablet 50 mg PO BEDTIME 06/16/20 08/22/21 06/30/21 22:00 History zolpidem 10 mg tablet (Ambien) 10 mg PO BEDTIME PRN 10/16/20 08/22/21 06/30/21 22:00 History cholecalciferol (vitamin D3) 25 25 mcg PO DAILY 12/06/20 07/01/21 07/01/21 09:00 History mcg (1,000 unit) tablet (Vitamin D3) Physical Exam Vital Signs and Narrative: Vital Signs: Last Vital Signs Temp 99.1 F 08/21/21 20:18 Pulse 109 H 08/22/21 01:44 Resp 17 08/22/21 01:44 BP 121/91 H 08/22/21 01:44 Pulse Ox 99 08/22/21 01:44 BMI result Body Mass Index 21.6 Const: General: cooperative and no acute distress Orientation/consciousness: patient oriented x3 Eyes: General: appearance normal, both eyes and all related structures Pupils: Equal, round and reactive pupils present Resp: Effort & Inspection: normal respiratory effort Auscultation: clear to auscultation bilaterally Cardio: Rate: regular rate Rhythm: regular rhythm GI: Palpation (GI): Soft to palpation Auscultation: normal bowel sounds Skin: Other: dry mucosal membranes General skin exam: no rashes or lesions noted Neuro: General: patient oriented x3 Cranial nerves: Yes Equal, round and reactive pupils present Cognition (Neuro): normal cognition Extrem: General: Yes normal to inspection and Yes no pedal edema Results Labs CBC and Chem 7: 08/21/21 21:20 08/21/21 21:15 Labs: Laboratory Results - last 24 hr 08/21/21 08/21/21 21:15 21:20 MCV 87.3 MCH 31.7 MCHC 36.3 H RDW 23.9 H Plt Count 496 H MPV 9.4 Immature Gran % (Auto) Cancelled Neut % (Auto) Cancelled Lymph % (Auto) Cancelled [place] % (Auto) Cancelled Eos % (Auto) Cancelled Baso % (Auto) Cancelled Lymph # (Auto) Cancelled [place] # (Auto) Cancelled Eos # (Auto) Cancelled Baso # (Auto) Cancelled Abs Immat Gran (auto) Cancelled Absolute Neuts (auto) Cancelled Absolute Nucleated RBC 0.040 H Nucleated RBC % (auto) 0.4 H Neutrophils % (Manual) 44 L Band Neutrophils % 0 L Lymphocytes % (Manual) 38 Monocytes % (Manual) 9 Eosinophils % (Manual) 8 H Basophils % (Manual) 1 Abs Neuts (Manual) 4.3 Lymphocytes # (Manual) 3.7 Monocytes # (Manual) 0.9 Eosinophils # (Manual) 0.8 H Basophils # (Manual) 0.1 Toxic Vacuolation PRESENT Platelet Estimate SLIGHTLY DECREASED Large Platelets PRESENT Plt Morphology Comment NOTED RBC Morphology NOTED Polychromasia 1+ (0-2) Microcytosis 1+ (5-14) Macrocytosis 1+ (5-14) Spherocytes 1+ (0-2) Sickle Cells 3+ (>5) Target Cells 1+ (5-14) Ovalocytes 1+ (5-14) Absolute Retic 0.416 H Percent Retic 14.3 H Immature Retic Fraction 29.8 H Retic Hgb Equivalent 35.1 H Anion Gap 14 Estim Creat Clear Calc 135.7 Estimated GFR > 60 Random Glucose 93 Calcium 9.8 Total Bilirubin 5.9 H Direct Bilirubin 1.2 H AST 50 H ALT 14 Alkaline Phosphatase 86 Total Protein 9.0 H Albumin 4.6 Assessment and Plan (1) Sickle cell anemia with crisis: Status: Acute Plan This is a 26-year-old transgender female who presents to the hospital with sickle cell crisis # sickle cell crisis - acute pain crisis - anemia stable - no evidence of acute infection although clinically it appears volume depleted - will treat with aggressive IV fluids, pain control - will follow-up CBC, if drops will transfuse # depression - continue Seroquel a # insomnia - continue trazodone as well as Ambien DVT prophylaxis: Lovenox Quality Stroke Does the patient have a stroke diagnosis?: No VTE Prior VTE?: No VTE Risk Level:: Medical - moderate - high VTE Device Contraindication: Treatment Not Indicated VTE Drug Contraindication: N/A - Med Ordered
--- NOTE | 2021-08-22 03:58 | PC.NURSE ---
MULTIPLE INTERACTIONS WITH PATIENT. PATIENT SHOWING NO FACIAL GRIMACE OR GUARDING IN PAIN WITH ANY INTERACTIONS. RN SITTING WITH PATIENT DISCUSSING PATIENTS HOME LIFE AND GOALS. PLEASANT INTERACTIONS WITH PATIENT EACH TIME. REPORTING HAVING DIFFICULTY SLEEPING. MEDICATED PER EMAR FOR MULTIPLE TIMES FOR REPORTED PAIN LEVEL OF 8/10. MD DISCUSSED ADMISSION AND PATIENT AGREED FOR PAIN MANAGEMENT. PATIENTS LAST DOSE OF PAIN MEDICATION WAS A FEW MINUTES PRIOR TO WRITING THIS NOTE. PATIENT ON THE PHONE ARGUING WITH SIGNIFICANT OTHER ABOUT NEEDING A PHONE COMMUNITY SPORTS COORDINATOR.
[2021-08-22] MEDS: Lactated Ringers 1,000 ML 125 ML IVCONT ×2 (05:26→14:55)
--- NOTE | 2021-08-22 05:58 | PC.NURSE ---
PATIENT RINGING FOR ADDITIONAL PAIN MEDICATION, INFORMING PATIENT THAT THE ORDERS ARE FOR C3BASAO OFFERED PRN TYLENOL. PATIENT UPSET AND DECLINED PO MEDICATIONS. PATIENT CALLING FAMILY MEMBERS, FAMILY MEMBERS CALLING THIS RN STATING THAT MEDICATIONS NEED TO BE EVERY 2 HOURS. HOSPITALIST HAS BEEN CONTACTED FOR ADDITIONAL MEDICATIONS FOR PATIENT. AWAITING NEW ORDERS
[2021-08-22 06:01] LABS: COVID-19 Test Negative (Negative); IDNOW Serial# 9DD0AD1C
[2021-08-22 06:16] VITALS: BP 129/76; PULSE 96; RESP 18; TEMP 36.9; O2SAT 99
--- NOTE | 2021-08-22 06:39 | PC.NURSE ---
MULTIPLE CALLS BACK AND FORTH WITH HOSPITALIST AND THIS RN REGARDING PAIN MEDICAITON. ATTEMPTING TO GIVE PATIENT PER THERE RECENTLY FILLERD PERSCRIPTIONS PATIENT REPORTS NEVER FILLING AND TAKING THEM. CALL FOR DIFFERENT PAIN MEDICAITONS,
--- NOTE | 2021-08-22 08:15 | PHA.MEDREC ---
Pharmacy Consult ? Medication Reconciliation Pharmacy has completed the medication reconciliation. Reviewed medication with pt
[2021-08-22] MEDS: Folic Acid 1 MG TABLET PO (12:24)
--- NOTE | 2021-08-22 15:25 | MHC.CM.PN ---
CM MET WITH PT WHO IS VERY GUARDED. PT REPORTS HE LIVES WITH HIS [place] PT DENIES HAVING SERVICES OR DME PT HAS A HCP ON FILE PT DOES NOT PROVIDE THE NAME OF HIS PCP TODAY HOWEVER RECORDS INDICATE IT IS [facility]. IMM DELIVERED, ORIGINAL AT BEDSIDE, COPY SENT TO MEDICAL RECORDS CURRENT DC PLAN IS HOME WITH NO SERVICES S/O TO TRANSPORT
[2021-08-22 15:53] VITALS: BP 131/72; PULSE 90; RESP 22; TEMP 36.8; O2SAT 91
--- NOTE | 2021-08-22 16:44 | PC.NURSE ---
had madisyner text out to dr bennett, pt wanted to leave, pt pulled out own iv and eloped before signing ama paper work
--- NOTE | 2021-08-23 10:25 | PM.DS ---
DS: Providers Provider Date of Service: 08/22/21 Date of admission: 08/22/21 02:33 Primary care physician: Jeremías Patterson MD DS: Diagnosis Discharge Diagnosis (1) Sickle cell anemia with crisis: Status: Acute DS: Summary Hospital Course Hospital Course: The patient was admitted for treatment of sickle cell crisis. She was seen and evaluated in the morning by myself. Started on IV fluid and IV Dilaudid. During the day she asked to leave AMA and when the provider went to see her in the emergency she already eloped. Time Spent with Patient Time attestation: Total time spent providing and/or coordinating discharge services: Discharge coordination time: Less than 30 minutes Quality: Stroke Does the patient have a stroke diagnosis?: No Physical Exam Vital Signs: Vital Signs: Last Vital Signs Temp 98.2 F 08/22/21 15:53 Pulse 90 08/22/21 15:53 Resp 22 H 08/22/21 15:53 BP 131/72 08/22/21 15:53 Pulse Ox 91 L 08/22/21 15:53 BMI result Body Mass Index 21.6 Const: Other: Constitutional : Alert, oriented, not in distress Neck : Normal inspection, Supple Cardiovascular : RRR, S1 S2, no lower extremity edema Respiratory : Good bilateral air entry, no crackles, wheezes or rhonchi Gastrointestinal: soft, lax, Normal bowel sounds, Non tender Skin : Warm, Dry Neurological : Alert & oriented x3, No focal deficit DS: Data Data Completed and Pending Completed studies during hospitalization [Text1]: Procedures Transfusion of Nonautologous Red Blood Cells into Peripheral Vein, Percutaneous Approach (07/01/21) Discharge Plan Discharge Patient Disposition: Left Against Medical Advice Discharge Diagnosis: Sickle cell crisis Referrals: Jeremías Patterson MD [Primary Care Provider] - 1 Week Discharge Medications: No Action clonidine HCl 0.1 mg Tablet 0.1 mg PO BEDTIME PRN (Reason: Anxiety) 0RF trazodone 50 mg Tablet 50 mg PO BEDTIME 0RF quetiapine [Seroquel] 200 mg Tablet 200 mg PO TID 0RF folic acid 1 mg Tablet 1 mg PO DAILY 0RF zolpidem [Ambien] 10 mg Tablet 10 mg PO BEDTIME PRN (Reason: Sleep) 0RF cholecalciferol (vitamin D3) [Vitamin D3] 25 mcg (1,000 unit) Tablet 25 mcg PO DAILY 0RF Discharge Orders: Discharge Order (Routine); Ordered 08/22/21 Ordered By: Celestina Bustillo Care Plan Goals: . Health Concerns: . Plan of Treatment: . Assessment: . Discharge Date/Time: 08/22/21 17:04
== END 2021-08-22 17:04 | disposition left against medical advice (07) | DRG 812 ==
LOC: HO.ED 08-22 03:03 → HO.EDOVER 08-22 03:12
PROVIDERS: Admitting Provider Internal Medicine; Emergency Provider Emergency Medicine Emergency Medical Services; PCP Pediatrics; Visit Provider Student in an Organized Health Care Education/Training Program
DX: D57.00 Hb-SS disease with crisis, unspecified (principal); F17.210 Nicotine dependence, cigarettes, uncomplicated; Z71.6 Tobacco abuse counseling; F64.0 Transsexualism; Z20.822 Contact with and (suspected) exposure to COVID-19; F32.A Depression, unspecified; G47.00 Insomnia, unspecified; Z79.899 Other long term (current) drug therapy
CPT/HCPCS: 36415; 80053; 82248; 85007; 85027; 85045; 87635; 96361; 96374; 96375; 96376; 99285; J1170; J1200; J2405

== ENCOUNTER 2021-09-25 03:33 | Inpatient (IN) | payer MEDICARE, MEDICAID, SELFPAY ==
[2021-09-25] VITALS (11 sets, daily range): BP systolic 113–141; BP diastolic 67–80; PULSE 66–125; RESP 13–24; TEMP 36.8–38.5; O2SAT 92–97; BMI 22.1
--- NOTE | ~2021-09-25 | XR_ITS ---
EXAMINATION: XR CHEST CLINICAL INFORMATION: Fever COMPARISON: Chest x-ray 07/01/2021 TECHNIQUE: Frontal portable view of the chest was obtained. 3:37 PM FINDINGS: No significant abnormality is noted involving the heart, lungs, mediastinum, bony thorax or soft tissues. XR/XR chest 1V IMPRESSION: Unremarkable examination.
--- NOTE | 2021-09-25 04:38 | ED_ITS ---
HPI - General Adult General Chief complaint: Recheck/Abnormal Lab/Rx Stated complaint: sickle cell crisis Time Seen by Provider: 09/25/21 04:36 Source: patient Mode of arrival: ambulatory History of Present Illness HPI narrative: Patient is transgender male history of sickle cell anemia used to get exchange transfusion as a kid also used to be on hydroxyurea which they do not take any more comes here for increased body aches for last few hours taking Dilaudid without any response no nausea no vomiting no shortness of breath Related Data Home Medications Medication Instructions Recorded Confirmed clonidine HCl 0.1 mg tablet 0.1 mg PO BEDTIME PRN 06/16/20 08/22/21 folic acid 1 mg tablet 1 mg PO DAILY 06/16/20 08/22/21 quetiapine 200 mg tablet (Seroquel) 200 mg PO TID 06/16/20 08/22/21 trazodone 50 mg tablet 50 mg PO BEDTIME 06/16/20 08/22/21 zolpidem 10 mg tablet (Ambien) 10 mg PO BEDTIME PRN 10/16/20 08/22/21 cholecalciferol (vitamin D3) 25 25 mcg PO DAILY 12/06/20 08/22/21 mcg (1,000 unit) tablet (Vitamin D3) Allergies Allergy/AdvReac Type Severity Reaction Status Date / Time morphine AdvReac Agitated Verified 07/01/21 22:55 oxycodone AdvReac Agitated Verified 07/01/21 22:55 Review of Systems Review of Systems: Yes all other systems are reviewed and are negative PMFSH Past Medical History Medical History Avascular bone necrosis COVID-19 Sickle cell anemia with crisis Sickle cell anemia with crisis Surgical History H/O splenectomy Family History Family History Other Sickle cell anemia Social History Social History Household Members: Spouse Household Members Other:: fiancee Housing: Apartment Do you presently have visiting nurse or other home services: No Alcohol intake: never Patient Tobacco Use Status: Current someday Tobacco user Tobacco use type: Cigarette Cigarettes Per Day: 2 Years Smoked: 4 e-Cigarette/Vaping Use: Never Used Second Hand Smoke Exposure: Yes Substance Use Type: Marijuana Advance Directives: No Advance Directives Date on File: 06/13/21 service: No Current occupational status: unemployed and disabled Physical Exam ED Vital Signs: Vital Signs - 24 hr 09/25/21 03:35 09/25/21 04:48 09/25/21 05:12 Temperature 100.3 F 98.5 F Pulse Rate 97 99 Respiratory Rate 22 H 24 H 20 Blood Pressure 131/73 131/68 Pulse Oximetry 93 96 09/25/21 06:25 09/25/21 06:29 Temperature Pulse Rate 89 Respiratory Rate 20 18 Blood Pressure 135/72 Pulse Oximetry 95 BMI result Body Mass Index 22.1 Appearance: Alert. Oriented X3. No acute distress. Eyes:pallor++ ENT: Pharynx normal. Oral Mucosa moist Neck: Normal inspection. Neck supple. CVS: Normal heart rate and rhythm. Pulses normal. Respiratory: No respiratory distress. Equal air entry bilateral, no wheezing/rales/rhonchi Abdomen: Soft and nontender. Bowel sounds are present, no mass palpable, no CVA tenderness Skin: Skin warm and dry. Normal skin color. Normal skin turgor. Extremities: No lower extremity edema. No calf tenderness Neuro: Oriented X 3. No motor deficit. No sensory deficit.No cerebellar signs , cranial nerves II-XII intact Medical Decision Making MDM Narrative Medical decision making narrative: Patient with sickle cell disease came with diffuse pain lab showed hemoglobin 8.8 which is baseline with elevated retic count suggestive of active crisis will admit patient for IV hydration and pain control Lab Data Lab results reviewed: Yes I reviewed the patient's lab results. Result diagrams: 09/25/21 04:58 09/25/21 04:58 Labs: Lab Results 09/25/21 09/25/21 09/25/21 Range/Units 04:58 04:58 04:58 WBC 13.5 H (4.8-10.8) X10*3/uL RBC 2.71 L (4.60-5.80) X10*6/uL Hgb 8.8 L (14.0-18.0) g/dl Hct 23.9 L (42.0-52.0) % MCV 88.2 (80.0-98.0) fL MCH 32.5 (27.0-33.0) pg MCHC 36.8 H (31.0-36.0) g/dl RDW 23.7 H (11.0-16.0) % Plt Count 391 (160-400) X10*3/uL MPV 10.1 (9.4-12.4) fL Immature Gran % (Auto) Cancelled Neut % (Auto) Cancelled Lymph % (Auto) Cancelled [place] % (Auto) Cancelled Eos % (Auto) Cancelled Baso % (Auto) Cancelled Lymph # (Auto) Cancelled [place] # (Auto) Cancelled Eos # (Auto) Cancelled Baso # (Auto) Cancelled Abs Immat Gran (auto) Cancelled Absolute Neuts (auto) Cancelled Absolute Nucleated RBC 0.110 H (0.0-0.012) X10*3/uL Nucleated RBC % (auto) 0.8 H (0.0-0.2) /100WBC Neutrophils % (Manual) 61 (45-73) % Lymphocytes % (Manual) 18 L (20-40) % Monocytes % (Manual) 13 H (2-11) % Eosinophils % (Manual) 8 H (0-4) % Abs Neuts (Manual) 8.2 (2.0-8.3) X10*3/uL Lymphocytes # (Manual) 2.4 (1.2-4.9) X10*3/uL Monocytes # (Manual) 1.8 H (0.1-1.2) X10*3/uL Eosinophils # (Manual) 1.1 H (0.0-0.4) X10*3/uL Nucleated RBCs 7 H (0-0) /100WBC Platelet Estimate NORMAL (NORMAL) Large Platelets PRESENT Giant Platelets PRESENT Plt Morphology Comment NOTED RBC Morphology NOTED Polychromasia 3+ (>5) /OIF Hypochromasia 1+ (5-14) /OIF Microcytosis 1+ (5-14) /OIF Macrocytosis 1+ (5-14) /OIF Spherocytes 1+ (0-2) /OIF Sickle Cells 3+ (>5) /OIF Target Cells 1+ (5-14) /OIF Schistocytes 1+ (0-2) /OIF Absolute Retic 0.213 H (0.026-0.095) X10*6/uL Percent Retic 8.2 H (0.5-1.8) % Immature Retic Fraction 44.6 H (2.3-13.4) % Retic Hgb Equivalent 33.5 (30.0-35.0) pg Sodium 135 (135-145) mmol/L Potassium 5.0 (3.3-5.1) mmol/L Chloride 106 (96-108) mmol/L Carbon Dioxide 17 L (22-29) mmol/L Anion Gap 17 (12-20) BUN 9 (9-16) mg/dL Creatinine 0.84 (0.5-1.4) mg/dL Estim Creat Clear Calc 129.3 Estimated GFR > 60 Random Glucose 107 (60-115) mg/dL Calcium 9.1 D (8.4-10.2) mg/dL Discharge Plan Discharge Clinical Impression: Sickle cell anemia with crisis Patient Disposition: Admitted As Inpatient
[2021-09-25 05:02] LABS: Hematocrit 23.9 % (42.0-52.0); Hemoglobin 8.8 g/dl (14.0-18.0); Mean Corpuscular HGB Conc 36.8 g/dl (31.0-36.0); Mean Corpuscular Hemoglobin 32.5 pg (27.0-33.0); Mean Corpuscular Volume 88.2 fL (80.0-98.0); Mean Platelet Volume 10.1 fL (9.4-12.4); NRBC Pct Auto 0.8 /100WBC (0.0-0.2); Platelet Count 391 X10*3/uL (160-400); Red Blood Count 2.71 X10*6/uL (4.60-5.80); Red Cell Distribution Width 23.7 % (11.0-16.0); WBC ABN SCTR FOR CBC 1
[2021-09-25 05:03] LABS: White Blood Count 13.5 X10*3/uL (4.8-10.8)
[2021-09-25] MEDS: Folic Acid 1 MG TABLET PO (05:12)
[2021-09-25] MEDS: HYDROmorphone HCl 2 MG/ML VIAL IVPUSH ×2 (05:12→06:25)
[2021-09-25] MEDS: ondansetron HCL 4 MG/2 ML VIAL IVPUSH (05:12)
[2021-09-25] MEDS: 0.9 % Sodium Chloride 1,000 ML 999 ML IV ×2 (05:12→06:26)
[2021-09-25 05:14] LABS: Immature Retic Fraction 44.6 % (2.3-13.4); Reticulocytes Absolute 0.213 X10*6/uL (0.026-0.095)
[2021-09-25 05:15] LABS: Retic HGB Equivalent 33.5 pg (30.0-35.0); Reticulocyte Percent 8.2 % (0.5-1.8)
[2021-09-25 05:16] LABS: Anion Gap 17 (12-20); Blood Urea Nitrogen 9 mg/dL (9-16); Calcium 9.1 mg/dL (8.4-10.2); Carbon Dioxide 17 mmol/L (22-29); Chloride 106 mmol/L (96-108); Creatinine Clr Calc Pharmacy 129.3; Estimated Glomerular Filt Rate > 60; Glucose Random 107 mg/dL (60-115); Sodium 135 mmol/L (135-145)
[2021-09-25 05:24] LABS: Eosinophils Absolute Manual 1.1 X10*3/uL (0.0-0.4); Eosinophils Percent Manual 8 % (0-4); Lymphocytes Absolute Manual 2.4 X10*3/uL (1.2-4.9); Lymphocytes Percent Manual 18 % (20-40); Monocytes Absolute Manual 1.8 X10*3/uL (0.1-1.2); Monocytes Percent Manual 13 % (2-11); Neutrophils Percent Manual 61 % (45-73); Nucleated Red Blood Cells 7 /100WBC (0-0)
[2021-09-25 05:26] LABS: Giant Platelet PRESENT; Large Platelet PRESENT; Macrocytosis 1+ (5-14) /OIF; Microcytosis 1+ (5-14) /OIF; Platelet Estimate NORMAL (NORMAL); Platelet Morphology Comment NOTED; RBC Morphology NOTED; Schistocytes 1+ (0-2) /OIF; Sickle Cells 3+ (>5) /OIF
[2021-09-25 05:27] LABS: Hypochromasia 1+ (5-14) /OIF; Polychromasia 3+ (>5) /OIF; Spherocytes 1+ (0-2) /OIF; Target Cells 1+ (5-14) /OIF
[2021-09-25 05:40] LABS: Neutrophils Absolute Manual 8.2 X10*3/uL (2.0-8.3)
[2021-09-25] MEDS: LORazepam 2 MG/ML VIAL 0.5 MG IVPUSH (08:05)
--- NOTE | 2021-09-25 08:17 | PHA.MEDREC ---
Pharmacy Consult ? Medication Reconciliation Pharmacy has completed the medication reconciliation. Patient allegedly takes Ambien 5 mg at bedtime for sleep. There is no record on the PDMP of patient receiving Ambien therefore it was removed from medication. Patient also report clonidine as needed, since it is as needed I left on home med list Janice Nelson, [place]
[2021-09-25 08:28] LABS: COVID-19 Test Negative (Negative); IDNOW Serial# 16C4AD1C
[2021-09-25] MEDS: HYDROmorphone HCl 1 MG/ML SYRINGE IVPUSH ×5 (09:37→22:13)
--- NOTE | 2021-09-25 09:40 | PC.NURSE ---
pt and family member in room verbalizing their displeasure of the care given since arrival. pt has received multiple IVP dilaudid throughout the morning with little effectivness per pt. IV fluid hung and discontinued by ED doctor as a order. Admission pending, awaiting med reconcillation and orders from hospitalist. Pt educated on pain management and the importance of not over medicating.
--- NOTE | 2021-09-25 10:49 | PC.NURSE ---
went into pt room to reacess pain after med given and he is soundly asleep. vss
--- NOTE | 2021-09-25 11:51 | P.HPHOSP_ITS ---
History of Present Illness Date of Service: 09/25/21 Chief Complaint: Sickle cell crisis 26 year old transgender Male to female (Juan Carlos, preferred pronoun SHE) admitted with acute sickle cell crisis that started early this morning with diffuse bodily pain. She has frequent admissions for sickle cell crisis in last admission was in August of 2021 however the day following her admission she left against medical advice. She denied nausea, vomiting, diarrhea. H&H was stable new Shiley 8.8 in 23.9, reticulocytes 8.2%. One episode of fever of 101.3. Chest x-ray unremarkable,urinalysis pending. Treated with IV pain medication, IV fluids, antiemetics, antianxiety lytics. She be admitted further management and treatment of acute sickle cell crisis. Review of Systems Review of Systems: Denies any recent fever chills or decrease in appetite respiratory denies any shortness of breath coverage production cardiovascular denies chest pain gastrointestinal denies any dysphagia abdominal pain nausea vomiting or diarrhea genitourinary denies any dysuria frequency or hematuria musculoskeletal denies any joint pain or swelling neuropsych denies any weakness or seizures all other systems reviewed are negative [facility] Medical History (Updated 09/25/21 @ 15:05 by Vicky Castañeda NP) Avascular bone necrosis COVID-19 Sickle cell anemia with crisis Family History Other Sickle cell anemia Surgical History H/O splenectomy Social History Household Members: Spouse Household Members Other:: fiancee Housing: Apartment Do you presently have visiting nurse or other home services: No Alcohol intake: never Patient Tobacco Use Status: Current someday Tobacco user Tobacco use type: Cigarette Cigarettes Per Day: 2 Years Smoked: 4 e-Cigarette/Vaping Use: Never Used Second Hand Smoke Exposure: Yes Substance Use Type: Marijuana Advance Directives: No Advance Directives Date on File: 06/13/21 service: No Current occupational status: unemployed and disabled Meds Allergies Allergy/AdvReac Type Severity Reaction Status Date / Time morphine AdvReac Agitated Verified 07/01/21 22:55 oxycodone AdvReac Agitated Verified 07/01/21 22:55 Active Medications: Current Medications Acetaminophen (Acetaminophen 325 Mg Tablet) 650 mg PO Q6H PRN PRN Reason: Pain, Mild (Pain Scale 1-3) Clonidine HCl (Clonidine Hcl 0.1 Mg Tablet) 0.1 mg PO BEDTIME PRN; Protocol PRN Reason: Anxiety Hydromorphone HCl (Hydromorphone Hcl 1 Mg/Ml Syringe) 1 mg IVPUSH Q2H PRN; Protocol PRN Reason: Pain, Mild (Pain Scale 1-3) Sodium Chloride (Ns) 1,000 mls @ 100 mls/hr IVCONT .Q10H SUJIT Ondansetron HCl (Ondansetron Hcl 4 Mg/2 Ml Vial) 4 mg IVPUSH Q8H PRN PRN Reason: Nausea and Vomiting Pharmacy Consult (Consult Rx Perform Med Rec) 1 each MISCELLANE ONCE PRN PRN Reason: Consult order Quetiapine Fumarate (Quetiapine Fumarate 200 Mg Tablet) 200 mg PO TID SUJIT Sodium Chloride (0.9 % Sodium Chloride Flush 3 Ml Syringe) 3 ml IVFLUSH QSHIFT SUJIT Trazodone HCl (Trazodone Hcl 50 Mg Tablet) 50 mg PO BEDTIME [facility] Home Medications Medication Instructions Recorded Confirmed Last Taken Type clonidine HCl 0.1 mg tablet 0.1 mg PO BEDTIME PRN 06/16/20 09/25/21 06/30/21 22:00 History quetiapine 200 mg tablet (Seroquel) 200 mg PO TID 06/16/20 09/25/21 06/30/21 22:00 History trazodone 50 mg tablet 50 mg PO BEDTIME 06/16/20 09/25/21 06/30/21 22:00 History Physical Exam Vital Signs and Narrative: Vital Signs: Last Vital Signs Temp 99.3 F 09/25/21 07:35 Pulse 114 H 09/25/21 07:35 Resp 23 H 09/25/21 07:35 BP 132/74 09/25/21 07:35 Pulse Ox 96 09/25/21 08:09 BMI result Body Mass Index 22.1 Appearing in no acute distress, pale head is normocephalic atraumatic eyes pupils are PERRLA sclera is anicteric mouth throat mucous membranes are intact and moist neck is supple no lymphadenopathy, no JVD noted lung sounds are clear to auscultation heart regular rate rhythm, clear S1, S2 positive bowel sounds, abdomen is soft, nontender neuro patient is alert x3, no focal deficits Results Labs CBC and Chem 7: 09/25/21 04:58 09/25/21 04:58 Labs: Laboratory Results - last 24 hr 09/25/21 09/25/21 09/25/21 04:58 04:58 04:58 MCV 88.2 MCH 32.5 MCHC 36.8 H RDW 23.7 H Plt Count 391 MPV 10.1 Immature Gran % (Auto) Cancelled Neut % (Auto) Cancelled Lymph % (Auto) Cancelled Garrett % (Auto) Cancelled Eos % (Auto) Cancelled Baso % (Auto) Cancelled Lymph # (Auto) Cancelled Garrett # (Auto) Cancelled Eos # (Auto) Cancelled Baso # (Auto) Cancelled Abs Immat Gran (auto) Cancelled Absolute Neuts (auto) Cancelled Absolute Nucleated RBC 0.110 H Nucleated RBC % (auto) 0.8 H Neutrophils % (Manual) 61 Lymphocytes % (Manual) 18 L Monocytes % (Manual) 13 H Eosinophils % (Manual) 8 H Abs Neuts (Manual) 8.2 Lymphocytes # (Manual) 2.4 Monocytes # (Manual) 1.8 H Eosinophils # (Manual) 1.1 H Nucleated RBCs 7 H Platelet Estimate NORMAL Large Platelets PRESENT Giant Platelets PRESENT Plt Morphology Comment NOTED RBC Morphology NOTED Polychromasia 3+ (>5) Hypochromasia 1+ (5-14) Microcytosis 1+ (5-14) Macrocytosis 1+ (5-14) Spherocytes 1+ (0-2) Sickle Cells 3+ (>5) Target Cells 1+ (5-14) Schistocytes 1+ (0-2) Absolute Retic 0.213 H Percent Retic 8.2 H Immature Retic Fraction 44.6 H Retic Hgb Equivalent 33.5 Anion Gap 17 Estim Creat Clear Calc 129.3 Estimated GFR > 60 Random Glucose 107 Calcium 9.1 D COVID-19 (MICHAEL) COVID-19 Clin Com 09/25/21 08:09 MCV MCH MCHC RDW Plt Count MPV Immature Gran % (Auto) Neut % (Auto) Lymph % (Auto) Garrett % (Auto) Eos % (Auto) Baso % (Auto) Lymph # (Auto) Garrett # (Auto) Eos # (Auto) Baso # (Auto) Abs Immat Gran (auto) Absolute Neuts (auto) Absolute Nucleated RBC Nucleated RBC % (auto) Neutrophils % (Manual) Lymphocytes % (Manual) Monocytes % (Manual) Eosinophils % (Manual) Abs Neuts (Manual) Lymphocytes # (Manual) Monocytes # (Manual) Eosinophils # (Manual) Nucleated RBCs Platelet Estimate Large Platelets Giant Platelets Plt Morphology Comment RBC Morphology Polychromasia Hypochromasia Microcytosis Macrocytosis Spherocytes Sickle Cells Target Cells Schistocytes Absolute Retic Percent Retic Immature Retic Fraction Retic Hgb Equivalent Anion Gap Estim Creat Clear Calc Estimated GFR Random Glucose Calcium COVID-19 (MICHAEL) Negative COVID-19 Clin Com See Note Assessment and Plan (1) Sickle cell anemia with crisis: Status: Acute Plan 26 year old transgender Male to female ( preferred pronoun SHE) admitted with acute sickle cell crisis. Patient likely requires 2 midnights in the hospital as she is requiring multiple doses of IV pain medication for acute sickle cell crisis. Sickle cell crisis Pain management Follow HH and transfuse as necessary IV fluids especially if poor intake Fever Check for infection source Chest x-ray, UA pending May be reactionary to sickle cell crisis Mental health Continue home medications Attending Dr. Terrell Full code DVT prophylaxis with early ambulation and pneumatic compression boots Quality Stroke Does the patient have a stroke diagnosis?: No VTE Prior VTE?: No VTE Risk Level:: Medical - moderate - high VTE Device Contraindication: N/A - Device Ordered VTE Drug Contraindication: Treatment Not Indicated
[2021-09-25] MEDS: Acetaminophen 325 MG TABLET 650 MG PO ×2 (12:10→19:30)
[2021-09-25] MEDS: 0.9 % Sodium Chloride 1,000 ML 100 ML IVCONT ×2 (12:25→22:22)
--- NOTE | 2021-09-25 15:03 | MHC.CM.PN ---
IMM 09/25/21, EMR REVIEWED, PT ADMITTED W/SICKLE CELL CRISIS, PT IDENTIFIES JOSE NICOLE MET W/PT WHO VERIFIES SHE LIVES W/[facility], IS INDEPENDENT W/ALL CARE, DENIES USE OF DME AND HOME SERVICES, PT VERIFIES SHE STILL SEES MEREDITH MUNGUIA IN [place] HER PCP, HCP IS [facility] [phone] AND COPY ON FILE FROM PREVIOUS ADMISSION. D/C PLAN: HOME NO SERVICES, PT TO ARRANGE TRANSPORT PFIZER VACCINE X2
[2021-09-25] MEDS: QUEtiapine Fumarate 200 MG TABLET PO ×2 (15:14→22:13)
--- NOTE | 2021-09-25 19:39 | PC.NURSE ---
pt sleeping when RN enters room, on waking pt reports that pain is poorly controlled and has never been well controlled while in ED. patient provided additional dose of PRN medication and placed on supplemental O2 for pain management. patient in no obvious distress. SO departing bedside at this time
[2021-09-25] MEDS: traZODone HCL 50 MG TABLET PO (22:12)
[2021-09-25] MEDS: 0.9 % Sodium Chloride Flush 3 ML SYRINGE IVFLUSH (22:13)
[2021-09-25] MEDS: cloNIDine HCL 0.1 MG TABLET PO (22:13)
[2021-09-26] VITALS: BP 143/60; PULSE 78; RESP 14; TEMP 36.7; O2SAT 96
[2021-09-26] MEDS: HYDROmorphone HCl 1 MG/ML SYRINGE IVPUSH ×7 (02:14→20:55)
[2021-09-26 03:51] VITALS: BP 144/69; PULSE 119; RESP 14; TEMP 37.1; O2SAT 90
[2021-09-26 07:18] VITALS: BP 138/64; PULSE 100; RESP 20; TEMP 36.3; O2SAT 92
[2021-09-26] MEDS: 0.9 % Sodium Chloride 1,000 ML 100 ML IVCONT ×2 (08:17→17:58)
[2021-09-26] MEDS: QUEtiapine Fumarate 200 MG TABLET PO ×3 (08:17→20:55)
--- NOTE | 2021-09-26 10:13 | P.PNIM_ITS ---
Subjective Subjective Date of Service: 09/26/21 Review of Systems Follow up sickle cell crisis Still with significant pain Physical Exam Vital Signs: Vital Signs: Last Vital Signs Temp 97.3 F 09/26/21 07:18 Pulse 100 09/26/21 07:18 Resp 20 09/26/21 07:18 BP 138/64 09/26/21 07:18 Pulse Ox 92 09/26/21 07:18 BMI result Body Mass Index 22.1 Appearing in no acute distress lung sounds are clear to auscultation heart regular rate rhythm, clear S1, S2 positive bowel sounds, abdomen is soft, nontender neuro patient is alert x3, no focal deficits Objective Data Active Medications Acetaminophen (Acetaminophen 325 Mg Tablet) 650 mg PO Q6H PRN PRN Reason: Pain, Mild (Pain Scale 1-3) Last Admin: 09/25/21 19:30 Dose: 650 mg Documented by: CASSIDY Clonidine HCl (Clonidine Hcl 0.1 Mg Tablet) 0.1 mg PO BEDTIME PRN; Protocol PRN Reason: Anxiety Last Admin: 09/25/21 22:13 Dose: 0.1 mg Documented by: KERON Hydromorphone HCl (Hydromorphone Hcl 1 Mg/Ml Syringe) 1 mg IVPUSH Q2H PRN; Protocol PRN Reason: Pain, Mild (Pain Scale 1-3) Last Admin: 09/26/21 08:16 Dose: 1 mg Documented by: REUBEN Sodium Chloride (Ns) 1,000 mls @ 100 mls/hr IVCONT .Q10H [facility] Last Admin: 09/26/21 08:17 Dose: 100 mls/hr Documented by: REUBEN Ondansetron HCl (Ondansetron Hcl 4 Mg/2 Ml Vial) 4 mg IVPUSH Q8H PRN PRN Reason: Nausea and Vomiting Pharmacy Consult (Consult Rx Perform Med Rec) 1 each MISCELLANE ONCE PRN PRN Reason: Consult order Quetiapine Fumarate (Quetiapine Fumarate 200 Mg Tablet) 200 mg PO TID [facility] Last Admin: 09/26/21 08:17 Dose: 200 mg Documented by: REUBEN Sodium Chloride (0.9 % Sodium Chloride Flush 3 Ml Syringe) 3 ml IVFLUSH QSHIFT [facility] Last Admin: 09/26/21 07:47 Dose: Not Given Documented by: HO.GOVIND Non-Admin Reason: IV Running Trazodone HCl (Trazodone Hcl 50 Mg Tablet) 50 mg PO BEDTIME SUJIT Last Admin: 09/25/21 22:12 Dose: 50 mg Documented by: KERON Labs CBC & Chem 7: 09/25/21 04:58 09/25/21 04:58 Assessment and Plan (1) Sickle cell anemia with crisis: Status: Acute Plan 26 year old transgender Male to female ( preferred pronoun SHE) admitted with acute sickle cell crisis. ? Patient likely requires 2 midnights in the hospital as she is requiring multiple doses of IV pain medication for acute sickle cell crisis. Sickle cell crisis Still with significant pain Pain management Follow HH and transfuse as necessary IV fluids especially if poor intake Fever. Resolved Check for infection source Chest x-ray neg, UA pending May be reactionary to sickle cell crisis Mental health Continue home medications Attending Dr. Jackson Full code DVT prophylaxis with early ambulation and pneumatic compression boots Patient requires continued hospitalization due Significant pain requiring IV Dilaudid regularly. Quality Stroke Does the patient have a stroke diagnosis?: No VTE Prior VTE?: No VTE Risk Level:: Medical - moderate - high VTE Device Contraindication: N/A - Device Ordered VTE Drug Contraindication: Treatment Not Indicated
[2021-09-26 11:33] VITALS: BP 150/63; PULSE 100; RESP 17; TEMP 37.1; O2SAT 92
[2021-09-26] MEDS: 0.9 % Sodium Chloride Flush 3 ML SYRINGE IVFLUSH ×2 (15:31→20:55)
[2021-09-26 17:32] LABS: Appearance Urine CLEAR; Color Urine YELLOW; Glucose Urine UA NEG (NEG); Leukocyte Esterase Urine NEG (NEG); Nitrite Urine NEG (NEG); UACC Culture Trigger NO; Urine Blood TRACE (NEG); Urine Ketones 5 MG/DL (NEG); Urine Protein NEG (NEG-TRACE)
[2021-09-26 17:51] LABS: Amorphous Sediment Urine 2+ /LPF; Squamous Epithelial Cell Urine TRACE /LPF; WBC Urine 0-2 /HPF (0-4)
[2021-09-26 19:25] VITALS: BP 127/57; PULSE 141; RESP 19; TEMP 37.2; O2SAT 90
[2021-09-26] MEDS: traZODone HCL 50 MG TABLET PO (20:55)
[2021-09-26 23:21] VITALS: BP 138/62; PULSE 139; RESP 18; TEMP 37.3; O2SAT 98
[2021-09-27] VITALS: BP 138/62; PULSE 139; RESP 18; TEMP 37.3; O2SAT 98
[2021-09-27] MEDS: HYDROmorphone HCl 1 MG/ML SYRINGE IVPUSH ×2 (02:04→07:49)
[2021-09-27 04:00] VITALS: BP 130/63; PULSE 130; RESP 18; TEMP 37.2; O2SAT 98
[2021-09-27] MEDS: 0.9 % Sodium Chloride 1,000 ML 100 ML IVCONT (05:49)
[2021-09-27] MEDS: 0.9 % Sodium Chloride Flush 3 ML SYRINGE IVFLUSH (07:49)
[2021-09-27] MEDS: QUEtiapine Fumarate 200 MG TABLET PO (07:49)
[2021-09-27 08:00] VITALS: BP 137/66; PULSE 100; RESP 17; TEMP 36.8; O2SAT 85
--- NOTE | 2021-09-27 10:05 | PM.DS ---
DS: Providers Provider Date of Service: 09/27/21 Date of admission: 09/25/21 11:46 Primary care physician: Jeremías Patterson MD Attending physician on discharge: Raj Jackson Discharging clinician: Vicky Castañeda DS: Diagnosis Discharge Diagnosis (1) Sickle cell anemia with crisis: Status: Acute DS: Summary Hospital Course Hospital Course: 26 year old transgender Male to female (Juan Carlos, preferred pronoun They) admitted with acute sickle cell crisis? that started early this morning with diffuse bodily pain.? She has frequent admissions for sickle cell crisis in last admission was in August of 2021 however the day following her admission she left against medical advice.? She denied nausea, vomiting, diarrhea.? H&H was stable new Shiley 8.8 in 23.9, reticulocytes 8.2%.? One episode of fever of 101.3.? Chest x-ray unremarkable,urinalysis pending.? Treated with IV pain medication, IV fluids, antiemetics, antianxiolytics.? She be admitted further management and treatment of acute sickle cell crisis. Sickle cell crisis . Significant pain management over 2 days but today much better and pain is better controlled. They did not require blood transfusion. IV fluids for initial poor p.o. intake. Fever.? Resolved . No infection found. Likely reactionary to sickle cell crisis. Mental health. Continue home medications Time Spent with Patient Time attestation: Total time spent providing and/or coordinating discharge services: Discharge coordination time: Greater than 30 minutes Quality: Stroke Does the patient have a stroke diagnosis?: No Physical Exam Vital Signs: Vital Signs: Last Vital Signs Temp 98.2 F 09/27/21 08:00 Pulse 100 09/27/21 08:00 Resp 17 09/27/21 08:00 BP 137/66 09/27/21 08:00 Pulse Ox 85 L 09/27/21 08:00 BMI result Body Mass Index 22.1 Appearing in no acute distress head is normocephalic atraumatic eyes pupils are PERRLA sclera is anicteric mouth throat mucous membranes are intact and moist neck is supple no lymphadenopathy, no JVD noted lung sounds are clear to auscultation heart regular rate rhythm, clear S1, S2 positive bowel sounds, abdomen is soft, nontender neuro patient is alert x3, no focal deficits DS: Data Data Completed and Pending Completed studies during hospitalization [Text1]: Procedures Transfusion of Nonautologous Red Blood Cells into Peripheral Vein, Percutaneous Approach (07/01/21) Labs on day of discharge: Laboratory Results - last 24 hr 09/26/21 17:20 Urine Color YELLOW Urine Appearance CLEAR Urine pH 6.0 Ur Specific [place] 1.010 Urine Protein NEG Urine Glucose (UA) NEG Urine Ketones 5 Urine Blood TRACE Urine Nitrite NEG Ur Leukocyte Esterase NEG Urine RBC 1-4 Urine WBC 0-2 Ur Squamous Epith Cells TRACE Amorphous Sediment 2+ Urine Bacteria NONE Discharge Plan Discharge Anticipated Discharge Date/Time: 09/27/21 09:59 Patient Disposition: Home, Self-Care Discharge Diagnosis: Sickle cell crisis Referrals: Jeremías Patterson MD [Primary Care Provider] - 1 Week Discharge Medications: New oxycodone 5 mg tablet 5 mg PO Q8H PRN (Reason: pain) Qty: 6 0RF Continued clonidine HCl 0.1 mg Tablet 0.1 mg PO BEDTIME PRN (Reason: Anxiety) 0RF trazodone 50 mg Tablet 50 mg PO BEDTIME 0RF quetiapine [Seroquel] 200 mg Tablet 200 mg PO TID 0RF Discharge Orders: Discharge Order (Routine); Ordered 09/27/21 Ordered By: Vicky Castañeda Diet: advance to usual diet Activity on Discharge: As tolerated Stand Alone Forms: Patient Portal Discharge page Care Plan Goals: Resolution of symptoms Health Concerns: Sickle cell crisis Plan of Treatment: Follow up with your primary care provider as needed Assessment: See discharge summary
--- NOTE | 2021-09-27 10:48 | MHC.CM.PN ---
nurse high risk case manager note, electronic medical record reviewed along with case discussed with [facility] discharge plan home no services pcp dr benjamin woodward transportation patient to self arrange
--- NOTE | 2021-09-27 11:44 | MHC.CM.PN ---
NURSE [employer] HISTORY TEACHER NOTE ELECTRONIC MEDICAL RECORD REVIEWED ALONG WITH CASE DISCUSSED WITH STAFF NURSE PATIENT TO BE DISCHARGED HOME TODAY DISCHARGE HOME NO SERVICES
== END 2021-09-27 11:15 | disposition home or self-care (01) | DRG 812 ==
LOC: HO.ED 09:30 → HO.EDOVER 11:54 → HO.S3 19:47
PROVIDERS: Internal Medicine; Admitting Provider Nurse Practitioner Acute Care; Emergency Provider Internal Medicine; PCP Pediatrics; Visit Provider Nurse Practitioner Acute Care
DX: D57.00 Hb-SS disease with crisis, unspecified (principal); F64.0 Transsexualism; R50.81 Fever presenting with conditions classified elsewhere; F17.210 Nicotine dependence, cigarettes, uncomplicated; Z71.6 Tobacco abuse counseling; Z20.822 Contact with and (suspected) exposure to COVID-19; Z88.5 Allergy status to narcotic agent; Z79.891 Long term (current) use of opiate analgesic; Z79.899 Other long term (current) drug therapy
CPT/HCPCS: 36415; 71045; 80048; 81001; 85007; 85027; 85045; 87635; 99285; J1170; J2060; J2405

== ENCOUNTER 2021-10-21 20:28 | Emergency (ER) | payer MEDICARE, MEDICAID, SELFPAY ==
[2021-10-21 20:58] VITALS: BP 137/63; PULSE 110; RESP 14; TEMP 36.6; O2SAT 98; BMI 20.9
== END 2021-10-22 01:26 | disposition left against medical advice (07) ==
PROVIDERS: Emergency Provider Emergency Medicine; PCP Pediatrics
DX: E87.1 Hypo-osmolality and hyponatremia (principal)
CPT/HCPCS: 99281; 99282

== ENCOUNTER 2021-10-22 12:56 | Inpatient (IN) | payer MEDICARE, MEDICAID, SELFPAY ==
--- NOTE | ~2021-10-22 | XR_ITS ---
EXAMINATION: XR CHEST CLINICAL INFORMATION: Shortness of breath COMPARISON: September 25, 2021 TECHNIQUE: AP portable view of the chest was obtained. FINDINGS: There is some mild density at the left lung base which may be related to atelectasis or airspace disease of other etiology. No pneumothorax or pleural effusion. Heart normal size. No evidence of pulmonary edema. XR/XR chest 1V IMPRESSION: Question focus of parenchymal disease left lower lung.
[2021-10-22 12:58] VITALS: BP 125/70; PULSE 107; RESP 16; TEMP 36.7; O2SAT 94; BMI 20.9
--- NOTE | 2021-10-22 14:14 | ECG_ITS ---
Test Reason : SICKLE CELL CRISIS Blood Pressure : / mmHG Vent. Rate : 090 BPM Atrial Rate : 090 BPM P-R Int : 160 ms QRS Dur : 106 ms QT Int : 368 ms P-R-T Axes : 030 041 049 degrees QTc Int : 450 ms Normal sinus rhythm Normal ECG When compared with ECG of 02-JUL-2021 03:29, No significant change was found Referred By: Arleth Rebolledo Electronically Signed By:Graham Nguyen
--- NOTE | 2021-10-22 14:26 | ED_ITS ---
HPI - General Adult General Chief complaint: General Medical Stated complaint: sickle cell crisis Time Seen by Provider: 10/22/21 14:13 Source: patient Mode of arrival: ambulatory Limitations: no limitations History of Present Illness HPI narrative: This is a 26-year-old male past medical history sickle cell disease, anemia AVN of bone, multiple history is of sickle cell crisis ease into the hospital presenting to the emergency department with a chief complaint of body aches and pains. Patient tells me that this has been going on for 2 days. He tells me he is experiencing lower back pain as well as bilateral knee pain, he tells me the pain is severe. He also reports some shortness of breath both at rest and on exertion. He tells me that this feels like his typical sickle cell crisis. Patient denies any precipitating factors such as drugs, alcohol and tobacco. He denies chest pain, fevers, chills, abdominal pain, nausea, vomiting, headache, dizziness, vision changes. Denies any trauma. Onset (ago): day(s) (2) Relieving factors: none Exacerbating factors: none Associated symptoms: denies other symptoms Treatments prior to arrival: none Related Data Home Medications Medication Instructions Recorded Confirmed clonidine HCl 0.1 mg tablet 0.1 mg PO BEDTIME 06/16/20 10/22/21 quetiapine 200 mg tablet (Seroquel) 200 mg PO TID 06/16/20 10/22/21 trazodone 50 mg tablet 50 mg PO BEDTIME 06/16/20 10/22/21 hydromorphone 2 mg tablet 2 - 4 mg PO Q3-6H PRN 10/22/21 10/22/21 Allergies Allergy/AdvReac Type Severity Reaction Status Date / Time morphine AdvReac Agitated Verified 10/22/21 12:58 oxycodone AdvReac Agitated Verified 10/22/21 12:58 Review of Systems Review of Systems: Constitutional : No Weight loss, No Fever, No Chills, No Fatigue, + Malaise, + myalgias ENT/Mouth : No sore throat, No Rhinorrhea Eyes: No Eye Pain, No Swelling, No Redness Cardiovascular : No Chest Pain, + SOB, + Dyspnea on Exertion, No Orthopnea, No Edema, No Palpitations Respiratory : No Cough, No Sputum, No Wheezing Gastrointestinal : No Nausea, No Vomiting, No Diarrhea, No Constipation, No abdo lan Pain, No Hematochezia, No Melena Genitourinary : No Dysuria, No Urinary Frequency, No Hematuria, Musculoskeletal : No joint pain, No Myalgias, No Joint Swelling Skin : No Skin Lesions, No rash Neuro : No Weakness, No Numbness, No Dizziness, No Headache Psych : No Anxiety/Panic, No Depression All other systems reviewed and are negative Yes all other systems are reviewed and are negative [facility] Past Medical History Attestation statement: The following information was validated with the patient. Source: old records reviewed and nursing notes reviewed Medical History (Updated 10/22/21 @ 15:14 by EZEQUIEL Avendano) Avascular bone necrosis COVID-19 Sickle cell anemia with crisis Surgical History H/O splenectomy Family History Family History Other Sickle cell anemia Social History Social History Household Members: Spouse Household Members Other:: fiancee Housing: Apartment Do you presently have visiting nurse or other home services: No Unable to assess alcohol history related to: Refusing to respond Alcohol intake: never Patient Tobacco Use Status: Never used Tobacco Tobacco use type: Cigarette Cigarettes Per Day: 2 Years Smoked: 4 e-Cigarette/Vaping Use: Never Used Second Hand Smoke Exposure: Yes Substance Use Type: Marijuana Advance Directives: No Advance Directives Information Provided: No Advance Directives Date on File: 06/13/21 service: No Current occupational status: unemployed and disabled Physical Exam ED Vital Signs: Vital Signs - 24 hr 10/22/21 12:58 Temperature 98.1 F Pulse Rate 107 H Respiratory Rate 16 Blood Pressure 125/70 Pulse Oximetry 94 BMI result Body Mass Index 20.9 Vital signs stable. I will place patient on 2 L of nasal cannula. Appearance: Alert.? Oriented X3.? No acute distress.? Head: Normocephalic, atraumatic, no step-offs or deformities Eyes: Pupils equal, round and reactive to light.?+ scleral icterus noted bilaterally ENT: Pharynx normal.? Neck: Normal inspection.? Neck supple.? CVS: Normal heart rate and rhythm.? Pulses normal.? Respiratory: No respiratory distress.? Breath sounds normal.? Abdomen: Soft and nontender.? Skin: Skin warm and dry.? Normal skin color.? Normal skin turgor.?+palor Extremities: No lower extremity edema.? No calf ttp. 5/5 strength to bilateral upper and lower extremities Back: No midline tenderness, no C-spine tenderness, full range of motion, no CVA tenderness bilaterally Neuro: Oriented X 3.? No motor deficit.? No sensory deficit. CN 2-12 intact Course Reevaluation(s) Reevaluation #1: Patient's platelet count elevated, absolute retic elevated, % retic elevated immature reticular fraction elevated as well. Consistent with sickle cell crisis. Patient's total bilirubin also elevated 4.2 consistent with a hemolytic process. Patient given dilauded and currently being hydrated. Time: 15:07 Reevaluation #2: Will admit for acute sickle cell crisis to Time: 15:36 Medical Decision Making [facility] Narrative Medical decision making narrative: 1410 27 yo m presents w/ body aches and pains worse to lower back and b/l knees. HX of sickle cell disease. Fells like his typical crisis PE significant for icteric sclera bilaterally. Lungs clear. Regular rate and rhythm. Abdomen soft nontender nondistended. Neuro exam nonfocal. No increased work of breathing, no signs of respiratory distress. Vital signs are stable however patient will be placed on 2 L of O2 via nasal cannula. Plan at this time is to obtain labs, imaging. Medical Records Medical records reviewed: Yes I reviewed the patient's medical records. Lab Data Lab results reviewed: Yes I reviewed the patient's lab results. Result diagrams: 10/22/21 14:34 10/22/21 14:34 Labs: Lab Results 10/22/21 10/22/21 10/22/21 Range/Units 14:34 14:34 14:34 WBC 12.6 H (4.8-10.8) X10*3/uL RBC 2.70 L (4.60-5.80) X10*6/uL Hgb 8.3 L (14.0-18.0) g/dl Hct 22.8 L (42.0-52.0) % MCV 84.4 (80.0-98.0) fL MCH 30.7 (27.0-33.0) pg MCHC 36.4 H (31.0-36.0) g/dl RDW 22.8 H (11.0-16.0) % Plt Count 572 H D (160-400) X10*3/uL MPV 9.1 L (9.4-12.4) fL Immature Gran % (Auto) Cancelled Neut % (Auto) Cancelled Lymph % (Auto) Cancelled [place] % (Auto) Cancelled Eos % (Auto) Cancelled Baso % (Auto) Cancelled Lymph # (Auto) Cancelled [place] # (Auto) Cancelled Eos # (Auto) Cancelled Baso # (Auto) Cancelled Abs Immat Gran (auto) Cancelled Absolute Neuts (auto) Cancelled Absolute Nucleated RBC 0.160 H (0.0-0.012) X10*3/uL Nucleated RBC % (auto) 1.3 H (0.0-0.2) /100WBC Neutrophils % (Manual) 57 (45-73) % Band Neutrophils % 0 L (3-5) % Lymphocytes % (Manual) 27 (20-40) % Monocytes % (Manual) 8 (2-11) % Eosinophils % (Manual) 5 H (0-4) % Basophils % (Manual) 3 H (0-2) % Abs Neuts (Manual) 7.2 (2.0-8.3) X10*3/uL Lymphocytes # (Manual) 3.4 (1.2-4.9) X10*3/uL Monocytes # (Manual) 1.0 (0.1-1.2) X10*3/uL Eosinophils # (Manual) 0.6 H (0.0-0.4) X10*3/uL Basophils # (Manual) 0.4 H (0.0-0.2) X10*3/uL Nucleated RBCs 5 H (0-0) /100WBC Platelet Estimate INCREASED (NORMAL) Plt Morphology Comment NORMAL RBC Morphology NOTED Polychromasia 2+ (3-5) /OIF Macrocytosis 1+ (5-14) /OIF Sickle Cells 3+ (>5) /OIF Target Cells 2+ (15-30) /OIF [place] Bodies PRESENT Absolute Retic 0.258 H (0.026-0.095) X10*6/uL Percent Retic 9.6 H (0.5-1.8) % Immature Retic Fraction 29.4 H (2.3-13.4) % Retic Hgb Equivalent 34.6 (30.0-35.0) pg Sodium 137 (135-145) mmol/L Potassium 4.4 (3.3-5.1) mmol/L Chloride 110 H (96-108) mmol/L Carbon Dioxide 15 L (22-29) mmol/L Anion Gap 16 (12-20) BUN 6 L (9-16) mg/dL Creatinine 0.75 (0.5-1.4) mg/dL Estim Creat Clear Calc 137.1 Estimated GFR > 60 Random Glucose 103 (60-115) mg/dL Calcium 9.4 (8.4-10.2) mg/dL Magnesium 2.0 (1.6-2.6) mg/dL Total Bilirubin 4.2 H (0.0-1.0) mg/dL AST 44 H (5-37) U/L ALT 13 (0-40) U/L Alkaline Phosphatase 92 (39-117) U/L Total Creatine Kinase 21 L (38-174) U/L Total Protein 8.1 H (6.5-8.0) g/dL Albumin 4.1 (3.5-5.0) g/dL COVID-19 (MICHAEL) Negative (Negative) COVID-19 Clin Com See Note ECG Data Attestation: I personally reviewed and interpreted this ECG as follows: Prior ECG tracings: available for review Interpretation: Ventricular rate of 90, CA normal, QRS normal, QT/QTC normal. EKG shows normal sinus rhythm, no ST elevations or inversions concerning for ischemia. No acute changes when compared to EKG from June 2021. Critical Care Time Critical Care Time Critical Care Time: No Discharge Plan Discharge Clinical Impression: Sickle cell crisis Patient Disposition: Admitted As Inpatient
[2021-10-22 14:53] LABS: Hematocrit 22.8 % (42.0-52.0); Hemoglobin 8.3 g/dl (14.0-18.0); Immature Retic Fraction 29.4 % (2.3-13.4); Mean Corpuscular HGB Conc 36.4 g/dl (31.0-36.0); Mean Corpuscular Hemoglobin 30.7 pg (27.0-33.0); Mean Corpuscular Volume 84.4 fL (80.0-98.0); Mean Platelet Volume 9.1 fL (9.4-12.4); Platelet Count 572 X10*3/uL (160-400); Red Cell Distribution Width 22.8 % (11.0-16.0); Retic HGB Equivalent 34.6 pg (30.0-35.0); Reticulocyte Percent 9.6 % (0.5-1.8); Reticulocytes Absolute 0.258 X10*6/uL (0.026-0.095)
[2021-10-22 14:54] LABS: NRBC Pct Auto 1.3 /100WBC (0.0-0.2); WBC ABN SCTR FOR CBC 1
[2021-10-22 14:56] LABS: Alanine Aminotransferase 13 U/L (0-40); Albumin Level 4.1 g/dL (3.5-5.0); Alkaline Phosphatase 92 U/L (39-117); Anion Gap 16 (12-20); Aspartate Amino Transferase 44 U/L (5-37); Bilirubin Total 4.2 mg/dL (0.0-1.0); Blood Urea Nitrogen 6 mg/dL (9-16); Calcium 9.4 mg/dL (8.4-10.2); Carbon Dioxide 15 mmol/L (22-29); Chloride 110 mmol/L (96-108); Creatinine Clr Calc Pharmacy 137.1; Estimated Glomerular Filt Rate > 60; Glucose Random 103 mg/dL (60-115); Potassium 4.4 mmol/L (3.3-5.1); Sodium 137 mmol/L (135-145); Total Protein 8.1 g/dL (6.5-8.0)
[2021-10-22 15:01] LABS: COVID-19 Test Negative (Negative); IDNOW Serial# 16C4AD1C
[2021-10-22 15:12] LABS: Band Neutrophils Percent 0 % (3-5); Basophils Percent Manual 3 % (0-2); Eosinophils Percent Manual 5 % (0-4); Lymphocytes Percent Manual 27 % (20-40); Macrocytosis 1+ (5-14) /OIF; Monocytes Percent Manual 8 % (2-11); Neutrophils Percent Manual 57 % (45-73); Nucleated Red Blood Cells 5 /100WBC (0-0); RBC Morphology NOTED; Sickle Cells 3+ (>5) /OIF; Target Cells 2+ (15-30) /OIF
[2021-10-22 15:13] LABS: Howell Jolly Bodies PRESENT; Platelet Estimate INCREASED (NORMAL); Platelet Morphology Comment NORMAL; Polychromasia 2+ (3-5) /OIF
[2021-10-22 15:14] LABS: Basophils Abs Manual 0.4 X10*3/uL (0.0-0.2); Eosinophils Absolute Manual 0.6 X10*3/uL (0.0-0.4); Lymphocytes Absolute Manual 3.4 X10*3/uL (1.2-4.9); Neutrophils Absolute Manual 7.2 X10*3/uL (2.0-8.3); White Blood Count 12.6 X10*3/uL (4.8-10.8)
[2021-10-22] MEDS: ondansetron HCL 4 MG/2 ML VIAL IVPUSH (15:18)
[2021-10-22] MEDS: HYDROmorphone HCl 1 MG/ML SYRINGE IVPUSH ×3 (15:18→21:21)
[2021-10-22] MEDS: 0.9 % Sodium Chloride 1,000 ML 999 ML IV ×2 (15:19→16:45)
--- NOTE | 2021-10-22 15:22 | PHA.MEDREC ---
Pharmacy Consult ? Medication Reconciliation Pharmacy has completed the medication reconciliation. Patients last pain med fill was 30 tabs for a 4 day supply on 09/27. He does not know how long he has been without meds Thanks Bill
--- NOTE | 2021-10-22 15:33 | PM.IMHP ---
History of Present Illness Date of Service: 10/22/21 Chief Complaint: generalized pain 26 M to F presented with 1 day of generalized body and joint pain. similar to previous sickle cell crises, associated with sob, no chest pain or fever. not relieved by home opiates. mostly in knees, legs, back. 04/17. patiently currently not on hydrea due to poor tolerance. disease not well controlled, has multiple admissions every year. in ED saturating 94% on RA, EKG unremarkable, hgb 8.3, tbili 4.2. Review of Systems Review of Systems: Constitutional: Denies fever, denies Chills Eyes: denies blurry vision ENT: denies sore throat CVS: denies chest pain Respiratory: dyspnea GI: no abdominal pain : denies dysuria MSK: diffuse pain Skin: denies rash Neuro: denies specific motor weakness Psych: denies suicidal ideation Endocrine: denies heat/cold intolerance Hematologic: denies easy bleeding Allergy: denies hives [facility] Medical History Avascular bone necrosis COVID-19 Sickle cell anemia with crisis Family History Other Sickle cell anemia Surgical History H/O splenectomy Social History Household Members: Spouse Household Members Other:: fiancee Housing: Apartment Do you presently have visiting nurse or other home services: No Unable to assess alcohol history related to: Refusing to respond Alcohol intake: never Patient Tobacco Use Status: Never used Tobacco Tobacco use type: Cigarette Cigarettes Per Day: 2 Years Smoked: 4 e-Cigarette/Vaping Use: Never Used Second Hand Smoke Exposure: Yes Substance Use Type: Marijuana Advance Directives: No Advance Directives Information Provided: No Advance Directives Date on File: 06/13/21 service: No Current occupational status: unemployed and disabled Meds Allergies Allergy/AdvReac Type Severity Reaction Status Date / Time morphine AdvReac Agitated Verified 10/22/21 12:58 oxycodone AdvReac Agitated Verified 10/22/21 12:58 Active Medications: Current Medications Clonidine HCl (Clonidine Hcl 0.1 Mg Tablet) 0.1 mg PO BEDTIME [facility]; Protocol Hydromorphone HCl (Hydromorphone Hcl 1 Mg/Ml Syringe) 1 mg IVPUSH Q3H PRN; Protocol PRN Reason: moderate pain Sodium Chloride (Ns) 1,000 mls @ 999 mls/hr IV .Q1H1M SUJIT Stop: 10/22/21 16:15 Last Admin: 10/22/21 15:19 Dose: 999 mls/hr Documented by: Sodium Chloride (Ns) 1,000 mls @ 999 mls/hr IV .Q1H1M SUJIT Stop: 10/22/21 16:15 Lactated Ringer's (Lr) 1,000 mls @ 80 mls/hr IVCONT .[id number] [facility] Pharmacy Consult (Consult Rx Perform Med Rec) 1 each MISCELLANE ONCE PRN PRN Reason: Consult order Quetiapine Fumarate (Quetiapine Fumarate 200 Mg Tablet) 200 mg PO TID [facility] Trazodone HCl (Trazodone Hcl 50 Mg Tablet) 50 mg PO BEDTIME [facility] Home Medications Medication Instructions Recorded Confirmed Last Taken Type clonidine HCl 0.1 mg tablet 0.1 mg PO BEDTIME 06/16/20 10/22/21 10/21/21 History quetiapine 200 mg tablet (Seroquel) 200 mg PO TID 06/16/20 10/22/21 10/21/21 History trazodone 50 mg tablet 50 mg PO BEDTIME 06/16/20 10/22/21 10/21/21 History hydromorphone 2 mg tablet 2 - 4 mg PO Q3-6H PRN 10/22/21 10/22/21 Unknown History Physical Exam Vital Signs and Narrative: Vital Signs: Last Vital Signs Temp 98.1 F 10/22/21 12:58 Pulse 107 H 10/22/21 12:58 Resp 16 10/22/21 12:58 BP 125/70 10/22/21 12:58 Pulse Ox 94 10/22/21 12:58 BMI result Body Mass Index 20.9 General: in pain HEENT: atraumatic Neck: normal to visual inspection CVS: S1, S2, RRR Resp: CTA bilateral Chest: non tender GI: soft, non tender, non distended : no CVA tenderness Skin: no rashes Extremities: no edema Neuro: Oriented X3, grossly intact Psych: cooperative Results Labs CBC and Chem 7: 10/22/21 14:34 10/22/21 14:34 Labs: Laboratory Results - last 24 hr 10/22/21 10/22/21 10/22/21 14:34 14:34 14:34 MCV 84.4 MCH 30.7 MCHC 36.4 H RDW 22.8 H Plt Count 572 H D MPV 9.1 L Immature Gran % (Auto) Cancelled Neut % (Auto) Cancelled Lymph % (Auto) Cancelled [place] % (Auto) Cancelled Eos % (Auto) Cancelled Baso % (Auto) Cancelled Lymph # (Auto) Cancelled [place] # (Auto) Cancelled Eos # (Auto) Cancelled Baso # (Auto) Cancelled Abs Immat Gran (auto) Cancelled Absolute Neuts (auto) Cancelled Absolute Nucleated RBC 0.160 H Nucleated RBC % (auto) 1.3 H Neutrophils % (Manual) 57 Band Neutrophils % 0 L Lymphocytes % (Manual) 27 Monocytes % (Manual) 8 Eosinophils % (Manual) 5 H Basophils % (Manual) 3 H Abs Neuts (Manual) 7.2 Lymphocytes # (Manual) 3.4 Monocytes # (Manual) 1.0 Eosinophils # (Manual) 0.6 H Basophils # (Manual) 0.4 H Nucleated RBCs 5 H Platelet Estimate INCREASED Plt Morphology Comment NORMAL RBC Morphology NOTED Polychromasia 2+ (3-5) Macrocytosis 1+ (5-14) Sickle Cells 3+ (>5) Target Cells 2+ (15-30) [place] Bodies PRESENT Absolute Retic 0.258 H Percent Retic 9.6 H Immature Retic Fraction 29.4 H Retic Hgb Equivalent 34.6 Anion Gap 16 Estim Creat Clear Calc 137.1 Estimated GFR > 60 Random Glucose 103 Calcium 9.4 Magnesium 2.0 Total Bilirubin 4.2 H AST 44 H ALT 13 Alkaline Phosphatase 92 Total Creatine Kinase 21 L Total Protein 8.1 H Albumin 4.1 COVID-19 (MICHAEL) Negative COVID-19 Clin Com See Note Assessment and Plan (1) Sickle cell crisis: Status: Acute Plan 26 M to F presented with sickle cell crisis sickle cell anemia with acute pain crisis hydration, o2, iv dilaudid, monitor cbc mood disorder seroquel, clonidine, trazodone vte prophylaxis - lovenox full code Patient with sickle cell anemia and acute pain crisis requiring IV opiates, therefore, expected to require at least 2 midnights. Quality Stroke Does the patient have a stroke diagnosis?: No VTE Prior VTE?: No VTE Risk Level:: Medical - moderate - high VTE Device Contraindication: Treatment Not Indicated VTE Drug Contraindication: N/A - Med Ordered
[2021-10-22] MEDS: diphenhydrAMINE HCL 50 MG/ML VIAL 25 MG IVPUSH (16:44)
[2021-10-22] MEDS: Enoxaparin Sodium 40 MG/0.4 ML SYRINGE SUBCUT (16:45)
[2021-10-22 17:35] VITALS: BP 122/66; PULSE 90; RESP 16; TEMP 36.5; O2SAT 100
[2021-10-22] MEDS: Lactated Ringers 1,000 ML 80 ML IVCONT (18:18)
[2021-10-22 19:50] VITALS: BP 140/74; PULSE 89; RESP 20; TEMP 36.8; O2SAT 100
[2021-10-22] MEDS: QUEtiapine Fumarate 200 MG TABLET PO (20:26)
[2021-10-22] MEDS: cloNIDine HCL 0.1 MG TABLET PO (20:26)
[2021-10-22] MEDS: traZODone HCL 50 MG TABLET PO (20:26)
[2021-10-22 23:03] VITALS: BP 123/58; PULSE 80; RESP 18; TEMP 36.9; O2SAT 94
[2021-10-23] MEDS: HYDROmorphone HCl 1 MG/ML SYRINGE IVPUSH ×4 (00:35→12:41)
[2021-10-23 03:29] VITALS: BP 114/59; PULSE 78; RESP 16; TEMP 37.3; O2SAT 95
[2021-10-23] MEDS: Acetaminophen 325 MG TABLET 650 MG PO ×2 (03:31→09:15)
[2021-10-23] MEDS: Lactated Ringers 1,000 ML 80 ML IVCONT (05:23)
[2021-10-23 08:00] VITALS: BP 137/68; PULSE 78; RESP 17; TEMP 36.6; O2SAT 96
[2021-10-23] MEDS: QUEtiapine Fumarate 200 MG TABLET PO (09:12)
--- NOTE | 2021-10-23 09:43 | HO.PM.IMPN ---
Subjective Subjective Date of Service: 10/23/21 Interval History: cc: genrealized pain interval history: some relief with iv opiates Cardiovascular Cardiovascular: Reports no additional cardiovascular complaints Respiratory Respiratory: Reports no additional respiratory complaints Physical Exam Vital Signs: Vital Signs: Last Vital Signs Temp 97.9 F 10/23/21 08:00 Pulse 78 10/23/21 08:00 Resp 17 10/23/21 08:00 BP 137/68 10/23/21 08:00 Pulse Ox 96 10/23/21 08:00 BMI result Body Mass Index 20.9 General: AO X 3, no acute distress Resp: CTA bilateral, no accessory muscles used CVS: S1,S2,RRR GI: soft, non tender, non distended Neuro: motor grossly intact, alert Psych: appropriate affect, appropriate insight Objective Data Active Medications Acetaminophen (Acetaminophen 325 Mg Tablet) 650 mg PO Q6H PRN PRN Reason: Pain, Mild (Pain Scale 1-3) Last Admin: 10/23/21 09:15 Dose: 650 mg Documented by: MARY JO Clonidine HCl (Clonidine Hcl 0.1 Mg Tablet) 0.1 mg PO BEDTIME SUJIT; Protocol Last Admin: 10/22/21 20:26 Dose: 0.1 mg Documented by: NATASHA Diphenhydramine HCl (Diphenhydramine Hcl 50 Mg/Ml Vial) 25 mg IVPUSH Q4H PRN PRN Reason: pruritis Last Admin: 10/22/21 16:44 Dose: 25 mg Documented by: NELLY Enoxaparin Sodium (Enoxaparin Sodium 40 Mg/0.4 Ml Syringe) 40 mg SUBCUT Q24H [facility] Last Admin: 10/22/21 16:45 Dose: 40 mg Documented by: NELLY Hydromorphone HCl (Hydromorphone Hcl 1 Mg/Ml Syringe) 1 mg IVPUSH Q3H PRN; Protocol PRN Reason: moderate pain Last Admin: 10/23/21 09:12 Dose: 1 mg Documented by: MARY JO Lactated Ringer's (Lr) 1,000 mls @ 80 mls/hr IVCONT .[id number] [facility] Last Admin: 10/23/21 05:23 Dose: 80 mls/hr Documented by: NATASHA Pharmacy Consult (Consult Rx Perform Med Rec) 1 each MISCELLANE ONCE PRN PRN Reason: Consult order Quetiapine Fumarate (Quetiapine Fumarate 200 Mg Tablet) 200 mg PO TID [facility] Last Admin: 10/23/21 09:12 Dose: 200 mg Documented by: MARY JO Sodium Chloride (0.9 % Sodium Chloride Flush 3 Ml Syringe) 3 ml IVFLUSH QSHIFT [facility] Last Admin: 10/23/21 09:12 Dose: Not Given Documented by: MARY JO Non-Admin Reason: IV Running Trazodone HCl (Trazodone Hcl 50 Mg Tablet) 50 mg PO BEDTIME [facility] Last Admin: 10/22/21 20:26 Dose: 50 mg Documented by: NATASHA Labs CBC & Chem 7: 10/22/21 14:34 10/22/21 14:34 Labs: Laboratory Results - last 24 hr 10/22/21 10/22/21 10/22/21 14:34 14:34 14:34 MCV 84.4 MCH 30.7 MCHC 36.4 H RDW 22.8 H Plt Count 572 H D MPV 9.1 L Immature Gran % (Auto) Cancelled Neut % (Auto) Cancelled Lymph % (Auto) Cancelled [place] % (Auto) Cancelled Eos % (Auto) Cancelled Baso % (Auto) Cancelled Lymph # (Auto) Cancelled [place] # (Auto) Cancelled Eos # (Auto) Cancelled Baso # (Auto) Cancelled Abs Immat Gran (auto) Cancelled Absolute Neuts (auto) Cancelled Absolute Nucleated RBC 0.160 H Nucleated RBC % (auto) 1.3 H Neutrophils % (Manual) 57 Band Neutrophils % 0 L Lymphocytes % (Manual) 27 Monocytes % (Manual) 8 Eosinophils % (Manual) 5 H Basophils % (Manual) 3 H Abs Neuts (Manual) 7.2 Lymphocytes # (Manual) 3.4 Monocytes # (Manual) 1.0 Eosinophils # (Manual) 0.6 H Basophils # (Manual) 0.4 H Nucleated RBCs 5 H Platelet Estimate INCREASED Plt Morphology Comment NORMAL RBC Morphology NOTED Polychromasia 2+ (3-5) Macrocytosis 1+ (5-14) Sickle Cells 3+ (>5) Target Cells 2+ (15-30) [place] Bodies PRESENT Absolute Retic 0.258 H Percent Retic 9.6 H Immature Retic Fraction 29.4 H Retic Hgb Equivalent 34.6 Anion Gap 16 Estim Creat Clear Calc 137.1 Estimated GFR > 60 Random Glucose 103 Calcium 9.4 Magnesium 2.0 Total Bilirubin 4.2 H AST 44 H ALT 13 Alkaline Phosphatase 92 Total Creatine Kinase 21 L Total Protein 8.1 H Albumin 4.1 COVID-19 (MICHAEL) Negative COVID-19 Clin Com See Note Assessment and Plan (1) Sickle cell crisis: Status: Acute Plan 26 M to F presented with sickle cell crisis sickle cell anemia with acute pain crisis still with pain requiring IV opiates continue hydration, o2, iv dilaudid, monitor cbc mood disorder seroquel, clonidine, trazodone vte prophylaxis - lovenox full code reason for continued hospitalization: pain requiring iv opiates Quality Stroke Does the patient have a stroke diagnosis?: No VTE Prior VTE?: No VTE Risk Level:: Medical - moderate - high VTE Device Contraindication: Treatment Not Indicated VTE Drug Contraindication: N/A - Med Ordered
[2021-10-23 10:00] LABS: Hemoglobin 7.3 g/dl (14.0-18.0); Mean Corpuscular HGB Conc 36.3 g/dl (31.0-36.0); Mean Corpuscular Volume 82.7 fL (80.0-98.0); Mean Platelet Volume 9.5 fL (9.4-12.4); NRBC Pct Auto 1.3 /100WBC (0.0-0.2); Platelet Count 479 X10*3/uL (160-400); Red Blood Count 2.43 X10*6/uL (4.60-5.80); Red Cell Distribution Width 22.1 % (11.0-16.0); White Blood Count 11.1 X10*3/uL (4.8-10.8)
[2021-10-23 10:05] LABS: Hematocrit 20.1 % (42.0-52.0)
[2021-10-23 10:07] LABS: Anion Gap 13 (12-20); Blood Urea Nitrogen 5 mg/dL (9-16); Calcium 9.4 mg/dL (8.4-10.2); Carbon Dioxide 20 mmol/L (22-29); Chloride 107 mmol/L (96-108); Creatinine Clr Calc Pharmacy 135.3; Estimated Glomerular Filt Rate > 60; Glucose Fasting 91 mg/dL (60-99); Potassium 4.5 mmol/L (3.3-5.1); Sodium 135 mmol/L (135-145)
--- NOTE | 2021-10-23 11:10 | MHC.CM.PN ---
PT LIVES WITH S/O AND IS INDEPENDENT WITH ALL CARE AND MOBILITY PT HAS NO SERVICES AND NO DME IN THE HOME PCP IS MEREDITH MUNGUIA IN [employer] [facility] [employer] HCP IS ON FILE IMM DELIVERED PT WILL DC HOME TODAY WITH NO SERVICES PT TO ARRANGE TRANSPORT
--- NOTE | 2021-10-23 11:42 | P.DS_ITS ---
DS: Providers Provider Date of Service: 10/23/21 Date of admission: 10/22/21 15:32 Primary care physician: Jeremías Patterson MD DS: Diagnosis Discharge Diagnosis (1) Sickle cell crisis: Status: Acute DS: Summary Hospital Course Hospital Course: from initial hpi: Chief Complaint: generalized pain 26 M to F presented with 1 day of generalized body and joint pain. similar to previous sickle cell crises, associated with sob, no chest pain or fever. not relieved by home opiates. mostly in knees, legs, back. 04/17. patiently currently not on hydrea due to poor tolerance. disease not well controlled, has multiple admissions every year. in ED saturating 94% on RA, EKG unremarkable, hgb 8.3, tbili 4.2. hospital course: patient was admitted with sickle cell anemia with acute pain crisis. She was given IV opiates, hydration, oxygen. Pain improved and patient felt that she was ready for discharge. Patient will follow up with PCP. She will continue on Seroquel, clonidine, trazodone for mood disorder. Time Spent with Patient Time attestation: Total time spent providing and/or coordinating discharge services: Discharge coordination time: Greater than 30 minutes Quality: Safe Use of Opioids Does Pt have an Active Cancer Diagnosis on the Problem List?: No Quality: Stroke Does the patient have a stroke diagnosis?: No Physical Exam Vital Signs: Vital Signs: Last Vital Signs Temp 97.9 F 10/23/21 08:00 Pulse 78 10/23/21 08:00 Resp 17 10/23/21 08:00 BP 137/68 10/23/21 08:00 Pulse Ox 96 10/23/21 08:00 BMI result Body Mass Index 20.9 General: AO X 3, no acute distress Resp: CTA bilateral, no accessory muscles used CVS: S1,S2,RRR GI: soft, non tender, non distended Neuro: motor grossly intact, alert Psych: appropriate affect, appropriate insight DS: Data Data Completed and Pending Completed studies during hospitalization [Text1]: Procedures Transfusion of Nonautologous Red Blood Cells into Peripheral Vein, Percutaneous Approach (07/01/21) Labs on day of discharge: Laboratory Results - last 24 hr 10/22/21 10/22/21 10/22/21 14:34 14:34 14:34 WBC 12.6 H RBC 2.70 L Hgb 8.3 L Hct 22.8 L MCV 84.4 MCH 30.7 MCHC 36.4 H RDW 22.8 H Plt Count 572 H D MPV 9.1 L Immature Gran % (Auto) Cancelled Neut % (Auto) Cancelled Lymph % (Auto) Cancelled [place] % (Auto) Cancelled Eos % (Auto) Cancelled Baso % (Auto) Cancelled Lymph # (Auto) Cancelled [place] # (Auto) Cancelled Eos # (Auto) Cancelled Baso # (Auto) Cancelled Abs Immat Gran (auto) Cancelled Absolute Neuts (auto) Cancelled Absolute Nucleated RBC 0.160 H Nucleated RBC % (auto) 1.3 H Neutrophils % (Manual) 57 Band Neutrophils % 0 L Lymphocytes % (Manual) 27 Monocytes % (Manual) 8 Eosinophils % (Manual) 5 H Basophils % (Manual) 3 H Abs Neuts (Manual) 7.2 Lymphocytes # (Manual) 3.4 Monocytes # (Manual) 1.0 Eosinophils # (Manual) 0.6 H Basophils # (Manual) 0.4 H Nucleated RBCs 5 H Platelet Estimate INCREASED Plt Morphology Comment NORMAL RBC Morphology NOTED Polychromasia 2+ (3-5) Macrocytosis 1+ (5-14) Sickle Cells 3+ (>5) Target Cells 2+ (15-30) [place] Bodies PRESENT Absolute Retic 0.258 H Percent Retic 9.6 H Immature Retic Fraction 29.4 H Retic Hgb Equivalent 34.6 Sodium 137 Potassium 4.4 Chloride 110 H Carbon Dioxide 15 L Anion Gap 16 BUN 6 L Creatinine 0.75 Estim Creat Clear Calc 137.1 Estimated GFR > 60 Random Glucose 103 Fasting Glucose Calcium 9.4 Magnesium 2.0 Total Bilirubin 4.2 H AST 44 H ALT 13 Alkaline Phosphatase 92 Total Creatine Kinase 21 L Total Protein 8.1 H Albumin 4.1 COVID-19 (MICHAEL) Negative COVID-19 Clin Com See Note 10/23/21 10/23/21 09:27 09:27 WBC 11.1 H RBC 2.43 L Hgb 7.3 L Hct 20.1 L* MCV 82.7 MCH 30.0 MCHC 36.3 H RDW 22.1 H Plt Count 479 H MPV 9.5 Immature Gran % (Auto) Neut % (Auto) Lymph % (Auto) [place] % (Auto) Eos % (Auto) Baso % (Auto) Lymph # (Auto) [place] # (Auto) Eos # (Auto) Baso # (Auto) Abs Immat Gran (auto) Absolute Neuts (auto) Absolute Nucleated RBC 0.140 H Nucleated RBC % (auto) 1.3 H Neutrophils % (Manual) Band Neutrophils % Lymphocytes % (Manual) Monocytes % (Manual) Eosinophils % (Manual) Basophils % (Manual) Abs Neuts (Manual) Lymphocytes # (Manual) Monocytes # (Manual) Eosinophils # (Manual) Basophils # (Manual) Nucleated RBCs Platelet Estimate Plt Morphology Comment RBC Morphology Polychromasia Macrocytosis Sickle Cells Target Cells [place] Bodies Absolute Retic Percent Retic Immature Retic Fraction Retic Hgb Equivalent Sodium 135 Potassium 4.5 Chloride 107 Carbon Dioxide 20 L Anion Gap 13 BUN 5 L Creatinine 0.76 Estim Creat Clear Calc 135.3 Estimated GFR > 60 Random Glucose Fasting Glucose 91 Calcium 9.4 Magnesium Total Bilirubin AST ALT Alkaline Phosphatase Total Creatine Kinase Total Protein Albumin COVID-19 (MICHAEL) COVID-19 [facility] Discharge Plan Discharge Patient Disposition: Home, Self-Care Discharge Diagnosis: sickl cell crisis Referrals: Jeremías Patterson MD [Primary Care Provider] - 1 Week Discharge Medications: Continued clonidine HCl 0.1 mg Tablet 0.1 mg PO BEDTIME 0RF trazodone 50 mg Tablet 50 mg PO BEDTIME 0RF quetiapine [Seroquel] 200 mg Tablet 200 mg PO TID 0RF hydromorphone 2 mg tablet 2 - 4 mg PO Q3-6H PRN (Reason: Pain) 0RF zolpidem [Ambien] 5 mg Tablet 5 mg BEDTIME PRN (Reason: Insomnia) 0RF Discharge Orders: Discharge Order (Routine); Ordered 10/23/21 Ordered By: Dennys Ross Diet: advance to usual diet Activity on Discharge: As tolerated Stand Alone Forms: Patient Portal Discharge page Care Plan Goals: manage SSA Health Concerns: SSA Plan of Treatment: pain control, prevent crises Assessment: see above
== END 2021-10-23 13:35 | disposition home or self-care (01) | DRG 812 ==
LOC: HO.ED 15:45 → HO.EDOVER 15:57 → HO.S3 16:18
PROVIDERS: Physician Assistant; Admitting Provider Internal Medicine; Emergency Provider Emergency Medicine; PCP Pediatrics; Visit Provider Internal Medicine
DX: D57.00 Hb-SS disease with crisis, unspecified (principal); F17.210 Nicotine dependence, cigarettes, uncomplicated; Z71.6 Tobacco abuse counseling; Z20.822 Contact with and (suspected) exposure to COVID-19; Z88.5 Allergy status to narcotic agent; Z79.891 Long term (current) use of opiate analgesic; Z79.899 Other long term (current) drug therapy
CPT/HCPCS: 36415; 71045; 80048; 80053; 82550; 83735; 85007; 85027; 85045; 87635; 93005; 96361; 96374; 96375; 99281; 99282; 99285; J1170; J1200; J1650; J2405

== ENCOUNTER 2021-10-28 07:16 | Emergency (ER) | payer MEDICARE, MEDICAID, SELFPAY ==
--- NOTE | ~2021-10-28 | XR_ITS ---
EXAMINATION: XR CHEST CLINICAL INFORMATION: Rib pain. Sickle cell. COMPARISON: Chest done on 10/22/2021. TECHNIQUE: 2 views of the chest were obtained. FINDINGS: No significant abnormality is noted involving the heart, lungs, mediastinum, bony thorax or soft tissues. No significant change. Specifically, no radiographic evidence of rib infarction present. XR/XR chest 2V IMPRESSION: Unremarkable examination.
[2021-10-28 07:19] VITALS: BP 137/78; PULSE 104; RESP 16; TEMP 36.9; O2SAT 94; BMI 20.9
[2021-10-28 08:21] VITALS: BP 136/64; PULSE 84; RESP 16; TEMP 37.1; O2SAT 93
--- NOTE | 2021-10-28 08:27 | ED_ITS ---
HPI - General Adult General Chief complaint: General Medical Stated complaint: Sickle cell crisis Time Seen by Provider: 10/28/21 08:17 History of Present Illness HPI narrative: 26-year-old male past medical history sickle cell disease, anemia AVN of bone, multiple history is of sickle cell crisis Presents today for back pain and bilateral arm pain that started at 04:00. This feels like his usual sickle cell crisis. Pain is severe Patient denies any precipitating factors such as drugs, alcohol and tobacco. ? He denies chest pain, fevers, chills, abdominal pain, nausea, vomiting, headache, dizziness, vision changes.? Denies any trauma. patient sees [facility] for management of his sickle cell crisis, he was seen 1 month ago. Boyfriend states during these crises patient gets yellow eyes, and this has been going on for 1 year. [facility] is aware of patient's scleral icterus per patient Related Data Home Medications Medication Instructions Recorded Confirmed clonidine HCl 0.1 mg tablet 0.1 mg PO BEDTIME 06/16/20 10/22/21 quetiapine 200 mg tablet (Seroquel) 200 mg PO TID 06/16/20 10/22/21 trazodone 50 mg tablet 50 mg PO BEDTIME 06/16/20 10/22/21 hydromorphone 2 mg tablet 2 - 4 mg PO Q3-6H PRN 10/22/21 10/22/21 zolpidem 5 mg tablet (Ambien) 5 mg BEDTIME PRN 10/22/21 10/22/21 Allergies Allergy/AdvReac Type Severity Reaction Status Date / Time morphine AdvReac Agitated Verified 10/22/21 12:58 oxycodone AdvReac Agitated Verified 10/22/21 12:58 Review of Systems Constitutional: Constitutional: Reports body ache(s), Denies chills, Denies fatigue, Denies fever(s), Denies headache(s), Denies malaise and Denies weakness Eyes: Eyes: Denies change in vision and Denies diplopia ENT: Denies vertigo, Denies dizziness, Denies otalgia, Denies headache(s), Denies mouth pain, Denies post nasal drip, Denies sinus pain, Denies sinus pressure, Denies sore throat and Denies throat swelling Cardiovascular: Cardiovascular: Denies chest pain, Denies syncope, Denies leg edema, Denies lightheadedness, Denies Loss of Consciousness, Denies palpitations and Denies dyspnea Respiratory: Respiratory: Denies chest congestion, Denies cough and Denies dyspnea Gastrointestinal: Gastrointestinal: Denies abdominal pain, Denies hematochezia, Denies constipation, Denies diarrhea and Denies vomiting Musculoskeletal: Musculoskeletal: Reports myalgias Integumentary/Breasts: Skin/Breast: Denies rash Neurologic: Denies confusion, Denies vertigo, Denies dizziness, Denies syncope, Denies headache(s) and Denies weakness Psychiatric: Psychiatric: Denies anxiety, Denies confusion and Denies depression Endocrine: Endocrine: Denies fatigue and Denies palpitations Allergic/Immunologic: Allergic/Immunologic: Denies throat swelling PMFSH Past Medical History Medical History Avascular bone necrosis COVID-19 Sickle cell anemia with crisis Surgical History H/O splenectomy Family History Family History Other Sickle cell anemia Social History Social History Household Members: Significant Other Household Members Other:: fiancee Housing: Apartment Do you presently have visiting nurse or other home services: No Unable to assess alcohol history related to: Refusing to respond Alcohol intake: never Patient Tobacco Use Status: Current someday Tobacco user Tobacco use type: Cigarette Cigarettes Per Day: 3 Years Smoked: 4 e-Cigarette/Vaping Use: Never Used Second Hand Smoke Exposure: Yes Substance Use Type: Marijuana and Prescription Drugs Advance Directives: Yes Advance Directives on File: No Advance Directives Date on File: 06/13/21 service: No Current occupational status: unemployed and disabled Physical Exam ED Vital Signs: Vital Signs - 24 hr 10/28/21 07:19 10/28/21 08:21 10/28/21 10:26 Temperature 98.5 F 98.8 F Pulse Rate 104 H 84 97 Respiratory Rate 16 16 Blood Pressure 137/78 136/64 132/73 Pulse Oximetry 94 93 94 10/28/21 13:35 Temperature Pulse Rate 78 Respiratory Rate 16 Blood Pressure 121/58 L Pulse Oximetry 92 BMI result Body Mass Index 20.9 Const General: alert, awake and acute distress mild; No confusion Nutritional Appearance: average body habitus Orientation/consciousness: patient oriented x3 and No confusion Limitations: no limitations HENMT Head: Yes normal to inspection, Yes normocephalic and Yes atraumatic Ears: hearing grossly normal bilaterally General nose exam: Normal external nose present Face and sinus: Yes normal facial exam Mouth: mucous membranes dry Throat: Yes posterior oropharynx normal Eyes Sclerae: scleral abnormal (icterus) diffuse Pupils: Equal, round and reactive pupils present EOM: EOMs intact bilaterally Neck Neck: Yes normal visual inspection, Yes full ROM, Yes no lymphadenopathy, Yes no meningeal signs, Yes trachea midline and Yes supple Chest Chest palpation & inspection: normal inspection of the chest Resp Effort & Inspection: normal respiratory effort and able to speak in complete sentences Auscultation: clear to auscultation bilaterally, no crackles, no rales, no rhonchi and no wheezes Cardio Rate: regular rate Rhythm: regular rhythm Heart sounds: S1 normal heart sound present and S2 normal heart sound present GI Inspection: Yes normal to inspection Palpation (GI): Soft to palpation, not firm, nontender, no guarding and not rigid Percussion: Yes normal to percussion Auscultation: normal bowel sounds General: Yes no CVA tenderness Back/Spine/Pelvis Back: no CVA tenderness Neuro General: patient oriented x3, no meningeal signs and No confusion Cranial nerves: Yes Equal, round and reactive pupils present Extrem General: Yes normal to inspection, Yes full ROM and Yes capillary refill normal Psych Appearance: grossly normal Mental Status: mental status grossly normal Speech and movement: Normal speech and movement present Affect: normal affect Thought process: Normal thought process present Course Course Course Narrative: 26-year-old male with a history of sickle cell, avascular necrosis, and multiple sickle cell crises, presents for back pain and bilateral arm pain that started at 04:00 this morning. Feels like his usual sickle cell pain. On exam, patient is neurologically intact, Has scleral icterus, has benign abdominal exam, lungs clear to auscultation bilaterally. no chest pain, no shortness of breath, no dysuria, cough, fevers. Patient has been satting 93% on room air. Will get absolute reticulocyte cell count to rule out aplastic crisis, will get chest x-ray to rule out chest syndrome. With patient having normal oxygen saturation and no chest pain, I think this is unlikely. Reevaluation(s) Reevaluation #1: Patient's H&H is 8.7 in 23, which is his baseline. Platelets 459. Absolute reticulocyte 0.342. Potassium 5.3, bilirubin 4.7, elevated AST at 64. Urine is negative for infection. Patient is hemodynamically stable, not tachycardic, satting 93% on room air, chest x-ray is normal, no chest pain. I do not think this is Chest syndrome. Patient's absolute reticulocyte count is high, He is making red blood cells and breaking down a blood cells. No aplastic crisis. Patient has a high bilirubin of 4.7. Patient is making red blood cells and is hemolyzing red blood cells, elevated bilirubin and scleral icterus are result of hemolysis from sickle cell crisis. Will treat patient's pain, if pain is uncontrolled will admit patient patient has had 2 mg of Dilaudid, and on repeat exam Feels that the pain is returning. Will try 1 more dose of Dilaudid, pain is uncontrolled, will admit to hospitalist service. CXR: No significant abnormality is noted involving the heart, lungs, mediastinum, bony thorax or soft tissues. No significant change. Specifically, no radiographic evidence of rib infarction present. XR/XR chest 2V IMPRESSION: Unremarkable examination. Reevaluation #2: Patient's pain is better controlled. Patient states that they are transiti oning and go by they/them pronouns. States that when they were admitted to the floor the last several times for sickle cell crisis, they were not treated appropriately for their gender. Patient states their doctor has called in pain medication and they would like to be discharged home rather than be admitted to the floor where they have felt their gender is not respected. I asked Dr. Allen, head of the emergency room to come down and speak to this patient about their complaints. Reevaluation #3: Dr. Allen spoke with patient, will have nurse head control.call patient on their personal cell phone. Patient states that their pain is better controlled, they have a prescription sent to the pharmacy from there sickle doctor, they feel they are able to be discharged home. Medical Decision Making Lab Data Result diagrams: 10/28/21 08:53 10/28/21 08:53 Labs: Lab Results 10/28/21 10/28/21 10/28/21 Range/Units 08:43 08:53 08:53 WBC 13.7 H (4.8-10.8) X10*3/uL RBC 2.73 L (4.60-5.80) X10*6/uL Hgb 8.7 L (14.0-18.0) g/dl Hct 23.4 L (42.0-52.0) % MCV 85.7 (80.0-98.0) fL MCH 31.9 (27.0-33.0) pg MCHC 37.2 H (31.0-36.0) g/dl RDW 25.1 H (11.0-16.0) % Plt Count 459 H (160-400) X10*3/uL MPV 9.7 (9.4-12.4) fL Immature Gran % (Auto) 2.5 H (0.0-0.4) % Neut % (Auto) 58.5 (45-73) % Lymph % (Auto) 21.8 (20-40) % [place] % (Auto) 10.0 (2-11) % Eos % (Auto) 6.3 H (0-4) % Baso % (Auto) 0.9 (0-2) % Lymph # (Auto) 3.0 (1.2-4.9) X10*3/uL [place] # (Auto) 1.4 H (0.1-1.2) X10*3/uL Eos # (Auto) 0.9 H (0.0-0.4) X10*3/uL Baso # (Auto) 0.1 (0.0-0.2) X10*3/uL Abs Immat Gran (auto) 0.35 H (0.00-0.03) X10*3/uL Absolute Neuts (auto) 8.0 (2.0-8.3) x10*3/uL Absolute Nucleated RBC 0.410 H (0.0-0.012) X10*3/uL Nucleated RBC % (auto) 3.0 H (0.0-0.2) /100WBC Smear Tech's Comments VERIFIED Absolute Retic (0.026-0.095) X10*6/uL Percent Retic (0.5-1.8) % Immature Retic Fraction (2.3-13.4) % Retic Hgb Equivalent (30.0-35.0) pg Sodium 136 (135-145) mmol/L Potassium 5.3 H (3.3-5.1) mmol/L Chloride 105 (96-108) mmol/L Carbon Dioxide 21 L (22-29) mmol/L Anion Gap 15 (12-20) BUN 8 L D (9-16) mg/dL Creatinine 0.76 (0.5-1.4) mg/dL Estim Creat Clear Calc 135.3 Estimated GFR > 60 Random Glucose 105 (60-115) mg/dL Calcium 9.6 (8.4-10.2) mg/dL Total Bilirubin 4.7 H (0.0-1.0) mg/dL AST 64 H (5-37) U/L ALT 16 (0-40) U/L Alkaline Phosphatase 112 D (39-117) U/L Total Protein 8.9 H (6.5-8.0) g/dL Albumin 4.4 (3.5-5.0) g/dL Urine Color YELLOW Urine Appearance CLEAR Urine pH 7.0 (5.0-8.0) Ur Specific [place] 1.010 (1.005-1.025) Urine Protein NEG (NEG-TRACE) MG/DL Urine Glucose (UA) NEG (NEG) MG/DL Urine Ketones NEG (NEG) MG/DL Urine Blood TRACE (NEG) Urine Nitrite NEG (NEG) Ur Leukocyte Esterase NEG (NEG) Urine RBC 1-4 (0) /HPF Urine WBC 0 (0-4) /HPF Ur Squamous Epith Cells TRACE /LPF Ur Renal Epithelial Cell TRACE /LPF Urine Bacteria NONE /LPF COVID-19 (MICHAEL) (Negative) COVID-19 Clin Com 10/28/21 10/28/21 Range/Units 08:53 10:23 WBC (4.8-10.8) X10*3/uL RBC (4.60-5.80) X10*6/uL Hgb (14.0-18.0) g/dl Hct (42.0-52.0) % MCV (80.0-98.0) fL MCH (27.0-33.0) pg MCHC (31.0-36.0) g/dl RDW (11.0-16.0) % Plt Count (160-400) X10*3/uL MPV (9.4-12.4) fL Immature Gran % (Auto) (0.0-0.4) % Neut % (Auto) (45-73) % Lymph % (Auto) (20-40) % [place] % (Auto) (2-11) % Eos % (Auto) (0-4) % Baso % (Auto) (0-2) % Lymph # (Auto) (1.2-4.9) X10*3/uL [place] # (Auto) (0.1-1.2) X10*3/uL Eos # (Auto) (0.0-0.4) X10*3/uL Baso # (Auto) (0.0-0.2) X10*3/uL Abs Immat Gran (auto) (0.00-0.03) X10*3/uL Absolute Neuts (auto) (2.0-8.3) x10*3/uL Absolute Nucleated RBC (0.0-0.012) X10*3/uL Nucleated RBC % (auto) (0.0-0.2) /100WBC Smear Tech's Comments Absolute Retic 0.342 H (0.026-0.095) X10*6/uL Percent Retic 12.2 H (0.5-1.8) % Immature Retic Fraction 38.0 H (2.3-13.4) % Retic Hgb Equivalent 34.0 (30.0-35.0) pg Sodium (135-145) mmol/L Potassium (3.3-5.1) mmol/L Chloride (96-108) mmol/L Carbon Dioxide (22-29) mmol/L Anion Gap (12-20) BUN (9-16) mg/dL Creatinine (0.5-1.4) mg/dL Estim Creat Clear Calc Estimated GFR Random Glucose (60-115) mg/dL Calcium (8.4-10.2) mg/dL Total Bilirubin (0.0-1.0) mg/dL AST (5-37) U/L ALT (0-40) U/L Alkaline Phosphatase (39-117) U/L Total Protein (6.5-8.0) g/dL Albumin (3.5-5.0) g/dL Urine Color Urine Appearance Urine pH (5.0-8.0) Ur Specific [place] (1.005-1.025) Urine Protein (NEG-TRACE) MG/DL Urine Glucose (UA) (NEG) MG/DL Urine Ketones (NEG) MG/DL Urine Blood (NEG) Urine Nitrite (NEG) Ur Leukocyte Esterase (NEG) Urine RBC (0) /HPF Urine WBC (0-4) /HPF Ur Squamous Epith Cells /LPF Ur Renal Epithelial Cell /LPF Urine Bacteria /LPF COVID-19 (MICHAEL) Negative (Negative) COVID-19 Clin Com See Note ECG Data Interpretation: Sinus at a rate of 77, AL interval 164, QRS 98, QTC 438, normal axis, no ST depression or elevation, no T-wave abnormalities. Discharge Plan Discharge Clinical Impression: Sickle cell crisis Patient Disposition: Home, Self-Care Instructions: Sickle Cell Crisis (ED) Additional Instructions: Please call [facility] today for a follow-up appointment from today's emergency room visit. Please return for worsening pain. I hope that the phone call with quality improvement manager.is helpful. Prescriptions: No Action clonidine HCl 0.1 mg Tablet 0.1 mg PO BEDTIME 0RF trazodone 50 mg Tablet 50 mg PO BEDTIME 0RF quetiapine [Seroquel] 200 mg Tablet 200 mg PO TID 0RF hydromorphone 2 mg tablet 2 - 4 mg PO Q3-6H PRN (Reason: Pain) 0RF zolpidem [Ambien] 5 mg Tablet 5 mg BEDTIME PRN (Reason: Insomnia) 0RF
--- NOTE | 2021-10-28 08:28 | ECG_ITS ---
Test Reason : sickle cell Blood Pressure : / mmHG Vent. Rate : 077 BPM Atrial Rate : 077 BPM P-R Int : 164 ms QRS Dur : 098 ms QT Int : 380 ms P-R-T Axes : 052 012 015 degrees QTc Int : 430 ms Normal sinus rhythm with sinus arrhythmia Normal ECG When compared with ECG of 22-OCT-2021 14:16, No significant change was found Referred By: Milagros Tapia Electronically Signed By:BLAKE SIMMS MD
[2021-10-28] MEDS: 0.9 % Sodium Chloride 1,000 ML 999 ML IV (08:58)
[2021-10-28] MEDS: ondansetron HCL 4 MG/2 ML VIAL IVPUSH (08:59)
[2021-10-28] MEDS: HYDROmorphone HCl 1 MG/ML SYRINGE IVPUSH ×3 (08:59→12:06)
[2021-10-28 09:19] LABS: Basophils Absolute Auto 0.1 X10*3/uL (0.0-0.2); Basophils Percent Auto 0.9 % (0-2); Eosinophils Absolute Auto 0.9 X10*3/uL (0.0-0.4); Eosinophils Percent Auto 6.3 % (0-4); Hematocrit 23.4 % (42.0-52.0); Hemoglobin 8.7 g/dl (14.0-18.0); Imm Gran Abs Auto 0.35 X10*3/uL (0.00-0.03); Imm Gran Pct Auto 2.5 % (0.0-0.4); Lymphocytes Percent Auto 21.8 % (20-40); MANUAL DIFF FLAG SCAN; Mean Corpuscular HGB Conc 37.2 g/dl (31.0-36.0); Mean Corpuscular Hemoglobin 31.9 pg (27.0-33.0); Mean Corpuscular Volume 85.7 fL (80.0-98.0); Mean Platelet Volume 9.7 fL (9.4-12.4); Monocytes Absolute Auto 1.4 X10*3/uL (0.1-1.2); Neutrophils Percent Auto 58.5 % (45-73); Platelet Count 459 X10*3/uL (160-400); Red Blood Count 2.73 X10*6/uL (4.60-5.80); Red Cell Distribution Width 25.1 % (11.0-16.0); SCAN SMEAR FLAG 1; White Blood Count 13.7 X10*3/uL (4.8-10.8)
[2021-10-28 09:23] LABS: Appearance Urine CLEAR; Color Urine YELLOW; Glucose Urine UA NEG (NEG); Leukocyte Esterase Urine NEG (NEG); Nitrite Urine NEG (NEG); UACC Culture Trigger NO; Urine Blood TRACE (NEG); Urine Ketones NEG (NEG); Urine Protein NEG (NEG-TRACE)
[2021-10-28 09:30] LABS: Reticulocyte Percent 12.2 % (0.5-1.8)
[2021-10-28 09:31] LABS: Alanine Aminotransferase 16 U/L (0-40); Albumin Level 4.4 g/dL (3.5-5.0); Alkaline Phosphatase 112 U/L (39-117); Anion Gap 15 (12-20); Aspartate Amino Transferase 64 U/L (5-37); Bilirubin Total 4.7 mg/dL (0.0-1.0); Blood Urea Nitrogen 8 mg/dL (9-16); Calcium 9.6 mg/dL (8.4-10.2); Carbon Dioxide 21 mmol/L (22-29); Chloride 105 mmol/L (96-108); Creatinine Clr Calc Pharmacy 135.3; Estimated Glomerular Filt Rate > 60; Glucose Random 105 mg/dL (60-115); Potassium 5.3 mmol/L (3.3-5.1); Sodium 136 mmol/L (135-145); Total Protein 8.9 g/dL (6.5-8.0)
[2021-10-28 09:37] LABS: Reticulocytes Absolute 0.342 X10*6/uL (0.026-0.095)
[2021-10-28 09:45] LABS: Renal Epithelial Cells Urine TRACE /LPF; Squamous Epithelial Cell Urine TRACE /LPF; WBC Urine 0 /HPF (0-4)
[2021-10-28 10:03] LABS: PLT ABN DIST V
[2021-10-28 10:26] VITALS: BP 132/73; PULSE 97; O2SAT 94
[2021-10-28 10:46] LABS: SLIDE REVIEW VERIFIED
[2021-10-28 10:50] LABS: COVID-19 Test Negative (Negative); IDNOW Serial# 16C4AD1C
[2021-10-28 13:35] VITALS: BP 121/58; PULSE 78; RESP 16; O2SAT 92
== END 2021-10-28 14:20 | disposition home or self-care (01) ==
PROVIDERS: Physician Assistant; Emergency Provider Emergency Medicine Emergency Medical Services; PCP Pediatrics
DX: D57.00 Hb-SS disease with crisis, unspecified (principal); G89.29 Other chronic pain; F17.210 Nicotine dependence, cigarettes, uncomplicated; Z71.6 Tobacco abuse counseling; Z20.822 Contact with and (suspected) exposure to COVID-19; Z79.899 Other long term (current) drug therapy
CPT/HCPCS: 36415; 71046; 80053; 81001; 81003; 85025; 85045; 87635; 93005; 96361; 96374; 96375; 96376; 99284; J1170; J2405

== ENCOUNTER 2021-12-27 14:41 | Emergency (ER) | payer MEDICARE, MEDICAID, SELFPAY ==
[2021-12-27 15:02] VITALS: BP 128/57; PULSE 95; RESP 18; TEMP 37.2; O2SAT 93; BMI 21.4
[2021-12-27 15:32] LABS: Hematocrit 22.9 % (42.0-52.0); Hemoglobin 8.5 g/dl (14.0-18.0); Mean Corpuscular HGB Conc 37.1 g/dl (31.0-36.0); Mean Corpuscular Hemoglobin 32.9 pg (27.0-33.0); Mean Corpuscular Volume 88.8 fL (80.0-98.0); Mean Platelet Volume 9.8 fL (9.4-12.4); NRBC Pct Auto 0.5 /100WBC (0.0-0.2); Platelet Count 491 X10*3/uL (160-400); Red Blood Count 2.58 X10*6/uL (4.60-5.80); Red Cell Distribution Width 24.1 % (11.0-16.0)
[2021-12-27 15:34] LABS: WBC ABN SCTR FOR CBC 1
[2021-12-27 15:35] LABS: White Blood Count 10.2 X10*3/uL (4.8-10.8)
[2021-12-27 15:41] LABS: Anion Gap 13 (12-20); Blood Urea Nitrogen 5 mg/dL (9-16); Carbon Dioxide 20 mmol/L (22-29); Chloride 109 mmol/L (96-108); Estimated Glomerular Filt Rate > 60; Glucose Random 85 mg/dL (60-115); Potassium 4.2 mmol/L (3.3-5.1); Sodium 138 mmol/L (135-145)
[2021-12-27 15:46] LABS: COVID-19 Test Negative (Negative)
== END 2021-12-27 20:12 | disposition left against medical advice (07) ==
PROVIDERS: Emergency Provider Emergency Medicine; PCP Pediatrics
DX: D57.1 Sickle-cell disease without crisis (principal); Z79.899 Other long term (current) drug therapy; Z20.822 Contact with and (suspected) exposure to COVID-19
CPT/HCPCS: 80048; 85027; 87635; 99281; 99283

== ENCOUNTER 2022-01-01 19:58 | Inpatient (IN) | payer MEDICARE, MEDICAID, SELFPAY ==
--- NOTE | ~2022-01-01 | XR_ITS ---
EXAMINATION: XR CHEST CLINICAL INFORMATION: Shortness of breath COMPARISON: 10/28/2021 TECHNIQUE: 2 views of the chest were obtained. FINDINGS: Normal cardiomediastinal silhouette. No dense consolidation, pleural effusion or pneumothorax. Osseous structures unremarkable. XR/XR chest 2V IMPRESSION: No acute cardiopulmonary process.
[2022-01-01 20:13] VITALS: BP 130/62; PULSE 89; RESP 22; TEMP 37.7; O2SAT 89; BMI 21.4
[2022-01-01 20:47] LABS: Hemoglobin 8.5 g/dl (14.0-18.0); Mean Corpuscular Hemoglobin 32.8 pg (27.0-33.0); Mean Corpuscular Volume 88.8 fL (80.0-98.0); Mean Platelet Volume 9.3 fL (9.4-12.4); NRBC Pct Auto 0.7 /100WBC (0.0-0.2); Platelet Count 597 X10*3/uL (160-400); Red Blood Count 2.59 X10*6/uL (4.60-5.80); Red Cell Distribution Width 24.2 % (11.0-16.0)
[2022-01-01 20:58] LABS: WBC ABN SCTR FOR CBC 1
[2022-01-01 21:01] LABS: Alanine Aminotransferase 17 U/L (0-40); Albumin Level 4.3 g/dL (3.5-5.0); Alkaline Phosphatase 92 U/L (39-117); Anion Gap 13 (12-20); Aspartate Amino Transferase 41 U/L (5-37); Bilirubin Direct 1.2 mg/dL (0.0-0.5); Bilirubin Total 5.7 mg/dL (0.0-1.0); Blood Urea Nitrogen 9 mg/dL (9-16); Calcium 9.5 mg/dL (8.4-10.2); Carbon Dioxide 22 mmol/L (22-29); Chloride 108 mmol/L (96-108); Creatinine Clr Calc Pharmacy 112.9; Estimated Glomerular Filt Rate > 60; Glucose Random 101 mg/dL (60-115); Lipase 36 U/L (8-78); Potassium 4.2 mmol/L (3.3-5.1); Sodium 139 mmol/L (135-145); Total Protein 8.3 g/dL (6.5-8.0)
[2022-01-01 21:17] LABS: COVID-19 Test Negative (Negative)
--- NOTE | 2022-01-01 21:21 | ED.GENADULT ---
HPI - General Adult General Chief complaint: General Medical Stated complaint: sickle cell pain Time Seen by Provider: 01/01/22 21:18 Source: patient Mode of arrival: ambulatory Limitations: no limitations History of Present Illness HPI narrative: Patient with history of sickle cell anemia comes here for overall body aches for last 4 days ran out of his Dilaudid also complaining shortness of breath no significant chest pain as such patient not on any medication for sickle cell anemia had blood transfusions in the past Related Data Home Medications Medication Instructions Recorded Confirmed clonidine HCl 0.1 mg tablet 0.1 mg PO BEDTIME 06/16/20 01/02/22 quetiapine 200 mg tablet (Seroquel) 200 mg PO TID 06/16/20 01/02/22 trazodone 50 mg tablet 50 mg PO BEDTIME 06/16/20 01/02/22 zolpidem 5 mg tablet (Ambien) 5 mg BEDTIME PRN Insomnia 10/22/21 01/02/22 minocycline 50 mg capsule 1 cap PO BID 01/02/22 01/02/22 Allergies Allergy/AdvReac Type Severity Reaction Status Date / Time morphine AdvReac Agitated Verified 10/22/21 12:58 oxycodone AdvReac Agitated Verified 10/22/21 12:58 Review of Systems Review of Systems: Yes all other systems are reviewed and are negative PMFSH Past Medical History Medical History Avascular bone necrosis COVID-19 Sickle cell anemia with crisis Surgical History H/O splenectomy Family History Family History Other Sickle cell anemia Social History Social History Household Members: Significant Other Household Members Other:: fiancee Housing: Apartment Do you presently have visiting nurse or other home services: No Unable to assess alcohol history related to: Refusing to respond Alcohol intake: never Patient Tobacco Use Status: Current everyday Tobacco user Tobacco use type: Cigarette Cigarettes Per Day: 3 Years Smoked: 4 e-Cigarette/Vaping Use: Never Used Second Hand Smoke Exposure: Yes Use of substances other than those prescribed or required for medical reasons: No Substance Use Type: Marijuana and Prescription Drugs Advance Directives: No Advance Directives Information Provided: No Advance Directives Date on File: 06/13/21 service: No Current occupational status: unemployed and disabled Physical Exam ED Vital Signs: Vital Signs - 24 hr 01/01/22 20:13 01/01/22 23:25 Temperature 99.8 F Pulse Rate 89 86 Respiratory Rate 22 H 20 Blood Pressure 130/62 128/65 Pulse Oximetry 89 L 95 Oxygen Delivery Method Room Air Room Air BMI result Body Mass Index 21.4 Appearance: Alert. Oriented X3. No acute distress. Eyes: Pallor +icterus + ENT: Pharynx normal. Oral Mucosa moist Neck: Normal inspection. Neck supple. CVS: Normal heart rate and rhythm. Pulses normal. Respiratory: No respiratory distress. Equal air entry bilateral, no wheezing/rales/rhonchi Abdomen: Soft and nontender. Bowel sounds are present, no mass palpable, no CVA tenderness Skin: Skin warm and dry. Normal skin color. Normal skin turgor. Extremities: No lower extremity edema. No calf tenderness Neuro: Oriented X 3. No motor deficit. No sensory deficit. Medical Decision Making MDM Narrative Medical decision making narrative: Patient with diffuse body aches with history of sickle cell anemia in crisis slightly elevated retic count will admit patient for pain control and IV hydration patient's CBC showed leukopenia will admit patient for further evaluation Lab Data Lab results reviewed: Yes I reviewed the patient's lab results. Result diagrams: 01/01/22 20:38 01/01/22 20:38 Labs: Lab Results 01/01/22 01/01/22 01/01/22 Range/Units 20:38 20:38 20:38 WBC 2.3 L (4.8-10.8) X10*3/uL RBC 2.59 L (4.60-5.80) X10*6/uL Hgb 8.5 L (14.0-18.0) g/dl Hct 23.0 L (42.0-52.0) % MCV 88.8 (80.0-98.0) fL MCH 32.8 (27.0-33.0) pg MCHC 37.0 H (31.0-36.0) g/dl RDW 24.2 H (11.0-16.0) % Plt Count 597 H (160-400) X10*3/uL MPV 9.3 L (9.4-12.4) fL Immature Gran % (Auto) Cancelled Neut % (Auto) Cancelled Lymph % (Auto) Cancelled [place] % (Auto) Cancelled Eos % (Auto) Cancelled Baso % (Auto) Cancelled Lymph # (Auto) Cancelled [place] # (Auto) Cancelled Eos # (Auto) Cancelled Baso # (Auto) Cancelled Abs Immat Gran (auto) Cancelled Absolute Neuts (auto) Cancelled Absolute Nucleated RBC 0.080 H (0.0-0.012) X10*3/uL Nucleated RBC % (auto) 0.7 H (0.0-0.2) /100WBC Neutrophils % (Manual) 57 (45-73) % Band Neutrophils % 0 L (3-5) % Lymphocytes % (Manual) 30 (20-40) % Monocytes % (Manual) 4 (2-11) % Eosinophils % (Manual) 7 H (0-4) % Basophils % (Manual) 2 (0-2) % Abs Neuts (Manual) 1.3 L (2.0-8.3) X10*3/uL Lymphocytes # (Manual) 0.7 L (1.2-4.9) X10*3/uL Monocytes # (Manual) 0.1 (0.1-1.2) X10*3/uL Eosinophils # (Manual) 0.2 (0.0-0.4) X10*3/uL Nucleated RBCs 5 H (0-0) /100WBC Smudge Cells PRESENT Toxic Vacuolation PRESENT Platelet Estimate SLIGHTLY INCREASED (NORMAL) Large Platelets PRESENT Plt Morphology Comment NORMAL RBC Morphology NOTED Polychromasia 2+ (3-5) /OIF Microcytosis 1+ (5-14) /OIF Sickle Cells 3+ (>5) /OIF Target Cells 2+ (15-30) /OIF Tear Drop Cells 2+ (3-5) /OIF Ovalocytes 1+ (5-14) /OIF Acanthocytes (Spur) 1+ (0-2) /OIF Absolute Retic 0.140 H (0.026-0.095) X10*6/uL Percent Retic 5.4 H (0.5-1.8) % Immature Retic Fraction 42.3 H (2.3-13.4) % Retic Hgb Equivalent 178.5 H (30.0-35.0) pg Sodium 139 (135-145) mmol/L Potassium 4.2 (3.3-5.1) mmol/L Chloride 108 (96-108) mmol/L Carbon Dioxide 22 (22-29) mmol/L Anion Gap 13 (12-20) BUN 9 D (9-16) mg/dL Creatinine 0.93 (0.5-1.4) mg/dL Estim Creat Clear Calc 112.9 Estimated GFR > 60 Random Glucose 101 (60-115) mg/dL Calcium 9.5 (8.4-10.2) mg/dL Total Bilirubin 5.7 H (0.0-1.0) mg/dL Direct Bilirubin 1.2 H (0.0-0.5) mg/dL AST 41 H (5-37) U/L ALT 17 (0-40) U/L Alkaline Phosphatase 92 (39-117) U/L Total Protein 8.3 H (6.5-8.0) g/dL Albumin 4.3 (3.5-5.0) g/dL Lipase 36 (8-78) U/L COVID-19 (MICHAEL) Negative (Negative) COVID-19 Clin Com See Note Discharge Plan Discharge Clinical Impression: Sickle cell crisis Patient Disposition: Admitted As Inpatient
[2022-01-01 21:25] LABS: Band Neutrophils Percent 0 % (3-5); Basophils Percent Manual 2 % (0-2); Eosinophils Percent Manual 7 % (0-4); Large Platelet PRESENT; Lymphocytes Percent Manual 30 % (20-40); Microcytosis 1+ (5-14) /OIF; Monocytes Percent Manual 4 % (2-11); Neutrophils Percent Manual 57 % (45-73); Nucleated Red Blood Cells 5 /100WBC (0-0); Platelet Estimate SLIGHTLY INCREASED (NORMAL); Platelet Morphology Comment NORMAL; RBC Morphology NOTED
[2022-01-01 21:26] LABS: Acanthocytes 1+ (0-2) /OIF; Ovalocytes 1+ (5-14) /OIF; Polychromasia 2+ (3-5) /OIF; Sickle Cells 3+ (>5) /OIF; Smudge Cells PRESENT; Target Cells 2+ (15-30) /OIF; Tear Drop Cells 2+ (3-5) /OIF; Toxic Vacuolation PRESENT
[2022-01-01] MEDS: diphenhydrAMINE HCL 50 MG/ML VIAL 25 MG IVPUSH (21:38)
[2022-01-01] MEDS: 0.9 % Sodium Chloride 1,000 ML 999 ML IV ×2 (21:39→22:53)
[2022-01-01] MEDS: ondansetron HCL 4 MG/2 ML VIAL IVPUSH (21:39)
[2022-01-01] MEDS: HYDROmorphone HCl 2 MG/ML VIAL IVPUSH ×2 (21:39→22:53)
[2022-01-01] MEDS: Folic Acid 1 MG TABLET PO (21:39)
[2022-01-01 22:04] LABS: Eosinophils Absolute Manual 0.2 X10*3/uL (0.0-0.4); Immature Retic Fraction 42.3 % (2.3-13.4); Lymphocytes Absolute Manual 0.7 X10*3/uL (1.2-4.9); Monocytes Absolute Manual 0.1 X10*3/uL (0.1-1.2); Neutrophils Absolute Manual 1.3 X10*3/uL (2.0-8.3); Retic HGB Equivalent 178.5 pg (30.0-35.0); Reticulocyte Percent 5.4 % (0.5-1.8); White Blood Count 2.3 X10*3/uL (4.8-10.8)
[2022-01-01 23:25] VITALS: BP 128/65; PULSE 86; RESP 20; O2SAT 95
--- NOTE | 2022-01-01 23:54 | PM.IMHP ---
History of Present Illness Date of Service: 01/01/22 Chief Complaint: diffuse body pain 26-year-old female with a past medical history of 60 cell crisis, avascular necrosis of the bone, history of COVID-19 infection, sickle cell anemia, PTSD presented to the hospital today with a chief complaint of diffuse body aches. Patient reports that for the past 4 days he has been having disease body aches; did not have her pain medications at home. Presented to the ER for further evaluation. Patient also reported that she has been having shortness of breath; also complains of having cough with greenish sputum production. Denies any fevers. Reports that she has been having jaundice for about a ER. Also in the process of changing her hematology oncologist. Denies any chest pain or palpitations. Denies any nausea vomiting or diarrhea. Denies any urinary complaints. Review of all other systems is negative except mentioned above ER course: Per ER team patient noted to be mildly icteric; chest x-ray showed no acute cardiopulmonary process; patient was given pain medication. Admitted to the hospital with impression of acute sickle cell pain crisis. [facility] Medical History Avascular bone necrosis COVID-19 Sickle cell anemia with crisis Family History Other Sickle cell anemia Surgical History H/O splenectomy Social History Household Members: Significant Other Household Members Other:: fiancee Housing: Apartment Do you presently have visiting nurse or other home services: No Unable to assess alcohol history related to: Refusing to respond Alcohol intake: never Patient Tobacco Use Status: Current everyday Tobacco user Tobacco use type: Cigarette Cigarettes Per Day: 3 Years Smoked: 4 e-Cigarette/Vaping Use: Never Used Second Hand Smoke Exposure: Yes Use of substances other than those prescribed or required for medical reasons: No Substance Use Type: Marijuana and Prescription Drugs Advance Directives: No Advance Directives Information Provided: No Advance Directives Date on File: 06/13/21 service: No Current occupational status: unemployed and disabled Meds Allergies Allergy/AdvReac Type Severity Reaction Status Date / Time morphine AdvReac Agitated Verified 10/22/21 12:58 oxycodone AdvReac Agitated Verified 10/22/21 12:58 Home Medications Medication Instructions Recorded Confirmed Last Taken Type clonidine HCl 0.1 mg tablet 0.1 mg PO BEDTIME 06/16/20 01/02/22 10/21/21 History quetiapine 200 mg tablet (Seroquel) 200 mg PO TID 06/16/20 01/02/22 10/21/21 History trazodone 50 mg tablet 50 mg PO BEDTIME 06/16/20 01/02/22 10/21/21 History zolpidem 5 mg tablet (Ambien) 5 mg BEDTIME PRN Insomnia 10/22/21 01/02/22 Unknown History minocycline 50 mg capsule 1 cap PO BID 01/02/22 01/02/22 Unknown History Physical Exam Vital Signs and Narrative: Vital Signs: Last Vital Signs Temp 99.8 F 01/01/22 20:13 Pulse 86 01/01/22 23:25 Resp 20 01/01/22 23:25 BP 128/65 01/01/22 23:25 Pulse Ox 95 01/01/22 23:25 O2 Del Method 01/01/22 23:25 BMI result Body Mass Index 21.4 Gen: Appears be in no acute distress HEENT: NCAT, Moist mucosa. Pulmonary: Vesicular breath sounds, fair air entry CVS: Normal S1-S2 Abdomen: BS+, Soft, Nontender Extremities: Warm well perfused Neuro: Alert and awake. Results Labs CBC and Chem 7: 01/01/22 20:38 01/01/22 20:38 Labs: Laboratory Results - last 24 hr 01/01/22 01/01/22 01/01/22 20:38 20:38 20:38 MCV 88.8 MCH 32.8 MCHC 37.0 H RDW 24.2 H Plt Count 597 H MPV 9.3 L Immature Gran % (Auto) Cancelled Neut % (Auto) Cancelled Lymph % (Auto) Cancelled [place] % (Auto) Cancelled Eos % (Auto) Cancelled Baso % (Auto) Cancelled Lymph # (Auto) Cancelled [place] # (Auto) Cancelled Eos # (Auto) Cancelled Baso # (Auto) Cancelled Abs Immat Gran (auto) Cancelled Absolute Neuts (auto) Cancelled Absolute Nucleated RBC 0.080 H Nucleated RBC % (auto) 0.7 H Neutrophils % (Manual) 57 Band Neutrophils % 0 L Lymphocytes % (Manual) 30 Monocytes % (Manual) 4 Eosinophils % (Manual) 7 H Basophils % (Manual) 2 Abs Neuts (Manual) 1.3 L Lymphocytes # (Manual) 0.7 L Monocytes # (Manual) 0.1 Eosinophils # (Manual) 0.2 Nucleated RBCs 5 H Smudge Cells PRESENT Toxic Vacuolation PRESENT Platelet Estimate SLIGHTLY INCREASED Large Platelets PRESENT Plt Morphology Comment NORMAL RBC Morphology NOTED Polychromasia 2+ (3-5) Microcytosis 1+ (5-14) Sickle Cells 3+ (>5) Target Cells 2+ (15-30) Tear Drop Cells 2+ (3-5) Ovalocytes 1+ (5-14) Acanthocytes (Spur) 1+ (0-2) Absolute Retic 0.140 H Percent Retic 5.4 H Immature Retic Fraction 42.3 H Retic Hgb Equivalent 178.5 H Anion Gap 13 Estim Creat Clear Calc 112.9 Estimated GFR > 60 Random Glucose 101 Calcium 9.5 Total Bilirubin 5.7 H Direct Bilirubin 1.2 H AST 41 H ALT 17 Alkaline Phosphatase 92 Total Protein 8.3 H Albumin 4.3 Lipase 36 COVID-19 (MICHAEL) Negative COVID-19 Clin Com See Note Imaging Radiologist's Impressions: Impressions Chest X-Ray 01/01/22 21:01 IMPRESSION: No acute cardiopulmonary process. Assessment and Plan (1) Sickle cell crisis: Status: Acute Plan 26-year-old female with a past medical history of 60 cell crisis, avascular necrosis of the bone, history of COVID-19 infection, sickle cell anemia, PTSD presented to the hospital today with a chief complaint of diffuse body aches. Acute sickle cell pain crisis: Presentation is similar to the prior episodes. Pain control with IV Dilaudid p.r.n. Gentle IV fluids Supplemental oxygen Incentive spirometry Icterus: Patient's total while [place] more elevated than prior values at 5.7. direct bilirubin is 1.2. Reticulocyte count is less than prior values. Will also obtain right upper quadrant ultrasound. Bronchitis: Doxycycline p.o.. Leukopenia: Unclear etiology. will continue to monitor. History of sickle cell anemia: Hemoglobin at baseline. History of anxiety / PTSD: Continue home medications. DVT prophylaxis: Lovenox Code status: Full code Quality Stroke Does the patient have a stroke diagnosis?: No VTE Prior VTE?: No VTE Risk Level:: Medical - moderate - high VTE Device Contraindication: Treatment Not Indicated VTE Drug Contraindication: N/A - Med Ordered
[2022-01-02] MEDS: 0.9 % Sodium Chloride 1,000 ML 100 ML IVCONT ×2 (00:13→10:23)
[2022-01-02] MEDS: Enoxaparin Sodium 40 MG/0.4 ML SYRINGE SUBCUT (00:17)
[2022-01-02] MEDS: cloNIDine HCL 0.1 MG TABLET PO (02:13)
[2022-01-02] MEDS: traZODone HCL 50 MG TABLET PO (02:13)
[2022-01-02] MEDS: Zolpidem Tartrate 5 MG TABLET PO (02:14)
[2022-01-02] MEDS: QUEtiapine Fumarate 200 MG TABLET PO ×2 (02:14→10:21)
[2022-01-02] MEDS: HYDROmorphone HCl 0.5 MG/0.5 ML SYRINGE IVPUSH ×3 (02:46→10:21)
--- NOTE | 2022-01-02 04:24 | PC.NURSE ---
Pt alert/oriented. Reports generalized pain but more so to knees and low back, medicated PRN as charted. Skin pale, scelra jaundiced, pt reports x 1 year. Sat 95% on 2lpm via nc. NS infusing as ordered.
[2022-01-02 05:39] VITALS: BP 137/61; PULSE 87; RESP 14; TEMP 36.8; O2SAT 93
--- NOTE | 2022-01-02 05:55 | PC.NURSE ---
Patient moved from main ER to overflow bed 3. Patient c/o generalized pain & joint pain. Medicated w/ PRN dilaudid @ 0546. Patient resting - reapplied 2 liters o2 r/t oxygen going to 88 on room air. Otherwise Vitals stable. No distress. Patient is pale. Call romero with patient.
[2022-01-02 07:29] VITALS: BP 116/41; PULSE 66; RESP 15; O2SAT 98
--- NOTE | 2022-01-02 09:41 | PHA.MEDREC ---
Pharmacy Consult ? Medication Reconciliation Pharmacy has reviewed the medication reconciliation completed by Angie. Patient report using Ambien at night however per PDMP patient has not record of filling in the past 2 years. There is an active prescription for Descovy but patient does not recognize it. Janice Nelson, PharmD
[2022-01-02 10:21] VITALS: RESP 15
[2022-01-02] MEDS: 0.9 % Sodium Chloride Flush 3 ML SYRINGE IVFLUSH (10:21)
--- NOTE | 2022-01-02 10:33 | PC.NURSE ---
1000-pt assessed. c/o pain in bilateral knees and back, rating 8/10 and sharp. Pt states, he has this pretty consistently . Pt denies pain or nausea. ANTONY well, denies N/T x4, pulses +2 x4. Lung sounds clear and diminished A&P throughout bilaterally. IVF infusing 100/hr. abdomen soft and none tender. BS present. pt is SR/ST on the monitor. Pt takes PO well. using urinal at bedside.
--- NOTE | 2022-01-02 11:49 | P.PNIM_ITS ---
Subjective Subjective Date of Service: 01/02/22 Interval History: No acute issues overnight. Pain controlled fairly with current regimen; breakthrough pain noted Review of Systems Denies chest pain Denies shortness of breath Denies nausea vomiting diarrhea Denies fever chills Physical Exam Vital Signs: Vital Signs: Last Vital Signs Temp 98.3 F 01/02/22 05:39 Pulse 66 01/02/22 07:29 Resp 15 01/02/22 10:21 BP 116/41 L 01/02/22 07:29 Pulse Ox 98 01/02/22 07:29 O2 Del Method 01/02/22 07:29 O2 Flow Rate 2 01/02/22 07:29 BMI result Body Mass Index 21.4 Const: Other: Uncomfortable appearing no acute distress Resp: Other: Clear to auscultation bilaterally no rales rhonchi or wheezes Cardio: Other: No S4; positive S1-S2; no S3 murmurs rubs gallops GI: Other: Soft nontender nondistended with normoactive bowel sounds Neuro: Other: Cranial nerves 2-12 grossly intact as tested. Motor 5/5 all extremities. Sensation intact. Cognition appropriate Extrem: Other: No edema bilaterally Objective Data Active Medications Acetaminophen (Acetaminophen 325 Mg Tablet) 650 mg PO Q6H PRN PRN Reason: Pain, Mild (Pain Scale 1-3) Clonidine HCl (Clonidine Hcl 0.1 Mg Tablet) 0.1 mg PO BEDTIME [facility]; Protocol Last Admin: 01/02/22 02:13 Dose: 0.1 mg Documented By: AURELIANO Doxycycline Hyclate (Doxycycline Hyclate 100 Mg Tablet) 100 mg PO Q12H [facility] Last Admin: 01/02/22 10:21 Dose: 100 mg Documented By: MARVA Enoxaparin Sodium (Enoxaparin Sodium 40 Mg/0.4 Ml Syringe) 40 mg SUBCUT DAILY@2200 [facility] Last Admin: 01/02/22 00:17 Dose: 40 mg Documented By: AURELIANO Folic Acid (Folic Acid 1 Mg Tablet) 1 mg PO DAILY [facility] Hydromorphone HCl (Hydromorphone Hcl 1 Mg/Ml Syringe) 1 mg IVPUSH Q2H PRN; Protocol PRN Reason: Pain, Severe (Pain Scale 7-10) Sodium Chloride (Ns) 1,000 mls @ 100 mls/hr IVCONT .Q10H [facility] Last Admin: 01/02/22 10:23 Dose: 100 mls/hr Documented By: MARVA Melatonin (Melatonin 3 Mg Tablet) 6 mg PO BEDTIME PRN PRN Reason: Insomnia Oxycodone HCl (Oxycodone Hcl Immed Release 5 Mg Tablet) 10 mg PO Q3H PRN PRN Reason: Pain, Moderate (Pain Scale 4-6 Quetiapine Fumarate (Quetiapine Fumarate 200 Mg Tablet) 200 mg PO TID [facility] Last Admin: 01/02/22 10:21 Dose: 200 mg Documented By: MARVA Senna (Sennosides 8.6 Mg Tablet) 17.2 mg PO BEDTIME PRN PRN Reason: Constipation Sodium Chloride (0.9 % Sodium Chloride Flush 3 Ml Syringe) 3 ml IVFLUSH QSHIFT [facility] Last Admin: 01/02/22 10:21 Dose: 3 ml Documented By: MARVA Trazodone HCl (Trazodone Hcl 50 Mg Tablet) 50 mg PO BEDTIME [facility] Last Admin: 01/02/22 02:13 Dose: 50 mg Documented By: AURELIANO Zolpidem Tartrate (Zolpidem Tartrate 5 Mg Tablet) 5 mg PO BEDTIME PRN PRN Reason: Insomnia Last Admin: 01/02/22 02:14 Dose: 5 mg Documented By: AURELIANO Labs CBC & Chem 7: 01/01/22 20:38 01/01/22 20:38 Labs: Laboratory Results - last 24 hr 01/01/22 01/01/22 01/01/22 20:38 20:38 20:38 MCV 88.8 MCH 32.8 MCHC 37.0 H RDW 24.2 H Plt Count 597 H MPV 9.3 L Immature Gran % (Auto) Cancelled Neut % (Auto) Cancelled Lymph % (Auto) Cancelled [place] % (Auto) Cancelled Eos % (Auto) Cancelled Baso % (Auto) Cancelled Lymph # (Auto) Cancelled [place] # (Auto) Cancelled Eos # (Auto) Cancelled Baso # (Auto) Cancelled Abs Immat Gran (auto) Cancelled Absolute Neuts (auto) Cancelled Absolute Nucleated RBC 0.080 H Nucleated RBC % (auto) 0.7 H Neutrophils % (Manual) 57 Band Neutrophils % 0 L Lymphocytes % (Manual) 30 Monocytes % (Manual) 4 Eosinophils % (Manual) 7 H Basophils % (Manual) 2 Abs Neuts (Manual) 1.3 L Lymphocytes # (Manual) 0.7 L Monocytes # (Manual) 0.1 Eosinophils # (Manual) 0.2 Nucleated RBCs 5 H Smudge Cells PRESENT Toxic Vacuolation PRESENT Platelet Estimate SLIGHTLY INCREASED Large Platelets PRESENT Plt Morphology Comment NORMAL RBC Morphology NOTED Polychromasia 2+ (3-5) Microcytosis 1+ (5-14) Sickle Cells 3+ (>5) Target Cells 2+ (15-30) Tear Drop Cells 2+ (3-5) Ovalocytes 1+ (5-14) Acanthocytes (Spur) 1+ (0-2) Absolute Retic 0.140 H Percent Retic 5.4 H Immature Retic Fraction 42.3 H Retic Hgb Equivalent 178.5 H Anion Gap 13 Estim Creat Clear Calc 112.9 Estimated GFR > 60 Random Glucose 101 Calcium 9.5 Total Bilirubin 5.7 H Direct Bilirubin 1.2 H AST 41 H ALT 17 Alkaline Phosphatase 92 Total Protein 8.3 H Albumin 4.3 Lipase 36 COVID-19 (MICHAEL) Negative COVID-19 Clin Com See Note Assessment and Plan (1) Sickle cell crisis: Status: Acute Assessment and Plan: 26-year-old presents with diffuse pain shortness of breath consistent with past sickle cell crisis. Current pain management ineffective. 1. Sickle cell crisis -adjust pain regimen alternating dilaudid with oral oxycodone -at folate 1 mg daily -CTA of chest to rule out PE given O2 requirement on admission -continue outpatient therapies -volume repletion with normal saline Will require ongoing hospitalization for IV volume repletion and pain management Quality Stroke Does the patient have a stroke diagnosis?: No VTE Prior VTE?: No VTE Risk Level:: Medical - moderate - high VTE Device Contraindication: Treatment Not Indicated VTE Drug Contraindication: N/A - Med Ordered
[2022-01-02] MEDS: Folic Acid 1 MG TABLET PO (12:41)
[2022-01-02] MEDS: oxyCODONE HCl Immed Release 5 MG TABLET 10 MG PO (12:41)
--- NOTE | 2022-01-02 12:42 | PC.NURSE ---
patient a&ox3, This nurse had obtained report from alyce and had told the patient that he would be medicated momentarily as this nurse was going to get his meds from the pyxis. pt overheard talking on phone and telling family that hes sick and tired of not getting the pain medications he wants and he will just walk out of the facility if hes not treated immediately, patient is swearing loudly to family that hes sick of the lights being on all the time and he is unable to rest. This nurse confronted the patient about the medications and re-stated that he was told the medication would be given to him in a moment as this nurse had to obtain the meds from the pyxis. The patient stated he had 10/10 pain took the medications and continued talking on the phone.
[2022-01-02 12:58] VITALS: BP 118/68; PULSE 86; RESP 12; TEMP 36.5
--- NOTE | 2022-01-02 13:30 | PC.NURSE ---
patients room was moved from room 3 to room 6 due to patients disruption of other patients with his swearing and yelling on the phone. once patient was in room 6 he became louder and was educated about being in the hospital environment and to lower his voice. pt refusing to have door on room closed.
--- NOTE | 2022-01-02 14:28 | PC.NURSE ---
while this nurse was in a precaution room, a visitor came in for this patient, this nurse saw the patient exit the unit with the visitor while this nurse was in the precaution room. this nurse called for a tech to go after the patient to ensure the iv had been removed, patient was not found. dr. bennett also saw patient leave, the IV was found removed in the patients room, dr. bennett was notified it was found. pt will be discharged as eloped.
--- NOTE | 2022-01-02 14:46 | MHC.CM.PN ---
MET WITH PT, NO EYE CONTACT, ON HIS CELL PHONE/APPEARED ANGRY- PROVIDED MININAL INFORMATION. REPORTS WANTS TO GO HOME. IMM DELIVERED, PT THROUGH IMM ON HIS TRAY TABLE.
--- NOTE | 2023-07-30 14:43 | PM.DS ---
DS: Providers Provider Date of Service: 07/30/23 Date of admission: 01/01/22 23:52 Date of discharge: 01/02/22 Primary care physician: Jeremías Patterson MD DS: Diagnosis Discharge Diagnosis (1) Sickle cell crisis: Status: Acute DS: Summary Hospital Course Hospital Course: 26-year-old female with a past medical history of 60 cell crisis, avascular necrosis of the bone, history of COVID-19 infection, sickle cell anemia, PTSD presented to the hospital today with a chief complaint of diffuse body aches. Patient reports that for the past 4 days he has been having disease body aches; did not have her pain medications at home. Presented to the ER for further evaluation. Patient also reported that she has been having shortness of breath; also complains of having cough with greenish sputum production. Denies any fevers. Reports that she has been having jaundice for about a ER. Also in the process of changing her hematology oncologist. Denies any chest pain or palpitations. Denies any nausea vomiting or diarrhea. Denies any urinary complaints. Review of all other systems is negative except mentioned above ER course: Per ER team patient noted to be mildly icteric; chest x-ray showed no acute cardiopulmonary process; patient was given pain medication. Admitted to the hospital with impression of acute sickle cell pain crisis. Hospital course Patient admitted to general medical floor overnight. Patient ultimately signed out AMA the day of discharge. Did not vocalize reason Time Attestation Discharge coordination time: Greater than 30 minutes Quality: Safe Use of Opioids Does Pt have an Active Cancer Diagnosis on the Problem List?: No Quality: Stroke Does the patient have a stroke diagnosis?: No Physical Exam Vital Signs: Vital Signs: Last Vital Signs Temp 97.7 F 01/02/22 12:58 Pulse 86 01/02/22 12:58 Resp 12 01/02/22 12:58 BP 118/68 01/02/22 12:58 Pulse Ox 98 01/02/22 07:29 O2 Del Method Nasal Cannula 01/02/22 12:58 O2 Flow Rate 2 01/02/22 12:58 BMI result Body Mass Index 21.4 DS: Data Data Completed and Pending Completed studies during hospitalization [Text1]: Procedures Transfusion of Nonautologous Red Blood Cells into Peripheral Vein, Percutaneous Approach (07/01/21) Discharge Plan Discharge Patient Disposition: Left Against Medical Advice Discharge Diagnosis: sickle cell Referrals: Jeremías Patterson MD [Primary Care Provider] - 1 Week Discharge Medications: No Action clonidine HCl 0.1 mg Tablet 0.1 mg PO BEDTIME trazodone 50 mg Tablet 50 mg PO BEDTIME quetiapine [Seroquel] 200 mg Tablet 200 mg PO TID minocycline 50 mg capsule 1 cap PO BID Discharge Orders: Discharge Order (Routine); Ordered 01/02/22 Ordered By: Dennys Ross Care Plan Goals: AMA Health Concerns: AMA Plan of Treatment: AMA Assessment: AMA Discharge Date/Time: 01/02/22 13:30
== END 2022-01-02 13:30 | disposition left against medical advice (07) | DRG 812 ==
LOC: HO.ED 01-02 00:05 → HO.EDOVER 01-02 00:26
PROVIDERS: Admitting Provider Hospitalist; Emergency Provider Internal Medicine; PCP Pediatrics; Visit Provider Hospitalist
DX: D57.00 Hb-SS disease with crisis, unspecified (principal); J40 Bronchitis, not specified as acute or chronic; F17.210 Nicotine dependence, cigarettes, uncomplicated; Z71.6 Tobacco abuse counseling; F64.0 Transsexualism; Z96.642 Presence of left artificial hip joint; Z20.822 Contact with and (suspected) exposure to COVID-19; Z88.5 Allergy status to narcotic agent; Z86.16 Personal history of COVID-19; Z79.899 Other long term (current) drug therapy
CPT/HCPCS: 71046; 80048; 80076; 83690; 85007; 85027; 85045; 87635; 96361; 96374; 96375; 96376; 99284; 99285; J1170; J1200; J1650; J2405

== ENCOUNTER → 2022-01-01 23:52 | Outpatient (BNV) | payer OTHER, MEDICARE, MEDICAID, SELFPAY | PROVIDERS: Admitting Provider Hospitalist; Emergency Provider Internal Medicine; PCP Pediatrics; Visit Provider Hospitalist | DX: D57.00 Hb-SS disease with crisis, unspecified (principal) | CPT/HCPCS: 99238 ==

== ENCOUNTER 2022-03-02 19:19 | Emergency (ER) | payer MEDICARE, MEDICAID, SELFPAY | END 2022-03-02 22:05 | disposition left against medical advice (07) | PROVIDERS: Emergency Provider Emergency Medicine | DX: D57.00 Hb-SS disease with crisis, unspecified (principal); F17.210 Nicotine dependence, cigarettes, uncomplicated; F12.90 Cannabis use, unspecified, uncomplicated ==

== ENCOUNTER 2022-05-14 22:31 | Observation (INO) | payer MEDICARE, SELFPAY ==
--- NOTE | ~2022-05-14 | XR_ITS ---
EXAMINATION: XR CHEST CLINICAL INFORMATION: Pain, question pneumonia COMPARISON: 01/01/2022 TECHNIQUE: Frontal view of the chest was obtained. FINDINGS: Lung volumes are symmetric. No focal consolidation is seen. No evidence of pneumothorax, pleural effusion, or pulmonary edema. The cardiomediastinal contour is unremarkable. No acute osseous findings are seen. XR/XR chest 1V IMPRESSION: No acute cardiopulmonary findings.
[2022-05-14 22:34] VITALS: BP 135/65; PULSE 76; RESP 16; TEMP 36.6; O2SAT 94; BMI 21.4
[2022-05-14 22:50] LABS: Basophils Absolute Auto 0.1 X10*3/uL (0.0-0.2); Basophils Percent Auto 0.8 % (0-2); Eosinophils Percent Auto 7.5 % (0-4); Hematocrit 22.3 % (42.0-52.0); Hemoglobin 8.3 g/dl (14.0-18.0); Imm Gran Abs Auto 0.07 X10*3/uL (0.00-0.03); Imm Gran Pct Auto 0.5 % (0.0-0.4); Lymphocytes Absolute Auto 4.6 X10*3/uL (1.2-4.9); Lymphocytes Percent Auto 35.7 % (20-40); Mean Corpuscular HGB Conc 37.2 g/dl (31.0-36.0); Mean Corpuscular Hemoglobin 32.8 pg (27.0-33.0); Mean Corpuscular Volume 88.1 fL (80.0-98.0); Mean Platelet Volume 9.6 fL (9.4-12.4); Monocytes Absolute Auto 1.4 X10*3/uL (0.1-1.2); NRBC Pct Auto 0.4 /100WBC (0.0-0.2); Neutrophils Absolute Auto 5.7 x10*3/uL (2.0-8.3); Neutrophils Percent Auto 44.5 % (45-73); Platelet Count 419 X10*3/uL (160-400); Red Blood Count 2.53 X10*6/uL (4.60-5.80); WBC ABN SCTR 1
[2022-05-14 23:00] LABS: Appearance Urine Clear; Color Urine Yellow; Glucose Urine UA Negative (Negative); Leukocyte Esterase Urine Negative (Negative); Nitrite Urine Negative (Negative); PH 6.5 (5.0-9.0); Urine Blood Negative (Negative); Urine Ketones Negative (Negative); Urine Protein Negative (Neg-Trace)
[2022-05-14 23:11] LABS: MANUAL DIFF FLAG SCAN; WBC ABN SCTR FOR CBC 1; White Blood Count 12.8 X10*3/uL (4.8-10.8)
[2022-05-14 23:13] LABS: SLIDE REVIEW VERIFIED
[2022-05-14 23:14] LABS: Anion Gap 17 (12-20); Blood Urea Nitrogen 9 mg/dL (9-16); Calcium 9.3 mg/dL (8.4-10.2); Carbon Dioxide 20 mmol/L (22-29); Chloride 105 mmol/L (96-108); Creatinine Clr Calc Pharmacy 119.6; Estimated Glomerular Filt Rate > 60; Glucose Random 92 mg/dL (60-115); Potassium 4.2 mmol/L (3.3-5.1); Sodium 138 mmol/L (135-145)
[2022-05-15] VITALS: BP 128/57; PULSE 67; RESP 16; TEMP 36.7; O2SAT 98
--- NOTE | 2022-05-15 00:09 | PC.NURSE ---
this pct assumed care of pt at this time ,vs taken patient is comfortable in bed ,call romero within reach .
--- NOTE | 2022-05-15 00:22 | ECG_ITS ---
Test Reason : SICKLE CELL Blood Pressure : / mmHG Vent. Rate : 073 BPM Atrial Rate : 073 BPM P-R Int : 150 ms QRS Dur : 098 ms QT Int : 392 ms P-R-T Axes : 027 055 051 degrees QTc Int : 431 ms Normal sinus rhythm RSR' or QR pattern in V1 suggests right ventricular conduction delay Otherwise normal ECG When compared with ECG of 28-OCT-2021 08:38, No significant change was found Referred By: Adrian Baca Electronically Signed By:TERI GREEN MD
[2022-05-15 00:51] LABS: Troponin-I High Sensitivity < 3.5 ng/L (<3.5-35.0)
[2022-05-15 00:59] LABS: Reticulocytes Absolute 0.296 X10*6/uL (0.026-0.095)
[2022-05-15 01:00] LABS: Retic HGB Equivalent 32.2 pg (30.0-35.0)
[2022-05-15 01:01] LABS: Reticulocyte Percent 11.8 % (0.5-1.8)
--- OUTSIDE RECORDS SUMMARY | 2022-05-15 01:04 | XMS_ITS | Continuity of Care Document ---
:1995 Author Organization [facility] [place] [facility] Address [address] [place] [id number]- Care Team Providers Name Role Phone Not on Staff, PCP Primary Care Physician Unavailable Encounter [facility] Date(s): 06/02/20 - 09/16/20 [facility] [address] [id number] Discharge Disposition: A-D/C Home Attending Physician: Elis SMALL(Hem/Onc), Nando Nichols Admitting Physician: Elis SMALL(Hem/Onc)Nando Referring Physician: Not on Staff, Referring
--- OUTSIDE RECORDS SUMMARY | 2022-05-15 01:04 | XMS_ITS | Continuity of Care Document ---
:1995 Author Organization [facility] Address [address] [place] [id number]- Care Team Providers Name Role Phone Not on Staff, PCP Primary Care Physician Unavailable Encounter [facility] Date(s): 11/15/20 - 12/15/20 [facility] [address] [place] [address]- Attending Physician: Bertrand Guevara Admitting Physician: Bertrand Guevara Referring Physician: Bertrand Guevara
--- OUTSIDE RECORDS SUMMARY | 2022-05-15 01:04 | XMS_ITS | Continuity of Care Document ---
:1995 Author Organization [facility] Address [address] [place] [address]- Care Team Providers Name Role Phone Not on Staff, PCP Primary Care Physician Unavailable [facility]counter [facility] Date(s): 01/21/22 - 01/21/22 [facility] [address] [place] [address]- Discharge Disposition: A-D/C Walkout Attending Physician: Not on Staff, Attending MD Admitting Physician: Not on Staff, Admitting MD Referring Physician: Not on Staff, Referring MD Allergies, Adverse Reactions, Alerts Substance Reaction Severity Status morphine Active Results Radiology Reports Exam Date Time Procedure Performing Provider Status 01/21/22 5:30 PM Chest 2 Views Frontal and Lat Jose De Jesus Ramez; Au th (Verified) Notes:(Chest 2 Views Frontal and Lat) Reason For Exam: Chest Pain;Other:RESULT: Chest 2 Views Frontal and Lat Chest 2 Views Frontal and Lat Hx of Present Illness: pt c o sickle cell pain bilateral lower ext 9 10 pain and SOB pt denies any fever or chills no cough. denies any chest pain. pt states last SCC one month ago.; Reason: Other:; Chest Pain; Clinical Question(s): Other: COMPARISON: None. FINDINGS: LINES AND TUBES: None. LUNGS AND PLEURA: Clear lungs. Normal pulmonary vascularity. No pleural effusion. No pneumothorax. HEART, MEDIASTINUM AND JAVIER: Heart is normal in size. Normal upper mediastinal and hilar contour. BONES AND SOFT TISSUES: No acute abnormality. IMPRESSION: No acute abnormality. WSN: [id number] Ordering Physician: Fartun Asif Dictated By: Dima Jefferson MD Dictated Date/Time: 01/21/22 5:31 pm Reviewed By: Dima Jefferson MD Signed By: Dima Jefferson MD Signed Date/Time: 01/21/22 5:31 pm Transcribed By: JEFF Transcribed Date/Time: 01/21/22 5:31 pm Vital Signs Most recent to oldest 1 2 3 [Reference Range]: Height 175 cm (01/21/22 5:04 PM) Weight 65 kg (01/21/22 5:04 PM) Oxygen Saturation [94-100 94 % 95 % 97 % %] (01/21/22 6:49 PM) (01/21/22 5:04 PM) (01/21/22 4:0 4 PM) Pulse Rate [55-90 bpm] 92 bpm 93 bpm 111 bpm *H* *H* *H* (01/21/22 6:49 PM) (01/21/22 5:04 PM) (01/21/22 4:0 4 PM) Blood Pressure 131/59 mm Hg 130/63 mm Hg [90-138/55-84 mm Hg] (01/21/22 6:49 PM) (01/21/22 5:04 PM) Respiratory Rate [16-30 18 br/min 18 br/min br/min] (01/21/22 6:49 PM) (01/21/22 5:04 PM) Temperature [96.8-100.4 99.4 DegF 98.8 DegF DegF] (01/21/22 6:49 PM) (01/21/22 5:04 PM) Mode of Delivery (Oxygen) Room air Room air Room a ir (01/21/22 6:49 PM) (01/21/22 5:04 PM) (01/21/22 4:0 4 PM) Blood pressure sites Arm, right Arm, left (01/21/22 6:49 PM) (01/21/22 5:04 PM) Temperature Route Oral Oral (01/21/22 6:49 PM) (01/21/22 5:04 PM) Weight Obtained Via Patient/family stated (01/21/22 5:04 PM)
--- OUTSIDE RECORDS SUMMARY | 2022-05-15 01:04 | XMS_ITS | Continuity of Care Document ---
:1995 Author Organization [facility] Address [address] [place] [id number]- Care Team Providers Name Role Phone Not on Staff, PCP Primary Care Physician Unavailable [facility]counter [facility] Date(s): 11/15/20 - 01/04/21 [facility] [address] [place] [address]- Discharge Disposition: A-D/C Home Attending Physician: Elis SMALL(Hem/Onc), Nando Nichols Admitting Physician: Elis SMALL(Hem/Onc)Nando Referring Physician: Not on Staff, Referring
--- OUTSIDE RECORDS SUMMARY | 2022-05-15 01:04 | XMS_ITS | Continuity of Care Document ---
:1995 Author Organization [facility] Address [address] [place] [id number]- Care Team Providers Name Role Phone Not on Staff, PCP Primary Care Physician Unavailable Encounter [facility] Date(s): 06/02/20 - 07/02/20 [facility] [place] [address] [place] [address]- Attending Physician: Bertrand Guevara Admitting Physician: Bertrand Guevara Referring Physician: Bertrand Guevara
[2022-05-15 01:30] VITALS: BP 130/63; PULSE 75; RESP 16; TEMP 36.8; O2SAT 98
[2022-05-15] MEDS: HYDROmorphone HCl 1 MG/ML SYRINGE IVPUSH ×2 (01:41→02:55)
--- NOTE | 2022-05-15 01:47 | ED_ITS ---
HPI - General Adult General Chief complaint: General Medical Stated complaint: Sickle Cell Crisis Time Seen by Provider: 05/15/22 00:21 Source: patient Mode of arrival: ambulatory Limitations: no limitations History of Present Illness HPI narrative: 27-year-old male presents to the ED for sickle cell crisis exacerbation. Patient has been without pain meds for 2 months. Patient states he has not seen is heme oncologist for the past 2 months due to them having issues. Patient states yesterday/last night he woke up with back pain, chest pain, and body aches which is usual for his sickle cell crisis. Patient states no fever, chills, shortness of breath. Patient admits to chest pain. Related Data Home Medications Medication Instructions Recorded Confirmed clonidine HCl 0.1 mg tablet 0.1 mg PO BEDTIME 06/16/20 01/02/22 quetiapine 200 mg tablet (Seroquel) 200 mg PO TID 06/16/20 01/02/22 trazodone 50 mg tablet 50 mg PO BEDTIME 06/16/20 01/02/22 minocycline 50 mg capsule 1 cap PO BID 01/02/22 01/02/22 Allergies Allergy/AdvReac Type Severity Reaction Status Date / Time morphine AdvReac Agitated Verified 10/22/21 12:58 oxycodone AdvReac Agitated Verified 10/22/21 12:58 Review of Systems Review of Systems: SIckle Crisis exacerbation Yes all other systems are reviewed and are negative [facility] Past Medical History Medical History Avascular bone necrosis COVID-19 Sickle cell anemia with crisis Surgical History H/O splenectomy Family History Family History Other Sickle cell anemia Social History Social History Household Members: Significant Other Household Members Other:: fiancee Housing: Apartment Do you presently have visiting nurse or other home services: No Unable to assess alcohol history related to: Refusing to respond Alcohol intake: never Patient Tobacco Use Status: Current everyday Tobacco user Tobacco use type: Cigarette Cigarettes Per Day: 3 Years Smoked: 4 e-Cigarette/Vaping Use: Never Used Second Hand Smoke Exposure: Yes Substance Use Type: Marijuana and Prescription Drugs Advance Directives: No Advance Directives Information Provided: Yes Advance Directives Date on File: 06/13/21 service: No Current occupational status: unemployed and disabled Physical Exam ED Vital Signs: Vital Signs - 24 hr 05/14/22 22:34 05/15/22 00:00 05/15/22 01:30 Temperature 97.9 F 98.1 F 98.3 F Pulse Rate 76 67 75 Respiratory Rate 16 16 16 Blood Pressure 135/65 128/57 L 130/63 Pulse Oximetry 94 98 98 Oxygen Delivery Method Room Air Room Air Room Air BMI result Body Mass Index 21.4 Const General: cooperative, healthy appearing, comfortable, no acute distress, well developed, alert, awake and Physically active Orientation/consciousness: oriented to time and patient oriented x3 HENMT Head: Yes normal to inspection, Yes No palpable skull fracture present, Yes normocephalic, Yes atraumatic and No abrasion Eyes General: appearance normal, both eyes and all related structures Neck Neck: Yes normal visual inspection, Yes full ROM, Yes no lymphadenopathy, Yes no meningeal signs, Yes trachea midline, Yes supple, No anterior neck swelling and No tender Chest Chest palpation & inspection: normal inspection of the chest and normal palpation of entire chest wall Resp Effort & Inspection: normal respiratory effort and able to speak in complete sentences Auscultation: clear to auscultation bilaterally Cardio Jugular venous distension: no JVD and JVD Heart sounds: S1 normal heart sound present and S2 normal heart sound present GI Inspection: Yes normal to inspection and No abdominal wall ecchymosis Palpation (GI): Soft to palpation, not firm, nontender, no guarding and not rigid General: No CVA tenderness and Yes no CVA tenderness Back/Spine/Pelvis Back: no CVA tenderness, No CVA tenderness and No back tenderness Skin General skin exam: no rashes or lesions noted and elasticity normal Neuro General: oriented to time, patient oriented x3, gait normal, no meningeal signs and CN's II-XI intact bilaterally Cranial nerves: Yes CN's II-XII intact bilaterally Extrem General: Yes normal to inspection and Yes full ROM Psych Appearance: grossly normal, well kempt and not disheveled Course Course Course Narrative: Labs EKG chest x-ray ordered. Reevaluation(s) Reevaluation #1: EKG negative STEMI. Chest x-ray pending. Labs at baseline. To be admitted for sickle cell crisis exacerbation. Patient has excepted by hospitalist. Patient received Dilaudid 2 mg Time: 02:13 Medical Decision Making MDM Narrative Medical decision making narrative: Sickel Cell Crisis Lab Data Result diagrams: 05/14/22 22:45 05/14/22 22:45 Labs: Lab Results 05/14/22 05/14/22 05/14/22 Range/Units 22:45 22:45 22:45 WBC 12.8 H (4.8-10.8) X10*3/uL RBC 2.53 L (4.60-5.80) X10*6/uL Hgb 8.3 L (14.0-18.0) g/dl Hct 22.3 L (42.0-52.0) % MCV 88.1 (80.0-98.0) fL MCH 32.8 (27.0-33.0) pg MCHC 37.2 H (31.0-36.0) g/dl RDW 22.0 H (11.0-16.0) % Plt Count 419 H D (160-400) X10*3/uL MPV 9.6 (9.4-12.4) fL Immature Gran % (Auto) 0.5 H (0.0-0.4) % Neut % (Auto) 44.5 L (45-73) % Lymph % (Auto) 35.7 (20-40) % [place] % (Auto) 11.0 (2-11) % Eos % (Auto) 7.5 H (0-4) % Baso % (Auto) 0.8 (0-2) % Lymph # (Auto) 4.6 (1.2-4.9) X10*3/uL [place] # (Auto) 1.4 H (0.1-1.2) X10*3/uL Eos # (Auto) 1.0 H (0.0-0.4) X10*3/uL Baso # (Auto) 0.1 (0.0-0.2) X10*3/uL Abs Immat Gran (auto) 0.07 H (0.00-0.03) X10*3/uL Absolute Neuts (auto) 5.7 (2.0-8.3) x10*3/uL Absolute Nucleated RBC 0.050 H (0.0-0.012) X10*3/uL Nucleated RBC % (auto) 0.4 H (0.0-0.2) /100WBC Smear Tech's Comments VERIFIED Absolute Retic 0.296 H (0.026-0.095) X10*6/uL Percent Retic 11.8 H (0.5-1.8) % Immature Retic Fraction 25.0 H (2.3-13.4) % Retic Hgb Equivalent 32.2 (30.0-35.0) pg Sodium 138 (135-145) mmol/L Potassium 4.2 (3.3-5.1) mmol/L Chloride 105 (96-108) mmol/L Carbon Dioxide 20 L (22-29) mmol/L Anion Gap 17 (12-20) BUN 9 (9-16) mg/dL Creatinine 0.87 (0.5-1.4) mg/dL Estim Creat Clear Calc 119.6 Estimated GFR > 60 Random Glucose 92 (60-115) mg/dL Calcium 9.3 (8.4-10.2) mg/dL Troponin I High Sens < 3.5 (<3.5-35.0) ng/L Urine Color Urine Appearance Urine pH (5.0-9.0) Ur Specific [place] (1.005-1.025) Urine Protein (Neg-Trace) mg/dL Urine Glucose (UA) (Negative) mg/dL Urine Ketones (Negative) mg/dL Urine Blood (Negative) Urine Nitrite (Negative) Ur Leukocyte Esterase (Negative) 05/14/22 Range/Units 22:50 WBC (4.8-10.8) X10*3/uL RBC (4.60-5.80) X10*6/uL Hgb (14.0-18.0) g/dl Hct (42.0-52.0) % MCV (80.0-98.0) fL MCH (27.0-33.0) pg MCHC (31.0-36.0) g/dl RDW (11.0-16.0) % Plt Count (160-400) X10*3/uL MPV (9.4-12.4) fL Immature Gran % (Auto) (0.0-0.4) % Neut % (Auto) (45-73) % Lymph % (Auto) (20-40) % [place] % (Auto) (2-11) % Eos % (Auto) (0-4) % Baso % (Auto) (0-2) % Lymph # (Auto) (1.2-4.9) X10*3/uL [place] # (Auto) (0.1-1.2) X10*3/uL Eos # (Auto) (0.0-0.4) X10*3/uL Baso # (Auto) (0.0-0.2) X10*3/uL Abs Immat Gran (auto) (0.00-0.03) X10*3/uL Absolute Neuts (auto) (2.0-8.3) x10*3/uL Absolute Nucleated RBC (0.0-0.012) X10*3/uL Nucleated RBC % (auto) (0.0-0.2) /100WBC Smear Tech's Comments Absolute Retic (0.026-0.095) X10*6/uL Percent Retic (0.5-1.8) % Immature Retic Fraction (2.3-13.4) % Retic Hgb Equivalent (30.0-35.0) pg Sodium (135-145) mmol/L Potassium (3.3-5.1) mmol/L Chloride (96-108) mmol/L Carbon Dioxide (22-29) mmol/L Anion Gap (12-20) BUN (9-16) mg/dL Creatinine (0.5-1.4) mg/dL Estim Creat Clear Calc Estimated GFR Random Glucose (60-115) mg/dL Calcium (8.4-10.2) mg/dL Troponin I High Sens (<3.5-35.0) ng/L Urine Color Yellow Urine Appearance Clear Urine pH 6.5 (5.0-9.0) Ur Specific [place] 1.010 (1.005-1.025) Urine Protein Negative (Neg-Trace) mg/dL Urine Glucose (UA) Negative (Negative) mg/dL Urine Ketones Negative (Negative) mg/dL Urine Blood Negative (Negative) Urine Nitrite Negative (Negative) Ur Leukocyte Esterase Negative (Negative) ECG Data Interpretation: Normal sinus rhythm. Ventricular rate 73. Pr interval 150. QRS 98. QTC 431. Negative STEMI Discharge Plan Discharge Clinical Impression: Sickle cell crisis Patient Disposition: Admitted As Inpatient
[2022-05-15 02:57] VITALS: BP 151/82; PULSE 89
[2022-05-15] MEDS: ondansetron HCL 4 MG/2 ML VIAL IVPUSH (02:59)
[2022-05-15 03:13] LABS: COVID-19 Test Negative (Negative)
[2022-05-15 03:49] VITALS: BP 121/57; PULSE 78; RESP 16; TEMP 36.9; O2SAT 98
--- NOTE | 2022-05-15 03:50 | PM.IMHP ---
History of Present Illness Date of Service: 05/15/22 Chief Complaint: Sickle cell crisis This is a 27-year-old male to female presents the hospital with complaints of pain all over worsen her hips. She states that she has not had her sickle cell medications due to the fact that she has not seen her manager neonatal oncologist for 2 months. She has also had no medications for pain. Reports pain worse in her hips bilaterally, reports chest pain, arm and leg pain. She denies any shortness of breath, no abdominal pain, no diarrhea constipation, no urinary symptoms and no lower extremity edema. On arrival to the ED patient hemodynamically stable Labs are significant for WBC count of 12.8, hemoglobin of 8.3, hematocrit 22.3 which is her baseline, reticulocyte count of 32.2, UA negative, BMP unremarkable Chest x-ray unremarkable Review of Systems Review of Systems: Yes all other systems are reviewed and are negative [facility] Medical History Avascular bone necrosis COVID-19 Sickle cell anemia with crisis Family History Other Sickle cell anemia Surgical History H/O splenectomy Social History Household Members: Significant Other Household Members Other:: fiancee Housing: Apartment Do you presently have visiting nurse or other home services: No Unable to assess alcohol history related to: Refusing to respond Alcohol intake: never Patient Tobacco Use Status: Current everyday Tobacco user Tobacco use type: Cigarette Cigarettes Per Day: 3 Years Smoked: 4 e-Cigarette/Vaping Use: Never Used Second Hand Smoke Exposure: Yes Substance Use Type: Marijuana and Prescription Drugs Advance Directives: No Advance Directives Information Provided: Yes Advance Directives Date on File: 06/13/21 service: No Current occupational status: unemployed and disabled Meds Allergies Allergy/AdvReac Type Severity Reaction Status Date / Time morphine AdvReac Agitated Verified 10/22/21 12:58 oxycodone AdvReac Agitated Verified 10/22/21 12:58 Active Medications: Current Medications Acetaminophen (Acetaminophen 325 Mg Tablet) 650 mg PO Q6H PRN PRN Reason: Pain, Mild (Pain Scale 1-3) Docusate Sodium (Docusate Sodium 100 Mg Capsule) 100 mg PO DAILY PRN PRN Reason: Constipation Enoxaparin Sodium (Enoxaparin Sodium 40 Mg/0.4 Ml Syringe) 40 mg SUBCUT Q24H [facility] Lactated Ringer's (Lr) 1,000 mls @ 100 mls/hr IVCONT .Q10H [facility] Ondansetron HCl (Ondansetron Hcl 4 Mg/2 Ml Vial) 4 mg IVPUSH Q8H PRN PRN Reason: Nausea and Vomiting Sodium Chloride (0.9 % Sodium Chloride Flush 3 Ml Syringe) 3 ml IVFLUSH QSHIFT [facility] Home Medications Medication Instructions Recorded Confirmed Last Taken Type clonidine HCl 0.1 mg tablet 0.1 mg PO BEDTIME 06/16/20 05/15/22 10/21/21 History quetiapine 200 mg tablet (Seroquel) 200 mg PO TID 06/16/20 05/15/22 10/21/21 History trazodone 50 mg tablet 50 mg PO BEDTIME 06/16/20 05/15/22 10/21/21 History minocycline 50 mg capsule 1 cap PO BID 01/02/22 05/15/22 Unknown History Physical Exam Vital Signs and Narrative: Vital Signs: Last Vital Signs Temp 98.3 F 05/15/22 01:30 Pulse 89 05/15/22 02:57 Resp 16 05/15/22 01:30 BP 151/82 H 05/15/22 02:57 Pulse Ox 98 05/15/22 01:30 O2 Del Method 05/15/22 01:30 BMI result Body Mass Index 21.4 Const: General: cooperative and no acute distress Orientation/consciousness: patient oriented x3 Eyes: General: appearance normal, both eyes and all related structures Resp: Effort & Inspection: normal respiratory effort Auscultation: clear to auscultation bilaterally Cardio: Rate: regular rate Rhythm: regular rhythm GI: Palpation (GI): Soft to palpation Auscultation: normal bowel sounds Skin: General skin exam: no rashes or lesions noted Neuro: General: patient oriented x3 Cognition (Neuro): normal cognition Extrem: General: Yes normal to inspection and Yes no pedal edema Results Labs CBC and Chem 7: 05/14/22 22:45 05/14/22 22:45 Labs: Laboratory Results - last 24 hr 05/14/22 05/14/22 05/14/22 22:45 22:45 22:45 MCV 88.1 MCH 32.8 MCHC 37.2 H RDW 22.0 H Plt Count 419 H D MPV 9.6 Immature Gran % (Auto) 0.5 H Neut % (Auto) 44.5 L Lymph % (Auto) 35.7 [place] % (Auto) 11.0 Eos % (Auto) 7.5 H Baso % (Auto) 0.8 Lymph # (Auto) 4.6 [place] # (Auto) 1.4 H Eos # (Auto) 1.0 H Baso # (Auto) 0.1 Abs Immat Gran (auto) 0.07 H Absolute Neuts (auto) 5.7 Absolute Nucleated RBC 0.050 H Nucleated RBC % (auto) 0.4 H Smear Tech's Comments VERIFIED Absolute Retic 0.296 H Percent Retic 11.8 H Immature Retic Fraction 25.0 H Retic Hgb Equivalent 32.2 Anion Gap 17 Estim Creat Clear Calc 119.6 Estimated GFR > 60 Random Glucose 92 Calcium 9.3 Troponin I High Sens < 3.5 Urine Color Urine Appearance Urine pH Ur Specific [place] Urine Protein Urine Glucose (UA) Urine Ketones Urine Blood Urine Nitrite Ur Leukocyte Esterase COVID-19 (MICHAEL) COVID-19 Clin Com 05/14/22 05/15/22 22:50 02:48 MCV MCH MCHC RDW Plt Count MPV Immature Gran % (Auto) Neut % (Auto) Lymph % (Auto) [place] % (Auto) Eos % (Auto) Baso % (Auto) Lymph # (Auto) [place] # (Auto) Eos # (Auto) Baso # (Auto) Abs Immat Gran (auto) Absolute Neuts (auto) Absolute Nucleated RBC Nucleated RBC % (auto) Smear Tech's Comments Absolute Retic Percent Retic Immature Retic Fraction Retic Hgb Equivalent Anion Gap Estim Creat Clear Calc Estimated GFR Random Glucose Calcium Troponin I High Sens Urine Color Yellow Urine Appearance Clear Urine pH 6.5 Ur Specific [place] 1.010 Urine Protein Negative Urine Glucose (UA) Negative Urine Ketones Negative Urine Blood Negative Urine Nitrite Negative Ur Leukocyte Esterase Negative COVID-19 (MICHAEL) Negative COVID-19 Clin Com See Note Imaging Radiologist's Impressions: Impressions Chest X-Ray 05/15/22 02:32 IMPRESSION: No acute cardiopulmonary findings. Assessment and Plan (1) Sickle cell crisis: Status: Acute Plan 27-year-old female past medical history of sickle cell presents to the hospital with pain due to sickle cell disease # sickle cell pain crisis - hemodynamically stable, hemoglobin stable, reticulocyte count normal, no drop in hemoglobin, no elevated bilirubin - will start on Dilaudid she states she is allergic to Oxy and morphine - no evidence of infection, patient denies any recent history of dehydration - when she with IV fluids, pain control DVT prophylaxis: Lovenox Quality Stroke Does the patient have a stroke diagnosis?: No VTE Prior VTE?: No VTE Risk Level:: Medical - moderate - high VTE Device Contraindication: Treatment Not Indicated VTE Drug Contraindication: N/A - Med Ordered
[2022-05-15] MEDS: Lactated Ringers 1,000 ML 100 ML IVCONT (04:08)
--- NOTE | 2022-05-15 04:16 | PC.NURSE ---
0400 rounding done ,vs taken pt had 2 tuna sandwich and drank 240 ml roxana peña ,fresh pitcher of water given ,call romero within reach .
[2022-05-15] MEDS: Acetaminophen 325 MG TABLET 650 MG PO (05:22)
[2022-05-15] MEDS: HYDROmorphone HCl 0.5 MG/0.5 ML SYRINGE IVPUSH (05:22)
[2022-05-15 06:51] LABS: MANUAL DIFF FLAG NO
[2022-05-15 06:53] LABS: Basophils Absolute Auto 0.1 X10*3/uL (0.0-0.2); Eosinophils Absolute Auto 0.7 X10*3/uL (0.0-0.4); Eosinophils Percent Auto 5.4 % (0-4); Hematocrit 21.1 % (42.0-52.0); Hemoglobin 7.7 g/dl (14.0-18.0); Imm Gran Abs Auto 0.09 X10*3/uL (0.00-0.03); Imm Gran Pct Auto 0.7 % (0.0-0.4); Lymphocytes Percent Auto 33.3 % (20-40); Mean Corpuscular HGB Conc 36.5 g/dl (31.0-36.0); Mean Corpuscular Hemoglobin 32.5 pg (27.0-33.0); Mean Platelet Volume 10.4 fL (9.4-12.4); Monocytes Absolute Auto 1.4 X10*3/uL (0.1-1.2); Monocytes Percent Auto 11.2 % (2-11); Neutrophils Absolute Auto 5.8 x10*3/uL (2.0-8.3); Neutrophils Percent Auto 48.4 % (45-73); Platelet Count 356 X10*3/uL (160-400); Red Blood Count 2.37 X10*6/uL (4.60-5.80); Red Cell Distribution Width 21.8 % (11.0-16.0)
[2022-05-15 06:54] LABS: NRBC Pct Auto 2.2 /100WBC (0.0-0.2)
--- NOTE | 2022-05-15 07:17 | PHA.MEDREC ---
Pharmacy Consult ? Medication Reconciliation Pharmacy has reviewed the medication reconciliation completed by Gail. Janice Nelson, NilesD
[2022-05-15 07:39] VITALS: BP 121/64; PULSE 84; RESP 14; TEMP 36.7; O2SAT 91
--- NOTE | 2022-05-15 08:00 | PC.NURSE ---
patient refuse breakfast.
[2022-05-15 08:57] LABS: Anion Gap 17 (12-20); Blood Urea Nitrogen 10 mg/dL (9-16); Calcium 9.2 mg/dL (8.4-10.2); Carbon Dioxide 20 mmol/L (22-29); Chloride 105 mmol/L (96-108); Creatinine Clr Calc Pharmacy 126.9; Estimated Glomerular Filt Rate > 60; Glucose Random 98 mg/dL (60-115); Potassium 4.9 mmol/L (3.3-5.1); Sodium 137 mmol/L (135-145)
--- NOTE | 2022-05-15 08:57 | PC.NURSE ---
Hospitalist to go assess pt, levi was found on bed. IV and fluids had been removed by pt and were also on the bed.
--- NOTE | 2022-05-15 09:39 | PM.EVENT ---
Event Note Date of Service: 05/15/22 Event Note: patient was admitted for no generalized pain diagnosed to have sickle cell crisis was treated with IV fluids and IV Dilaudid For detail please review history and physical done early this morning due However patient eloped this morning before being evaluated Discharge diagnosis Sickle cell pain crisis
== END 2022-05-15 16:20 | disposition left against medical advice (07) ==
LOC: HO.ED 05-15 02:14 → HO.EDOVER 05-15 03:56
PROVIDERS: Physician Assistant; Admitting Provider Internal Medicine; Emergency Provider Emergency Medicine; PCP Pediatrics; Visit Provider Hospitalist
DX: D57.1 Sickle-cell disease without crisis (principal); G89.4 Chronic pain syndrome; R07.89 Other chest pain; F17.210 Nicotine dependence, cigarettes, uncomplicated; Z20.822 Contact with and (suspected) exposure to COVID-19; Z71.6 Tobacco abuse counseling; Z79.899 Other long term (current) drug therapy
CPT/HCPCS: 36415; 71045; 80048; 81003; 84484; 85025; 85045; 87635; 93005; 96365; 96366; 96372; 96376; 99218; 99285; J1170; J2405

== ENCOUNTER 2022-05-15 21:40 | Emergency (ER) | payer MEDICARE, SELFPAY ==
[2022-05-15 22:05] VITALS: BP 142/47; PULSE 78; RESP 16; TEMP 36.7; O2SAT 96; BMI 21.4
== END 2022-05-16 01:55 | disposition left against medical advice (07) ==
LOC: HO.ED 05-16 01:47
PROVIDERS: Emergency Provider Emergency Medicine
DX: D57.00 Hb-SS disease with crisis, unspecified (principal)
CPT/HCPCS: 99281